=== PATIENT | female | born 1950 | race Asian ===

== ENCOUNTER 2017-01-29 10:43 | Inpatient (IN) | payer OTHER ==
[~2017-01-29] VITALS: Ht 154.9 cm; Wt 66.0 kg
[2017-01-29] MEDS ORDERED: SOD CHLORIDE 0.9% 1,000 ML IV STA ×2 (11:05)
[2017-01-29] MEDS ORDERED: HYDROmorphONE 1 MG/ML SYG IV STA (11:05)
[2017-01-29] MEDS ORDERED: CEFEPIME 2GM/50 ML (PMX) 50 ML IVPB STA (11:05)
[2017-01-29] MEDS ORDERED: PROPOFOL 100 ML IV STA (11:05)
[2017-01-29] MEDS ORDERED: SODIUM CHLORIDE 0.9% 500 ML BAG IV* STA (11:05)
[2017-01-29] MEDS ORDERED: VECURONIUM 100 MG in DEXTROSE 5% 100 ML IV ONE (11:05)
[2017-01-29] MEDS ORDERED: VECURONIUM 10 MG VIAL IV ONE (11:30)
[2017-01-29] MEDS ORDERED: VANCOMYCIN 1 GM (PMX) 250 ML IVPB ONE (11:30)
[2017-01-29] MEDS ORDERED: MIDAZOLAM (DRIP) 50 mg/50 mL 50 ML IV STA (11:54)
[2017-01-29] MEDS ORDERED: NORepinephrine 8MG/250 ML (PMX 250 ML IV STA (11:54)
[2017-01-29 11:59] LABS: ADD SCAN DIFF NO
--- NOTE | 2017-01-29 12:06 | RADRPT ---
PROCEDURE: XR Chest. CLINICAL INDICATION: Status post intubation TECHNIQUE: Single portable view of the chest was obtained COMPARISON: None FINDINGS: There is a new endotracheal tube 2.5 cm above the stalin. There is a left-sided central line with its tip overlying the mid SVC. There are external pacemakers overlying the left chest. The heart size appears grossly normal in size. There are extensive infiltrates throughout the lungs, left greater than right. There is a moderate left pleural effusion. RPTAT: AA IMPRESSION: New endotracheal tube in appropriate position. Left-sided central line in place with no pneumothorax. Extensive bilateral infiltrates, left greater than right. Moderate left pleural effusion. .Mateo Allen MD, MD Date Time Electronically viewed and signed by .Mateo Allen MD, on 01/29/2017 12:06 .S/
[2017-01-29 12:14] LABS: INR 1.45; PROTIME 17.7 Sec (12.2-14.2); PT RATIO 1.4
[2017-01-29 12:15] LABS: PARTIAL THROMBOPLASTIN TIME 60.9 Sec (25.0-35.0)
[2017-01-29 12:17] LABS: ALBUMIN 2.5 g/dl (3.3-4.9); ALBUMIN/GLOBULIN RATIO 0.71; BILIRUBIN,INDIRECT 0.3 mg/dl (0-1.1); BILIRUBIN,TOTAL 0.3 mg/dl (0.2-1.3); CALCIUM 10.4 mg/dl (8.4-10.2); CREATININE 1.31 mg/dl (0.44-1.00); MAGNESIUM 2.5 mg/dl (1.7-2.5); PHOSPHORUS 11.8 mg/dl (2.5-4.9)
[2017-01-29 12:23] LABS: POTASSIUM 2.6 mmol/L (3.5-5.1)
[2017-01-29 12:25] LABS: ABNORMAL IP MESSAGE 1; BASOPHILS % 0.4 % (0.0-2.0); EOSINOPHILS # 0.1 10^3/ul (0.0-0.5); EOSINOPHILS % 1.3 % (0.0-7.0); HEMATOCRIT 37.5 % (37.0-47.0); LYMPHOCYTES # 2.5 10^3/ul (0.8-2.9); LYMPHOCYTES % 30.8 % (15.0-51.0); MEAN CORPUSCULAR VOLUME 90.6 fl (82.0-101.0); MEAN PLATELET VOLUME 12.4 fl (7.4-10.4); MONOCYTE # 0.2 10^3/ul (0.3-0.9); MONOCYTES % 2.1 % (0.0-11.0); NEUTROPHIL # 4.8 10^3/ul (1.6-7.5); NEUTROPHILS % 58.2 % (39.0-77.0); PLATELET COUNT 193 10^3/UL (140-415); RED BLOOD COUNT 4.14 10^6/ul (4.20-5.40); WHITE BLOOD COUNT 8.2 10^3/ul (4.8-10.8)
[2017-01-29 12:27] LABS: TROPONIN-I 0.047 ng/ml (0.00-0.12)
[2017-01-29] MEDS ORDERED: POTASSIUM CHLORIDE 250 ML IVPB ONE ×2 (13:00)
[2017-01-29] MEDS ORDERED: SOD CHLORIDE 0.9% 100 ML ONE (13:34)
[2017-01-29] MEDS ORDERED: IODIXANOL LOCM 100 ML BTL ONE (13:34)
[2017-01-29] MEDS ORDERED: IODIXANOL LOCM 50 ML BTL ONE (13:35)
--- NOTE | 2017-01-29 14:04 | RADRPT ---
PROCEDURE: CT Brain without contrast. CLINICAL INDICATION: Altered mental status, unresponsive TECHNIQUE: Routine CT scan of the brain was performed on a high resolution multi detector scanner without intravenous contrast. One or more of the following dose reduction techniques were used: Auto mated exposure control; Adjustment of the mA and/or kV according to patient size; Use of iterative r econstruction technique. CTDI = 44 mGy. DLP = 630 mGy-cm. COMPARISON: No prior relevant examinations are available for comparison. FINDINGS: Hemorrhage: No evidence of intracranial hemorrhage. Acute ischemic changes: No evidence of acute ischemic changes. Mass effect/Midline shift: None. Parenchymal volume: Within normal limits for age. Ventricular system: Concordant with parenchymal volume. Chronic changes: Mild chronic-appearing microvascular ischemic changes of the supratentorial white m atter. Extracranial soft tissues: Unremarkable. Calvarium: No fractures. Paranasal sinuses: Small fluid levels are seen throughout the paranasal sinuses. Mastoid air cells: Visualized mastoid air cells are clear. IMPRESSION: No acute intracranial abnormalities. Mild chronic-appearing microvascular ischemic changes of the supratentorial white matter. MRI of the brain may be useful for further evaluation. Small fluid level seen throughout the paranasal sinuses may represent allergic rhinitis or mild sinu sitis. RPTAT: AADD .Adam Lora MD, MD Date Time Electronically viewed and signed by .Adam Lora MD, MD on 01/29/2017 14:04 .B/
--- NOTE | 2017-01-29 14:12 | ERA ---
ER Documentation Chief Complaint Date/Time DATE: 01/29/17 TIME: 14:06 Chief Complaint CARDIAC ARREST HPI Patient is a 66-year-old female with multiple myeloma who presents short of breath and unresponsive. Please note the history and physical exam as the patient is currently unresponsive. Upon review of old medical records this is the patient's first visit to the emergency department. ROS All systems reviewed and are negative except as per history of present illness. Medications Home Meds Unable to Obtain Active Prescriptions or Reported Meds Allergies Allergies: Coded Allergies: Unknown: Unable to obtain (Unverified , 01/29/17) PMhx/Soc Multiple myeloma Medical and Surgical Hx: Unable to obtain Hx Alcohol Use: No Hx Substance Use: No Hx Tobacco Use: No Smoking Status: Never smoker FmHx Unable to obtain Physical Exam Vitals Vital Signs Date Time Temp Pulse Resp B/P Pulse Ox O2 Delivery O2 Flow Rate FiO2 01/29/17 13:10 99.0 116 19 121/39 100 Mechanical Ventilator 01/29/17 12:30 99.1 124 19 116/48 100 Mechanical Ventilator 01/29/17 12:15 99.1 128 19 124/51 100 Mechanical Ventilator 01/29/17 11:40 140 19 100 01/29/17 11:06 174 11 171/74 94 Physical Exam Const: [] Head: Atraumatic Eyes: Normal Conjunctiva ENT: Normal External Ears, Nose and Mouth. Neck: Full range of motion..~ No meningismus. Resp: Clear to auscultation bilaterally Cardio: Regular rate and rhythm, no murmurs Abd: Soft, non tender, non distended. Normal bowel sounds Skin: No petechiae or rashes Back: No midline or flank tenderness Ext: No cyanosis, or edema Neur: Awake and alert Psych: Normal Mood and Affect Result Diagram: 01/29/17 1130 01/29/17 1130 Results 24 hrs Laboratory Tests Test 01/29/17 11:30 White Blood Count 8.210^3/ul Red Blood Count 4.1410^6/ul Hemoglobin 12.0g/dl Hematocrit 37.5% Mean Corpuscular Volume 90.6fl Mean Corpuscular Hemoglobin 29.0pg Mean Corpuscular Hemoglobin Concent 32.0g/dl Red Cell Distribution Width 15.0% Platelet Count 12688^3/UL Mean Platelet Volume 12.4fl Neutrophils % 58.2% Lymphocytes % 30.8% Monocytes % 2.1% Eosinophils % 1.3% Basophils % 0.4% Nucleated Red Blood Cells % 0.0/100WBC Neutrophils # 4.810^3/ul Lymphocytes # 2.510^3/ul Monocytes # 0.210^3/ul Eosinophils # 0.110^3/ul Basophils # 0.010^3/ul Nucleated Red Blood Cells # 0.010^3/ul Prothrombin Time 17.7Sec Prothrombin Time Ratio 1.4 INR International Normalized Ratio 1.45 Activated Partial Thromboplast Time 60.9Sec Sodium Level 133mmol/L Potassium Level 2.6mmol/L Chloride Level 93mmol/L Carbon Dioxide Level 13mmol/L Anion Gap 30 Blood Urea Nitrogen 15mg/dl Creatinine 1.31mg/dl Glucose Level 209mg/dl Lactic Acid Level 21.9mmol/L Calcium Level 10.4mg/dl Phosphorus Level 11.8mg/dl Magnesium Level 2.5mg/dl Total Bilirubin 0.3mg/dl Direct Bilirubin 0.00mg/dl Indirect Bilirubin 0.3mg/dl Aspartate Amino Transf (AST/SGOT) 33IU/L Alanine Aminotransferase (ALT/SGPT) 17IU/L Alkaline Phosphatase 77IU/L Troponin I 0.047ng/ml Total Protein 6.0g/dl Albumin 2.5g/dl Globulin 3.50g/dl Albumin/Globulin Ratio 0.71 Current Medications Medications (Trade) Dose Ordered Sig/Jazmin Route PRN Reason Start Time Stop Time Status Last Admin Dose Admin Cefepime HCl 50 ml @ 100 mls/hr ONCE STAT IVPB 01/29/17 11:05 01/29/17 11:34 DC 01/29/17 11:05 Vancomycin HCl 250 ml @ 125 mls/hr ONCE ONCE IVPB 01/29/17 11:30 01/29/17 13:29 DC 01/29/17 11:30 Sodium Chloride 1,000 ml @ 1,000 mls/hr Q1H STAT IV 01/29/17 11:05 01/29/17 12:04 DC 01/29/17 11:46 Sodium Chloride (NS) 1,000 ml @ 1,000 mls/hr Q1H STAT IV 01/29/17 11:05 01/29/17 12:04 DC 01/29/17 11:46 Hydromorphone HCl 1 mg 1 mg ONCE STAT IV 01/29/17 11:05 01/29/17 11:09 DC 01/29/17 11:22 Propofol (Diprivan) 100 ml @ 2.04 mls/hr ONCE STAT IV 01/29/17 11:05 01/29/17 11:56 DC 01/29/17 11:23 Sodium Chloride (NS) 500 ml ONCE STAT IV* 01/29/17 11:05 01/29/17 11:09 DC 01/29/17 11:47 Vecuronium [place] 8 mg 8 mg ONCE ONCE IV 01/29/17 11:30 01/29/17 11:31 DC 01/29/17 12:56 Vecuronium [place] 100 mg/ Dextrose 100 ml @ 4.08 mls/hr Q24H ONCE IV 01/29/17 11:05 01/30/17 11:04 01/29/17 12:56 Norepinephrine 250 ml @ 7.5 mls/hr ONCE STAT IV 01/29/17 11:54 01/30/17 21:13 01/29/17 12:12 Midazolam HCl 50 ml @ 3 mls/hr ONCE STAT IV 01/29/17 11:54 01/30/17 04:33 01/29/17 12:11 Potassium Chloride 250 ml @ 62.5 mls/hr ONCE ONCE IVPB 01/29/17 13:00 01/29/17 13:18 DC Potassium Chloride 250 ml @ 62.5 mls/hr ONCE ONCE IVPB 01/29/17 13:00 01/29/17 16:59 Cancel Potassium Chloride (KCl 40 MEQ/250 ML NS) 250 ml @ 62.5 mls/hr Q4H IVPB 01/29/17 13:30 01/29/17 21:29 IV Flush 10 ml 10 ml STK-MED ONCE .ROUTE 01/29/17 13:34 01/29/17 13:35 DC Sodium Chloride (NS) 100 ml @ ud STK-MED ONCE .ROUTE 01/29/17 13:34 01/29/17 13:35 DC Iodixanol (Visipaque Locm) 100 ml STK-MED ONCE .ROUTE 01/29/17 13:34 01/29/17 13:35 DC Iodixanol (Visipaque Locm) 50 ml STK-MED ONCE .ROUTE 01/29/17 13:35 01/29/17 13:36 DC Procedures/MDM EKG #1 read by me: Rate/Rhythm: Rapid atrial fibrillation at rate of 193 Intervals: Normal Impression: Rapid atrial fibrillation EKG #2 read by me: Rate/Rhythm: Sinus tachycardia at a rate of 139 Intervals: Prolonged QTC Impression: Sinus tachycardia with prolonged QTC without ST elevation Chest X-ray 1V Interpreted by me: Soft Tissue: No acute abnormalities Bones: No acute abnormalities Mediastinum/Cardiac Silhouette/Lungs: Bilateral pneumonia with ET tube and central line in good position without pneumothorax CT scan of the chest pending at this time. CT scan of the brain pending at this time. Admit MDM: Patient's infectious symptoms have not stabilized and the patient is at risk of rapid decompensation. The patient will be admitted for careful hydration, antibiotic therapy, and infectious source control. Severe Sepsis criteria: Infectious source: Pneumonia End organ damage indicated by: Lactate greater than 2 Sepsis Management: Time of recognition of sepsis: 11:30 Within 3 hours of recognition: Blood cultures x 2 before broad-spectrum antibiotics: Yes 30 ml/kg NS bolus Completed Initial lactate 21.9 Repeat lactate pending Time of recognition of septic shock: 11:30 Septic Shock Assessment: Any lactic acid > 4.0 yes Persistent hypotension (SBP < 90 or 40 mmHg drop, MAP < 65) despite 30 mL/kg IV fluid bolus yes Volume Re-assessment for Septic Shock (post 30 ml/kg bolus): Temp 99.1, BP 116/48, HR 124, RR 19, Pox 100% on a ventilator Heart tachycardic rate Lungs decreased breath sounds bilaterally Skin pale and dry Cap Refill Less than 2 seconds Peripheral pulses Radially present Persistent Hypotension Treatment: Comfort care No Central line left subclavian central line placed Vasopressor started norepinephrine I considered further perfusion assessment with CVP measurement, SCVO2, bedside ultrasound volume assessment, passive leg raise, trial of further fluid bolus. And proceeded with 30 ml/kg fluid bolus of NSS, broad spectrum antibiotics, and admission. The patient also has hypokalemia and was given 80 mEq of potassium. The patient was placed on hypothermia protocol as I was concerned about brain ischemia given the hypoxia and cardiac arrest. Please note the patient was brought directly back to ER1 as soon as the patient was seen in triage. The patient was brought in by her . My sense is that the patient had a cardiac arrest from septic shock and hypoxia given the bilateral pneumonia. Accepting Care Team Current data and ongoing care discussed. Admitting Physician: Dr. Gillespie from the panel team Photoengraving Etcher Apprentice(s): None Outstanding Data: Culture results and repeat lactic acid Critical Care: Critical care time 50 minutes excluding all billable procedures Emergent fluid management while maintaining close respiratory support. Provision of immediate and broad-spectrum antibiotic therapy. Simultaneous assessment for possible sources in order to direct targeted therapy. Consideration for invasive and chemical support to prevent cardiopulmonary collapse. Endotracheal Intubation by me: Pre assessment performed. Pre-oxygenation performed with 100% oxygen RSI: Performed w/o complication or hypoxic events. Medications as ordered. Blade: MAC 3 Glidescope ET Tube: 7.5 cm Depth: 20 cm at the lip Intubation confirmed by colorimetric CO2, equal breath sounds, quiet over the stomach. Central Line Placement by me: Patient consented, sterilely draped, full prep, gown, glove, mask, time out performed. Anesthesia: 1% lidocaine locally Location: Left subclavian Device: Multiple lumen Technique: Seldinger technique. Secured with suture. Results: Venous return from all ports with easy saline flush. No complications. Guide wire retrieved and disposed of. Departure Diagnosis: Primary Impression: Septic shock Additional Impressions: Cardiac arrest Hypotension Qualified Code: I95.9 - Hypotension, unspecified hypotension type Hypokalemia Acidosis Condition: Critical DELFINA VU MD Jan 29, 2017 14:12
--- NOTE | 2017-01-29 14:17 | RADRPT ---
PROCEDURE: CTA Chest. CLINICAL INDICATION: Chest pain TECHNIQUE: The study was performed utilizing a multidetector CT scanner. Direct spiral 1 mm axial sections were obtained from the thoracic inlet to the upper abdomen with the use of 105 cc of Visipa que 320 nonionic intravenous contrast material and reformatted at 3 mm. Coronal and sagittal reforma tions were obtained. 3-D reconstructions were also obtained. The images were reviewed on a PACS wor kstation. DLP 299.2 mGycm CTDIvol 8.5 and 8.5 mGy COMPARISON: Chest x-ray on the same date FINDINGS: The pulmonary arteries are within normal limits with no filling defects present to suggest pulmonary embolus. Aortic and coronary artery atherosclerotic plaque and calcification are present with no e vidence of dissection. There is no cardiomegaly. Left-sided central line catheter terminates within the SVC. There is trace pericardial fluid. The endotracheal tube extends into the lower trachea an d terminates above the stalin. There is a [id number] size left-sided multiloculated effusion. There is a trace amount of la yering right-sided pleural fluid. Left-sided effusion results in approximately 40% collapse of the left posterior lung from mass effect. There is mild left pleural thickening with visible septations . Within the aerated lungs there are multifocal areas of peribronchial consolidation along with ground -glass and some of this is a nodular appearance. Air bronchograms is seen extending through these a reas with the airways wall thickening. Small foci of airways occlusion are present. There is parti al dense consolidation of the right lower lobe and of the lingula. Layering stone is seen within the gallbladder. Degenerative changes are seen in the lumbar spine wi th no evidence of acute osseous abnormality. IMPRESSION: No CT evidence for pulmonary embolus. There is no aortic dissection. Multifocal areas of consolidation are present involving the lingula and right lower lobe along with perihilar consolidation bilaterally along with associated ground-glass worrisome for multifocal pneu monia. There is a moderate to large left-sided loculated pleural effusion with visible septations causing p artial collapse the left lung. There is a trace amount of right pleural fluid. Cholelithiasis is present. Atherosclerotic disease. RPTAT: AA .Nathan De La Rosa MD, MD Date Time Electronically viewed and signed by .Nathan De La Rosa MD, MD on 01/29/2017 14:17 .J/
[2017-01-29 15:06] LABS: AADO2 Arterial 554.3 mmHg (7.0-24.0); Allen Test ACCEPTAB; Arterial Base Excess -8.8 mmol/L (-3.0-3); Arterial COHb 0.3 % (0.0-3.0); Arterial Fraction of Oxyhgb 97.7 % (93.0-99.0); Arterial HCO3 17.4 mmol/L (22.0-26.0); Arterial MetHb 0.2 % (0.0-1.5); Arterial Total Hemglobin 12.1 g/dl (12.0-18.0); MODE VENT - AC
[2017-01-29] MEDS ORDERED: morphine 2 MG INJ IV PRN (16:30)
[2017-01-29] MEDS ORDERED: ONDANSETRON 4 MG INJ IV PRN (16:30)
[2017-01-29] MEDS ORDERED: VANCOMYCIN IV PER PHARMACY XX SCH (16:30)
[2017-01-29] MEDS ORDERED: NACL 0.9% 3 ML SYG IV SCH (16:30)
--- NOTE | 2017-01-29 17:30 | HP ---
DATE OF ADMISSION: 01/29/2017 CHIEF COMPLAINT: Cardiac arrest. HISTORY OF PRESENT ILLNESS: The patient is a 66-year-old female with history of multiple myeloma, w ho presents with shortness of breath and altered mental status. On arrival in the ED, the patient w as unresponsive. This is the patient's first visit to the ER. The patient had gone to [facility], was intubated, and ACLS with return of circulation, and was started on hypothermia protocol. No history can be obtained from the patient as she is currently intubated and sedated. PAST MEDICAL HISTORY: Multiple myeloma, remaining history is unknown. PAST SURGICAL HISTORY: Unable to obtain. HOME MEDICATIONS: Unable to obtain. ALLERGIES: UNKNOWN. FAMILY HISTORY: Unknown. SOCIAL HISTORY: Unknown. REVIEW OF SYSTEMS: Unable to obtain. PHYSICAL EXAMINATION: VITAL SIGNS: Temperature is 98.5, pulse 74, respiratory rate is 19, blood pressure is 126/58, satur ation 100% on mechanical ventilation. GENERAL: Intubated and sedated. HEENT: Normocephalic, atraumatic. CHEST: Bilateral crackles. CARDIOVASCULAR: Regular rate and rhythm. ABDOMEN: Nondistended, soft. EXTREMITIES: No clubbing, cyanosis, or edema. LABORATORY DATA: White count is 8.2, hemoglobin is 12.0, platelets 193. Chemistry: Sodium is 133, potassium 2.6, chloride 93, carbon dioxide 13, anion gap 30, BUN 15, creatinine 1.3. Lactic acid 2 1.9. Calcium 10.4, phosphorus 11.8. INR is 1.45. DIAGNOSTICS: Chest CTA shows no evidence of pulmonary embolism. There is no aortic dissection, is suspicious for multifocal pneumonia. There is moderate to large left-sided loculated pleural effusi on with septations causing partial collapse of left lung, trace amount of right pleural fluid. Ches t x-ray shows new ET tube in appropriate position, left-sided central line in place, extensive bilat eral infiltrates, left greater than right, moderate left-sided pleural effusion. Brain CT shows no acute abnormalities, some mild chronic appearing microvascular ischemic changes in the supratentoria l white matter. There is allergic rhinitis or mild sinusitis. ASSESSMENT AND PLAN: 1. Cardiac arrest with return of circulation. The patient is currently on hypothermia protocol, is intubated and sedated, and will be transferred to the ICU. We will get a pulmonology consultation. Cause of the cardiac arrest may be from sepsis from underlying pneumonia. We will treat with broa d-spectrum antibiotics. We will get an ID consult as well. 2. Severe shock with lactic acidosis secondary to cardiogenic and/or infectious source. Lactic aci d has trended down. We will treat with IV fluids. 3. Acute kidney injury, likely secondary to underlying septic shock as well as cardiac arrest. We will get a nephrology consultation. 4. Hypokalemia. This has been repleted in the ED. 5. Anion gap acidosis secondary to lactic acidosis. Once again, we will get a nephrology consultat ion. 6. Multifocal pneumonia. We will treat with IV antibiotics. The patient does also have a large le ft-sided loculated pleural effusion. We will follow up on pulmonology recommendations. 7. Prophylaxis: Sequential compression devices. Dictated By: HANY LAWSON MD BS/NTS Conf#: [id number] DID#: [id number]
[2017-01-29] MEDS: ARTIFICIAL TEARS 15 ML OPH BOTH EYES PRN ×2 (17:35→22:58)
[2017-01-29 17:49] LABS: CK-MB 33.2 ng/ml (0.0-2.4)
--- NOTE | 2017-01-29 17:58 | QN ---
Documentation Comment [id number] CONSULT A/P MARINE VDRF SEPSIS HYPOKALEMIA HYPERPHOSPHATEMIA' METABOLIC ACIDOSIS PLAN KCL IV FLUID SODIUM BICARBONATE CINDY MARES MD Jan 29, 2017 17:58
[2017-01-29 18:00] LABS: TROPONIN-I 0.15 ng/ml (0.00-0.12)
[2017-01-29] MEDS: POTASSIUM CHLORIDE 250 ML IVPB SCH ×2 (18:10→21:44)
--- NOTE | 2017-01-29 18:26 | CONS ---
DATE OF ADMISSION: 01/29/2017 DATE OF CONSULTATION: 01/29/2017 REASON FOR CONSULTATION: Ventilator management, critical care management. HISTORY OF PRESENT ILLNESS: This is a 66-year-old lady with a history of multiple myeloma managed b y hematology/oncologist in [place], who had apparently been doing well with a recent bone marrow bio psy which showed improvement in overall condition. The patient has been on maintenance medications. She has had several-day history of increasing shortness of breath, generalized weakness, fever, an d fatigue. She was in the emergency waiting room today when she became unresponsive with subsequent cardiac arrest with loss of circulation. The patient received CPR for less than 10 minutes with sp ontaneous return of circulation, following ACLS protocol. Since that time, has been placed on mecha nical ventilation and hypothermia protocol. PAST MEDICAL HISTORY: Multiple myeloma. MEDICATIONS: Per chart. ALLERGIES: NONE. SOCIAL HISTORY: Nonsmoker, no alcohol, no history of drug use. FAMILY HISTORY: Noncontributory. SYSTEMS REVIEW: A 12-point review of systems unable to perform. PHYSICAL EXAMINATION: GENERAL: Elderly-appearing lady, intubated on mechanical ventilation, appears comfortable at rest, no acute distress. VITAL SIGNS: Temperature 98, pulse is 70, blood pressure 134/58, O2 saturation 96% on FIO2 of 100%. NECK: Supple. No JVD or lymphadenopathy. CARDIAC: S1, S2, no added sounds or murmurs. CHEST: Diminished air entry bilaterally. ABDOMEN: Soft, nontender. No guarding or rebound. EXTREMITIES: No cyanosis, clubbing, edema. NEUROLOGIC: Unable to assess. LABORATORY DATA: White count 8.2, hemoglobin 12, platelets of 193. BUN 15, creatinine 1.31. Lacti c acid initially 21.9, now 4.2. Potassium 2.6, bicarbonate was 13. Arterial blood gas shows a pH o f 7.32, pCO2 of 32, PaO2 of 136, bicarbonate was 17. INR 1.45. IMAGING: Chest x-ray was reviewed, shows extensive bilateral infiltrates, left greater than right. CT angiogram was performed demonstrates moderate to large left loculated pleural effusion with visi ble septations, multifocal consolidation, no evidence of pulmonary embolism. IMPRESSION AND PLAN: Compensated pleural effusion, likely empyema given appearance with evidence of loculation, now septic shock with cardiopulmonary arrest. Underlying history of multiple myeloma. The patient will require: 1. Continue broad-spectrum antibiotics. 2. Continue mechanical ventilation. 3. Continue hypothermia protocol. 4. DVT and GI prophylaxis. 5. Aggressive volume resuscitation. Case was discussed with primary care team and patient's family at bedside. Dictated By: MOHSEN DUARTE/ZANA Conf#: [id number] DID#: [id number]
[2017-01-29 18:30] LABS: PHOSPHORUS 4.1 mg/dl (2.5-4.9)
[2017-01-29] MEDS: PIPER-TAZO 3.375 GM IV (PMX) 100 ML IVPB SCH ×2 (18:38→23:31)
[2017-01-29 18:40] LABS: ALBUMIN 2.1 g/dl (3.3-4.9)
[2017-01-29 18:43] LABS: ALBUMIN/GLOBULIN RATIO 0.6; BILIRUBIN,DIRECT 0.4 mg/dl (0.00-0.20); BILIRUBIN,INDIRECT 0.3 mg/dl (0-1.1); BILIRUBIN,TOTAL 0.7 mg/dl (0.2-1.3); CALCIUM 7.6 mg/dl (8.4-10.2); CREATININE 1.04 mg/dl (0.44-1.00); TOTAL PROTEIN 5.6 g/dl (6.1-8.1)
--- NOTE | 2017-01-29 18:54 | CONS ---
DATE OF ADMISSION: 01/29/2017 DATE OF CONSULTATION: 01/29/2017 TYPE OF CONSULTATION: Infectious Disease. REASON FOR CONSULTATION: Antibiotic management. HISTORY OF PRESENT ILLNESS: Billy Rogers is a 66-year-old female who suffered a cardiac arrest and is being seen now for antibiotic management. PAST MEDICAL HISTORY: Past problems include: History of multiple myeloma. The patient presents wit h shortness of breath. On arrival in the emergency room, she was unresponsive. She underwent a car diac arrest, was intubated. ACLS was done with return of circulation. The patient was started on hy pothermia protocol. No history other than that was obtained. PAST SURGICAL HISTORY: Operations as outlined. FAMILY HISTORY: Noncontributory. SOCIAL HISTORY: She does not smoke, drink or abuse drugs. ALLERGIES: NONE TO PENICILLIN, SULFA OR FOODS. MEDICATIONS: Per chart reviewed. REVIEW OF SYSTEMS: As per HPI. PHYSICAL EXAMINATION: NEUROLOGIC EVALUATION: The patient is intubated and sedated. SKIN: Without generalized rash. HEENT: Within normal limits. NECK: Supple. LYMPH NODES: None palpable. CHEST: Decreased breath sounds at the bases. HEART: Without murmur or gallop. ABDOMEN: Soft, nontender without organosplenomegaly or masses. EXTREMITIES: Without cyanosis, clubbing or edema. RECTAL AND GENITAL: Deferred. NEUROLOGIC: The patient is obtunded on a respirator. LABORATORY DATA: White count is 8.2, hemoglobin 12, platelets 193, BUN and creatinine 15/1.3, lacti c acid 21.9, calcium 10.4, phosphorus 11.8. IMAGING: Chest CT angiogram shows no evidence of pulmonary emboli, no aortic dissection. There is a suspicion for multifocal pneumonia. There is moderate to large left-sided loculated pleural effus ions with septation causing partial collapse of the left lung, trace amount of right pleural fluid. Chest x-ray shows an ET tube. She has left-sided central line in place, extensive bilateral infilt rates, left greater than right, moderate left-sided pleural effusion. STUDIES: CT scan of the brain shows no abnormalities, mild chronic appearing microvascular ischemic changes in the supratentorial white matter. There is allergic rhinitis or mid sinusitis. IMPRESSION AND PLAN: The patient comes in with cardiac arrest and probable aspiration pneumonia. S he was started on vancomycin and Zosyn. Cultures have been done. She will be going to the ICU. I will dictate my findings to the hospitalist. Dictated By: TOBIN VELIZ MD, JD/ZANA Conf#: [id number] DID#: [id number]
[2017-01-29 19:12] LABS: ADD UMIC YES; URINE BILIRUBIN (Dip) 1+ (NEGATIVE); URINE BLOOD (Dip) 3+ (NEGATIVE); URINE COLOR YELLOW (YELLOW); URINE KETONES (Dip) 15 (NEGATIVE); URINE LEUKOCYTE ESTERASE (Dip) NEGATIVE (NEGATIVE); URINE NITRITE (Dip) NEGATIVE (NEGATIVE); URINE TOTAL PROTEIN (Dip) 2+ (NEGATIVE); URINE UROBILINOGEN (Dip) 0.2 E.U./dL (0.1-1.0)
[2017-01-29 19:34] LABS: PROTEIN/CREAT RATIO 7.81 RATIO
--- NOTE | 2017-01-29 19:37 | CONS ---
DATE OF ADMISSION: 01/29/2017 DATE OF CONSULTATION: TYPE OF CONSULTATION: Nephrology consultation Thank you, Dr. Engle, for kindly asking me to see this patient in nephrology consultation. HISTORY OF PRESENT ILLNESS: The patient is a 66-year-old female with history of multiple myeloma on Velcade, as per patient's family member who is at bedside , presented to this hospital with flu-like symptoms, short of breath. The patient, on arrival in the ER, was unresponsive. The patient had a cardiac arrest and was intubated. Started currently on hypothermia protocol. Herself is unable to provide any detailed history. Noted to have electrolyte imbalance and nephrology consultation requested. The patient's blood pressure initially 80/60, currently 134/58. Laboratory data: Hematocrit 37.5, platelet count of 193. Sodium 133, potassium 2.6, BUN of 15, creatinine 1.31. Calcium 10.4, phosphorus 11.8. Lactic acid 21.9, repeat one is 4.2. Albumin 2.5. Globulin 3.50. The patient received potassium supplementation. The patient is being monitored for further management. PAST MEDICAL HISTORY: Positive for multiple myeloma on chemotherapy. The patient's other history is not available. ALLERGY HISTORY, FAMILY HISTORY, AND SOCIAL HISTORY: Cannot be obtained. MEDICATION HISTORY: Not available. REVIEW OF SYSTEMS: Cannot be obtained. PHYSICAL EXAMINATION: GENERAL: The patient is intubated, unresponsive. VITAL SIGNS: Pulse 61, blood pressure 128/53. HEENT: Head is atraumatic, normocephalic. Pupils are equal, reactive. NECK: Supple. LUNGS: Clear. CARDIOVASCULAR: S1, S2 are normal. ABDOMEN: Soft, nontender. Bowel sounds positive. No palpable mass. EXTREMITIES: The patient has no cyanosis, clubbing. Trace edema. CENTRAL NERVOUS SYSTEM: The patient is intubated at this point on hypothermia protocol. LABORATORY DATA: As mentioned, hematocrit 37.5. The patient's lactic acid 3.7. Sodium 133, potassium 2.6 as mentioned, CO2 of 13, BUN 13, creatinine 1.31 , calcium 10.4, phosphorus 11.8. The patient had pH 7.3, pCO2 of 32, pO2 of 106. IMPRESSION: 1. Acute cardiorespiratory arrest. 2. The patient has acute kidney injury with possible underlying chronic kidney disease. 3. The patient has severe metabolic acidosis, lactic acidosis. 4. Hypokalemia, hypophosphatemia, severe. 5. History of multiple myeloma. 6. Rule out underlying chronic myeloma kidney. PLAN: At this point is to obtain urine for UA, urine sodium and creatinine, as well as urine protein creatinine ratio. The patient is currently on vancomycin , Protonix, Zosyn. The patient should be given IV fluid with sodium bicarbonate after repeating patient's BMP if still acidotic. The patient will have potassium supplementation. The patient's phosphorus will be monitored. The patient with hypocalcemia and hyperphosphatemia After repeat laboratory data , currently stable. The patient should have ultrasound of the kidney to assess the size of the kidney. The patient's CT of the brain shows no acute intracranial abnormality. The patient's chest x-ray shows the ET tube in place. CT chest angio shows no CT evidence of pulmonary embolism, multifocal areas of consolidation are present. There is a have large left-sided loculated pleural effusion, cholelithiasis, atherosclerotic disease. The patient is going to be admitted to ICU with close followup and electrolyte monitoring. Thank you, Dr. Engle, for kindly asking me to see this patient in nephrology consultation. Dictated By: CINDY MARES MD BS/NTS Conf#: [id number] DID#: [id number] CC: HANY ENGLE MD;*EndCC* MTDD
[2017-01-29 19:49] LABS: BACTERIA,URINE FEW; ICTOTEST NEGATIVE (NEGATIVE); SQUAMOUS EPITHELIAL CELL,UR FEW; URINE RBCS 0-2 /HPF (0)
[2017-01-29 23:14] LABS: CK-MB 32.5 ng/ml (0.0-2.4)
[2017-01-29 23:17] LABS: TROPONIN-I 0.113 ng/ml (0.00-0.12)
[2017-01-30] VITALS (30 sets, daily range): BP systolic 82–129; BP diastolic 25–83; PULSE 91–109; RESP 11–17; TEMP 92.9; Ht 154.9 cm; Wt 66.0 kg
[2017-01-30 00:04] LABS: AADO2 Arterial 266.6 mmHg (7.0-24.0); Allen Test ACCEPTAB; Arterial Base Excess -13.1 mmol/L (-3.0-3); Arterial COHb 0.1 % (0.0-3.0); Arterial Fraction of Oxyhgb 92.6 % (93.0-99.0); Arterial HCO3 14.2 mmol/L (22.0-26.0); Arterial MetHb 0.1 % (0.0-1.5); Arterial Total Hemglobin 14.1 g/dl (12.0-18.0); MODE AC
[2017-01-30 00:16] LABS: ADD SCAN DIFF NO
[2017-01-30 00:17] LABS: ABNORMAL IP MESSAGE 1; HEMATOCRIT 38.7 % (37.0-47.0); HEMOGLOBIN 13.2 g/dl (12.0-16.0); MEAN CORPUSCULAR HEMOGLOBIN 29.3 pg (29.0-33.0); MEAN CORPUSCULAR HGB CONC 34.1 g/dl (32.0-37.0); MEAN CORPUSCULAR VOLUME 85.8 fl (82.0-101.0); MEAN PLATELET VOLUME 12.7 fl (7.4-10.4); PLATELET COUNT 164 10^3/UL (140-415); RED BLOOD COUNT 4.51 10^6/ul (4.20-5.40); RED CELL DISTRIBUTION WIDTH 15.1 % (11.5-14.5); WHITE BLOOD COUNT 6.3 10^3/ul (4.8-10.8)
[2017-01-30] MEDS: ACCU-CHEK XX SCH ×6 (00:17→21:00)
[2017-01-30 00:24] LABS: CALCIUM 7.2 mg/dl (8.4-10.2); CREATININE 1.04 mg/dl (0.44-1.00); MAGNESIUM 1.8 mg/dl (1.7-2.5); PHOSPHORUS 4.7 mg/dl (2.5-4.9); POTASSIUM 3.8 mmol/L (3.5-5.1)
[2017-01-30 00:40] LABS: INR 1.25; PROTIME 15.8 Sec (12.2-14.2); PT RATIO 1.2
[2017-01-30 00:41] LABS: PARTIAL THROMBOPLASTIN TIME 35.1 Sec (25.0-35.0); TROPONIN-I 0.124 ng/ml (0.00-0.12)
[2017-01-30] MEDS ORDERED: NA BICARBONATE 8.4% 50 ML SYG IV ONE (01:00)
[2017-01-30 01:40] LABS: EOSINOPHILS # 0.2 10^3/ul (0.0-0.5); LYMPHOCYTES # 1.8 10^3/ul (0.8-2.9); MONOCYTE # 0.3 10^3/ul (0.3-0.9)
[2017-01-30 01:41] LABS: PLATELET ESTIMATE PLT APPEAR ADEQUATE
[2017-01-30] MEDS: NS + KCL 20 MEQ 1,000 ML IV SCH ×3 (02:03→15:40)
[2017-01-30 03:30] LABS: AADO2 Arterial 290.1 mmHg (7.0-24.0); Allen Test ACCEPTAB; Arterial Base Excess -5.1 mmol/L (-3.0-3); Arterial COHb 0.3 % (0.0-3.0); Arterial Fraction of Oxyhgb 95.9 % (93.0-99.0); Arterial HCO3 19.7 mmol/L (22.0-26.0); Arterial MetHb 0.1 % (0.0-1.5); Arterial Total Hemglobin 13.8 g/dl (12.0-18.0); MODE VENT - AC
[2017-01-30] MEDS: ARTIFICIAL TEARS 15 ML OPH BOTH EYES PRN (04:29)
[2017-01-30 05:13] LABS: ADD SCAN DIFF NO
[2017-01-30 05:17] LABS: ABNORMAL IP MESSAGE 1; BASOPHIL # 0.1 10^3/ul (0.0-0.1); BASOPHILS % 1.9 % (0.0-2.0); EOSINOPHILS # 0.1 10^3/ul (0.0-0.5); EOSINOPHILS % 1.5 % (0.0-7.0); HEMATOCRIT 36.5 % (37.0-47.0); HEMOGLOBIN 12.7 g/dl (12.0-16.0); LYMPHOCYTES # 1.4 10^3/ul (0.8-2.9); LYMPHOCYTES % 30.9 % (15.0-51.0); MEAN CORPUSCULAR HEMOGLOBIN 29.1 pg (29.0-33.0); MEAN CORPUSCULAR HGB CONC 34.8 g/dl (32.0-37.0); MEAN CORPUSCULAR VOLUME 83.7 fl (82.0-101.0); MEAN PLATELET VOLUME 13.3 fl (7.4-10.4); MONOCYTE # 0.3 10^3/ul (0.3-0.9); MONOCYTES % 5.6 % (0.0-11.0); NEUTROPHIL # 2.5 10^3/ul (1.6-7.5); NEUTROPHILS % 53.4 % (39.0-77.0); PLATELET COUNT 100 10^3/UL (140-415); RED BLOOD COUNT 4.36 10^6/ul (4.20-5.40); RED CELL DISTRIBUTION WIDTH 14.8 % (11.5-14.5); WHITE BLOOD COUNT 4.7 10^3/ul (4.8-10.8)
[2017-01-30 05:27] LABS: ALBUMIN 1.8 g/dl (3.3-4.9); CHLORIDE 109 mmol/L (97-110)
[2017-01-30 05:28] LABS: INR 1.25; POTASSIUM 3.2 mmol/L (3.5-5.1); PROTIME 15.8 Sec (12.2-14.2); PT RATIO 1.2; SODIUM 146 mmol/L (135-144)
[2017-01-30 05:29] LABS: PARTIAL THROMBOPLASTIN TIME 32.6 Sec (25.0-35.0)
[2017-01-30 05:30] LABS: ALBUMIN/GLOBULIN RATIO 0.58; ANION GAP 18 (8-16); BILIRUBIN,INDIRECT 0.2 mg/dl (0-1.1); BILIRUBIN,TOTAL 0.2 mg/dl (0.2-1.3); CARBON DIOXIDE 22 mmol/L (21-31); CREATININE 1.01 mg/dl (0.44-1.00); TOTAL PROTEIN 4.9 g/dl (6.1-8.1)
[2017-01-30 05:31] LABS: ALANINE AMINOTRANSFERASE 40 IU/L (13-69); ALKALINE PHOSPHATASE 47 IU/L (42-121); ASPARTATE AMINO TRANSFERASE 48 IU/L (15-46); BLOOD UREA NITROGEN 24 mg/dl (7-20); CALCIUM 6.7 mg/dl (8.4-10.2); GLUCOSE 171 mg/dl (70-220); MAGNESIUM 1.8 mg/dl (1.7-2.5); PHOSPHORUS 3.9 mg/dl (2.5-4.9); TRIGLYCERIDES 117 mg/dl (0-149)
[2017-01-30 05:32] LABS: HDL CHOLESTEROL 10 mg/dl (35-98)
[2017-01-30 05:35] LABS: CHOLESTEROL < 50 mg/dl (100-200)
[2017-01-30] MEDS: PIPER-TAZO 3.375 GM IV (PMX) 100 ML IVPB SCH ×3 (05:41→18:45)
[2017-01-30] MEDS: PANTOPRAZOLE 40 MG INJ IV SCH (05:41)
[2017-01-30] MEDS ORDERED: POTASSIUM CHLORIDE 20 MEQ in SOD CHLORIDE 0.9% 100 ML IVPB ONE ×2 (06:00→14:00)
[2017-01-30] MEDS ORDERED: NA BICARBONATE 8.4% 50 ML SYG ONE (07:00)
[2017-01-30] MEDS ORDERED: CA CHLORIDE 10% 10 ML SYRINGE ONE (07:00)
[2017-01-30] MEDS ORDERED: EPINEPHrine 0.1 MG/ML SYG ONE (07:00)
--- NOTE | 2017-01-30 07:25 | RADRPT ---
PROCEDURE: XR Chest. CLINICAL INDICATION: Cough. Hypothermia protocol. TECHNIQUE: Portable single view of the chest COMPARISON: 01/29 FINDINGS: Lung volumes are reduced compared with prior. Tubes and lines remain in good position. Apparent in crease in bilateral lung infiltrates or edema may be due to hypoventilation. There does appear to b e slight increase in left pleural effusion. Top normal heart size. IMPRESSION: Shallower lung volumes. Possible slight increase in pleural effusion. Otherwise likely stable exam . RPTAT: HLBE Willa Bishop Physician Date Time Electronically viewed and signed by Willa Bishop Physician on 01/30/2017 07:25 LE/
[2017-01-30 09:04] LABS: AADO2 Arterial 294.9 mmHg (7.0-24.0); Allen Test ACCEPTAB; Arterial Base Excess -6.4 mmol/L (-3.0-3); Arterial COHb 0.3 % (0.0-3.0); Arterial Fraction of Oxyhgb 94.7 % (93.0-99.0); Arterial HCO3 19.2 mmol/L (22.0-26.0); Arterial MetHb 0.3 % (0.0-1.5); Arterial Total Hemglobin 13.5 g/dl (12.0-18.0); MODE VENT - AC
[2017-01-30] MEDS: VANCOMYCIN 1 GM in NS 250 ML IVPB SCH (12:14)
--- NOTE | 2017-01-30 12:30 | CONS ---
Date/Time of Note Date/Time of Note DATE: 01/30/17 TIME: 12:27 Assessment/Plan Assessment/Plan Additional Assessment/Plan Chest x-ray was reviewed from today which is showing extensive pneumonia mostly involving the left lung. Endotracheal tube is at an adequate level. Current ventilator settings are AC of 16, tidal volume 450, PEEP of 5, 55% FiO2. Assessment recommendations; next 1. Patient admitted with bilateral pneumonia leading to respiratory failure. 3. Episode of cardiac arrest requiring brief CPR, currently on hypothermia protocol. 3. History of multiple myeloma. Continue current treatment. Patient will be taken off hypothermia protocol in the next 1 hour. Meanwhile add Levaquin to current antibiotic regimen. Also because of thrombocytopenia I would recommend stopping Zosyn and switching the patient to cefepime 1 g IV every 12 hours. I did have a detailed discussion the patient's daughter at bedside and answered all her questions. 35 minutes of critical care time was spent evaluating the patient. Consultation Date/Type/Reason Admit Date/Time HEENT exam is; supple neck, no JVD. No lymphadenopathy. Midline trachea. Orally intubated. Patient bilateral cataracts. Pupils are small bilaterally. No neck masses. No neck bruits. Chest exam is; crackles involving left lung. Right lung is fairly clear. S1- S2 audible, no murmurs. Regular rhythm. Abdomen examination; soft, no organomegaly. Bowel sounds audible. Extremity exam; no peripheral edema. Pulses 1+ bilaterally. [employer] CONSULTANT examination; patient is sedated and paralyzed. Type of Consultation: Pulmonary/critical care 24 HR Interval Summary Free Text/Dictation Patient condition is critical. The patient had a cardiac arrest last night was intubated by ER physician also underwent a brief CPR lasting around 2 minutes. Patient currently on hypothermia protocol. Exam; elderly woman, orally intubated, sedated and paralyzed. Exam/Review of Systems Vital Signs Vitals Vital Signs Date Time Temp Pulse Resp B/P Pulse Ox O2 Delivery O2 Flow Rate FiO2 01/30/17 11:36 91.5 79 16 141/65 100 Mechanical Ventilator 01/30/17 05:08 55 Intake and Output 01/29/17 01/29/17 01/30/17 15:00 23:00 07:00 Intake Total 600 ml 250 ml Output Total 500 ml Balance 100 ml 250 ml Results Result Diagram: 01/30/17 0500 01/30/17 0500 Results 24 hrs Laboratory Tests Test 01/29/17 15:05 01/29/17 16:30 01/29/17 17:09 01/29/17 17:10 Lactic Acid Level 4.2 *H 3.7 H Bedside Glucose 107 122 Sodium Level 137 Potassium Level 3.0 L Chloride Level 103 # Carbon Dioxide Level 18 L Anion Gap 19 #H Blood Urea Nitrogen 20 Creatinine 1.04 H Glucose Level 141 # Uric Acid 9.0 H Calcium Level 7.6 L Phosphorus Level 4.1 # Total Bilirubin 0.7 Direct Bilirubin 0.40 #H Indirect Bilirubin 0.3 Aspartate Amino Transf (AST/SGOT) 65 H Alanine Aminotransferase (ALT/SGPT) 42 Alkaline Phosphatase 61 Creatine Kinase 1263 H Creatine Kinase Index 2.6 Creatinine Kinase MB (Mass) 33.20 H Troponin I 0.150 *H Total Protein 5.6 L Albumin 2.1 L Globulin 3.50 H Albumin/Globulin Ratio 0.60 Test 01/29/17 18:55 01/29/17 20:12 01/29/17 22:18 01/30/17 00:00 Urine Color YELLOW Urine Clarity CLEAR Urine pH 5.5 Urine Specific [place] 1.010 Urine Ketones 15 Urine Nitrite NEGATIVE Urine Bilirubin 1+ H Urine Ictotest NEGATIVE Urine Urobilinogen 0.2 E.U./dL Urine Leukocyte Esterase NEGATIVE Urine Microscopic RBC 0-2 Urine Microscopic WBC 2-5 Urine Squamous Epithelial Cells FEW Urine Bacteria FEW Urine Coarse Granular Casts RARE Urine Hemoglobin 3+ H Urine Random Creatinine 39.65 Urine Random Sodium 21 L Urine Protein/Creatinine Ratio 7.81 Urine Glucose 0.25% H Urine Total Protein 310.0 H Bedside Glucose 117 White Blood Count 6.3 # Red Blood Count 4.51 Hemoglobin 13.2 Hematocrit 38.7 Mean Corpuscular Volume 85.8 Mean Corpuscular Hemoglobin 29.3 Mean Corpuscular Hemoglobin Concent 34.1 Red Cell Distribution Width 15.1 H Platelet Count 164 Mean Platelet Volume 12.7 H Neutrophils % 63.0 Lymphocytes % 29.0 Monocytes % 5.0 Eosinophils % 3.0 Basophils % Nucleated Red Blood Cells % 1.0 H Neutrophils # 4.0 Lymphocytes # 1.8 Monocytes # 0.3 Eosinophils # 0.2 Basophils # Platelet Estimate PLT APPEAR ADEQUATE Prothrombin Time 15.8 H Prothrombin Time Ratio 1.2 INR International Normalized Ratio 1.25 Activated Partial Thromboplast Time 35.1 H Fibrinogen 438.0 Sodium Level 134 L Potassium Level 3.8 Chloride Level 109 Carbon Dioxide Level 16 L Anion Gap 13 Blood Urea Nitrogen 21 H Creatinine 1.04 H Glucose Level 158 Calcium Level 7.2 L Phosphorus Level 4.7 Magnesium Level 1.8 Creatine Kinase 776 H Creatine Kinase Index 4.2 Creatinine Kinase MB (Mass) 32.50 H Troponin I 0.124 *H Amylase Level 36 Lipase 245 Blood Gas Specimen Source Blood arterial Arterial Blood Date Drawn 01/29/2017 11:58:38 PM Arterial Blood pH (Temp corrected) 7.251 *L Arterial Blood pCO2 (Temp correct) 31.3 L Arterial Blood pO2 (Temp corrected) 59.4 L Arterial Blood HCO3 14.2 L Arterial Blood Base Excess -13.1 L Arterial Blood Oxygen Saturation 92.8 L Ariel Test ACCEPTAB Arterial Blood Gas Puncture Site Left Radial Arterial Blood Carboxyhemoglobin 0.1 Arterial Blood Methemoglobin 0.1 Blood Gas A-a O2 Differential 266.6 H Oxyhemoglobin Percent 92.6 L Total Hemoglobin 14.1 Blood Gas Temperature 32.9 Blood Gas Respiration Rate 16.0 Blood Gas Actual Respiration Rate 16 Blood Gas Modality AC FiO2 50.0 Blood Gas Tidal Volume 550.0 Blood Gas Low PEEP Setting 5.0 Blood Gas Inspiratory Pressure 31.0 Blood Gas Critical Value Read Back DR. ABEBE Blood Gas Notified Whom [facility] Blood Gas Notified Time 01/30/2017 12:03:51 AM Test 01/30/17 03:00 01/30/17 05:00 01/30/17 05:20 01/30/17 06:00 Blood Gas Specimen Source Blood arterial Blood arterial Arterial Blood Date Drawn 01/30/2017 3:20:10 AM 01/30/2017 8:55:25 AM Arterial Blood pH (Temp corrected) 7.410 7.374 Arterial Blood pCO2 (Temp correct) 30.6 L 32.2 L Arterial Blood pO2 (Temp corrected) 73.3 L 66.6 L Arterial Blood HCO3 19.7 L 19.2 L Arterial Blood Base Excess -5.1 L -6.4 L Arterial Blood Oxygen Saturation 96.3 95.3 Ariel Test ACCEPTAB ACCEPTAB Arterial Blood Gas Puncture Site Left Radial Right Radial Arterial Blood Carboxyhemoglobin 0.3 0.3 Arterial Blood Methemoglobin 0.1 0.3 Blood Gas A-a O2 Differential 290.1 H 294.9 H Oxyhemoglobin Percent 95.9 94.7 Total Hemoglobin 13.8 13.5 Blood Gas Temperature 33.0 33.0 Blood Gas Respiration Rate 16.0 16.0 Blood Gas Actual Respiration Rate 16 16 Blood Gas Modality VENT - AC VENT - AC FiO2 55.0 55.0 Blood Gas Tidal Volume 450.0 450.0 Blood Gas Low PEEP Setting 5.0 5.0 Blood Gas Inspiratory Pressure 31.0 Blood Gas Critical Value Read Back rodrigo Blood Gas Notified Whom rodrigo tail sawyer JLD Blood Gas Notified Time 01/30/2017 3:29:53 AM 01/30/2017 9:04:12 AM White Blood Count 4.7 #L Red Blood Count 4.36 Hemoglobin 12.7 Hematocrit 36.5 L Mean Corpuscular Volume 83.7 Mean Corpuscular Hemoglobin 29.1 Mean Corpuscular Hemoglobin Concent 34.8 Red Cell Distribution Width 14.8 H Platelet Count 100 #L Mean Platelet Volume 13.3 H Neutrophils % 53.4 Lymphocytes % 30.9 Monocytes % 5.6 Eosinophils % 1.5 Basophils % 1.9 Nucleated Red Blood Cells % 0.0 Neutrophils # 2.5 Lymphocytes # 1.4 Monocytes # 0.3 Eosinophils # 0.1 Basophils # 0.1 Nucleated Red Blood Cells # 0.0 Prothrombin Time 15.8 H Prothrombin Time Ratio 1.2 INR International Normalized Ratio 1.25 Activated Partial Thromboplast Time 32.6 Fibrinogen 392.0 # Sodium Level 146 H Potassium Level 3.2 L Chloride Level 109 Carbon Dioxide Level 22 Anion Gap 18 H Blood Urea Nitrogen 24 H Creatinine 1.01 H Glucose Level 171 Hemoglobin A1c 5.7 Calcium Level 6.7 L Phosphorus Level 3.9 Magnesium Level 1.8 Total Bilirubin 0.2 Direct Bilirubin 0.00 # Indirect Bilirubin 0.2 Aspartate Amino Transf (AST/SGOT) 48 H Alanine Aminotransferase (ALT/SGPT) 40 Alkaline Phosphatase 47 Total Protein 4.9 L Albumin 1.8 L Globulin 3.10 Albumin/Globulin Ratio 0.58 Triglycerides Level 117 Cholesterol Level < 50 L LDL Cholesterol, Calculated HDL Cholesterol 10 L Cholesterol/HDL Ratio Lactic Acid Level 2.8 H Test 01/30/17 08:53 01/30/17 11:26 Bedside Glucose 165 150 Medications Medications Current Medications Potassium Chloride/Sodium Chloride (NS-KCl 20 Meq) 1,000 ml @ 125 mls/hr Q8H IV Last administered on 01/30/17 02:03; Admin Dose 125 MLS/HR; Start 01/29/17 at 16:15 Ondansetron HCl (Zofran Inj) 4 mg Q6H PRN IV NAUSEA AND/OR VOMITING; Start at 16:30 Morphine Sulfate (morphine) 2 mg Q4H PRN IV SEVERE PAIN LEVEL 7-10; Start 01/29 at 16:30 Pantoprazole 40 mg 40 mg DAILY@06 IV Last administered on 01/30/17 05:41; Admin Dose 40 MG; Start 01/30/17 at 06:00 Piperacillin Sod/ Tazobactam Sod 100 ml @ 200 mls/hr Q6 IVPB Last administered on 01/30/17 11:10; Admin Dose 200 MLS/HR; Start 01/29/17 at 18:00 Vancomycin HCl (Vancocin) 250 ml @ 125 mls/hr Q24H IVPB Last administered on 12:14; Admin Dose 125 MLS/HR; Start 01/30/17 at 11:30 Eye Lubricant (Artificial Tears Oph) 2 drop Q6H PRN BOTH EYES DRY EYES Last administered on 01/30/17 04:29; Admin Dose 2 DROP; Start 01/29/17 at 18:30 Diagnostic Test (Pha) (Accu-Chek) 1 ea Q4 XX Last administered on 01/30/17 08: 58; Admin Dose 1 EA; Start 01/30/17 at 01:00 TERESA FAITH Jan 30, 2017 12:30
[2017-01-30 13:06] LABS: ADD SCAN DIFF NO
[2017-01-30] MEDS: LEVOFLOXACIN 500MG/D5W (PMX) 100 ML IVPB ONE ×2 (13:06→14:34)
[2017-01-30 13:12] LABS: ABNORMAL IP MESSAGE 1; HEMATOCRIT 34.9 % (37.0-47.0); HEMOGLOBIN 12.2 g/dl (12.0-16.0); MEAN CORPUSCULAR HEMOGLOBIN 29.3 pg (29.0-33.0); MEAN CORPUSCULAR VOLUME 83.7 fl (82.0-101.0); RED BLOOD COUNT 4.17 10^6/ul (4.20-5.40); RED CELL DISTRIBUTION WIDTH 14.9 % (11.5-14.5)
[2017-01-30 13:17] LABS: INR 1.03; PROTIME 13.5 Sec (12.2-14.2); PT RATIO 1.1
[2017-01-30 13:20] LABS: CREATININE 0.97 mg/dl (0.44-1.00)
[2017-01-30 13:21] LABS: CALCIUM 6.8 mg/dl (8.4-10.2); MAGNESIUM 1.7 mg/dl (1.7-2.5); PHOSPHORUS 4.2 mg/dl (2.5-4.9)
[2017-01-30 13:27] LABS: POTASSIUM 2.9 mmol/L (3.5-5.1)
[2017-01-30 13:33] LABS: TROPONIN-I 0.09 ng/ml (0.00-0.12)
--- NOTE | 2017-01-30 15:16 | CONS ---
Date/Time of Note Date/Time of Note DATE: 01/30/17 TIME: 14:52 Assessment/Plan Assessment/Plan Chief Complaint/Hosp Course ID PROGRESS NOTE ABX DAY #2=> Vanco IV #2 + Zosyn #2 + Levaquin #1 24H INTERVAL SUMMARY * Patient admitted yesterday s/p cardia arrest -- was placed on hypothermia protocol -- spouse at bedside * Seen today in ED Bed #4 -> orally intubated/vented, on pressors, warming blanket - obtunded * ID team was called for antibiotic management of aspiration PNA in setting cardiac arrest * CXR revealed bilateral infiltrates * CT Thorax 01/29 revealed Multifocal areas of consolidation are present involving the lingula and right lower lobe along with perihilar consolidation bilaterally along with associated ground-glass worrisome for multifocal pneumonia.There is a moderate to large left-sided loculated pleural effusion with visible septations causing partial collapse the left lung. There is a trace amount of right pleural fluid. * 01/30/17 1400 01/30/17 1240 Shruti: 01/29/17-1145 Source: BLOOD Sp Descrip: Microbiology BLOOD CULTURE Preliminary BCULT GRAM BOTTLE 1 Gram positive cocci in pairs and chains . seen on gram stain of the broth BCULT GRAM BOTTLE 2 Gram positive cocci in pairs and chain . seen on gram stain of the broth Organism 1 GRAM POS COCCI IN PAIRS,CHAIN PHYSICAL EXAMINATION: GENERAL: 66 yo [place] F, orally intubated, sedated on the Ventilator, on pressors, warming process post hypothermia protocol has begun HEENT: AT, NC, anicteric, ETT-> Secure to Vent NECK: Supple, trachea midline. CHEST: Rise symmetrical, (+)course anterior BX w/rales HEART: Pulse RRR -- Tachy ABDOMEN: Soft EXTREMITIES: Warm, dry, no edema SKIN: Intact ID ASSESSMENT 66 yo F admit with: 1. Cardiac arrest with return of circulation. * s/p Hypthermia protocol -> Initiated today on warming protocol w/Donnell [place]. 2. Shock on pressor support -- suspect cardiogenic + septic on admission w/ lactic acidosis * Blood CX (+) GRAM POS COCCI IN PAIRS,CHAIN ?Streptococcal PNA ? * Lactic acidosis improved, no leukocytosis 3. Multifocal PNA -> Community acquired PNA may have been the etiology of cardia arrest w/left-sided loculated pleural effusion. * Aspiration PNA likely a component following CPRS/ACLS -- Now orally intubation on the Vent * HCAP coverage now that patient is intubated 4. Acute kidney injury, likely secondary to underlying septic shock as well as cardiac arrest. 5. Hypokalemia-> replaced 6. Anion gap acidosis secondary to lactic acidosis. 7. Cerebral microvascular disease w/mil chronic-appearing microvascular ischemic changes of the supratentorial white matter on CT Brain. 8. Small fluid level seen throughout the paranasal sinuses may represent allergic rhinitis or mild sinusitis. ( ) MRSA Nares-> Will screen INVASIVES: R-IJ TLC, ETT, OGT, FC ABX ALLERGY: KNDA CURRENT ABX: ABX DAY #2=> Vanco IV #2 + Zosyn #2 + Levaquin #1 ID RECOMMENDATIONS 1. Continue current ABX -- Levaquin added for CAP * Renal fx improved -- watch renal fx closely on Vanco + Zosyn combo 2. Swab nares for MRSA screen 3. Respiratory cx for C&S 4. Repeat BCx via TLC 5. 2D ECHO r/o SBE * Spouse given update on ABX treatment for PNA and sepsis and expresses understanding/gratitude . . Problems: Consultation Date/Type/Reason Admit Date/Time Initial Consult Date Type of Consultation: ID Exam/Review of Systems Vital Signs Vitals Vital Signs Date Time Temp Pulse Resp B/P Pulse Ox O2 Delivery O2 Flow Rate FiO2 01/30/17 14:30 92.0 83 16 120/49 100 Mechanical Ventilator 01/30/17 11:00 55 Intake and Output 01/29/17 01/29/17 01/30/17 15:00 23:00 07:00 Intake Total 600 ml 250 ml Output Total 500 ml Balance 100 ml 250 ml Results Result Diagram: 01/30/17 1400 01/30/17 1240 Results 24 hrs Laboratory Tests Test 01/29/17 15:05 01/29/17 16:30 01/29/17 17:09 01/29/17 17:10 Lactic Acid Level 4.2 *H 3.7 H Bedside Glucose 107 122 Sodium Level 137 Potassium Level 3.0 L Chloride Level 103 # Carbon Dioxide Level 18 L Anion Gap 19 #H Blood Urea Nitrogen 20 Creatinine 1.04 H Glucose Level 141 # Uric Acid 9.0 H Calcium Level 7.6 L Phosphorus Level 4.1 # Total Bilirubin 0.7 Direct Bilirubin 0.40 #H Indirect Bilirubin 0.3 Aspartate Amino Transf (AST/SGOT) 65 H Alanine Aminotransferase (ALT/SGPT) 42 Alkaline Phosphatase 61 Creatine Kinase 1263 H Creatine Kinase Index 2.6 Creatinine Kinase MB (Mass) 33.20 H Troponin I 0.150 *H Total Protein 5.6 L Albumin 2.1 L Globulin 3.50 H Albumin/Globulin Ratio 0.60 Test 01/29/17 18:55 01/29/17 20:12 01/29/17 22:18 01/30/17 00:00 Urine Color YELLOW Urine Clarity CLEAR Urine pH 5.5 Urine Specific [place] 1.010 Urine Ketones 15 Urine Nitrite NEGATIVE Urine Bilirubin 1+ H Urine Ictotest NEGATIVE Urine Urobilinogen 0.2 E.U./dL Urine Leukocyte Esterase NEGATIVE Urine Microscopic RBC 0-2 Urine Microscopic WBC 2-5 Urine Squamous Epithelial Cells FEW Urine Bacteria FEW Urine Coarse Granular Casts RARE Urine Hemoglobin 3+ H Urine Random Creatinine 39.65 Urine Random Sodium 21 L Urine Protein/Creatinine Ratio 7.81 Urine Glucose 0.25% H Urine Total Protein 310.0 H Bedside Glucose 117 White Blood Count 6.3 # Red Blood Count 4.51 Hemoglobin 13.2 Hematocrit 38.7 Mean Corpuscular Volume 85.8 Mean Corpuscular Hemoglobin 29.3 Mean Corpuscular Hemoglobin Concent 34.1 Red Cell Distribution Width 15.1 H Platelet Count 164 Mean Platelet Volume 12.7 H Neutrophils % 63.0 Lymphocytes % 29.0 Monocytes % 5.0 Eosinophils % 3.0 Basophils % Nucleated Red Blood Cells % 1.0 H Neutrophils # 4.0 Lymphocytes # 1.8 Monocytes # 0.3 Eosinophils # 0.2 Basophils # Platelet Estimate PLT APPEAR ADEQUATE Prothrombin Time 15.8 H Prothrombin Time Ratio 1.2 INR International Normalized Ratio 1.25 Activated Partial Thromboplast Time 35.1 H Fibrinogen 438.0 Sodium Level 134 L Potassium Level 3.8 Chloride Level 109 Carbon Dioxide Level 16 L Anion Gap 13 Blood Urea Nitrogen 21 H Creatinine 1.04 H Glucose Level 158 Calcium Level 7.2 L Phosphorus Level 4.7 Magnesium Level 1.8 Creatine Kinase 776 H Creatine Kinase Index 4.2 Creatinine Kinase MB (Mass) 32.50 H Troponin I 0.124 *H Amylase Level 36 Lipase 245 Blood Gas Specimen Source Blood arterial Arterial Blood Date Drawn 01/29/2017 11:58:38 PM Arterial Blood pH (Temp corrected) 7.251 *L Arterial Blood pCO2 (Temp correct) 31.3 L Arterial Blood pO2 (Temp corrected) 59.4 L Arterial Blood HCO3 14.2 L Arterial Blood Base Excess -13.1 L Arterial Blood Oxygen Saturation 92.8 L Ariel Test ACCEPTAB Arterial Blood Gas Puncture Site Left Radial Arterial Blood Carboxyhemoglobin 0.1 Arterial Blood Methemoglobin 0.1 Blood Gas A-a O2 Differential 266.6 H Oxyhemoglobin Percent 92.6 L Total Hemoglobin 14.1 Blood Gas Temperature 32.9 Blood Gas Respiration Rate 16.0 Blood Gas Actual Respiration Rate 16 Blood Gas Modality AC FiO2 50.0 Blood Gas Tidal Volume 550.0 Blood Gas Low PEEP Setting 5.0 Blood Gas Inspiratory Pressure 31.0 Blood Gas Critical Value Read Back DR. ABEBE Blood Gas Notified Whom [facility] Blood Gas Notified Time 01/30/2017 12:03:51 AM Test 01/30/17 03:00 01/30/17 05:00 01/30/17 05:20 01/30/17 06:00 Blood Gas Specimen Source Blood arterial Blood arterial Arterial Blood Date Drawn 01/30/2017 3:20:10 AM 01/30/2017 8:55:25 AM Arterial Blood pH (Temp corrected) 7.410 7.374 Arterial Blood pCO2 (Temp correct) 30.6 L 32.2 L Arterial Blood pO2 (Temp corrected) 73.3 L 66.6 L Arterial Blood HCO3 19.7 L 19.2 L Arterial Blood Base Excess -5.1 L -6.4 L Arterial Blood Oxygen Saturation 96.3 95.3 Ariel Test ACCEPTAB ACCEPTAB Arterial Blood Gas Puncture Site Left Radial Right Radial Arterial Blood Carboxyhemoglobin 0.3 0.3 Arterial Blood Methemoglobin 0.1 0.3 Blood Gas A-a O2 Differential 290.1 H 294.9 H Oxyhemoglobin Percent 95.9 94.7 Total Hemoglobin 13.8 13.5 Blood Gas Temperature 33.0 33.0 Blood Gas Respiration Rate 16.0 16.0 Blood Gas Actual Respiration Rate 16 16 Blood Gas Modality VENT - AC VENT - AC FiO2 55.0 55.0 Blood Gas Tidal Volume 450.0 450.0 Blood Gas Low PEEP Setting 5.0 5.0 Blood Gas Inspiratory Pressure 31.0 Blood Gas Critical Value Read Back desiree Blood Gas Notified Whom [employer] JLD Blood Gas Notified Time 01/30/2017 3:29:53 AM 01/30/2017 9:04:12 AM White Blood Count 4.7 #L Red Blood Count 4.36 Hemoglobin 12.7 Hematocrit 36.5 L Mean Corpuscular Volume 83.7 Mean Corpuscular Hemoglobin 29.1 Mean Corpuscular Hemoglobin Concent 34.8 Red Cell Distribution Width 14.8 H Platelet Count 100 #L Mean Platelet Volume 13.3 H Neutrophils % 53.4 Lymphocytes % 30.9 Monocytes % 5.6 Eosinophils % 1.5 Basophils % 1.9 Nucleated Red Blood Cells % 0.0 Neutrophils # 2.5 Lymphocytes # 1.4 Monocytes # 0.3 Eosinophils # 0.1 Basophils # 0.1 Nucleated Red Blood Cells # 0.0 Prothrombin Time 15.8 H Prothrombin Time Ratio 1.2 INR International Normalized Ratio 1.25 Activated Partial Thromboplast Time 32.6 Fibrinogen 392.0 # Sodium Level 146 H Potassium Level 3.2 L Chloride Level 109 Carbon Dioxide Level 22 Anion Gap 18 H Blood Urea Nitrogen 24 H Creatinine 1.01 H Glucose Level 171 Hemoglobin A1c 5.7 Calcium Level 6.7 L Phosphorus Level 3.9 Magnesium Level 1.8 Total Bilirubin 0.2 Direct Bilirubin 0.00 # Indirect Bilirubin 0.2 Aspartate Amino Transf (AST/SGOT) 48 H Alanine Aminotransferase (ALT/SGPT) 40 Alkaline Phosphatase 47 Total Protein 4.9 L Albumin 1.8 L Globulin 3.10 Albumin/Globulin Ratio 0.58 Triglycerides Level 117 Cholesterol Level < 50 L LDL Cholesterol, Calculated HDL Cholesterol 10 L Cholesterol/HDL Ratio Lactic Acid Level 2.8 H Test 01/30/17 08:53 01/30/17 11:26 01/30/17 12:40 01/30/17 14:00 Bedside Glucose 165 150 Sodium Level 144 Potassium Level 2.9 *L Chloride Level 109 Carbon Dioxide Level 22 Anion Gap 16 Blood Urea Nitrogen 26 H Creatinine 0.97 Glucose Level 174 Calcium Level 6.8 L Phosphorus Level 4.2 Magnesium Level 1.7 Troponin I 0.090 Amylase Level 297 #H Lipase 4790 H White Blood Count 4.3 L Red Blood Count 4.17 L Hemoglobin 12.2 Hematocrit 34.9 L Mean Corpuscular Volume 83.7 Mean Corpuscular Hemoglobin 29.3 Mean Corpuscular Hemoglobin Concent 35.0 Red Cell Distribution Width 14.9 H Platelet Count 66 #L Mean Platelet Volume Neutrophils % Lymphocytes % Monocytes % Eosinophils % Neutrophils # Lymphocytes # Monocytes # Eosinophils # Prothrombin Time 13.5 Prothrombin Time Ratio 1.1 INR International Normalized Ratio 1.03 Activated Partial Thromboplast Time Pending Test 01/30/17 14:18 Bedside Glucose 156 Medications Medications Current Medications Potassium Chloride/Sodium Chloride (NS-KCl 20 Meq) 1,000 ml @ 125 mls/hr Q8H IV Last administered on 01/30/17 02:03; Admin Dose 125 MLS/HR; Start 01/29/17 at 16:15 Ondansetron HCl (Zofran Inj) 4 mg Q6H PRN IV NAUSEA AND/OR VOMITING; Start at 16:30 Morphine Sulfate (morphine) 2 mg Q4H PRN IV SEVERE PAIN LEVEL 7-10; Start 01/29 at 16:30 Pantoprazole 40 mg 40 mg DAILY@06 IV Last administered on 01/30/17 05:41; Admin Dose 40 MG; Start 01/30/17 at 06:00 Piperacillin Sod/ Tazobactam Sod 100 ml @ 200 mls/hr Q6 IVPB Last administered on 01/30/17 11:10; Admin Dose 200 MLS/HR; Start 01/29/17 at 18:00 Vancomycin HCl (Vancocin) 250 ml @ 125 mls/hr Q24H IVPB Last administered on 12:14; Admin Dose 125 MLS/HR; Start 01/30/17 at 11:30 Eye Lubricant (Artificial Tears Oph) 2 drop Q6H PRN BOTH EYES DRY EYES Last administered on 01/30/17 04:29; Admin Dose 2 DROP; Start 01/29/17 at 18:30 Diagnostic Test (Pha) 1 ea 1 ea Q4 XX Last administered on 01/30/17 13:06; Admin Dose 1 EA; Start 01/30/17 at 01:00 Potassium Chloride/Sodium Chloride (KCl/NS) 110 ml @ 55 mls/hr ONCE ONCE IVPB Last administered on 01/30/17 14:16; Admin Dose 55 MLS/HR; Start 01/30/17 at 14:00; Stop 01/30/17 at 15:59 KG GRECO NP Jan 30, 2017 15:02
[2017-01-30 15:24] LABS: AADO2 Arterial 271.7 mmHg (7.0-24.0); Allen Test ACCEPTAB; Arterial Base Excess -4.7 mmol/L (-3.0-3); Arterial COHb 0.3 % (0.0-3.0); Arterial Fraction of Oxyhgb 96.9 % (93.0-99.0); Arterial HCO3 20.7 mmol/L (22.0-26.0); Arterial MetHb 0.1 % (0.0-1.5); Arterial Total Hemglobin 12.6 g/dl (12.0-18.0); MODE VENT - AC
--- NOTE | 2017-01-30 15:27 | PN ---
Date/Time of Note Date/Time of Note DATE: 01/30/17 TIME: 15:21 Assessment/Plan VTE Prophylaxis VTE Prophylaxis Intervention: SCD's Assessment/Plan Chief Complaint/Hosp Course 1. Cardiac arrest with return of circulation likely 2/2 severe sepsis from PNA -On hypothermia protocol and is now being reheated -Cards consult -Pulm consult appreciated for Vent management 2. Severe shock with lactic acidosis secondary to cardiogenic/sepsis source -Lactic acid has trended down -cont IV Abx, ID consult appreciated 3. Acute kidney injury, likely secondary to underlying septic shock as well as cardiac arrest-resolving -Nephrology consultation appreciated 4. Hypokalemia-replete 5. Multifocal pneumonia -cont IV antibiotics, Pulmonology and ID following Prophylaxis: Sequential compression devices Problems: Subjective 24 Hr Interval Summary Subjective hx not possible: pt non-verbal Exam/Review of Systems Vital Signs Vitals Vital Signs Date Time Temp Pulse Resp B/P Pulse Ox O2 Delivery O2 Flow Rate FiO2 01/30/17 14:30 92.0 83 16 120/49 100 Mechanical Ventilator 01/30/17 11:00 55 Intake and Output 01/29/17 01/29/17 01/30/17 15:00 23:00 07:00 Intake Total 600 ml 250 ml Output Total 500 ml Balance 100 ml 250 ml Exam Constitutional: non-verbal ENMT: intubated Respiratory: crackles/rales Cardiovascular: regular rate and rhythm Gastrointestinal: soft, No distended Musculoskeletal: nl extremities to inspection Results Result Diagram: 01/30/17 1400 01/30/17 1240 Results 24 hrs Laboratory Tests Test 01/29/17 16:30 01/29/17 17:09 01/29/17 17:10 01/29/17 18:55 Bedside Glucose 107 122 Sodium Level 137 Potassium Level 3.0 L Chloride Level 103 # Carbon Dioxide Level 18 L Anion Gap 19 #H Blood Urea Nitrogen 20 Creatinine 1.04 H Glucose Level 141 # Lactic Acid Level 3.7 H Uric Acid 9.0 H Calcium Level 7.6 L Phosphorus Level 4.1 # Total Bilirubin 0.7 Direct Bilirubin 0.40 #H Indirect Bilirubin 0.3 Aspartate Amino Transf (AST/SGOT) 65 H Alanine Aminotransferase (ALT/SGPT) 42 Alkaline Phosphatase 61 Creatine Kinase 1263 H Creatine Kinase Index 2.6 Creatinine Kinase MB (Mass) 33.20 H Troponin I 0.150 *H Total Protein 5.6 L Albumin 2.1 L Globulin 3.50 H Albumin/Globulin Ratio 0.60 Urine Color YELLOW Urine Clarity CLEAR Urine pH 5.5 Urine Specific [place] 1.010 Urine Ketones 15 Urine Nitrite NEGATIVE Urine Bilirubin 1+ H Urine Ictotest NEGATIVE Urine Urobilinogen 0.2 E.U./dL Urine Leukocyte Esterase NEGATIVE Urine Microscopic RBC 0-2 Urine Microscopic WBC 2-5 Urine Squamous Epithelial Cells FEW Urine Bacteria FEW Urine Coarse Granular Casts RARE Urine Hemoglobin 3+ H Urine Random Creatinine 39.65 Urine Random Sodium 21 L Urine Protein/Creatinine Ratio 7.81 Urine Glucose 0.25% H Urine Total Protein 310.0 H Test 01/29/17 20:12 01/29/17 22:18 01/30/17 00:00 01/30/17 03:00 Bedside Glucose 117 White Blood Count 6.3 # Red Blood Count 4.51 Hemoglobin 13.2 Hematocrit 38.7 Mean Corpuscular Volume 85.8 Mean Corpuscular Hemoglobin 29.3 Mean Corpuscular Hemoglobin Concent 34.1 Red Cell Distribution Width 15.1 H Platelet Count 164 Mean Platelet Volume 12.7 H Neutrophils % 63.0 Lymphocytes % 29.0 Monocytes % 5.0 Eosinophils % 3.0 Basophils % Nucleated Red Blood Cells % 1.0 H Neutrophils # 4.0 Lymphocytes # 1.8 Monocytes # 0.3 Eosinophils # 0.2 Basophils # Platelet Estimate PLT APPEAR ADEQUATE Prothrombin Time 15.8 H Prothrombin Time Ratio 1.2 INR International Normalized Ratio 1.25 Activated Partial Thromboplast Time 35.1 H Fibrinogen 438.0 Sodium Level 134 L Potassium Level 3.8 Chloride Level 109 Carbon Dioxide Level 16 L Anion Gap 13 Blood Urea Nitrogen 21 H Creatinine 1.04 H Glucose Level 158 Calcium Level 7.2 L Phosphorus Level 4.7 Magnesium Level 1.8 Creatine Kinase 776 H Creatine Kinase Index 4.2 Creatinine Kinase MB (Mass) 32.50 H Troponin I 0.124 *H Amylase Level 36 Lipase 245 Blood Gas Specimen Source Blood arterial Blood arterial Arterial Blood Date Drawn 01/29/2017 11:58:38 PM 01/30/2017 3:20:10 AM Arterial Blood pH (Temp corrected) 7.251 *L 7.410 Arterial Blood pCO2 (Temp correct) 31.3 L 30.6 L Arterial Blood pO2 (Temp corrected) 59.4 L 73.3 L Arterial Blood HCO3 14.2 L 19.7 L Arterial Blood Base Excess -13.1 L -5.1 L Arterial Blood Oxygen Saturation 92.8 L 96.3 Ariel Test ACCEPTAB ACCEPTAB Arterial Blood Gas Puncture Site Left Radial Left Radial Arterial Blood Carboxyhemoglobin 0.1 0.3 Arterial Blood Methemoglobin 0.1 0.1 Blood Gas A-a O2 Differential 266.6 H 290.1 H Oxyhemoglobin Percent 92.6 L 95.9 Total Hemoglobin 14.1 13.8 Blood Gas Temperature 32.9 33.0 Blood Gas Respiration Rate 16.0 16.0 Blood Gas Actual Respiration Rate 16 16 Blood Gas Modality AC VENT - AC FiO2 50.0 55.0 Blood Gas Tidal Volume 550.0 450.0 Blood Gas Low PEEP Setting 5.0 5.0 Blood Gas Inspiratory Pressure 31.0 31.0 Blood Gas Critical Value Read Back DR. MIS ramírez Blood Gas Notified Whom [facility] Blood Gas Notified Time 01/30/2017 12:03:51 AM 01/30/2017 3:29:53 AM Test 01/30/17 05:00 01/30/17 05:20 01/30/17 06:00 01/30/17 08:53 White Blood Count 4.7 #L Red Blood Count 4.36 Hemoglobin 12.7 Hematocrit 36.5 L Mean Corpuscular Volume 83.7 Mean Corpuscular Hemoglobin 29.1 Mean Corpuscular Hemoglobin Concent 34.8 Red Cell Distribution Width 14.8 H Platelet Count 100 #L Mean Platelet Volume 13.3 H Neutrophils % 53.4 Lymphocytes % 30.9 Monocytes % 5.6 Eosinophils % 1.5 Basophils % 1.9 Nucleated Red Blood Cells % 0.0 Neutrophils # 2.5 Lymphocytes # 1.4 Monocytes # 0.3 Eosinophils # 0.1 Basophils # 0.1 Nucleated Red Blood Cells # 0.0 Prothrombin Time 15.8 H Prothrombin Time Ratio 1.2 INR International Normalized Ratio 1.25 Activated Partial Thromboplast Time 32.6 Fibrinogen 392.0 # Sodium Level 146 H Potassium Level 3.2 L Chloride Level 109 Carbon Dioxide Level 22 Anion Gap 18 H Blood Urea Nitrogen 24 H Creatinine 1.01 H Glucose Level 171 Hemoglobin A1c 5.7 Calcium Level 6.7 L Phosphorus Level 3.9 Magnesium Level 1.8 Total Bilirubin 0.2 Direct Bilirubin 0.00 # Indirect Bilirubin 0.2 Aspartate Amino Transf (AST/SGOT) 48 H Alanine Aminotransferase (ALT/SGPT) 40 Alkaline Phosphatase 47 Total Protein 4.9 L Albumin 1.8 L Globulin 3.10 Albumin/Globulin Ratio 0.58 Triglycerides Level 117 Cholesterol Level < 50 L LDL Cholesterol, Calculated HDL Cholesterol 10 L Cholesterol/HDL Ratio Lactic Acid Level 2.8 H Blood Gas Specimen Source Blood arterial Arterial Blood Date Drawn 01/30/2017 8:55:25 AM Arterial Blood pH (Temp corrected) 7.374 Arterial Blood pCO2 (Temp correct) 32.2 L Arterial Blood pO2 (Temp corrected) 66.6 L Arterial Blood HCO3 19.2 L Arterial Blood Base Excess -6.4 L Arterial Blood Oxygen Saturation 95.3 Ariel Test ACCEPTAB Arterial Blood Gas Puncture Site Right Radial Arterial Blood Carboxyhemoglobin 0.3 Arterial Blood Methemoglobin 0.3 Blood Gas A-a O2 Differential 294.9 H Oxyhemoglobin Percent 94.7 Total Hemoglobin 13.5 Blood Gas Temperature 33.0 Blood Gas Respiration Rate 16.0 Blood Gas Actual Respiration Rate 16 Blood Gas Modality VENT - AC FiO2 55.0 Blood Gas Tidal Volume 450.0 Blood Gas Low PEEP Setting 5.0 Blood Gas Notified Whom JLD Blood Gas Notified Time 01/30/2017 9:04:12 AM Bedside Glucose 165 Test 01/30/17 11:26 01/30/17 12:40 01/30/17 14:00 01/30/17 14:18 Bedside Glucose 150 156 Sodium Level 144 Potassium Level 2.9 *L Chloride Level 109 Carbon Dioxide Level 22 Anion Gap 16 Blood Urea Nitrogen 26 H Creatinine 0.97 Glucose Level 174 Calcium Level 6.8 L Phosphorus Level 4.2 Magnesium Level 1.7 Troponin I 0.090 Amylase Level 297 #H Lipase 4790 H White Blood Count 4.3 L Red Blood Count 4.17 L Hemoglobin 12.2 Hematocrit 34.9 L Mean Corpuscular Volume 83.7 Mean Corpuscular Hemoglobin 29.3 Mean Corpuscular Hemoglobin Concent 35.0 Red Cell Distribution Width 14.9 H Platelet Count 66 #L Mean Platelet Volume Neutrophils % Lymphocytes % Monocytes % Eosinophils % Neutrophils # Lymphocytes # Monocytes # Eosinophils # Prothrombin Time 13.5 Prothrombin Time Ratio 1.1 INR International Normalized Ratio 1.03 Activated Partial Thromboplast Time Pending Medications Medications Current Medications Potassium Chloride/Sodium Chloride (NS-KCl 20 Meq) 1,000 ml @ 125 mls/hr Q8H IV Last administered on 01/30/17 02:03; Admin Dose 125 MLS/HR; Start 01/29/17 at 16:15 Ondansetron HCl (Zofran Inj) 4 mg Q6H PRN IV NAUSEA AND/OR VOMITING; Start at 16:30 Morphine Sulfate (morphine) 2 mg Q4H PRN IV SEVERE PAIN LEVEL 7-10; Start 01/29 at 16:30 Pantoprazole 40 mg 40 mg DAILY@06 IV Last administered on 01/30/17 05:41; Admin Dose 40 MG; Start 01/30/17 at 06:00 Piperacillin Sod/ Tazobactam Sod 100 ml @ 200 mls/hr Q6 IVPB Last administered on 01/30/17 11:10; Admin Dose 200 MLS/HR; Start 01/29/17 at 18:00 Vancomycin HCl (Vancocin) 250 ml @ 125 mls/hr Q24H IVPB Last administered on 12:14; Admin Dose 125 MLS/HR; Start 01/30/17 at 11:30 Eye Lubricant (Artificial Tears Oph) 2 drop Q6H PRN BOTH EYES DRY EYES Last administered on 01/30/17 04:29; Admin Dose 2 DROP; Start 01/29/17 at 18:30 Diagnostic Test (Pha) 1 ea 1 ea Q4 XX Last administered on 01/30/17 13:06; Admin Dose 1 EA; Start 01/30/17 at 01:00 Potassium Chloride/Sodium Chloride (KCl/NS) 110 ml @ 55 mls/hr ONCE ONCE IVPB Last administered on 01/30/17 14:16; Admin Dose 55 MLS/HR; Start 01/30/17 at 14:00; Stop 01/30/17 at 15:59 HANY LAWSON Jan 30, 2017 15:27
[2017-01-30] MEDS ORDERED: MIDAZOLAM (DRIP) 50 mg/50 mL 50 ML IV STA (16:01)
[2017-01-30] MEDS ORDERED: NORepinephrine 8MG/250 ML (PMX 250 ML IV STA ×2 (16:01→16:23)
[2017-01-30] MEDS ORDERED: VECURONIUM 100 MG in DEXTROSE 5% 100 ML IV ONE (16:18)
[2017-01-30 16:51] LABS: LYMPHOCYTES # 1.8 10^3/ul (0.8-2.9); MONOCYTE # 0.5 10^3/ul (0.3-0.9); MYELOCYTES # 0.1; NEUTROPHIL # 1.4 10^3/ul (1.6-7.5)
[2017-01-30 16:52] LABS: BURR CELLS OCCASIONAL; PLATELET ESTIMATE PLT APPEAR DECREASED
[2017-01-30 16:55] LABS: WHITE BLOOD COUNT 4.3 10^3/ul (4.8-10.8)
[2017-01-30] MEDS ORDERED: SOD CHLORIDE 0.9% 1,000 ML IV SCH (19:00)
--- NOTE | 2017-01-30 19:39 | CONS ---
DATE OF ADMISSION: 01/30/2017 DATE OF CONSULTATION: 01/30/2017 REASON FOR CONSULTATION: Cardiac arrest, hypotension, atrial fibrillation. REQUESTING PHYSICIAN: Dr. Conteh from the hospitalist service. HISTORY OF PRESENT ILLNESS: Ms. Rogers is a 66-year-old female with history of multiple myeloma who presented short of breath, unresponsive. The patient went into cardiac arrest requiring ACLS less f or a circulating rhythm and intubation. The patient, thereafter, was placed on hypothermic protocol and has been admitted to the ICU. The patient's initial vital signs on arrival: 99.1, blood press ure 121/74, pulse 174, respiratory rate 11, saturating 94%. The patient's labs were notable for a w robert blood cell count of 8.2, hemoglobin 12.0, platelet count 193. A sodium 133, potassium 2.6, cre atinine 1.3, BUN 15, magnesium 2.5. INR 1.25. UA borderline. The patient underwent a CT/CTA revea ling no CT evidence of pulmonary embolus, multifocal areas of consolidation present involving the li ngula and right lower lobe along with perihilar consolidation, moderate to large left-sided loculate d pleural effusion with visible septations causing partial collapse of the left lung, cholelithiasis . The patient's electrocardiogram revealed atrial fibrillation with rapid ventricular response, rat e of 193, with normal axis, normal intervals, borderline IVCD, and nonspecific ST and T-wave abnorma lities. The patient, as noted above, has required ACLS protocol, intubation, and admit to the ICU o n hypothermia protocol. At this time, the patient is in sinus rhythm. Most recent EKG from today a t 4 in the morning revealed normal sinus rhythm, rate of 76 with normal axis, normal intervals, and nonspecific ST and T wave abnormalities. The patient has had troponins, which were initially negati ve, now returned minimally positive at 0.150 with increasing CK, CK-MB content. PAST MEDICAL HISTORY: As above in HPI. MEDICATIONS CURRENTLY IN HOSPITAL: 1. Levophed. 2. Versed. 3. Vancomycin. 4. Protonix 40 mg IV daily. 5. Zosyn. 6. Zofran. 7. Morphine 8. Potassium chloride IV. ALLERGIES: NO KNOWN DRUG ALLERGIES. SOCIAL HISTORY: No tobacco, ETOH, or illicit drug use. FAMILY HISTORY: No history of sudden cardiac or early CAD. REVIEW OF SYSTEMS: As above in HPI. CONSTITUTIONAL: No current fevers. PULMONARY: Respiratory failure, status post intubation. GASTROINTESTINAL: No vomiting. GENITOURINARY: No hematuria. MUSCULOSKELETAL: Degenerative joint disease. PSYCHIATRIC: The patient denies depression. NEUROLOGIC: No documented history of CVA. ENDOCRINE: No documented history of diabetes mellitus. PHYSICAL EXAMINATION: VITAL SIGNS: Temperature 99.1, blood pressure 112/57, pulse 87, respiratory rate 16, temperature 10 0% on FIO2 of 40%. GENERAL: The patient is sedated, intubated. NECK: No jugular venous distention. CHEST: Fair movement throughout with upper chest rhonchorous sounds. HEART: Regular rate and rhythm. Normal S1, S2. I/ systolic murmur. Nondisplaced PMI. ABDOMEN: Positive bowel sounds, soft. EXTREMITIES: No pitting edema, 1+ pulses in bilateral posterior tibial. Extremities very cool to t ouch. LABORATORIES: Most recently from today, sodium 144, potassium 2.9, creatinine 0.97, BUN of 26, magn esium 1.7. Amylase 297, lipase of 4790. White blood cell count of 4.3, hemoglobin 12.2, platelet c ount of 66. ABG revealing a pH of 7.394, a PaO2 of 88.7, a pCO2 of 32.2. IMAGING STUDIES: As above in HPI with a chest x-ray from today revealing shallow lung volumes, poss ible slight increase in pleural effusion and bilateral lung infiltrates. IMPRESSION: 1. Status post cardiac arrest, assess for acute coronary syndrome. 2. Positive troponin, assess significance in setting of cardiac arrest. 3. Abnormal electrocardiogram. 4. Hypotension, borderline. 5. Respiratory failure, status post intubation. 6. Pancreatitis by laboratory findings. 7. Anemia. 8. Leukopenia. 9. Thrombocytopenia. RECOMMENDATIONS: 1. At this time would maintain patient on telemetry monitoring, following rhythm and rate control c losely. 2. Continue the patient's hypothermic protocol. 3. Continue to trend the patient's cardiac enzymes, assess for any significant ongoing cardiac zhou ge and will consider aspirin, but given the patient's decreasing platelet count, will hold on aspiri n at this time and follow platelet count closely. 4. Continue the patient's Levophed pressor support and will give patient IV fluid hydration, follow ing volume status closely. 5. Follow up the patient's 2D echo to further assess ejection fraction, wall motion, and any major valve abnormalities. 6. Continue the patient's antibiotics and follow up all culture data including sputum culture, bloo d cultures, and check a fasting lipid panel for general risk stratification. 7. Continue to follow the patient's mental status closely. Thank you for allowing me to take part in the care of this patient. I will continue to follow along very closely with you. Further recommendations will be made as the patient progresses through her inpatient hospital clinical course. Dictated By: ORI HENSLEY/NTS Conf#: [id number] DID#: [id number] CC: HANY LAWSON MD; TRUDI SAPP MD; AMY CONTEH MD;*End*
[2017-01-30 20:02] LABS: CALCIUM 6.4 mg/dl (8.4-10.2); CREATININE 0.9 mg/dl (0.44-1.00); MAGNESIUM 1.6 mg/dl (1.7-2.5); PHOSPHORUS 4.1 mg/dl (2.5-4.9); POTASSIUM 3.3 mmol/L (3.5-5.1)
[2017-01-30 20:13] LABS: TROPONIN-I 0.09 ng/ml (0.00-0.12)
[2017-01-30 20:34] LABS: AADO2 Arterial 172.5 mmHg (7.0-24.0); Allen Test ACCEPTAB; Arterial Base Excess -4.8 mmol/L (-3.0-3); Arterial COHb 0.3 % (0.0-3.0); Arterial Fraction of Oxyhgb 95.7 % (93.0-99.0); Arterial HCO3 19.4 mmol/L (22.0-26.0); Arterial MetHb 0.3 % (0.0-1.5); Arterial Total Hemglobin 12.2 g/dl (12.0-18.0); MODE VENT - AC
[2017-01-30] MEDS ORDERED: ACETAMINOPHEN 650 MG SUPP PR ONE (21:00)
--- NOTE | 2017-01-30 21:30 | RADRPT ---
Echocardiogram Report Patient Name: SIMON JONES Gender: Female Date: 1950 Study Date: 30-Jan-2017 Surfacing Machine Operator: Mar yAlice Evangelista RDCS Location: 4 Ref. Physician: HANY LAWSON Quality: Adequate Procedures: Transthoracic echocardiogram with complete 2D, M-Mode, and doppler examination. Indications: MARINE. 2D/M Mode Doppler Measurement Value Normal Ranges Measurement Value Normal Ranges LVIDd 2D 3.6 3.5 - 5.6 cm AV Peak Bakari 1.1 m/sec LVIDs 2D 1.7 2.1 - 4.1 cm AV Peak PG 5.0 mmHg FS 2D 51.4 % LVOT Peak Bakari 0.9 m/sec LVPWd 2D 0.8 0.6 - 1.1 cm LVOT Peak PG 3.0 mmHg IVSd 2D 1.0 0.6 - 1.1 cm MV E Peak Bakari 0.6 m/sec IVS/LVPW 2D 1.2 MV A Peak Bakari 0.7 m/sec AoR Diam 2D 2.5 2.0 - 3.7 cm MV E/A 0.9 LA/Ao 2D 1 0 - 1 MV Decel Time 208 msec EDV 2D 45.1 cm3 MV E/A 0.9 ESV 2D 5.2 cm3 TR Peak Bakari 2.4 m/sec LA Dimen 2D 2.2 2.3 - 4.0 cm TR Peak PG 24.0 mmHg RVSP 32.0 mmHg Findings Left Ventricle: Normal left ventricular systolic function. Normal left ventricular cavity size. Normal left ventricular wall thickness. Ejection fraction is visually estimated at 60 %. Tissue Doppler/Mitral Doppler indices are consistent with impaired relaxation (Stage I diastolic dysfunction). Right Ventricle: Normal right ventricular size. Normal right ventricular systolic function. Left Atrium: The left atrium is normal in size. Right Atrium: The right atrium is normal in size. Mitral Valve: Mitral valve leaflets appear mildly thickened. Mild mitral annular calcification. Trace mitral regurgitation. Aortic Valve: Normal appearance of the aortic valve. No significant aortic stenosis or insufficiency. Tricuspid Valve: Normal appearance of the tricuspid valve. Estimated peak PA systolic pressure 32 mmHg. There is moderate tricuspid regurgitation. Pulmonic Valve: Normal pulmonic valve appearance. Pericardium: Normal pericardium with no significant pericardial effusion. Aorta: Normal aortic root. IVC: Inferior vena cava without respiratory collapse, however, patient on ventilator. Conclusions 1.Normal left ventricular systolic function. Normal left ventricular cavity size. Normal left ventricular wall thickness. Ejection fraction is visually estimated at 60 %. Tissue Doppler/Mitral Doppler indices are consistent with impaired relaxation (Stage I diastolic dysfunction). 2.Mitral valve leaflets appear mildly thickened. Mild mitral annular calcification. Trace mitral regurgitation. 3.Normal appearance of the tricuspid valve. Estimated peak PA systolic pressure 32 mmHg. There is moderate tricuspid regurgitation. Electronically Signed By: Prosper Yusuf 30-Jan-2017 21:29:40 -0700 Patient Name: SIMON JONES Study Date: 30-Jan-2017 [id number]
[2017-01-30] MEDS ORDERED: SODIUM CHLORIDE 0.45% 1L BAG IV ONE (22:00)
[2017-01-30] MEDS ORDERED: SOD CHLORIDE 0.45% 1,000 ML IV SCH ×2 (22:30→23:30)
--- NOTE | 2017-01-30 22:51 | CONS ---
Date/Time of Note Date/Time of Note DATE: 01/30/17 TIME: 22:49 Assessment/Plan Assessment/Plan Chief Complaint/Hosp Course IMPRESSION: 1. Acute cardiorespiratory arrest. 2. The patient has acute kidney injury with possible underlying chronic kidney disease. 3. The patient has severe metabolic acidosis, lactic acidosis. 4. Hypokalemia, hypophosphatemia, severe. 5. History of multiple myeloma. 6. Rule out underlying chronic myeloma kidney. 7 sepsis 8 hypomagnesemia plan kcl iv mg Problems: Consultation Date/Type/Reason Admit Date/Time Jan 30, 2017 at 11:41 Initial Consult Date Type of Consultation: renal 24 HR Interval Summary Subjective hx not possible: pt non-verbal, other (on vent) Exam/Review of Systems Vital Signs Vitals Vital Signs Date Time Temp Pulse Resp B/P Pulse Ox O2 Delivery O2 Flow Rate FiO2 01/30/17 21:45 103 16 106/28 99 Mechanical Ventilator 01/30/17 21:00 94.9 01/30/17 17:17 40 Intake and Output 01/29/17 01/29/17 01/30/17 15:00 23:00 07:00 Intake Total 600 ml 250 ml Output Total 500 ml Balance 100 ml 250 ml Exam Respiratory: diminished breath sounds Cardiovascular: regular rate and rhythm Gastrointestinal: bowel sounds (+), soft Musculoskeletal: nl extremities to inspection Extremities: edema (+) Results Result Diagram: 01/30/17 1400 01/30/17 1940 Results 24 hrs Laboratory Tests Test 01/30/17 00:00 01/30/17 03:00 01/30/17 05:00 01/30/17 05:20 Blood Gas Specimen Source Blood arterial Blood arterial Arterial Blood Date Drawn 01/29/2017 11:58:38 PM 01/30/2017 3:20:10 AM Arterial Blood pH (Temp corrected) 7.251 *L 7.410 Arterial Blood pCO2 (Temp correct) 31.3 L 30.6 L Arterial Blood pO2 (Temp corrected) 59.4 L 73.3 L Arterial Blood HCO3 14.2 L 19.7 L Arterial Blood Base Excess -13.1 L -5.1 L Arterial Blood Oxygen Saturation 92.8 L 96.3 Ariel Test ACCEPTAB ACCEPTAB Arterial Blood Gas Puncture Site Left Radial Left Radial Arterial Blood Carboxyhemoglobin 0.1 0.3 Arterial Blood Methemoglobin 0.1 0.1 Blood Gas A-a O2 Differential 266.6 H 290.1 H Oxyhemoglobin Percent 92.6 L 95.9 Total Hemoglobin 14.1 13.8 Blood Gas Temperature 32.9 33.0 Blood Gas Respiration Rate 16.0 16.0 Blood Gas Actual Respiration Rate 16 16 Blood Gas Modality AC VENT - AC FiO2 50.0 55.0 Blood Gas Tidal Volume 550.0 450.0 Blood Gas Low PEEP Setting 5.0 5.0 Blood Gas Inspiratory Pressure 31.0 31.0 Blood Gas Critical Value Read Back DR. MIS ramírez Blood Gas Notified Whom [facility] Blood Gas Notified Time 01/30/2017 12:03:51 AM 01/30/2017 3:29:53 AM White Blood Count 4.7 #L Red Blood Count 4.36 Hemoglobin 12.7 Hematocrit 36.5 L Mean Corpuscular Volume 83.7 Mean Corpuscular Hemoglobin 29.1 Mean Corpuscular Hemoglobin Concent 34.8 Red Cell Distribution Width 14.8 H Platelet Count 100 #L Mean Platelet Volume 13.3 H Neutrophils % 53.4 Lymphocytes % 30.9 Monocytes % 5.6 Eosinophils % 1.5 Basophils % 1.9 Nucleated Red Blood Cells % 0.0 Neutrophils # 2.5 Lymphocytes # 1.4 Monocytes # 0.3 Eosinophils # 0.1 Basophils # 0.1 Nucleated Red Blood Cells # 0.0 Prothrombin Time 15.8 H Prothrombin Time Ratio 1.2 INR International Normalized Ratio 1.25 Activated Partial Thromboplast Time 32.6 Fibrinogen 392.0 # Sodium Level 146 H Potassium Level 3.2 L Chloride Level 109 Carbon Dioxide Level 22 Anion Gap 18 H Blood Urea Nitrogen 24 H Creatinine 1.01 H Glucose Level 171 Hemoglobin A1c 5.7 Calcium Level 6.7 L Phosphorus Level 3.9 Magnesium Level 1.8 Total Bilirubin 0.2 Direct Bilirubin 0.00 # Indirect Bilirubin 0.2 Aspartate Amino Transf (AST/SGOT) 48 H Alanine Aminotransferase (ALT/SGPT) 40 Alkaline Phosphatase 47 Total Protein 4.9 L Albumin 1.8 L Globulin 3.10 Albumin/Globulin Ratio 0.58 Triglycerides Level 117 Cholesterol Level < 50 L LDL Cholesterol, Calculated HDL Cholesterol 10 L Cholesterol/HDL Ratio Lactic Acid Level 2.8 H Test 01/30/17 06:00 01/30/17 08:53 01/30/17 11:26 01/30/17 12:00 Blood Gas Specimen Source Blood arterial Blood arterial Arterial Blood Date Drawn 01/30/2017 8:55:25 AM 01/30/2017 3:10:08 PM Arterial Blood pH (Temp corrected) 7.374 7.394 Arterial Blood pCO2 (Temp correct) 32.2 L 33.2 L Arterial Blood pO2 (Temp corrected) 66.6 L 88.7 Arterial Blood HCO3 19.2 L 20.7 L Arterial Blood Base Excess -6.4 L -4.7 L Arterial Blood Oxygen Saturation 95.3 97.3 Ariel Test ACCEPTAB ACCEPTAB Arterial Blood Gas Puncture Site Right Radial Right Radial Arterial Blood Carboxyhemoglobin 0.3 0.3 Arterial Blood Methemoglobin 0.3 0.1 Blood Gas A-a O2 Differential 294.9 H 271.7 H Oxyhemoglobin Percent 94.7 96.9 Total Hemoglobin 13.5 12.6 Blood Gas Temperature 33.0 33.0 Blood Gas Respiration Rate 16.0 16.0 Blood Gas Actual Respiration Rate 16 16 Blood Gas Modality VENT - AC VENT - AC FiO2 55.0 55.0 Blood Gas Tidal Volume 450.0 450.0 Blood Gas Low PEEP Setting 5.0 5.0 Blood Gas Notified Whom JLD JLD Blood Gas Notified Time 01/30/2017 9:04:12 AM 01/30/2017 3:23:56 PM Bedside Glucose 165 150 Test 01/30/17 12:40 01/30/17 14:00 01/30/17 14:18 01/30/17 17:59 Sodium Level 144 Potassium Level 2.9 *L Chloride Level 109 Carbon Dioxide Level 22 Anion Gap 16 Blood Urea Nitrogen 26 H Creatinine 0.97 Glucose Level 174 Calcium Level 6.8 L Phosphorus Level 4.2 Magnesium Level 1.7 Troponin I 0.090 Amylase Level 297 #H Lipase 4790 H White Blood Count 4.3 L Red Blood Count 4.17 L Hemoglobin 12.2 Hematocrit 34.9 L Mean Corpuscular Volume 83.7 Mean Corpuscular Hemoglobin 29.3 Mean Corpuscular Hemoglobin Concent 35.0 Red Cell Distribution Width 14.9 H Platelet Count 66 #L Mean Platelet Volume Neutrophils % 33.0 L Band Neutrophils % 4.0 Lymphocytes % 41.0 Reactive Lymphocytes % 2.0 Monocytes % 12.0 H Eosinophils % Metamyelocytes % 5.0 H Myelocytes % 3.0 H Neutrophils # 1.4 L Lymphocytes # 1.8 Monocytes # 0.5 Eosinophils # Metamyelocytes # 0.2 Myelocytes # 0.1 Platelet Estimate PLT APPEAR DECREASED Macrocytosis OCCASIONAL Prothrombin Time 13.5 Prothrombin Time Ratio 1.1 INR International Normalized Ratio 1.03 Activated Partial Thromboplast Time 32.0 Fibrinogen 410.0 Bedside Glucose 156 122 Test 01/30/17 19:40 01/30/17 20:15 01/30/17 20:59 Sodium Level 142 Potassium Level 3.3 L Chloride Level 116 H Carbon Dioxide Level 21 Anion Gap 8 # Blood Urea Nitrogen 25 H Creatinine 0.90 Glucose Level 122 # Calcium Level 6.4 L Phosphorus Level 4.1 Magnesium Level 1.6 L Troponin I 0.090 Amylase Level 321 H Lipase 5926 H Blood Gas Specimen Source Blood arterial Arterial Blood Date Drawn 01/30/2017 8:20:26 PM Arterial Blood pH (Temp corrected) 7.417 Arterial Blood pCO2 (Temp correct) 30.1 L Arterial Blood pO2 (Temp corrected) 80.3 Arterial Blood HCO3 19.4 L Arterial Blood Base Excess -4.8 L Arterial Blood Oxygen Saturation 96.3 Ariel Test ACCEPTAB Arterial Blood Gas Puncture Site Right Radial Arterial Blood Carboxyhemoglobin 0.3 Arterial Blood Methemoglobin 0.3 Blood Gas A-a O2 Differential 172.5 H Oxyhemoglobin Percent 95.7 Total Hemoglobin 12.2 Blood Gas Temperature 34.8 Blood Gas Respiration Rate 16.0 Blood Gas Actual Respiration Rate 25 Blood Gas Modality VENT - AC FiO2 40.0 Blood Gas Tidal Volume 450.0 Blood Gas Low PEEP Setting 5.0 Blood Gas Notified Whom MA Blood Gas Notified Time 01/30/2017 8:34:15 PM Bedside Glucose 97 Medications Medications Current Medications Ondansetron HCl (Zofran Inj) 4 mg Q6H PRN IV NAUSEA AND/OR VOMITING; Start at 16:30 Morphine Sulfate (morphine) 2 mg Q4H PRN IV SEVERE PAIN LEVEL 7-10; Start 01/29 at 16:30 Pantoprazole 40 mg 40 mg DAILY@06 IV Last administered on 01/30/17t 05:41; Admin Dose 40 MG; Start 01/30/17 at 06:00 Piperacillin Sod/ Tazobactam Sod 100 ml @ 200 mls/hr Q6 IVPB Last administered on 01/30/17 18:45; Admin Dose 200 MLS/HR; Start 01/29/17 at 18:00 Vancomycin HCl (Vancocin) 250 ml @ 125 mls/hr Q24H IVPB Last administered on 12:14; Admin Dose 125 MLS/HR; Start 01/30/17 at 11:30 Eye Lubricant (Artificial Tears Oph) 2 drop Q6H PRN BOTH EYES DRY EYES Last administered on 01/30/17 04:29; Admin Dose 2 DROP; Start 01/29/17 at 18:30 Diagnostic Test (Pha) 1 ea 1 ea Q4 XX Last administered on 01/30/17 21:00; Admin Dose 1 EA; Start 01/30/17 at 01:00 Vecuronium [place] 100 mg/ Dextrose 100 ml @ 4.08 mls/hr Q24H ONCE IV Last administered on 01/30/17 16:30; Admin Dose 6 MLS/HR; Start 01/30/17 at 16:18; Stop 01/31/17 at 16:17 Sodium Chloride (NS) 1,000 ml @ 75 mls/hr [id number] IV Last administered on 01/30 21:00; Admin Dose 75 MLS/HR; Start 01/30/17 at 19:00; Stop 01/31/17 at 08: 19 Acetaminophen 650 mg 650 mg Q6H PRN MO FEVER; Start 01/30/17 at 21:00 Sodium Chloride (1/2 NS) 1,000 ml @ 1,000 mls/hr Q1H IV ; Start 01/30/17 at 22: 30; Stop 01/30/17 at 23:29 CINDY MARES MD Jan 30, 2017 22:51
[2017-01-30] MEDS ORDERED: MAGNESIUM SULFATE 2 GM/50 ML 50 ML IVPB ONE (23:00)
[2017-01-30] MEDS ORDERED: MIDAZOLAM (DRIP) 50 mg/50 mL 50 ML IV SCH (23:55)
[2017-01-31] VITALS (97 sets, daily range): BP systolic 91–125; BP diastolic 27–55; PULSE 91–113; RESP 15–20
[2017-01-31] MEDS: ACCU-CHEK XX SCH ×6 (00:34→20:27)
[2017-01-31] MEDS: PIPER-TAZO 3.375 GM IV (PMX) 100 ML IVPB SCH ×2 (00:34→05:18)
[2017-01-31 00:56] LABS: ADD SCAN DIFF NO
[2017-01-31 01:12] LABS: CALCIUM 6.6 mg/dl (8.4-10.2); CREATININE 0.93 mg/dl (0.44-1.00); MAGNESIUM 1.7 mg/dl (1.7-2.5); PHOSPHORUS 4.1 mg/dl (2.5-4.9); POTASSIUM 3.3 mmol/L (3.5-5.1)
[2017-01-31 01:23] LABS: TROPONIN-I 0.089 ng/ml (0.00-0.12)
[2017-01-31 01:28] LABS: INR 1.28; PARTIAL THROMBOPLASTIN TIME 33.7 Sec (25.0-35.0); PROTIME 16.1 Sec (12.2-14.2); PT RATIO 1.3
[2017-01-31 01:30] LABS: ABNORMAL IP MESSAGE 1; HEMATOCRIT 31.1 % (37.0-47.0); HEMOGLOBIN 10.9 g/dl (12.0-16.0); MEAN CORPUSCULAR HEMOGLOBIN 29.1 pg (29.0-33.0); MEAN CORPUSCULAR VOLUME 83.2 fl (82.0-101.0); MEAN PLATELET VOLUME 14.2 fl (7.4-10.4); PLATELET COUNT 55 10^3/UL (140-415); RED BLOOD COUNT 3.74 10^6/ul (4.20-5.40); RED CELL DISTRIBUTION WIDTH 15.2 % (11.5-14.5); WHITE BLOOD COUNT 4.1 10^3/ul (4.8-10.8)
[2017-01-31] MEDS ORDERED: SODIUM CHLORIDE 0.45% 500 ML BAG IV ONE (01:30)
[2017-01-31] MEDS ORDERED: SOD CHLORIDE 0.9% 1,000 ML IV ONE (02:30)
[2017-01-31 02:43] LABS: AADO2 Arterial 170.3 mmHg (7.0-24.0); Allen Test ACCEPTAB; Arterial Base Excess -8.2 mmol/L (-3.0-3); Arterial COHb 0.3 % (0.0-3.0); Arterial Fraction of Oxyhgb 93.4 % (93.0-99.0); Arterial HCO3 18.1 mmol/L (22.0-26.0); Arterial MetHb 0.2 % (0.0-1.5); Arterial Total Hemglobin 11.6 g/dl (12.0-18.0); MODE VENT - AC
[2017-01-31 02:51] LABS: EOSINOPHILS # 0.1 10^3/ul (0.0-0.5); LYMPHOCYTES # 0.6 10^3/ul (0.8-2.9); MONOCYTE # 0.2 10^3/ul (0.3-0.9); MYELOCYTES # 0.1; NEUTROPHIL # 2.1 10^3/ul (1.6-7.5)
[2017-01-31] MEDS ORDERED: NA BICARBONATE 8.4% 50 ML SYG IV ONE (02:51)
[2017-01-31] MEDS ORDERED: NA BICARBONATE 8.4% 50 ML SYG ONE (02:51)
[2017-01-31 02:53] LABS: PLATELET ESTIMATE PLT APPEAR DECREASED; TOXIC GRANULATION FEW; TOXIC VACUOLATION FEW
[2017-01-31] MEDS: ACETAMINOPHEN 650 MG SUPP PR PRN (03:42)
[2017-01-31] MEDS ORDERED: ALBUMIN HUMAN 25% 100 ML IV ONE (04:30)
[2017-01-31] MEDS: PANTOPRAZOLE 40 MG INJ IV SCH (05:18)
[2017-01-31 06:07] LABS: ADD SCAN DIFF NO
[2017-01-31 06:17] LABS: ABNORMAL IP MESSAGE 1; HEMATOCRIT 29.2 % (37.0-47.0); MEAN CORPUSCULAR HEMOGLOBIN 28.8 pg (29.0-33.0); MEAN CORPUSCULAR HGB CONC 34.2 g/dl (32.0-37.0); MEAN CORPUSCULAR VOLUME 84.1 fl (82.0-101.0); PLATELET COUNT 54 10^3/UL (140-415); RED BLOOD COUNT 3.47 10^6/ul (4.20-5.40); RED CELL DISTRIBUTION WIDTH 15.4 % (11.5-14.5); WHITE BLOOD COUNT 4.7 10^3/ul (4.8-10.8)
[2017-01-31 06:30] LABS: INR 1.4; PROTIME 17.2 Sec (12.2-14.2); PT RATIO 1.3
[2017-01-31 06:31] LABS: PARTIAL THROMBOPLASTIN TIME 36.5 Sec (25.0-35.0)
[2017-01-31 06:33] LABS: AADO2 Arterial 159.1 mmHg (7.0-24.0); Allen Test ACCEPTAB; Arterial Base Excess -6.6 mmol/L (-3.0-3); Arterial COHb 0.3 % (0.0-3.0); Arterial Fraction of Oxyhgb 92.8 % (93.0-99.0); Arterial HCO3 19.9 mmol/L (22.0-26.0); Arterial MetHb 0.1 % (0.0-1.5); Arterial Total Hemglobin 10.6 g/dl (12.0-18.0); MODE VENT - AC
[2017-01-31 06:34] LABS: POTASSIUM 3.1 mmol/L (3.5-5.1)
[2017-01-31 06:37] LABS: CREATININE 0.99 mg/dl (0.44-1.00)
[2017-01-31 06:38] LABS: CALCIUM 6.4 mg/dl (8.4-10.2); MAGNESIUM 2.2 mg/dl (1.7-2.5); PHOSPHORUS 4.3 mg/dl (2.5-4.9)
[2017-01-31 06:46] LABS: CK-MB 7.42 ng/ml (0.0-2.4)
[2017-01-31 06:48] LABS: TROPONIN-I 0.107 ng/ml (0.00-0.12)
[2017-01-31 06:49] LABS: TROPONIN-I 0.107 ng/ml (0.00-0.12)
[2017-01-31 07:54] LABS: PLATELET COUNT 66 10^3/UL (140-415)
[2017-01-31] MEDS: SOD CHLORIDE 0.45% 1,000 ML IV SCH ×3 (09:07→16:15)
--- NOTE | 2017-01-31 09:59 | CONS ---
Date/Time of Note Date/Time of Note DATE: 01/31/17 TIME: 09:56 Assessment/Plan Assessment/Plan Additional Assessment/Plan Chest x-ray from today is pending. Ventilator settings; AC of 16, tidal volume 450, PEEP of 5, 40% FiO2. Next Patient currently on Levophed at 5 mics per minute. Assessment recommendations; 1. Patient admitted for severe pneumonia leading to respiratory failure. 2. Mild hypotension, requiring pressor support. 3. Patient off hypothermia protocol, still under the sedative effect. 4. History of multiple myeloma. 5. Improving oxygenation. 6. Thrombocytopenia. Continue current treatment. Obtain a chest x-ray. Start the patient on tube feeding. Discontinue Zosyn and switch the patient to cefepime 1 g IV every 12 hours due to thrombocytopenia. Further recommendations to be made once chest x- rays done. 35 minutes of critical care time was spent evaluating the patient. Consultation Date/Type/Reason Admit Date/Time Jan 30, 2017 at 11:41 Type of Consultation: Pulmonary/critical care 24 HR Interval Summary Free Text/Dictation Patient condition remains critical. Patient has been taken off hypothermia protocol early this morning. Has remained hemodynamically stable. General exam; elderly woman, orally intubated, sedated. Currently in no distress. Exam/Review of Systems Vital Signs Vitals Vital Signs Date Time Temp Pulse Resp B/P Pulse Ox O2 Delivery O2 Flow Rate FiO2 01/31/17 09:05 100 16 99 40 01/31/17 07:45 97.7 110/39 Mechanical Ventilator Intake and Output 01/30/17 01/30/17 01/31/17 15:00 23:00 07:00 Intake Total 350 ml 392.50 ml 2137.00 ml Output Total 363 ml 196 ml Balance 350 ml 29.50 ml 1941.00 ml Exam HEENT examination; supple neck, no JVD. No lymphadenopathy. Midline trachea. No thyromegaly. Orally intubated. Pupils are small bilaterally. Patient has fair dentition. Chest examined; diffuse crackles involving the left lung with mild crackles involving the right lung as well. S1-S2 audible, no murmurs. Regular rhythm. Abdomen examination; soft, nondistended. No organomegaly. Bowel sounds audible. Next Extremity exam is; no peripheral edema. Pulses 1+ bilaterally. J[employer] T[employer]ER examination; patient is sedated. Results Result Diagram: 01/31/17 0530 01/31/17 0530 Results 24 hrs Laboratory Tests Test 01/30/17 11:26 01/30/17 12:00 01/30/17 12:40 01/30/17 14:00 Bedside Glucose 150 Blood Gas Specimen Source Blood arterial Arterial Blood Date Drawn 01/30/2017 3:10:08 PM Arterial Blood pH (Temp corrected) 7.394 Arterial Blood pCO2 (Temp correct) 33.2 L Arterial Blood pO2 (Temp corrected) 88.7 Arterial Blood HCO3 20.7 L Arterial Blood Base Excess -4.7 L Arterial Blood Oxygen Saturation 97.3 Ariel Test ACCEPTAB Arterial Blood Gas Puncture Site Right Radial Arterial Blood Carboxyhemoglobin 0.3 Arterial Blood Methemoglobin 0.1 Blood Gas A-a O2 Differential 271.7 H Oxyhemoglobin Percent 96.9 Total Hemoglobin 12.6 Blood Gas Temperature 33.0 Blood Gas Respiration Rate 16.0 Blood Gas Actual Respiration Rate 16 Blood Gas Modality VENT - AC FiO2 55.0 Blood Gas Tidal Volume 450.0 Blood Gas Low PEEP Setting 5.0 Blood Gas Notified Whom JLD Blood Gas Notified Time 01/30/2017 3:23:56 PM Sodium Level 144 Potassium Level 2.9 *L Chloride Level 109 Carbon Dioxide Level 22 Anion Gap 16 Blood Urea Nitrogen 26 H Creatinine 0.97 Glucose Level 174 Calcium Level 6.8 L Phosphorus Level 4.2 Magnesium Level 1.7 Troponin I 0.090 Amylase Level 297 #H Lipase 4790 H White Blood Count 4.3 L Red Blood Count 4.17 L Hemoglobin 12.2 Hematocrit 34.9 L Mean Corpuscular Volume 83.7 Mean Corpuscular Hemoglobin 29.3 Mean Corpuscular Hemoglobin Concent 35.0 Red Cell Distribution Width 14.9 H Platelet Count 66 #L Mean Platelet Volume Neutrophils % 33.0 L Band Neutrophils % 4.0 Lymphocytes % 41.0 Reactive Lymphocytes % 2.0 Monocytes % 12.0 H Eosinophils % Metamyelocytes % 5.0 H Myelocytes % 3.0 H Neutrophils # 1.4 L Lymphocytes # 1.8 Monocytes # 0.5 Eosinophils # Metamyelocytes # 0.2 Myelocytes # 0.1 Platelet Estimate PLT APPEAR DECREASED Macrocytosis OCCASIONAL Prothrombin Time 13.5 Prothrombin Time Ratio 1.1 INR International Normalized Ratio 1.03 Activated Partial Thromboplast Time 32.0 Fibrinogen 410.0 Test 01/30/17 14:18 01/30/17 17:59 01/30/17 19:40 01/30/17 20:15 Bedside Glucose 156 122 Sodium Level 142 Potassium Level 3.3 L Chloride Level 116 H Carbon Dioxide Level 21 Anion Gap 8 # Blood Urea Nitrogen 25 H Creatinine 0.90 Glucose Level 122 # Calcium Level 6.4 L Phosphorus Level 4.1 Magnesium Level 1.6 L Troponin I 0.090 Amylase Level 321 H Lipase 5926 H Blood Gas Specimen Source Blood arterial Arterial Blood Date Drawn 01/30/2017 8:20:26 PM Arterial Blood pH (Temp corrected) 7.417 Arterial Blood pCO2 (Temp correct) 30.1 L Arterial Blood pO2 (Temp corrected) 80.3 Arterial Blood HCO3 19.4 L Arterial Blood Base Excess -4.8 L Arterial Blood Oxygen Saturation 96.3 Ariel Test ACCEPTAB Arterial Blood Gas Puncture Site Right Radial Arterial Blood Carboxyhemoglobin 0.3 Arterial Blood Methemoglobin 0.3 Blood Gas A-a O2 Differential 172.5 H Oxyhemoglobin Percent 95.7 Total Hemoglobin 12.2 Blood Gas Temperature 34.8 Blood Gas Respiration Rate 16.0 Blood Gas Actual Respiration Rate 25 Blood Gas Modality VENT - AC FiO2 40.0 Blood Gas Tidal Volume 450.0 Blood Gas Low PEEP Setting 5.0 Blood Gas Notified Whom MA Blood Gas Notified Time 01/30/2017 8:34:15 PM Test 01/30/17 20:59 01/31/17 00:35 01/31/17 00:36 01/31/17 00:39 Bedside Glucose 97 78 93 White Blood Count 4.1 L Red Blood Count 3.74 L Hemoglobin 10.9 L Hematocrit 31.1 L Mean Corpuscular Volume 83.2 Mean Corpuscular Hemoglobin 29.1 Mean Corpuscular Hemoglobin Concent 35.0 Red Cell Distribution Width 15.2 H Platelet Count 55 L Mean Platelet Volume 14.2 H Neutrophils % 52.0 Band Neutrophils % 17.0 H Lymphocytes % 15.0 Reactive Lymphocytes % 2.0 Monocytes % 4.0 Eosinophils % 3.0 Metamyelocytes % 4.0 H Myelocytes % 3.0 H Neutrophils # 2.1 Lymphocytes # 0.6 L Monocytes # 0.2 L Eosinophils # 0.1 Metamyelocytes # 0.2 Myelocytes # 0.1 Toxic Granulation FEW Platelet Estimate PLT APPEAR DECREASED Prothrombin Time 16.1 H Prothrombin Time Ratio 1.3 INR International Normalized Ratio 1.28 Activated Partial Thromboplast Time 33.7 Fibrinogen 362.0 # Sodium Level 139 Potassium Level 3.3 L Chloride Level 114 H Carbon Dioxide Level 19 L Anion Gap 9 Blood Urea Nitrogen 24 H Creatinine 0.93 Glucose Level 98 Calcium Level 6.6 L Phosphorus Level 4.1 Magnesium Level 1.7 Troponin I 0.089 Amylase Level 342 H Lipase 5379 H Test 01/31/17 02:00 01/31/17 05:03 01/31/17 05:06 01/31/17 05:30 Blood Gas Specimen Source Blood arterial Arterial Blood Date Drawn 01/31/2017 2:30:18 AM Arterial Blood pH (Temp corrected) 7.288 *L Arterial Blood pCO2 (Temp correct) 38.2 Arterial Blood pO2 (Temp corrected) 72.0 L Arterial Blood HCO3 18.1 L Arterial Blood Base Excess -8.2 L Arterial Blood Oxygen Saturation 93.9 L Ariel Test ACCEPTAB Arterial Blood Gas Puncture Site Right Radial Arterial Blood Carboxyhemoglobin 0.3 Arterial Blood Methemoglobin 0.2 Blood Gas A-a O2 Differential 170.3 H Oxyhemoglobin Percent 93.4 Total Hemoglobin 11.6 L Blood Gas Temperature 36.0 Blood Gas Respiration Rate 16.0 Blood Gas Actual Respiration Rate 16 Blood Gas Modality VENT - AC FiO2 40.0 Blood Gas Tidal Volume 450.0 Blood Gas Low PEEP Setting 5.0 Blood Gas Critical Value Read Back [employer] Blood Gas Notified Whom HI Blood Gas Notified Time 01/31/2017 2:43:31 AM Bedside Glucose 71 83 White Blood Count 4.7 L Red Blood Count 3.47 L Hemoglobin 10.0 L Hematocrit 29.2 L Mean Corpuscular Volume 84.1 Mean Corpuscular Hemoglobin 28.8 L Mean Corpuscular Hemoglobin Concent 34.2 Red Cell Distribution Width 15.4 H Platelet Count 54 L Mean Platelet Volume Neutrophils % Lymphocytes % Monocytes % Eosinophils % Neutrophils # Lymphocytes # Monocytes # Eosinophils # Prothrombin Time 17.2 H Prothrombin Time Ratio 1.3 INR International Normalized Ratio 1.40 Activated Partial Thromboplast Time 36.5 H Fibrinogen 347.0 Sodium Level 142 Potassium Level 3.1 L Chloride Level 112 H Carbon Dioxide Level 21 Anion Gap 12 Blood Urea Nitrogen 23 H Creatinine 0.99 Glucose Level 84 Calcium Level 6.4 L Phosphorus Level 4.3 Magnesium Level 2.2 Creatine Kinase 115 # Creatine Kinase Index 6.5 Creatinine Kinase MB (Mass) 7.42 H Troponin I 0.107 Amylase Level 335 H Lipase 4303 H Test 01/31/17 06:00 01/31/17 09:04 Blood Gas Specimen Source Blood arterial Arterial Blood Date Drawn 01/31/2017 6:20:08 AM Arterial Blood pH (Temp corrected) 7.275 *L Arterial Blood pCO2 (Temp correct) 43.9 Arterial Blood pO2 (Temp corrected) 75.6 L Arterial Blood HCO3 19.9 L Arterial Blood Base Excess -6.6 L Arterial Blood Oxygen Saturation 93.2 L Ariel Test ACCEPTAB Arterial Blood Gas Puncture Site Right Radial Arterial Blood Carboxyhemoglobin 0.3 Arterial Blood Methemoglobin 0.1 Blood Gas A-a O2 Differential 159.1 H Oxyhemoglobin Percent 92.8 L Total Hemoglobin 10.6 L Blood Gas Temperature 37.0 Blood Gas Respiration Rate 16.0 Blood Gas Actual Respiration Rate 16 Blood Gas Modality VENT - AC FiO2 40.0 Blood Gas Tidal Volume 450.0 Blood Gas Low PEEP Setting 5.0 Blood Gas Critical Value Read Back MSTEVENS RN Blood Gas Notified Whom MA Blood Gas Notified Time 01/31/2017 6:32:56 AM Bedside Glucose 76 Medications Medications Current Medications Ondansetron HCl (Zofran Inj) 4 mg Q6H PRN IV NAUSEA AND/OR VOMITING; Start at 16:30 Morphine Sulfate (morphine) 2 mg Q4H PRN IV SEVERE PAIN LEVEL 7-10; Start 01/29 at 16:30 Pantoprazole 40 mg 40 mg DAILY@06 IV Last administered on 01/31/17 05:18; Admin Dose 40 MG; Start 01/30/17 at 06:00 Piperacillin Sod/ Tazobactam Sod 100 ml @ 200 mls/hr Q6 IVPB Last administered on 01/31/17 05:18; Admin Dose 200 MLS/HR; Start 01/29/17 at 18:00 Vancomycin HCl (Vancocin) 250 ml @ 125 mls/hr Q24H IVPB Last administered on 12:14; Admin Dose 125 MLS/HR; Start 01/30/17 at 11:30 Eye Lubricant (Artificial Tears Oph) 2 drop Q6H PRN BOTH EYES DRY EYES Last administered on 01/30/17 04:29; Admin Dose 2 DROP; Start 01/29/17 at 18:30 Diagnostic Test (Pha) 1 ea 1 ea Q4 XX Last administered on 01/31/17 09:03; Admin Dose 1 EA; Start 01/30/17 at 01:00 Vecuronium [place]/Dextrose (Norcuron/D5W) 100 ml @ 4.08 mls/hr Q24H ONCE IV Last administered on 01/30/17 16:30; Admin Dose 6 MLS/HR; Start 01/30/17 at 16: 18; Stop 01/31/17 at 16:17 Acetaminophen 650 mg 650 mg Q6H PRN [place] FEVER Last administered on 01/31/17 03: 42; Admin Dose 650 MG; Start 01/30/17 at 21:00 Norepinephrine 16 mg/Dextrose 500 ml @ 1.87 mls/hr TITRATE IV Last administered on 01/31/17 07:04; Admin Dose 15 MLS/HR; Start 01/30/17 at 23:55 Midazolam HCl 50 ml @ 1 mls/hr TITRATE IV ; Start 01/30/17 at 23:55 Sodium Chloride (1/2 NS) 1,000 ml @ 100 mls/hr Q10H IV Last administered on 00:00; Admin Dose 100 MLS/HR; Start 01/31/17 at 00:00 TERESA FAITH Jan 31, 2017 09:59
[2017-01-31] MEDS: CEFEPIME 1GM/50 ML (PMX) 50 ML IVPB SCH ×2 (10:49→20:26)
[2017-01-31 12:02] LABS: EOSINOPHILS # 0.2 10^3/ul (0.0-0.5); LYMPHOCYTES # 0.9 10^3/ul (0.8-2.9); MONOCYTE # 0.8 10^3/ul (0.3-0.9); MYELOCYTES # 0.2; NEUTROPHIL # 1.8 10^3/ul (1.6-7.5)
[2017-01-31] MEDS: VANCOMYCIN 1 GM in NS 250 ML IVPB SCH (12:12)
[2017-01-31] MEDS: POTASSIUM CHLORIDE 250 ML IVPB SCH ×2 (12:13→16:19)
--- NOTE | 2017-01-31 12:26 | CONS ---
Date/Time of Note Date/Time of Note DATE: 01/31/17 TIME: 12:20 Assessment/Plan Assessment/Plan Chief Complaint/Hosp Course IMPRESSION: 1. Status post cardiac arrest, assess for acute coronary syndrome.-negative troponin x 3/NL EF by echo this admit 2. Positive troponin, assess significance in setting of cardiac arrest. 3. Abnormal electrocardiogram. 4. Hypotension, borderline.-on low dose levophed 5. Respiratory failure, status post intubation. 6. Pancreatitis by laboratory findings. 7. Anemia. 8. Leukopenia. 9. Thrombocytopenia. Recc: -Tele -Serial ecg's -Continue abx's/f/u cx data -follow MS closely -Follow platelet count Problems: Consultation Date/Type/Reason Admit Date/Time Jan 30, 2017 at 11:41 Initial Consult Date 01/31/17 Type of Consultation: Cardiology Reason for Consultation cardiac arrest Referring Provider: HANY LAWSON Exam/Review of Systems Vital Signs Vitals Vital Signs Date Time Temp Pulse Resp B/P Pulse Ox O2 Delivery O2 Flow Rate FiO2 01/31/17 11:05 95 16 100 40 01/31/17 10:00 107/40 Mechanical Ventilator 01/31/17 07:45 97.7 Intake and Output 01/30/17 01/30/17 01/31/17 15:00 23:00 07:00 Intake Total 350 ml 392.50 ml 2137.00 ml Output Total 363 ml 215 ml Balance 350 ml 29.50 ml 1922.00 ml Exam Review of Systems: CONSTITUTIONAL: No fevers, chills. PULMONARY: intubated CARDIOVASCULAR: No obvious chest pain/palpitations GASTROINTESTINAL: No nausea/vomiting. GENITOURINARY: No hematuria/dysuria. MUSCULOSKELETAL: No obvious myagias/arthalgias. PSYCHIATRIC: The patient denies depression. NEUROLOGIC: sedated Constitutional: alert Psych: no complaints Head: normocephalic ENMT: mucosa pink and moist Neck: jvd, supple Respiratory: diminished breath sounds Cardiovascular: regular rate and rhythm Gastrointestinal: non-tender, soft Musculoskeletal: muscle tone Extremities: edema (none) Neurological: other (sedated) Results Result Diagram: 01/31/17 0530 01/31/17 0530 Results 24 hrs Laboratory Tests Test 01/30/17 12:40 01/30/17 14:00 01/30/17 14:18 01/30/17 17:59 Sodium Level 144 Potassium Level 2.9 *L Chloride Level 109 Carbon Dioxide Level 22 Anion Gap 16 Blood Urea Nitrogen 26 H Creatinine 0.97 Glucose Level 174 Calcium Level 6.8 L Phosphorus Level 4.2 Magnesium Level 1.7 Troponin I 0.090 Amylase Level 297 #H Lipase 4790 H White Blood Count 4.3 L Red Blood Count 4.17 L Hemoglobin 12.2 Hematocrit 34.9 L Mean Corpuscular Volume 83.7 Mean Corpuscular Hemoglobin 29.3 Mean Corpuscular Hemoglobin Concent 35.0 Red Cell Distribution Width 14.9 H Platelet Count 66 #L Mean Platelet Volume Neutrophils % 33.0 L Band Neutrophils % 4.0 Lymphocytes % 41.0 Reactive Lymphocytes % 2.0 Monocytes % 12.0 H Eosinophils % Metamyelocytes % 5.0 H Myelocytes % 3.0 H Neutrophils # 1.4 L Lymphocytes # 1.8 Monocytes # 0.5 Eosinophils # Metamyelocytes # 0.2 Myelocytes # 0.1 Platelet Estimate PLT APPEAR DECREASED Macrocytosis OCCASIONAL Prothrombin Time 13.5 Prothrombin Time Ratio 1.1 INR International Normalized Ratio 1.03 Activated Partial Thromboplast Time 32.0 Fibrinogen 410.0 Bedside Glucose 156 122 Test 01/30/17 19:40 01/30/17 20:15 01/30/17 20:59 01/31/17 00:35 Sodium Level 142 139 Potassium Level 3.3 L 3.3 L Chloride Level 116 H 114 H Carbon Dioxide Level 21 19 L Anion Gap 8 # 9 Blood Urea Nitrogen 25 H 24 H Creatinine 0.90 0.93 Glucose Level 122 # 98 Calcium Level 6.4 L 6.6 L Phosphorus Level 4.1 4.1 Magnesium Level 1.6 L 1.7 Troponin I 0.090 0.089 Amylase Level 321 H 342 H Lipase 5926 H 5379 H Blood Gas Specimen Source Blood arterial Arterial Blood Date Drawn 01/30/2017 8:20:26 PM Arterial Blood pH (Temp corrected) 7.417 Arterial Blood pCO2 (Temp correct) 30.1 L Arterial Blood pO2 (Temp corrected) 80.3 Arterial Blood HCO3 19.4 L Arterial Blood Base Excess -4.8 L Arterial Blood Oxygen Saturation 96.3 Ariel Test ACCEPTAB Arterial Blood Gas Puncture Site Right Radial Arterial Blood Carboxyhemoglobin 0.3 Arterial Blood Methemoglobin 0.3 Blood Gas A-a O2 Differential 172.5 H Oxyhemoglobin Percent 95.7 Total Hemoglobin 12.2 Blood Gas Temperature 34.8 Blood Gas Respiration Rate 16.0 Blood Gas Actual Respiration Rate 25 Blood Gas Modality VENT - AC FiO2 40.0 Blood Gas Tidal Volume 450.0 Blood Gas Low PEEP Setting 5.0 Blood Gas Notified Whom MA Blood Gas Notified Time 01/30/2017 8:34:15 PM Bedside Glucose 97 White Blood Count 4.1 L Red Blood Count 3.74 L Hemoglobin 10.9 L Hematocrit 31.1 L Mean Corpuscular Volume 83.2 Mean Corpuscular Hemoglobin 29.1 Mean Corpuscular Hemoglobin Concent 35.0 Red Cell Distribution Width 15.2 H Platelet Count 55 L Mean Platelet Volume 14.2 H Neutrophils % 52.0 Band Neutrophils % 17.0 H Lymphocytes % 15.0 Reactive Lymphocytes % 2.0 Monocytes % 4.0 Eosinophils % 3.0 Metamyelocytes % 4.0 H Myelocytes % 3.0 H Neutrophils # 2.1 Lymphocytes # 0.6 L Monocytes # 0.2 L Eosinophils # 0.1 Metamyelocytes # 0.2 Myelocytes # 0.1 Toxic Granulation FEW Platelet Estimate PLT APPEAR DECREASED Prothrombin Time 16.1 H Prothrombin Time Ratio 1.3 INR International Normalized Ratio 1.28 Activated Partial Thromboplast Time 33.7 Fibrinogen 362.0 # Test 01/31/17 00:36 01/31/17 00:39 01/31/17 02:00 01/31/17 05:03 Bedside Glucose 78 93 71 Blood Gas Specimen Source Blood arterial Arterial Blood Date Drawn 01/31/2017 2:30:18 AM Arterial Blood pH (Temp corrected) 7.288 *L Arterial Blood pCO2 (Temp correct) 38.2 Arterial Blood pO2 (Temp corrected) 72.0 L Arterial Blood HCO3 18.1 L Arterial Blood Base Excess -8.2 L Arterial Blood Oxygen Saturation 93.9 L Ariel Test ACCEPTAB Arterial Blood Gas Puncture Site Right Radial Arterial Blood Carboxyhemoglobin 0.3 Arterial Blood Methemoglobin 0.2 Blood Gas A-a O2 Differential 170.3 H Oxyhemoglobin Percent 93.4 Total Hemoglobin 11.6 L Blood Gas Temperature 36.0 Blood Gas Respiration Rate 16.0 Blood Gas Actual Respiration Rate 16 Blood Gas Modality VENT - AC FiO2 40.0 Blood Gas Tidal Volume 450.0 Blood Gas Low PEEP Setting 5.0 Blood Gas Critical Value Read Back [employer] Blood Gas Notified Whom MA Blood Gas Notified Time 01/31/2017 2:43:31 AM Test 01/31/17 05:06 01/31/17 05:30 01/31/17 06:00 01/31/17 09:04 Bedside Glucose 83 76 White Blood Count 4.7 L Red Blood Count 3.47 L Hemoglobin 10.0 L Hematocrit 29.2 L Mean Corpuscular Volume 84.1 Mean Corpuscular Hemoglobin 28.8 L Mean Corpuscular Hemoglobin Concent 34.2 Red Cell Distribution Width 15.4 H Platelet Count 54 L Mean Platelet Volume Neutrophils % 38.0 L Band Neutrophils % 9.0 H Lymphocytes % 19.0 Monocytes % 18.0 H Eosinophils % 4.0 Metamyelocytes % 8.0 H Myelocytes % 4.0 H Nucleated Red Blood Cells % 1.0 H Neutrophils # 1.8 Lymphocytes # 0.9 Monocytes # 0.8 Eosinophils # 0.2 Metamyelocytes # 0.4 Myelocytes # 0.2 Giant Platelets FEW Prothrombin Time 17.2 H Prothrombin Time Ratio 1.3 INR International Normalized Ratio 1.40 Activated Partial Thromboplast Time 36.5 H Fibrinogen 347.0 Sodium Level 142 Potassium Level 3.1 L Chloride Level 112 H Carbon Dioxide Level 21 Anion Gap 12 Blood Urea Nitrogen 23 H Creatinine 0.99 Glucose Level 84 Calcium Level 6.4 L Phosphorus Level 4.3 Magnesium Level 2.2 Creatine Kinase 115 # Creatine Kinase Index 6.5 Creatinine Kinase MB (Mass) 7.42 H Troponin I 0.107 Amylase Level 335 H Lipase 4303 H Blood Gas Specimen Source Blood arterial Arterial Blood Date Drawn 01/31/2017 6:20:08 AM Arterial Blood pH (Temp corrected) 7.275 *L Arterial Blood pCO2 (Temp correct) 43.9 Arterial Blood pO2 (Temp corrected) 75.6 L Arterial Blood HCO3 19.9 L Arterial Blood Base Excess -6.6 L Arterial Blood Oxygen Saturation 93.2 L Ariel Test ACCEPTAB Arterial Blood Gas Puncture Site Right Radial Arterial Blood Carboxyhemoglobin 0.3 Arterial Blood Methemoglobin 0.1 Blood Gas A-a O2 Differential 159.1 H Oxyhemoglobin Percent 92.8 L Total Hemoglobin 10.6 L Blood Gas Temperature 37.0 Blood Gas Respiration Rate 16.0 Blood Gas Actual Respiration Rate 16 Blood Gas Modality VENT - AC FiO2 40.0 Blood Gas Tidal Volume 450.0 Blood Gas Low PEEP Setting 5.0 Blood Gas Critical Value Read Back MSTEV RN Blood Gas Notified Whom MA Blood Gas Notified Time 01/31/2017 6:32:56 AM Medications Medications Current Medications Ondansetron HCl (Zofran Inj) 4 mg Q6H PRN IV NAUSEA AND/OR VOMITING; Start at 16:30 Morphine Sulfate (morphine) 2 mg Q4H PRN IV SEVERE PAIN LEVEL 7-10; Start 01/29 at 16:30 Pantoprazole 40 mg 40 mg DAILY@06 IV Last administered on 01/31/17 05:18; Admin Dose 40 MG; Start 01/30/17 at 06:00 Vancomycin HCl (Vancocin) 250 ml @ 125 mls/hr Q24H IVPB Last administered on 12:12; Admin Dose 125 MLS/HR; Start 01/30/17 at 11:30 Eye Lubricant (Artificial Tears Oph) 2 drop Q6H PRN BOTH EYES DRY EYES Last administered on 01/30/17 04:29; Admin Dose 2 DROP; Start 01/29/17 at 18:30 Diagnostic Test (Pha) 1 ea 1 ea Q4 XX Last administered on 01/31/17 09:03; Admin Dose 1 EA; Start 01/30/17 at 01:00 Vecuronium [place]/Dextrose (Norcuron/D5W) 100 ml @ 4.08 mls/hr Q24H ONCE IV Last administered on 01/30/17 16:30; Admin Dose 6 MLS/HR; Start 01/30/17 at 16: 18; Stop 01/31/17 at 16:17 Acetaminophen 650 mg 650 mg Q6H PRN [place] FEVER Last administered on 01/31/17 03: 42; Admin Dose 650 MG; Start 01/30/17 at 21:00 Norepinephrine 16 mg/Dextrose 500 ml @ 1.87 mls/hr TITRATE IV Last administered on 01/31/17 07:04; Admin Dose 15 MLS/HR; Start 01/30/17 at 23:55 Midazolam HCl 50 ml @ 1 mls/hr TITRATE IV ; Start 01/30/17 at 23:55 Sodium Chloride 1,000 ml @ 100 mls/hr Q10H IV Last administered on 01/31/17 00:00; Admin Dose 100 MLS/HR; Start 01/31/17 at 00:00 Cefepime HCl 50 ml @ 100 mls/hr Q12 IVPB Last administered on 01/31/17 10:49 ; Admin Dose 100 MLS/HR; Start 01/31/17 at 10:30 Potassium Chloride (KCl 40 MEQ/250 ML NS) 250 ml @ 62.5 mls/hr Q4H IVPB Last administered on 01/31/17 12:13; Admin Dose 62.5 MLS/HR; Start 01/31/17 at 12:00 ; Stop 01/31/17 at 19:59 ORI ROMERO Jan 31, 2017 12:26
[2017-01-31 13:15] LABS: ADD SCAN DIFF NO
[2017-01-31 13:24] LABS: ABNORMAL IP MESSAGE 1; HEMATOCRIT 25.9 % (37.0-47.0); HEMOGLOBIN 8.9 g/dl (12.0-16.0); MEAN CORPUSCULAR HEMOGLOBIN 29.5 pg (29.0-33.0); MEAN CORPUSCULAR HGB CONC 34.4 g/dl (32.0-37.0); MEAN CORPUSCULAR VOLUME 85.8 fl (82.0-101.0); MEAN PLATELET VOLUME 13.1 fl (7.4-10.4); PLATELET COUNT 49 10^3/UL (140-415); RED BLOOD COUNT 3.02 10^6/ul (4.20-5.40); RED CELL DISTRIBUTION WIDTH 15.9 % (11.5-14.5); WHITE BLOOD COUNT 4.7 10^3/ul (4.8-10.8)
[2017-01-31 13:32] LABS: INR 1.38; PT RATIO 1.3
[2017-01-31 13:33] LABS: PARTIAL THROMBOPLASTIN TIME 39.4 Sec (25.0-35.0)
[2017-01-31 13:35] LABS: POTASSIUM 3.2 mmol/L (3.5-5.1)
[2017-01-31 13:38] LABS: CALCIUM 6.9 mg/dl (8.4-10.2); CREATININE 1.17 mg/dl (0.44-1.00); PHOSPHORUS 4.6 mg/dl (2.5-4.9)
[2017-01-31 13:39] LABS: MAGNESIUM 2.2 mg/dl (1.7-2.5)
[2017-01-31 13:47] LABS: TROPONIN-I 0.074 ng/ml (0.00-0.12)
--- NOTE | 2017-01-31 14:38 | CONS ---
Date/Time of Note Date/Time of Note DATE: 01/31/17 TIME: 14:25 Assessment/Plan Assessment/Plan Chief Complaint/Hosp Course ID PROGRESS NOTE ABX DAY #3=> Vanco IV #3 + Zosyn #3 + Levaquin #2 24H INTERVAL SUMMARY * Patient sedated, orally intubated on the Vent in the ICU post cardiac arrest in the field, possibly due to underlying pulmonary sepsis due to CAP * Blood Cx on admission (+) Strep Pyogenes * 01/30/17 CXR Today: Increase left effusion; Apparent increase in bilateral lung infiltrates or edema may be due to hypoventilation. * 01/31/17 1227 01/31/17 1227 PHYSICAL EXAMINATION: GENERAL: 66 yo [place] F, orally intubated, sedated on the Ventilator, on pressors, warming process post hypothermia protocol HEENT: AT, NC, anicteric, ETT-> Secure to Vent NECK: Supple, trachea midline. CHEST: Rise symmetrical, (+)course anterior BX w/rales HEART: Pulse RRR -- Tachy ABDOMEN: Soft EXTREMITIES: Warm, dry, no edema SKIN: Intact ID ASSESSMENT 66 yo F admit with: 1. Cardiac arrest with return of circulation, (+)Troponin for ACS * s/p Hypothermia protocol -> Initiated on warming protocol 2. Shock on pressor support -- suspect cardiogenic + septic on admission w/ lactic acidosis * Blood CX (+) GRAM POS COCCI IN PAIRS,CHAIN = (+)Strep Pyogenes 1/2 bottles * Lactic acidosis improved, no leukocytosis 3. Multifocal PNA -> Community acquired PNA may have been the etiology of cardia arrest w/left-sided loculated pleural effusion. * Aspiration PNA likely a component following CPRS/ACLS -- Now orally intubation on the Vent * HCAP coverage now that patient is intubated 4. Acute kidney injury, likely secondary to underlying septic shock as well as cardiac arrest. * S.CR on admit 1.3 -> 1.04 > 0.97 >0.90 > > 0.99 > today 1.17 5. Hypokalemia-> replaced 6. Anion gap acidosis secondary to lactic acidosis. 7. Cerebral microvascular disease w/mil chronic-appearing microvascular ischemic changes of the supratentorial white matter on CT Brain. 8. Small fluid level seen throughout the paranasal sinuses may represent allergic rhinitis or mild sinusitis. ( ) MRSA Nares-> Will screen INVASIVES: R-IJ TLC, ETT, OGT, FC ABX ALLERGY: KNDA CURRENT ABX: ABX DAY #3=> Vanco IV #3 + Zosyn #3 + Levaquin #2 ID RECOMMENDATIONS 1. Continue current ABX * Renal fx improved -- watch renal fx closely on Vanco + Zosyn combo 2. Swab nares for MRSA screen in process 3. Respiratory cx for C&S 4. Repeat BCx via TLC 5. 2D ECHO r/o SBE . . Problems: Consultation Date/Type/Reason Admit Date/Time Jan 30, 2017 at 11:41 Type of Consultation: ID Referring Provider: HANY LAWSON Exam/Review of Systems Vital Signs Vitals Vital Signs Date Time Temp Pulse Resp B/P Pulse Ox O2 Delivery O2 Flow Rate FiO2 01/31/17 12:00 97 01/31/17 11:05 16 100 40 01/31/17 10:00 107/40 Mechanical Ventilator 01/31/17 07:45 97.7 Intake and Output 01/30/17 01/30/17 01/31/17 15:00 23:00 07:00 Intake Total 350 ml 392.50 ml 2137.00 ml Output Total 363 ml 215 ml Balance 350 ml 29.50 ml 1922.00 ml Results Result Diagram: 01/31/17 1227 01/31/17 1227 Results 24 hrs Laboratory Tests Test 01/30/17 17:59 01/30/17 19:40 01/30/17 20:15 01/30/17 20:59 Bedside Glucose 122 97 Sodium Level 142 Potassium Level 3.3 L Chloride Level 116 H Carbon Dioxide Level 21 Anion Gap 8 # Blood Urea Nitrogen 25 H Creatinine 0.90 Glucose Level 122 # Calcium Level 6.4 L Phosphorus Level 4.1 Magnesium Level 1.6 L Troponin I 0.090 Amylase Level 321 H Lipase 5926 H Blood Gas Specimen Source Blood arterial Arterial Blood Date Drawn 01/30/2017 8:20:26 PM Arterial Blood pH (Temp corrected) 7.417 Arterial Blood pCO2 (Temp correct) 30.1 L Arterial Blood pO2 (Temp corrected) 80.3 Arterial Blood HCO3 19.4 L Arterial Blood Base Excess -4.8 L Arterial Blood Oxygen Saturation 96.3 Ariel Test ACCEPTAB Arterial Blood Gas Puncture Site Right Radial Arterial Blood Carboxyhemoglobin 0.3 Arterial Blood Methemoglobin 0.3 Blood Gas A-a O2 Differential 172.5 H Oxyhemoglobin Percent 95.7 Total Hemoglobin 12.2 Blood Gas Temperature 34.8 Blood Gas Respiration Rate 16.0 Blood Gas Actual Respiration Rate 25 Blood Gas Modality VENT - AC FiO2 40.0 Blood Gas Tidal Volume 450.0 Blood Gas Low PEEP Setting 5.0 Blood Gas Notified Whom MA Blood Gas Notified Time 01/30/2017 8:34:15 PM Test 01/31/17 00:35 01/31/17 00:36 01/31/17 00:39 01/31/17 02:00 White Blood Count 4.1 L Red Blood Count 3.74 L Hemoglobin 10.9 L Hematocrit 31.1 L Mean Corpuscular Volume 83.2 Mean Corpuscular Hemoglobin 29.1 Mean Corpuscular Hemoglobin Concent 35.0 Red Cell Distribution Width 15.2 H Platelet Count 55 L Mean Platelet Volume 14.2 H Neutrophils % 52.0 Band Neutrophils % 17.0 H Lymphocytes % 15.0 Reactive Lymphocytes % 2.0 Monocytes % 4.0 Eosinophils % 3.0 Metamyelocytes % 4.0 H Myelocytes % 3.0 H Neutrophils # 2.1 Lymphocytes # 0.6 L Monocytes # 0.2 L Eosinophils # 0.1 Metamyelocytes # 0.2 Myelocytes # 0.1 Toxic Granulation FEW Platelet Estimate PLT APPEAR DECREASED Prothrombin Time 16.1 H Prothrombin Time Ratio 1.3 INR International Normalized Ratio 1.28 Activated Partial Thromboplast Time 33.7 Fibrinogen 362.0 # Sodium Level 139 Potassium Level 3.3 L Chloride Level 114 H Carbon Dioxide Level 19 L Anion Gap 9 Blood Urea Nitrogen 24 H Creatinine 0.93 Glucose Level 98 Calcium Level 6.6 L Phosphorus Level 4.1 Magnesium Level 1.7 Troponin I 0.089 Amylase Level 342 H Lipase 5379 H Bedside Glucose 78 93 Blood Gas Specimen Source Blood arterial Arterial Blood Date Drawn 01/31/2017 2:30:18 AM Arterial Blood pH (Temp corrected) 7.288 *L Arterial Blood pCO2 (Temp correct) 38.2 Arterial Blood pO2 (Temp corrected) 72.0 L Arterial Blood HCO3 18.1 L Arterial Blood Base Excess -8.2 L Arterial Blood Oxygen Saturation 93.9 L Ariel Test ACCEPTAB Arterial Blood Gas Puncture Site Right Radial Arterial Blood Carboxyhemoglobin 0.3 Arterial Blood Methemoglobin 0.2 Blood Gas A-a O2 Differential 170.3 H Oxyhemoglobin Percent 93.4 Total Hemoglobin 11.6 L Blood Gas Temperature 36.0 Blood Gas Respiration Rate 16.0 Blood Gas Actual Respiration Rate 16 Blood Gas Modality VENT - AC FiO2 40.0 Blood Gas Tidal Volume 450.0 Blood Gas Low PEEP Setting 5.0 Blood Gas Critical Value Read Back [facility] Blood Gas Notified Whom SD Blood Gas Notified Time 01/31/2017 2:43:31 AM Test 01/31/17 05:03 01/31/17 05:06 01/31/17 05:30 01/31/17 06:00 Bedside Glucose 71 83 White Blood Count 4.7 L Red Blood Count 3.47 L Hemoglobin 10.0 L Hematocrit 29.2 L Mean Corpuscular Volume 84.1 Mean Corpuscular Hemoglobin 28.8 L Mean Corpuscular Hemoglobin Concent 34.2 Red Cell Distribution Width 15.4 H Platelet Count 54 L Mean Platelet Volume Neutrophils % 38.0 L Band Neutrophils % 9.0 H Lymphocytes % 19.0 Monocytes % 18.0 H Eosinophils % 4.0 Metamyelocytes % 8.0 H Myelocytes % 4.0 H Nucleated Red Blood Cells % 1.0 H Neutrophils # 1.8 Lymphocytes # 0.9 Monocytes # 0.8 Eosinophils # 0.2 Metamyelocytes # 0.4 Myelocytes # 0.2 Giant Platelets FEW Prothrombin Time 17.2 H Prothrombin Time Ratio 1.3 INR International Normalized Ratio 1.40 Activated Partial Thromboplast Time 36.5 H Fibrinogen 347.0 Sodium Level 142 Potassium Level 3.1 L Chloride Level 112 H Carbon Dioxide Level 21 Anion Gap 12 Blood Urea Nitrogen 23 H Creatinine 0.99 Glucose Level 84 Calcium Level 6.4 L Phosphorus Level 4.3 Magnesium Level 2.2 Creatine Kinase 115 # Creatine Kinase Index 6.5 Creatinine Kinase MB (Mass) 7.42 H Troponin I 0.107 Amylase Level 335 H Lipase 4303 H Blood Gas Specimen Source Blood arterial Arterial Blood Date Drawn 01/31/2017 6:20:08 AM Arterial Blood pH (Temp corrected) 7.275 *L Arterial Blood pCO2 (Temp correct) 43.9 Arterial Blood pO2 (Temp corrected) 75.6 L Arterial Blood HCO3 19.9 L Arterial Blood Base Excess -6.6 L Arterial Blood Oxygen Saturation 93.2 L Ariel Test ACCEPTAB Arterial Blood Gas Puncture Site Right Radial Arterial Blood Carboxyhemoglobin 0.3 Arterial Blood Methemoglobin 0.1 Blood Gas A-a O2 Differential 159.1 H Oxyhemoglobin Percent 92.8 L Total Hemoglobin 10.6 L Blood Gas Temperature 37.0 Blood Gas Respiration Rate 16.0 Blood Gas Actual Respiration Rate 16 Blood Gas Modality VENT - AC FiO2 40.0 Blood Gas Tidal Volume 450.0 Blood Gas Low PEEP Setting 5.0 Blood Gas Critical Value Read Back [facility] RN Blood Gas Notified Whom VEDA Blood Gas Notified Time 01/31/2017 6:32:56 AM Test 01/31/17 09:04 01/31/17 12:27 01/31/17 12:31 Bedside Glucose 76 102 White Blood Count 4.7 L Red Blood Count 3.02 L Hemoglobin 8.9 L Hematocrit 25.9 L Mean Corpuscular Volume 85.8 Mean Corpuscular Hemoglobin 29.5 Mean Corpuscular Hemoglobin Concent 34.4 Red Cell Distribution Width 15.9 H Platelet Count 49 L Mean Platelet Volume 13.1 H Neutrophils % Lymphocytes % Monocytes % Eosinophils % Neutrophils # Lymphocytes # Monocytes # Eosinophils # Prothrombin Time 17.0 H Prothrombin Time Ratio 1.3 INR International Normalized Ratio 1.38 Activated Partial Thromboplast Time 39.4 H Fibrinogen 336.0 Sodium Level 140 Potassium Level 3.2 L Chloride Level 111 H Carbon Dioxide Level 20 L Anion Gap 12 Blood Urea Nitrogen 24 H Creatinine 1.17 H Glucose Level 95 Calcium Level 6.9 L Phosphorus Level 4.6 Magnesium Level 2.2 Troponin I 0.074 Amylase Level 336 H Lipase 4470 H Medications Medications Current Medications Ondansetron HCl (Zofran Inj) 4 mg Q6H PRN IV NAUSEA AND/OR VOMITING; Start at 16:30 Morphine Sulfate (morphine) 2 mg Q4H PRN IV SEVERE PAIN LEVEL 7-10; Start 01/29 at 16:30 Pantoprazole 40 mg 40 mg DAILY@06 IV Last administered on 01/31/17 05:18; Admin Dose 40 MG; Start 01/30/17 at 06:00 Vancomycin HCl (Vancocin) 250 ml @ 125 mls/hr Q24H IVPB Last administered on 12:12; Admin Dose 125 MLS/HR; Start 01/30/17 at 11:30 Eye Lubricant (Artificial Tears Oph) 2 drop Q6H PRN BOTH EYES DRY EYES Last administered on 01/30/17 04:29; Admin Dose 2 DROP; Start 01/29/17 at 18:30 Diagnostic Test (Pha) 1 ea 1 ea Q4 XX Last administered on 01/31/17 12:58; Admin Dose 1 EA; Start 01/30/17 at 01:00 Vecuronium [place]/Dextrose (Norcuron/D5W) 100 ml @ 4.08 mls/hr Q24H ONCE IV Last administered on 01/30/17 16:30; Admin Dose 6 MLS/HR; Start 01/30/17 at 16: 18; Stop 01/31/17 at 16:17 Acetaminophen 650 mg 650 mg Q6H PRN [place] FEVER Last administered on 01/31/17 03: 42; Admin Dose 650 MG; Start 01/30/17 at 21:00 Norepinephrine 16 mg/Dextrose 500 ml @ 1.87 mls/hr TITRATE IV Last administered on 01/31/17 07:04; Admin Dose 15 MLS/HR; Start 01/30/17 at 23:55 Midazolam HCl 50 ml @ 1 mls/hr TITRATE IV ; Start 01/30/17 at 23:55 Sodium Chloride 1,000 ml @ 100 mls/hr Q10H IV Last administered on 01/31/17 00:00; Admin Dose 100 MLS/HR; Start 01/31/17 at 00:00 Cefepime HCl 50 ml @ 100 mls/hr Q12 IVPB Last administered on 01/31/17 10:49 ; Admin Dose 100 MLS/HR; Start 01/31/17 at 10:30 Potassium Chloride (KCl 40 MEQ/250 ML NS) 250 ml @ 62.5 mls/hr Q4H IVPB Last administered on 01/31/17 12:13; Admin Dose 62.5 MLS/HR; Start 01/31/17 at 12:00 ; Stop 01/31/17 at 19:59 KG GRECO NP Jan 31, 2017 14:38
[2017-01-31 14:45] LABS: EOSINOPHILS # 0.6 10^3/ul (0.0-0.5); MONOCYTE # 0.5 10^3/ul (0.3-0.9)
[2017-01-31 14:46] LABS: ANISOCYTOSIS 2+; PLATELET ESTIMATE PLT APPEAR DECREASED
--- NOTE | 2017-01-31 15:33 | RADRPT ---
PROCEDURE: CHEST 1VW CLINICAL INDICATION: Shortness of breath TECHNIQUE: Single frontal view of the chest was obtained COMPARISON: 01/30/2017 FINDINGS: Stable endotracheal tube. Stable left PICC. The cardiac size is normal. Aortic vascular calcifications are demonstrated. There is stable mild pulmonary vascular congestion. Worsening consolidation seen in the left upper lobe with worsening small layering left pleural effus ion with associated atelectasis. Mild degenerative changes of the visualized osseous structures are visualized. IMPRESSION: 1. Worsening consolidation seen in the left upper lobe with worsening small layering left pleural ef fusion with associated atelectasis which may suggest alveolar edema or pneumonia. 2. Atherosclerosis. 3.Stable lines and tubes. RPTAT:PP .Soto Carrillo MD, MD Date Time Electronically viewed and signed by .Soto Carrillo MD, on 01/31/2017 15:32 .V/
--- NOTE | 2017-01-31 15:55 | PN ---
Date/Time of Note Date/Time of Note DATE: 01/31/17 TIME: 15:52 Assessment/Plan VTE Prophylaxis VTE Prophylaxis Intervention: SCD's Assessment/Plan Chief Complaint/Hosp Course 1. Cardiac arrest with return of circulation likely 2/2 severe sepsis from PNA -On hypothermia protocol and is now being reheated -Cards consult -Pulm consult appreciated for Vent management 2. Severe shock with lactic acidosis secondary to cardiogenic/sepsis source -Lactic acid has trended down -cont IV Abx, ID consult appreciated 3. Acute kidney injury, likely secondary to underlying septic shock as well as cardiac arrest-resolving -Nephrology consultation appreciated 4. Hypokalemia-replete 5. Multifocal pneumonia -cont IV antibiotics, Pulmonology and ID following 6. Anoxic Encephalopathy -monitor 7. Pancreatitis -US Abd to R/O GB stones Prophylaxis: Sequential compression devices Problems: Subjective 24 Hr Interval Summary Subjective hx not possible: pt non-verbal Exam/Review of Systems Vital Signs Vitals Vital Signs Date Time Temp Pulse Resp B/P Pulse Ox O2 Delivery O2 Flow Rate FiO2 01/31/17 15:00 95 16 97 40 01/31/17 14:45 95/33 Mechanical Ventilator 01/31/17 12:00 97.1 Intake and Output 01/30/17 01/30/17 01/31/17 15:00 23:00 07:00 Intake Total 350 ml 392.50 ml 2137.00 ml Output Total 363 ml 215 ml Balance 350 ml 29.50 ml 1922.00 ml Exam Constitutional: non-verbal Respiratory: clear to auscultation Cardiovascular: regular rate and rhythm Gastrointestinal: soft, No distended Musculoskeletal: nl extremities to inspection Results Result Diagram: 01/31/17 1227 01/31/17 1227 Results 24 hrs Laboratory Tests Test 01/30/17 17:59 01/30/17 19:40 01/30/17 20:15 01/30/17 20:59 Bedside Glucose 122 97 Sodium Level 142 Potassium Level 3.3 L Chloride Level 116 H Carbon Dioxide Level 21 Anion Gap 8 # Blood Urea Nitrogen 25 H Creatinine 0.90 Glucose Level 122 # Calcium Level 6.4 L Phosphorus Level 4.1 Magnesium Level 1.6 L Troponin I 0.090 Amylase Level 321 H Lipase 5926 H Blood Gas Specimen Source Blood arterial Arterial Blood Date Drawn 01/30/2017 8:20:26 PM Arterial Blood pH (Temp corrected) 7.417 Arterial Blood pCO2 (Temp correct) 30.1 L Arterial Blood pO2 (Temp corrected) 80.3 Arterial Blood HCO3 19.4 L Arterial Blood Base Excess -4.8 L Arterial Blood Oxygen Saturation 96.3 Ariel Test ACCEPTAB Arterial Blood Gas Puncture Site Right Radial Arterial Blood Carboxyhemoglobin 0.3 Arterial Blood Methemoglobin 0.3 Blood Gas A-a O2 Differential 172.5 H Oxyhemoglobin Percent 95.7 Total Hemoglobin 12.2 Blood Gas Temperature 34.8 Blood Gas Respiration Rate 16.0 Blood Gas Actual Respiration Rate 25 Blood Gas Modality VENT - AC FiO2 40.0 Blood Gas Tidal Volume 450.0 Blood Gas Low PEEP Setting 5.0 Blood Gas Notified Whom MA Blood Gas Notified Time 01/30/2017 8:34:15 PM Test 01/31/17 00:35 01/31/17 00:36 01/31/17 00:39 01/31/17 02:00 White Blood Count 4.1 L Red Blood Count 3.74 L Hemoglobin 10.9 L Hematocrit 31.1 L Mean Corpuscular Volume 83.2 Mean Corpuscular Hemoglobin 29.1 Mean Corpuscular Hemoglobin Concent 35.0 Red Cell Distribution Width 15.2 H Platelet Count 55 L Mean Platelet Volume 14.2 H Neutrophils % 52.0 Band Neutrophils % 17.0 H Lymphocytes % 15.0 Reactive Lymphocytes % 2.0 Monocytes % 4.0 Eosinophils % 3.0 Metamyelocytes % 4.0 H Myelocytes % 3.0 H Neutrophils # 2.1 Lymphocytes # 0.6 L Monocytes # 0.2 L Eosinophils # 0.1 Metamyelocytes # 0.2 Myelocytes # 0.1 Toxic Granulation FEW Platelet Estimate PLT APPEAR DECREASED Prothrombin Time 16.1 H Prothrombin Time Ratio 1.3 INR International Normalized Ratio 1.28 Activated Partial Thromboplast Time 33.7 Fibrinogen 362.0 # Sodium Level 139 Potassium Level 3.3 L Chloride Level 114 H Carbon Dioxide Level 19 L Anion Gap 9 Blood Urea Nitrogen 24 H Creatinine 0.93 Glucose Level 98 Calcium Level 6.6 L Phosphorus Level 4.1 Magnesium Level 1.7 Troponin I 0.089 Amylase Level 342 H Lipase 5379 H Bedside Glucose 78 93 Blood Gas Specimen Source Blood arterial Arterial Blood Date Drawn 01/31/2017 2:30:18 AM Arterial Blood pH (Temp corrected) 7.288 *L Arterial Blood pCO2 (Temp correct) 38.2 Arterial Blood pO2 (Temp corrected) 72.0 L Arterial Blood HCO3 18.1 L Arterial Blood Base Excess -8.2 L Arterial Blood Oxygen Saturation 93.9 L Ariel Test ACCEPTAB Arterial Blood Gas Puncture Site Right Radial Arterial Blood Carboxyhemoglobin 0.3 Arterial Blood Methemoglobin 0.2 Blood Gas A-a O2 Differential 170.3 H Oxyhemoglobin Percent 93.4 Total Hemoglobin 11.6 L Blood Gas Temperature 36.0 Blood Gas Respiration Rate 16.0 Blood Gas Actual Respiration Rate 16 Blood Gas Modality VENT - AC FiO2 40.0 Blood Gas Tidal Volume 450.0 Blood Gas Low PEEP Setting 5.0 Blood Gas Critical Value Read [facility] Blood Gas Notified Whom IN Blood Gas Notified Time 01/31/2017 2:43:31 AM Test 01/31/17 05:03 01/31/17 05:06 01/31/17 05:30 01/31/17 06:00 Bedside Glucose 71 83 White Blood Count 4.7 L Red Blood Count 3.47 L Hemoglobin 10.0 L Hematocrit 29.2 L Mean Corpuscular Volume 84.1 Mean Corpuscular Hemoglobin 28.8 L Mean Corpuscular Hemoglobin Concent 34.2 Red Cell Distribution Width 15.4 H Platelet Count 54 L Mean Platelet Volume Neutrophils % 38.0 L Band Neutrophils % 9.0 H Lymphocytes % 19.0 Monocytes % 18.0 H Eosinophils % 4.0 Metamyelocytes % 8.0 H Myelocytes % 4.0 H Nucleated Red Blood Cells % 1.0 H Neutrophils # 1.8 Lymphocytes # 0.9 Monocytes # 0.8 Eosinophils # 0.2 Metamyelocytes # 0.4 Myelocytes # 0.2 Giant Platelets FEW Prothrombin Time 17.2 H Prothrombin Time Ratio 1.3 INR International Normalized Ratio 1.40 Activated Partial Thromboplast Time 36.5 H Fibrinogen 347.0 Sodium Level 142 Potassium Level 3.1 L Chloride Level 112 H Carbon Dioxide Level 21 Anion Gap 12 Blood Urea Nitrogen 23 H Creatinine 0.99 Glucose Level 84 Calcium Level 6.4 L Phosphorus Level 4.3 Magnesium Level 2.2 Creatine Kinase 115 # Creatine Kinase Index 6.5 Creatinine Kinase MB (Mass) 7.42 H Troponin I 0.107 Amylase Level 335 H Lipase 4303 H Blood Gas Specimen Source Blood arterial Arterial Blood Date Drawn 01/31/2017 6:20:08 AM Arterial Blood pH (Temp corrected) 7.275 *L Arterial Blood pCO2 (Temp correct) 43.9 Arterial Blood pO2 (Temp corrected) 75.6 L Arterial Blood HCO3 19.9 L Arterial Blood Base Excess -6.6 L Arterial Blood Oxygen Saturation 93.2 L Ariel Test ACCEPTAB Arterial Blood Gas Puncture Site Right Radial Arterial Blood Carboxyhemoglobin 0.3 Arterial Blood Methemoglobin 0.1 Blood Gas A-a O2 Differential 159.1 H Oxyhemoglobin Percent 92.8 L Total Hemoglobin 10.6 L Blood Gas Temperature 37.0 Blood Gas Respiration Rate 16.0 Blood Gas Actual Respiration Rate 16 Blood Gas Modality VENT - AC FiO2 40.0 Blood Gas Tidal Volume 450.0 Blood Gas Low PEEP Setting 5.0 Blood Gas Critical Value Read Back [facility] Blood Gas Notified Whom MA Blood Gas Notified Time 01/31/2017 6:32:56 AM Test 01/31/17 09:04 01/31/17 12:27 01/31/17 12:31 Bedside Glucose 76 102 White Blood Count 4.7 L Red Blood Count 3.02 L Hemoglobin 8.9 L Hematocrit 25.9 L Mean Corpuscular Volume 85.8 Mean Corpuscular Hemoglobin 29.5 Mean Corpuscular Hemoglobin Concent 34.4 Red Cell Distribution Width 15.9 H Platelet Count 49 L Mean Platelet Volume 13.1 H Neutrophils % 21.0 L Band Neutrophils % 13.0 H Lymphocytes % 43.0 Monocytes % 11.0 Eosinophils % 12.0 H Nucleated Red Blood Cells % 1.0 H Neutrophils # 1.0 L Lymphocytes # 2.0 Monocytes # 0.5 Eosinophils # 0.6 H Differential Comment MANUAL DIFF Platelet Estimate PLT APPEAR DECREASED Anisocytosis 2+ Prothrombin Time 17.0 H Prothrombin Time Ratio 1.3 INR International Normalized Ratio 1.38 Activated Partial Thromboplast Time 39.4 H Fibrinogen 336.0 Sodium Level 140 Potassium Level 3.2 L Chloride Level 111 H Carbon Dioxide Level 20 L Anion Gap 12 Blood Urea Nitrogen 24 H Creatinine 1.17 H Glucose Level 95 Calcium Level 6.9 L Phosphorus Level 4.6 Magnesium Level 2.2 Troponin I 0.074 Amylase Level 336 H Lipase 4470 H Medications Medications Current Medications Ondansetron HCl (Zofran Inj) 4 mg Q6H PRN IV NAUSEA AND/OR VOMITING; Start at 16:30 Morphine Sulfate (morphine) 2 mg Q4H PRN IV SEVERE PAIN LEVEL 7-10; Start 01/29 at 16:30 Pantoprazole 40 mg 40 mg DAILY@06 IV Last administered on 01/31/17 05:18; Admin Dose 40 MG; Start 01/30/17 at 06:00 Vancomycin HCl (Vancocin) 250 ml @ 125 mls/hr Q24H IVPB Last administered on 12:12; Admin Dose 125 MLS/HR; Start 01/30/17 at 11:30 Eye Lubricant (Artificial Tears Oph) 2 drop Q6H PRN BOTH EYES DRY EYES Last administered on 01/30/17 04:29; Admin Dose 2 DROP; Start 01/29/17 at 18:30 Diagnostic Test (Pha) 1 ea 1 ea Q4 XX Last administered on 01/31/17 12:58; Admin Dose 1 EA; Start 01/30/17 at 01:00 Vecuronium [place]/Dextrose (Norcuron/D5W) 100 ml @ 4.08 mls/hr Q24H ONCE IV Last administered on 01/30/17 16:30; Admin Dose 6 MLS/HR; Start 01/30/17 at 16: 18; Stop 01/31/17 at 16:17 Acetaminophen 650 mg 650 mg Q6H PRN [place] FEVER Last administered on 01/31/17 03: 42; Admin Dose 650 MG; Start 01/30/17 at 21:00 Norepinephrine 16 mg/Dextrose 500 ml @ 1.87 mls/hr TITRATE IV Last administered on 01/31/17 07:04; Admin Dose 15 MLS/HR; Start 01/30/17 at 23:55 Midazolam HCl 50 ml @ 1 mls/hr TITRATE IV ; Start 01/30/17 at 23:55 Sodium Chloride 1,000 ml @ 100 mls/hr Q10H IV Last administered on 01/31/17 00:00; Admin Dose 100 MLS/HR; Start 01/31/17 at 00:00 Cefepime HCl 50 ml @ 100 mls/hr Q12 IVPB Last administered on 01/31/17 10:49 ; Admin Dose 100 MLS/HR; Start 01/31/17 at 10:30 Potassium Chloride (KCl 40 MEQ/250 ML NS) 250 ml @ 62.5 mls/hr Q4H IVPB Last administered on 01/31/17t 12:13; Admin Dose 62.5 MLS/HR; Start 01/31/17 at 12:00 ; Stop 01/31/17 at 19:59 HANY LAWSON Jan 31, 2017 15:55
--- NOTE | 2017-01-31 17:28 | RADRPT ---
PROCEDURE: US Abdomen (right upper quadrant). CLINICAL INDICATION: Right upper quadrant abdomen pain. TECHNIQUE: Multiple real-time longitudinal and transverse images of the right upper quadrant of th e abdomen were acquired utilizing a curved array transducer. Images were reviewed on a high-resoluti on PACS workstation. COMPARISON: None FINDINGS: The liver is normal in size and normal in echogenicity. There is no focal hepatic lesion. Color Doppler and pulsed Doppler sonography demonstrate normal an tegrade flow in the portal vein. There is a gallstone in the gallbladder. There is no gallbladder wall thickening and there is no fl uid around the gallbladder. The bile ducts are normal with the common bile duct measuring 4.2 mm in diameter. The visualized portions of the pancreas are unremarkable with obscuration of the tail of the pancrea s. No free fluid is present. The right kidney measures 9.9 cm. There is normal echogenicity of the right kidney. There is no p erinephric fluid collection. No hydronephrosis, mass, or calculus is seen. IMPRESSION: 1. Gallstone in the gallbladder. No evidence of cholecystitis. 2. Otherwise normal right upper quadrant abdomen ultrasound. RPTAT: QQ .Brian Owens MD, MD Date Time Electronically viewed and signed by .Brian Owens MD, on 01/31/2017 17:28 .R/
--- NOTE | 2017-01-31 17:29 | RADRPT ---
Vent Rate: 103 bpm RR Interval: 0 msec DE Interval: 130 msec QRS Duration: 72 msec QT Interval: 382 msec QTC Interval: 500 msec P-R-T [place]: 48 - 51 - 50 degrees Sinus tachycardia Low voltage QRS Borderline ECG Electronically Signed By: Tom Lynch [id number]
[2017-01-31] MEDS: DEXTROSE 5%-0.45% NACL 1,000 ML IV SCH (17:35)
[2017-01-31] MEDS ORDERED: POTASSIUM CHLORIDE (SR) 20 MEQ TAB PO STA (19:03)
--- NOTE | 2017-01-31 19:06 | CONS ---
Date/Time of Note Date/Time of Note DATE: 01/31/17 TIME: 19:05 Assessment/Plan Assessment/Plan Chief Complaint/Hosp Course IMPRESSION: 1. Acute cardiorespiratory arrest. 2. The patient has acute kidney injury with possible underlying chronic kidney disease. 3. The patient has severe metabolic acidosis, lactic acidosis. 4. Hypokalemia, hypophosphatemia, severe. 5. History of multiple myeloma. 6. Rule out underlying chronic myeloma kidney. 7 sepsis 8 hypokalemia plan kcl lasix Problems: Consultation Date/Type/Reason Admit Date/Time Jan 30, 2017 at 11:41 Type of Consultation: renal Referring Provider: HANY LAWSON 24 HR Interval Summary Constitutional: other (on vent) Exam/Review of Systems Vital Signs Vitals Vital Signs Date Time Temp Pulse Resp B/P Pulse Ox O2 Delivery O2 Flow Rate FiO2 01/31/17 17:26 92 16 100 30 01/31/17 16:45 104/36 Mechanical Ventilator 01/31/17 16:00 97.0 Intake and Output 01/30/17 01/30/17 01/31/17 15:00 23:00 07:00 Intake Total 350 ml 392.50 ml 2137.00 ml Output Total 363 ml 215 ml Balance 350 ml 29.50 ml 1922.00 ml Exam Respiratory: diminished breath sounds Cardiovascular: regular rate and rhythm Gastrointestinal: soft Musculoskeletal: nl extremities to inspection Extremities: normal pulses Results Result Diagram: 01/31/17 1227 01/31/17 1227 Results 24 hrs Laboratory Tests Test 01/30/17 19:40 01/30/17 20:15 01/30/17 20:59 01/31/17 00:35 Sodium Level 142 139 Potassium Level 3.3 L 3.3 L Chloride Level 116 H 114 H Carbon Dioxide Level 21 19 L Anion Gap 8 # 9 Blood Urea Nitrogen 25 H 24 H Creatinine 0.90 0.93 Glucose Level 122 # 98 Calcium Level 6.4 L 6.6 L Phosphorus Level 4.1 4.1 Magnesium Level 1.6 L 1.7 Troponin I 0.090 0.089 Amylase Level 321 H 342 H Lipase 5926 H 5379 H Blood Gas Specimen Source Blood arterial Arterial Blood Date Drawn 01/30/2017 8:20:26 PM Arterial Blood pH (Temp corrected) 7.417 Arterial Blood pCO2 (Temp correct) 30.1 L Arterial Blood pO2 (Temp corrected) 80.3 Arterial Blood HCO3 19.4 L Arterial Blood Base Excess -4.8 L Arterial Blood Oxygen Saturation 96.3 Ariel Test ACCEPTAB Arterial Blood Gas Puncture Site Right Radial Arterial Blood Carboxyhemoglobin 0.3 Arterial Blood Methemoglobin 0.3 Blood Gas A-a O2 Differential 172.5 H Oxyhemoglobin Percent 95.7 Total Hemoglobin 12.2 Blood Gas Temperature 34.8 Blood Gas Respiration Rate 16.0 Blood Gas Actual Respiration Rate 25 Blood Gas Modality VENT - AC FiO2 40.0 Blood Gas Tidal Volume 450.0 Blood Gas Low PEEP Setting 5.0 Blood Gas Notified Whom SC Blood Gas Notified Time 01/30/2017 8:34:15 PM Bedside Glucose 97 White Blood Count 4.1 L Red Blood Count 3.74 L Hemoglobin 10.9 L Hematocrit 31.1 L Mean Corpuscular Volume 83.2 Mean Corpuscular Hemoglobin 29.1 Mean Corpuscular Hemoglobin Concent 35.0 Red Cell Distribution Width 15.2 H Platelet Count 55 L Mean Platelet Volume 14.2 H Neutrophils % 52.0 Band Neutrophils % 17.0 H Lymphocytes % 15.0 Reactive Lymphocytes % 2.0 Monocytes % 4.0 Eosinophils % 3.0 Metamyelocytes % 4.0 H Myelocytes % 3.0 H Neutrophils # 2.1 Lymphocytes # 0.6 L Monocytes # 0.2 L Eosinophils # 0.1 Metamyelocytes # 0.2 Myelocytes # 0.1 Toxic Granulation FEW Platelet Estimate PLT APPEAR DECREASED Prothrombin Time 16.1 H Prothrombin Time Ratio 1.3 INR International Normalized Ratio 1.28 Activated Partial Thromboplast Time 33.7 Fibrinogen 362.0 # Test 01/31/17 00:36 01/31/17 00:39 01/31/17 02:00 01/31/17 05:03 Bedside Glucose 78 93 71 Blood Gas Specimen Source Blood arterial Arterial Blood Date Drawn 01/31/2017 2:30:18 AM Arterial Blood pH (Temp corrected) 7.288 *L Arterial Blood pCO2 (Temp correct) 38.2 Arterial Blood pO2 (Temp corrected) 72.0 L Arterial Blood HCO3 18.1 L Arterial Blood Base Excess -8.2 L Arterial Blood Oxygen Saturation 93.9 L Ariel Test ACCEPTAB Arterial Blood Gas Puncture Site Right Radial Arterial Blood Carboxyhemoglobin 0.3 Arterial Blood Methemoglobin 0.2 Blood Gas A-a O2 Differential 170.3 H Oxyhemoglobin Percent 93.4 Total Hemoglobin 11.6 L Blood Gas Temperature 36.0 Blood Gas Respiration Rate 16.0 Blood Gas Actual Respiration Rate 16 Blood Gas Modality VENT - AC FiO2 40.0 Blood Gas Tidal Volume 450.0 Blood Gas Low PEEP Setting 5.0 Blood Gas Critical Value Read Back [facility] Blood Gas Notified Whom SC Blood Gas Notified Time 01/31/2017 2:43:31 AM Test 01/31/17 05:06 01/31/17 05:30 01/31/17 06:00 01/31/17 09:04 Bedside Glucose 83 76 White Blood Count 4.7 L Red Blood Count 3.47 L Hemoglobin 10.0 L Hematocrit 29.2 L Mean Corpuscular Volume 84.1 Mean Corpuscular Hemoglobin 28.8 L Mean Corpuscular Hemoglobin Concent 34.2 Red Cell Distribution Width 15.4 H Platelet Count 54 L Mean Platelet Volume Neutrophils % 38.0 L Band Neutrophils % 9.0 H Lymphocytes % 19.0 Monocytes % 18.0 H Eosinophils % 4.0 Metamyelocytes % 8.0 H Myelocytes % 4.0 H Nucleated Red Blood Cells % 1.0 H Neutrophils # 1.8 Lymphocytes # 0.9 Monocytes # 0.8 Eosinophils # 0.2 Metamyelocytes # 0.4 Myelocytes # 0.2 Giant Platelets FEW Prothrombin Time 17.2 H Prothrombin Time Ratio 1.3 INR International Normalized Ratio 1.40 Activated Partial Thromboplast Time 36.5 H Fibrinogen 347.0 Sodium Level 142 Potassium Level 3.1 L Chloride Level 112 H Carbon Dioxide Level 21 Anion Gap 12 Blood Urea Nitrogen 23 H Creatinine 0.99 Glucose Level 84 Calcium Level 6.4 L Phosphorus Level 4.3 Magnesium Level 2.2 Creatine Kinase 115 # Creatine Kinase Index 6.5 Creatinine Kinase MB (Mass) 7.42 H Troponin I 0.107 Amylase Level 335 H Lipase 4303 H Blood Gas Specimen Source Blood arterial Arterial Blood Date Drawn 01/31/2017 6:20:08 AM Arterial Blood pH (Temp corrected) 7.275 *L Arterial Blood pCO2 (Temp correct) 43.9 Arterial Blood pO2 (Temp corrected) 75.6 L Arterial Blood HCO3 19.9 L Arterial Blood Base Excess -6.6 L Arterial Blood Oxygen Saturation 93.2 L Ariel Test ACCEPTAB Arterial Blood Gas Puncture Site Right Radial Arterial Blood Carboxyhemoglobin 0.3 Arterial Blood Methemoglobin 0.1 Blood Gas A-a O2 Differential 159.1 H Oxyhemoglobin Percent 92.8 L Total Hemoglobin 10.6 L Blood Gas Temperature 37.0 Blood Gas Respiration Rate 16.0 Blood Gas Actual Respiration Rate 16 Blood Gas Modality VENT - AC FiO2 40.0 Blood Gas Tidal Volume 450.0 Blood Gas Low PEEP Setting 5.0 Blood Gas Critical Value Read Back [facility] Blood Gas Notified Whom VEDA Blood Gas Notified Time 01/31/2017 6:32:56 AM Test 01/31/17 12:27 01/31/17 12:31 01/31/17 16:25 White Blood Count 4.7 L Red Blood Count 3.02 L Hemoglobin 8.9 L Hematocrit 25.9 L Mean Corpuscular Volume 85.8 Mean Corpuscular Hemoglobin 29.5 Mean Corpuscular Hemoglobin Concent 34.4 Red Cell Distribution Width 15.9 H Platelet Count 49 L Mean Platelet Volume 13.1 H Neutrophils % 21.0 L Band Neutrophils % 13.0 H Lymphocytes % 43.0 Monocytes % 11.0 Eosinophils % 12.0 H Nucleated Red Blood Cells % 1.0 H Neutrophils # 1.0 L Lymphocytes # 2.0 Monocytes # 0.5 Eosinophils # 0.6 H Differential Comment MANUAL DIFF Platelet Estimate PLT APPEAR DECREASED Anisocytosis 2+ Prothrombin Time 17.0 H Prothrombin Time Ratio 1.3 INR International Normalized Ratio 1.38 Activated Partial Thromboplast Time 39.4 H Fibrinogen 336.0 Sodium Level 140 Potassium Level 3.2 L Chloride Level 111 H Carbon Dioxide Level 20 L Anion Gap 12 Blood Urea Nitrogen 24 H Creatinine 1.17 H Glucose Level 95 Calcium Level 6.9 L Phosphorus Level 4.6 Magnesium Level 2.2 Troponin I 0.074 Amylase Level 336 H Lipase 4470 H Bedside Glucose 102 72 Medications Medications Current Medications Ondansetron HCl (Zofran Inj) 4 mg Q6H PRN IV NAUSEA AND/OR VOMITING; Start at 16:30 Morphine Sulfate (morphine) 2 mg Q4H PRN IV SEVERE PAIN LEVEL 7-10; Start 01/29 at 16:30 Pantoprazole 40 mg 40 mg DAILY@06 IV Last administered on 01/31/17t 05:18; Admin Dose 40 MG; Start 01/30/17 at 06:00 Vancomycin HCl (Vancocin) 250 ml @ 125 mls/hr Q24H IVPB Last administered on 12:12; Admin Dose 125 MLS/HR; Start 01/30/17 at 11:30 Eye Lubricant (Artificial Tears Oph) 2 drop Q6H PRN BOTH EYES DRY EYES Last administered on 01/30/17 04:29; Admin Dose 2 DROP; Start 01/29/17 at 18:30 Diagnostic Test (Pha) (Accu-Chek) 1 ea Q4 XX Last administered on 01/31/17 16: 30; Admin Dose 1 EA; Start 01/30/17 at 01:00 Acetaminophen 650 mg 650 mg Q6H PRN AR FEVER Last administered on 01/31/17 03: 42; Admin Dose 650 MG; Start 01/30/17 at 21:00 Norepinephrine 16 mg/Dextrose 500 ml @ 1.87 mls/hr TITRATE IV Last administered on 01/31/17 07:04; Admin Dose 15 MLS/HR; Start 01/30/17 at 23:55 Midazolam HCl 50 ml @ 1 mls/hr TITRATE IV ; Start 01/30/17 at 23:55 Cefepime HCl 50 ml @ 100 mls/hr Q12 IVPB Last administered on 01/31/17 10:49 ; Admin Dose 100 MLS/HR; Start 01/31/17 at 10:30 Potassium Chloride 250 ml @ 62.5 mls/hr Q4H IVPB Last administered on 16:19; Admin Dose 62.5 MLS/HR; Start 01/31/17 at 12:00; Stop 01/31/17 at 19 :59 Dextrose/Sodium Chloride (D5-1/2ns) 1,000 ml @ 100 mls/hr Q10H IV Last administered on 01/31/17 17:35; Admin Dose 100 MLS/HR; Start 01/31/17 at 17:00 Miscellaneous Information (*Rx Drug Level Order Reminder*) VANCO TR LEVEL PRIOR... ONCE ONCE XX ; Start 02/01/17 at 10:30; Stop 02/01/17 at 10:31 CINDY MARES MD Jan 31, 2017 19:06
[2017-01-31] MEDS ORDERED: FUROSEMIDE 20 MG INJ IV ONE (20:00)
[2017-01-31] MEDS ORDERED: ALBUTEROL 18 GM INHALER INH PRN (21:30)
[2017-01-31] MEDS: IPRATROPIUM (HFA) 12.9 GM INHALER INH SCH (22:00)
[2017-01-31] MEDS: ACETYLCYSTEINE 20% 4 ML VIAL NEB SCH (22:00)
[2017-01-31] MEDS: ALBUTEROL 18 GM INHALER INH SCH (22:00)
[2017-01-31 22:30] LABS: ADD SCAN DIFF NO
[2017-01-31 22:32] LABS: ABNORMAL IP MESSAGE 1; HEMATOCRIT 27.3 % (37.0-47.0); HEMOGLOBIN 9.5 g/dl (12.0-16.0); MEAN CORPUSCULAR HGB CONC 34.8 g/dl (32.0-37.0); MEAN CORPUSCULAR VOLUME 86.1 fl (82.0-101.0); MEAN PLATELET VOLUME 12.7 fl (7.4-10.4); PLATELET COUNT 57 10^3/UL (140-415); RED BLOOD COUNT 3.17 10^6/ul (4.20-5.40); RED CELL DISTRIBUTION WIDTH 16.1 % (11.5-14.5); WHITE BLOOD COUNT 5.6 10^3/ul (4.8-10.8)
[2017-01-31 22:44] LABS: INR 1.37; PARTIAL THROMBOPLASTIN TIME 39.7 Sec (25.0-35.0); PROTIME 16.9 Sec (12.2-14.2); PT RATIO 1.3
[2017-01-31 22:47] LABS: PHOSPHORUS 3.8 mg/dl (2.5-4.9)
[2017-01-31 22:48] LABS: CALCIUM 7.3 mg/dl (8.4-10.2); CREATININE 1.22 mg/dl (0.44-1.00); POTASSIUM 4.6 mmol/L (3.5-5.1)
[2017-01-31 23:00] LABS: TROPONIN-I 0.049 ng/ml (0.00-0.12)
[2017-02-01] VITALS (44 sets, daily range): BP systolic 83–118; BP diastolic 29–68; PULSE 81–107; RESP 16–32
[2017-02-01] MEDS: ACCU-CHEK XX SCH ×2 (01:00→05:15)
[2017-02-01 01:07] LABS: EOSINOPHILS # 0.4 10^3/ul (0.0-0.5); LYMPHOCYTES # 1.1 10^3/ul (0.8-2.9); MONOCYTE # 0.4 10^3/ul (0.3-0.9); MYELOCYTES # 0.1; NEUTROPHIL # 2.4 10^3/ul (1.6-7.5); TOXIC GRANULATION FEW; TOXIC VACUOLATION FEW
[2017-02-01 01:08] LABS: PLATELET ESTIMATE PLT APPEAR INCREASED
[2017-02-01] MEDS: ALBUTEROL 18 GM INHALER INH SCH ×4 (02:00→19:12)
[2017-02-01] MEDS: IPRATROPIUM (HFA) 12.9 GM INHALER INH SCH ×4 (02:00→19:12)
[2017-02-01] MEDS: ACETYLCYSTEINE 20% 4 ML VIAL NEB SCH ×4 (02:00→19:11)
[2017-02-01] MEDS: PANTOPRAZOLE 40 MG INJ IV SCH (05:18)
[2017-02-01] MEDS: DEXTROSE 5%-0.45% NACL 1,000 ML IV SCH ×3 (05:18→23:29)
[2017-02-01 06:08] LABS: ADD SCAN DIFF NO
[2017-02-01 06:25] LABS: ABNORMAL IP MESSAGE 1; HEMATOCRIT 29.4 % (37.0-47.0); HEMOGLOBIN 9.7 g/dl (12.0-16.0); MEAN CORPUSCULAR HEMOGLOBIN 28.8 pg (29.0-33.0); MEAN CORPUSCULAR VOLUME 87.2 fl (82.0-101.0); MEAN PLATELET VOLUME 13.7 fl (7.4-10.4); PLATELET COUNT 69 10^3/UL (140-415); RED BLOOD COUNT 3.37 10^6/ul (4.20-5.40); RED CELL DISTRIBUTION WIDTH 16.4 % (11.5-14.5); WHITE BLOOD COUNT 5.2 10^3/ul (4.8-10.8)
[2017-02-01 06:29] LABS: ALBUMIN/GLOBULIN RATIO 0.64; BILIRUBIN,INDIRECT 0.1 mg/dl (0-1.1); BILIRUBIN,TOTAL 0.1 mg/dl (0.2-1.3); CALCIUM 7.3 mg/dl (8.4-10.2); CREATININE 1.31 mg/dl (0.44-1.00); POTASSIUM 4.7 mmol/L (3.5-5.1); TOTAL PROTEIN 5.1 g/dl (6.1-8.1)
--- NOTE | 2017-02-01 08:40 | RADRPT ---
PROCEDURE: XR Chest. CLINICAL INDICATION: Pneumonia TECHNIQUE: An AP view of the chest was obtained. COMPARISON: Chest x-ray dated 01/31/[address] chest dated 01/29/2017 FINDINGS: The endotracheal tube tip is approximately 3.3 cm above the stalin. There is a left subclavian cent ral venous catheter with tip in the mid SVC. There are diffuse bilateral alveolar opacities with dense round consolidation of the left upper lobe . There is a small left pleural effusion with loculated component along the left upper lobe. No pne umothorax is seen. The cardiomediastinal silhouette is within normal limits for size. The osseous structures demonstrate senescent changes. IMPRESSION: 1. There are bilateral alveolar opacities which may reflect pulmonary edema and / or multifocal pne umonia. This is increased when compared to the prior examination. 2. Small left pleural effusion with loculated component along the left upper lobe. 3. Tubes and lines, as described above. RPTAT: .Radha Canales MD, MD Date Time Electronically viewed and signed by .Radha Canales MD, on 02/01/2017 08:40 .G/
[2017-02-01] MEDS: CEFEPIME 1GM/50 ML (PMX) 50 ML IVPB SCH ×2 (09:40→20:35)
[2017-02-01 10:29] LABS: AADO2 Arterial 101.1 mmHg (7.0-24.0); Arterial Base Excess -7.8 mmol/L (-3.0-3); Arterial COHb 0.2 % (0.0-3.0); Arterial Fraction of Oxyhgb 87.6 % (93.0-99.0); Arterial HCO3 19.5 mmol/L (22.0-26.0); Arterial MetHb 0.2 % (0.0-1.5); Arterial Total Hemglobin 10.5 g/dl (12.0-18.0); MODE VENT - AC
[2017-02-01 10:44] LABS: EOSINOPHILS # 0.3 10^3/ul (0.0-0.5); LYMPHOCYTES # 0.9 10^3/ul (0.8-2.9); MONOCYTE # 0.6 10^3/ul (0.3-0.9); TOXIC GRANULATION 1+
--- NOTE | 2017-02-01 11:18 | CONS ---
Date/Time of Note Date/Time of Note DATE: 02/01/17 TIME: 11:14 Consult Date/Type/Reason Admit Date/Time Jan 30, 2017 at 11:41 Initial Consult Date Type of Consultation: pulmonary ICU Ordering Provider: HANY LAWSON Subjective Patient remains somnolent on mechanical ventilation Pupils minimally reactive no gag reflex not breathing above set ventilator rate. Objective Vital Signs Date Time Temp Pulse Resp B/P Pulse Ox O2 Delivery O2 Flow Rate FiO2 02/01/17 11:06 50 02/01/17 09:22 97 16 98 02/01/17 09:00 108/31 Mechanical Ventilator 02/01/17 08:00 97.2 Intake and Output 01/31/17 01/31/17 02/01/17 15:00 23:00 07:00 Intake Total 1049.34 ml 1034.98 ml 700 ml Output Total 106 ml 87 ml 61 ml Balance 943.34 ml 947.98 ml 639 ml Exam PHYSICAL EXAMINATION GENERAL: Elderly gentleman, intubated on mechanical ventilation. Orally intubated. VITAL SIGNS: see below. HEENT: Pupils equal, round, and reactive to light. CARDIAC: S1, S2, tachycardia. CHEST: Diminished air entry bilaterally. ABDOMEN: Mildly distended. Decreased bowel sounds no guarding or rebound EXTREMITIES: No cyanosis, clubbing or edema. NEUROLOGIC: No focal deficits. Results/Medications Result Diagram: 02/01/17 0500 02/01/17 0500 Results 24 hrs Laboratory Tests Test 01/31/17 12:27 01/31/17 12:31 01/31/17 16:25 01/31/17 20:22 White Blood Count 4.7 L Red Blood Count 3.02 L Hemoglobin 8.9 L Hematocrit 25.9 L Mean Corpuscular Volume 85.8 Mean Corpuscular Hemoglobin 29.5 Mean Corpuscular Hemoglobin Concent 34.4 Red Cell Distribution Width 15.9 H Platelet Count 49 L Mean Platelet Volume 13.1 H Neutrophils % 21.0 L Band Neutrophils % 13.0 H Lymphocytes % 43.0 Monocytes % 11.0 Eosinophils % 12.0 H Nucleated Red Blood Cells % 1.0 H Neutrophils # 1.0 L Lymphocytes # 2.0 Monocytes # 0.5 Eosinophils # 0.6 H Differential Comment MANUAL DIFF Platelet Estimate PLT APPEAR DECREASED Anisocytosis 2+ Prothrombin Time 17.0 H Prothrombin Time Ratio 1.3 INR International Normalized Ratio 1.38 Activated Partial Thromboplast Time 39.4 H Fibrinogen 336.0 Sodium Level 140 Potassium Level 3.2 L Chloride Level 111 H Carbon Dioxide Level 20 L Anion Gap 12 Blood Urea Nitrogen 24 H Creatinine 1.17 H Glucose Level 95 Calcium Level 6.9 L Phosphorus Level 4.6 Magnesium Level 2.2 Troponin I 0.074 Amylase Level 336 H Lipase 4470 H Bedside Glucose 102 72 101 Test 01/31/17 22:18 02/01/17 02:04 02/01/17 05:00 02/01/17 05:15 White Blood Count 5.6 5.2 Red Blood Count 3.17 L 3.37 L Hemoglobin 9.5 L 9.7 L Hematocrit 27.3 L 29.4 L Mean Corpuscular Volume 86.1 87.2 Mean Corpuscular Hemoglobin 30.0 28.8 L Mean Corpuscular Hemoglobin Concent 34.8 33.0 Red Cell Distribution Width 16.1 H 16.4 H Platelet Count 57 L 69 #L Mean Platelet Volume 12.7 H 13.7 H Neutrophils % 42.0 39.0 Band Neutrophils % 14.0 H 25.0 H Lymphocytes % 20.0 18.0 Reactive Lymphocytes % 2.0 Monocytes % 7.0 11.0 Eosinophils % 7.0 6.0 Metamyelocytes % 6.0 H 1.0 H Myelocytes % 2.0 H Neutrophils # 2.4 2.0 Lymphocytes # 1.1 0.9 Monocytes # 0.4 0.6 Eosinophils # 0.4 0.3 Metamyelocytes # 0.3 0.1 Myelocytes # 0.1 Toxic Granulation FEW 1+ Dohle Bodies Platelet Estimate PLT APPEAR INCREASED Prothrombin Time 16.9 H Prothrombin Time Ratio 1.3 INR International Normalized Ratio 1.37 Activated Partial Thromboplast Time 39.7 H Fibrinogen 370.0 # Sodium Level 138 140 Potassium Level 4.6 4.7 Chloride Level 115 H 116 H Carbon Dioxide Level 20 L 20 L Anion Gap 8 9 Blood Urea Nitrogen 24 H 27 H Creatinine 1.22 H 1.31 H Glucose Level 124 104 Calcium Level 7.3 L 7.3 L Phosphorus Level 3.8 Magnesium Level 2.0 Troponin I 0.049 Amylase Level 181 #H Lipase 1876 H 1444 H Bedside Glucose 110 101 Differential Comment MANUAL DIFF Total Bilirubin 0.1 L Direct Bilirubin 0.00 Indirect Bilirubin 0.1 Aspartate Amino Transf (AST/SGOT) 37 Alanine Aminotransferase (ALT/SGPT) 35 Alkaline Phosphatase 47 Total Protein 5.1 L Albumin 2.0 L Globulin 3.10 Albumin/Globulin Ratio 0.64 Test 02/01/17 09:09 Blood Gas Specimen Source Blood arterial Arterial Blood Date Drawn 02/01/2017 10:10:20 AM Arterial Blood pH (Temp corrected) 7.234 *L Arterial Blood pCO2 (Temp correct) 47.1 H Arterial Blood pO2 (Temp corrected) 57.5 L Arterial Blood HCO3 19.5 L Arterial Blood Base Excess -7.8 L Arterial Blood Oxygen Saturation 88.0 L Ariel Test N/A Arterial Blood Gas Puncture Site LB Arterial Blood Carboxyhemoglobin 0.2 Arterial Blood Methemoglobin 0.2 Blood Gas A-a O2 Differential 101.1 H Oxyhemoglobin Percent 87.6 L Total Hemoglobin 10.5 L Blood Gas Temperature 37.0 Blood Gas Respiration Rate 16.0 Blood Gas Actual Respiration Rate 16 Blood Gas Modality VENT - AC FiO2 30.0 Blood Gas Tidal Volume 450.0 Blood Gas Low PEEP Setting 5.0 Blood Gas Critical Value Read Back R SASHA RN Blood Gas Notified Whom AYANAD Blood Gas Notified Time 02/01/2017 10:28:47 AM Medications Current Medications Ondansetron HCl (Zofran Inj) 4 mg Q6H PRN IV NAUSEA AND/OR VOMITING; Start at 16:30 Morphine Sulfate (morphine) 2 mg Q4H PRN IV SEVERE PAIN LEVEL 7-10; Start 01/29 at 16:30 Pantoprazole 40 mg 40 mg DAILY@06 IV Last administered on 02/01/17 05:18; Admin Dose 40 MG; Start 01/30/17 at 06:00 Vancomycin HCl (Vancocin) 250 ml @ 125 mls/hr Q24H IVPB Last administered on 12:12; Admin Dose 125 MLS/HR; Start 01/30/17 at 11:30 Eye Lubricant (Artificial Tears Oph) 2 drop Q6H PRN BOTH EYES DRY EYES Last administered on 01/30/17 04:29; Admin Dose 2 DROP; Start 01/29/17 at 18:30 Diagnostic Test (Pha) (Accu-Chek) 1 ea Q4 XX Last administered on 02/01/17 05: 15; Admin Dose 1 EA; Start 01/30/17 at 01:00 Acetaminophen 650 mg 650 mg Q6H PRN SC FEVER Last administered on 01/31/17 03: 42; Admin Dose 650 MG; Start 01/30/17 at 21:00 Norepinephrine 16 mg/Dextrose 500 ml @ 1.87 mls/hr TITRATE IV Last administered on 01/31/17 07:04; Admin Dose 15 MLS/HR; Start 01/30/17 at 23:55 Midazolam HCl 50 ml @ 1 mls/hr TITRATE IV ; Start 01/30/17 at 23:55 Cefepime HCl 50 ml @ 100 mls/hr Q12 IVPB Last administered on 02/01/17 09:40 ; Admin Dose 100 MLS/HR; Start 01/31/17 at 10:30 Dextrose/Sodium Chloride (D5-1/2ns) 1,000 ml @ 100 mls/hr Q10H IV Last administered on 02/01/17 05:18; Admin Dose 100 MLS/HR; Start 01/31/17 at 17:00 Assessment/Plan Chief Complaint/Hosp Course Assessment 1. Cardiopulmonary arrest 2. Likely significant anoxic brain injury 3. History of multiple myeloma 4. Acute Hypoxemic hypercapnic respiratory failure secondary to above. Possible pneumonia with pulmonary edema 5. Thrombocytopenia Plan 1. Continue mechanical ventilation 2. Continue broad-spectrum antibiotics 3. Diuresis if tolerated 4. Continue to feeding as tolerated 5. DVT GI prophylaxis Disposition I had a long family conference with next of kin at bedside today I explained very poor prognosis. I explained that patient may have a significant anoxic brain injury if this is occasional not be able to liberate from mechanical ventilation We'll continue all supportive care for now Family states to continue full code Critical care time 40 minutes. Problems: MOHSEN CARDENAS MD, [facility] Feb 01, 2017 11:18
--- NOTE | 2017-02-01 11:34 | CONS ---
Date/Time of Note Date/Time of Note DATE: 02/01/17 TIME: 11:31 Assessment/Plan Assessment/Plan Chief Complaint/Hosp Course 1. Pt is intubated , non responsive 2. family conference done Problems: Additional Assessment/Plan 1. Acute cardiorespiratory arrest. 2. The patient has acute kidney injury with possible underlying chronic kidney disease. 3. The patient has severe metabolic acidosis, lactic acidosis. 4. Hypokalemia, hypophosphatemia, severe. 5. History of multiple myeloma. 6. Rule out underlying chronic myeloma kidney. 7 sepsis 8 hypokalemia Consultation Date/Type/Reason Admit Date/Time Jan 30, 2017 at 11:41 Initial Consult Date 01/30/2017 Type of Consultation: Nephrology Reason for Consultation Dr Hudson Referring Provider: HANY LAWSON 24 HR Interval Summary Subjective hx not possible: pt non-verbal Exam/Review of Systems Vital Signs Vitals Vital Signs Date Time Temp Pulse Resp B/P Pulse Ox O2 Delivery O2 Flow Rate FiO2 02/01/17 11:06 50 02/01/17 09:22 97 16 98 02/01/17 09:00 108/31 Mechanical Ventilator 02/01/17 08:00 97.2 Intake and Output 01/31/17 01/31/17 02/01/17 15:00 23:00 07:00 Intake Total 1049.34 ml 1034.98 ml 700 ml Output Total 106 ml 87 ml 61 ml Balance 943.34 ml 947.98 ml 639 ml Exam Constitutional: obese Head: atraumatic, normocephalic Eyes: nl sclera ENMT: nl external ears & nose, nl lips & teeth, nl nasal mucosa & septum Neck: supple Respiratory: clear to auscultation, other (orally intubated) Cardiovascular: regular rate and rhythm Gastrointestinal: soft Genitourinary - Female: nl external genitalia Extremities: normal pulses Results Result Diagram: 02/01/17 0500 02/01/17 0500 Results 24 hrs Laboratory Tests Test 01/31/17 12:27 01/31/17 12:31 01/31/17 16:25 01/31/17 20:22 White Blood Count 4.7 L Red Blood Count 3.02 L Hemoglobin 8.9 L Hematocrit 25.9 L Mean Corpuscular Volume 85.8 Mean Corpuscular Hemoglobin 29.5 Mean Corpuscular Hemoglobin Concent 34.4 Red Cell Distribution Width 15.9 H Platelet Count 49 L Mean Platelet Volume 13.1 H Neutrophils % 21.0 L Band Neutrophils % 13.0 H Lymphocytes % 43.0 Monocytes % 11.0 Eosinophils % 12.0 H Nucleated Red Blood Cells % 1.0 H Neutrophils # 1.0 L Lymphocytes # 2.0 Monocytes # 0.5 Eosinophils # 0.6 H Differential Comment MANUAL DIFF Platelet Estimate PLT APPEAR DECREASED Anisocytosis 2+ Prothrombin Time 17.0 H Prothrombin Time Ratio 1.3 INR International Normalized Ratio 1.38 Activated Partial Thromboplast Time 39.4 H Fibrinogen 336.0 Sodium Level 140 Potassium Level 3.2 L Chloride Level 111 H Carbon Dioxide Level 20 L Anion Gap 12 Blood Urea Nitrogen 24 H Creatinine 1.17 H Glucose Level 95 Calcium Level 6.9 L Phosphorus Level 4.6 Magnesium Level 2.2 Troponin I 0.074 Amylase Level 336 H Lipase 4470 H Bedside Glucose 102 72 101 Test 01/31/17 22:18 02/01/17 02:04 02/01/17 05:00 02/01/17 05:15 White Blood Count 5.6 5.2 Red Blood Count 3.17 L 3.37 L Hemoglobin 9.5 L 9.7 L Hematocrit 27.3 L 29.4 L Mean Corpuscular Volume 86.1 87.2 Mean Corpuscular Hemoglobin 30.0 28.8 L Mean Corpuscular Hemoglobin Concent 34.8 33.0 Red Cell Distribution Width 16.1 H 16.4 H Platelet Count 57 L 69 #L Mean Platelet Volume 12.7 H 13.7 H Neutrophils % 42.0 39.0 Band Neutrophils % 14.0 H 25.0 H Lymphocytes % 20.0 18.0 Reactive Lymphocytes % 2.0 Monocytes % 7.0 11.0 Eosinophils % 7.0 6.0 Metamyelocytes % 6.0 H 1.0 H Myelocytes % 2.0 H Neutrophils # 2.4 2.0 Lymphocytes # 1.1 0.9 Monocytes # 0.4 0.6 Eosinophils # 0.4 0.3 Metamyelocytes # 0.3 0.1 Myelocytes # 0.1 Toxic Granulation FEW 1+ Dohle Bodies Platelet Estimate PLT APPEAR INCREASED Prothrombin Time 16.9 H Prothrombin Time Ratio 1.3 INR International Normalized Ratio 1.37 Activated Partial Thromboplast Time 39.7 H Fibrinogen 370.0 # Sodium Level 138 140 Potassium Level 4.6 4.7 Chloride Level 115 H 116 H Carbon Dioxide Level 20 L 20 L Anion Gap 8 9 Blood Urea Nitrogen 24 H 27 H Creatinine 1.22 H 1.31 H Glucose Level 124 104 Calcium Level 7.3 L 7.3 L Phosphorus Level 3.8 Magnesium Level 2.0 Troponin I 0.049 Amylase Level 181 #H Lipase 1876 H 1444 H Bedside Glucose 110 101 Differential Comment MANUAL DIFF Total Bilirubin 0.1 L Direct Bilirubin 0.00 Indirect Bilirubin 0.1 Aspartate Amino Transf (AST/SGOT) 37 Alanine Aminotransferase (ALT/SGPT) 35 Alkaline Phosphatase 47 Total Protein 5.1 L Albumin 2.0 L Globulin 3.10 Albumin/Globulin Ratio 0.64 Test 02/01/17 09:09 Blood Gas Specimen Source Blood arterial Arterial Blood Date Drawn 02/01/2017 10:10:20 AM Arterial Blood pH (Temp corrected) 7.234 *L Arterial Blood pCO2 (Temp correct) 47.1 H Arterial Blood pO2 (Temp corrected) 57.5 L Arterial Blood HCO3 19.5 L Arterial Blood Base Excess -7.8 L Arterial Blood Oxygen Saturation 88.0 L Ariel Test N/A Arterial Blood Gas Puncture Site LB Arterial Blood Carboxyhemoglobin 0.2 Arterial Blood Methemoglobin 0.2 Blood Gas A-a O2 Differential 101.1 H Oxyhemoglobin Percent 87.6 L Total Hemoglobin 10.5 L Blood Gas Temperature 37.0 Blood Gas Respiration Rate 16.0 Blood Gas Actual Respiration Rate 16 Blood Gas Modality VENT - AC FiO2 30.0 Blood Gas Tidal Volume 450.0 Blood Gas Low PEEP Setting 5.0 Blood Gas Critical Value Read Back R SASHA ACOSTA Blood Gas Notified Whom JLD Blood Gas Notified Time 02/01/2017 10:28:47 AM Medications Medications Current Medications Ondansetron HCl (Zofran Inj) 4 mg Q6H PRN IV NAUSEA AND/OR VOMITING; Start at 16:30 Morphine Sulfate (morphine) 2 mg Q4H PRN IV SEVERE PAIN LEVEL 7-10; Start 01/29 at 16:30 Pantoprazole 40 mg 40 mg DAILY@06 IV Last administered on 02/01/17t 05:18; Admin Dose 40 MG; Start 01/30/17 at 06:00 Vancomycin HCl (Vancocin) 250 ml @ 125 mls/hr Q24H IVPB Last administered on 12:12; Admin Dose 125 MLS/HR; Start 01/30/17 at 11:30 Eye Lubricant (Artificial Tears Oph) 2 drop Q6H PRN BOTH EYES DRY EYES Last administered on 01/30/17 04:29; Admin Dose 2 DROP; Start 01/29/17 at 18:30 Diagnostic Test (Pha) (Accu-Chek) 1 ea Q4 XX Last administered on 02/01/17 05: 15; Admin Dose 1 EA; Start 01/30/17 at 01:00 Acetaminophen 650 mg 650 mg Q6H PRN SC FEVER Last administered on 01/31/17 03: 42; Admin Dose 650 MG; Start 01/30/17 at 21:00 Norepinephrine 16 mg/Dextrose 500 ml @ 1.87 mls/hr TITRATE IV Last administered on 01/31/17 07:04; Admin Dose 15 MLS/HR; Start 01/30/17 at 23:55 Midazolam HCl 50 ml @ 1 mls/hr TITRATE IV ; Start 01/30/17 at 23:55 Cefepime HCl 50 ml @ 100 mls/hr Q12 IVPB Last administered on 02/01/17 09:40 ; Admin Dose 100 MLS/HR; Start 01/31/17 at 10:30 Dextrose/Sodium Chloride (D5-1/2ns) 1,000 ml @ 100 mls/hr Q10H IV Last administered on 02/01/17 05:18; Admin Dose 100 MLS/HR; Start 01/31/17 at 17:00 KARIN MALIK Feb 01, 2017 11:34
--- NOTE | 2017-02-01 13:34 | CONS ---
Date/Time of Note Date/Time of Note DATE: 02/01/17 TIME: 13:26 Assessment/Plan Assessment/Plan Chief Complaint/Hosp Course Cardiorespiratory arrest Problems: Additional Assessment/Plan The patient is a 66-year-old female with history of multiple myeloma, who presents with shortness of breath and altered mental status. On arrival in the ED, the patient was unresponsive. Patient had cardiac arrest while in ER and was intubated and resuscitated. She was then started on hypothermia protocol. She is currently intubated, ventilated and sedated. She has been unresponsive. CT brain showed chronic white matter disease, nothing acute. She is clearly severely encephalopathic likely due to anoxic event. Plan: 1 MRI of brain 2 EEG 3 Discussed with patient's who is present in the room 4 Will follow Consultation Date/Type/Reason Admit Date/Time Jan 30, 2017 at 11:41 Date of Consultation: Feb 01, 2017 Reason for Consultation Cardiorespiratory arrest Referring Provider: HANY LAWSON Hx of Present Illness The patient is a 66-year-old female with history of multiple myeloma, who presents with shortness of breath and altered mental status. On arrival in the ED, the patient was unresponsive. Patient had cardiac arrest while in ER and was intubated and resuscitated. She was then started on hypothermia protocol. She is currently intubated, ventilated and sedated. She has been unresponsive. CT brain showed chronic white matter disease, nothing acute. Constitutional: other (on vent) Psychological: no complaints Past Medical History Medical History: other (Multiple Myeloma) Social History Smoking Status: Never smoker Exam/Review of Systems Vital Signs Vitals Vital Signs Date Time Temp Pulse Resp B/P Pulse Ox O2 Delivery O2 Flow Rate FiO2 02/01/17 11:06 50 02/01/17 09:22 97 16 98 02/01/17 09:00 108/31 Mechanical Ventilator 02/01/17 08:00 97.2 Intake and Output 01/31/17 01/31/17 02/01/17 15:00 23:00 07:00 Intake Total 1049.34 ml 1034.98 ml 700 ml Output Total 106 ml 87 ml 61 ml Balance 943.34 ml 947.98 ml 639 ml Exam Intubated, ventilated, unresponsive Head: atraumatic, normocephalic Eyes: EOMI, nl conjunctiva, nl lids, nl sclera ENMT: mucosa pink and moist, nl external ears & nose, nl lips & teeth, nl nasal mucosa & septum Neck: non-tender, supple Cardiovascular: regular rate and rhythm Gastrointestinal: soft Extremities: normal pulses Neurological: other (Intubated, ventilated, limited exam, no cornal, gag reflex or dolls eyes, no withdrawl to noxious stimuli) Results Result Diagram: 02/01/17 0500 02/01/17 0500 Results 24 hrs Laboratory Tests Test 01/31/17 16:25 01/31/17 20:22 01/31/17 22:18 02/01/17 02:04 Bedside Glucose 72 101 110 White Blood Count 5.6 Red Blood Count 3.17 L Hemoglobin 9.5 L Hematocrit 27.3 L Mean Corpuscular Volume 86.1 Mean Corpuscular Hemoglobin 30.0 Mean Corpuscular Hemoglobin Concent 34.8 Red Cell Distribution Width 16.1 H Platelet Count 57 L Mean Platelet Volume 12.7 H Neutrophils % 42.0 Band Neutrophils % 14.0 H Lymphocytes % 20.0 Reactive Lymphocytes % 2.0 Monocytes % 7.0 Eosinophils % 7.0 Metamyelocytes % 6.0 H Myelocytes % 2.0 H Neutrophils # 2.4 Lymphocytes # 1.1 Monocytes # 0.4 Eosinophils # 0.4 Metamyelocytes # 0.3 Myelocytes # 0.1 Toxic Granulation FEW Dohle Bodies Platelet Estimate PLT APPEAR INCREASED Prothrombin Time 16.9 H Prothrombin Time Ratio 1.3 INR International Normalized Ratio 1.37 Activated Partial Thromboplast Time 39.7 H Fibrinogen 370.0 # Sodium Level 138 Potassium Level 4.6 Chloride Level 115 H Carbon Dioxide Level 20 L Anion Gap 8 Blood Urea Nitrogen 24 H Creatinine 1.22 H Glucose Level 124 Calcium Level 7.3 L Phosphorus Level 3.8 Magnesium Level 2.0 Troponin I 0.049 Amylase Level 181 #H Lipase 1876 H Test 02/01/17 05:00 02/01/17 05:15 02/01/17 09:09 02/01/17 11:45 White Blood Count 5.2 Red Blood Count 3.37 L Hemoglobin 9.7 L Hematocrit 29.4 L Mean Corpuscular Volume 87.2 Mean Corpuscular Hemoglobin 28.8 L Mean Corpuscular Hemoglobin Concent 33.0 Red Cell Distribution Width 16.4 H Platelet Count 69 #L Mean Platelet Volume 13.7 H Neutrophils % 39.0 Band Neutrophils % 25.0 H Lymphocytes % 18.0 Monocytes % 11.0 Eosinophils % 6.0 Metamyelocytes % 1.0 H Neutrophils # 2.0 Lymphocytes # 0.9 Monocytes # 0.6 Eosinophils # 0.3 Metamyelocytes # 0.1 Differential Comment MANUAL DIFF Toxic Granulation 1+ Sodium Level 140 Potassium Level 4.7 Chloride Level 116 H Carbon Dioxide Level 20 L Anion Gap 9 Blood Urea Nitrogen 27 H Creatinine 1.31 H Glucose Level 104 Calcium Level 7.3 L Total Bilirubin 0.1 L Direct Bilirubin 0.00 Indirect Bilirubin 0.1 Aspartate Amino Transf (AST/SGOT) 37 Alanine Aminotransferase (ALT/SGPT) 35 Alkaline Phosphatase 47 Total Protein 5.1 L Albumin 2.0 L Globulin 3.10 Albumin/Globulin Ratio 0.64 Lipase 1444 H Bedside Glucose 101 Blood Gas Specimen Source Blood arterial Arterial Blood Date Drawn 02/01/2017 10:10:20 AM Arterial Blood pH (Temp corrected) 7.234 *L Arterial Blood pCO2 (Temp correct) 47.1 H Arterial Blood pO2 (Temp corrected) 57.5 L Arterial Blood HCO3 19.5 L Arterial Blood Base Excess -7.8 L Arterial Blood Oxygen Saturation 88.0 L Ariel Test N/A Arterial Blood Gas Puncture Site LB Arterial Blood Carboxyhemoglobin 0.2 Arterial Blood Methemoglobin 0.2 Blood Gas A-a O2 Differential 101.1 H Oxyhemoglobin Percent 87.6 L Total Hemoglobin 10.5 L Blood Gas Temperature 37.0 Blood Gas Respiration Rate 16.0 Blood Gas Actual Respiration Rate 16 Blood Gas Modality VENT - AC FiO2 30.0 Blood Gas Tidal Volume 450.0 Blood Gas Low PEEP Setting 5.0 Blood Gas Critical Value Read Back R SASHA ACOSTA Blood Gas Notified Whom JLD Blood Gas Notified Time 02/01/2017 10:28:47 AM Vancomycin Level Trough 13.5 Medications Medications Current Medications Ondansetron HCl (Zofran Inj) 4 mg Q6H PRN IV NAUSEA AND/OR VOMITING; Start at 16:30 Morphine Sulfate (morphine) 2 mg Q4H PRN IV SEVERE PAIN LEVEL 7-10; Start 01/29 at 16:30 Pantoprazole 40 mg 40 mg DAILY@06 IV Last administered on 02/01/17t 05:18; Admin Dose 40 MG; Start 01/30/17 at 06:00 Vancomycin HCl (Vancocin) 250 ml @ 125 mls/hr Q24H IVPB Last administered on 12:12; Admin Dose 125 MLS/HR; Start 01/30/17 at 11:30 Eye Lubricant (Artificial Tears Oph) 2 drop Q6H PRN BOTH EYES DRY EYES Last administered on 01/30/17 04:29; Admin Dose 2 DROP; Start 01/29/17 at 18:30 Diagnostic Test (Pha) (Accu-Chek) 1 ea Q4 XX Last administered on 02/01/17 05: 15; Admin Dose 1 EA; Start 01/30/17 at 01:00 Acetaminophen 650 mg 650 mg Q6H PRN [place] FEVER Last administered on 01/31/17 03: 42; Admin Dose 650 MG; Start 01/30/17 at 21:00 Norepinephrine 16 mg/Dextrose 500 ml @ 1.87 mls/hr TITRATE IV Last administered on 01/31/17 07:04; Admin Dose 15 MLS/HR; Start 01/30/17 at 23:55 Midazolam HCl 50 ml @ 1 mls/hr TITRATE IV ; Start 01/30/17 at 23:55 Cefepime HCl 50 ml @ 100 mls/hr Q12 IVPB Last administered on 02/01/17 09:40 ; Admin Dose 100 MLS/HR; Start 01/31/17 at 10:30 Dextrose/Sodium Chloride (D5-1/2ns) 1,000 ml @ 100 mls/hr Q10H IV Last administered on 02/01/17 05:18; Admin Dose 100 MLS/HR; Start 01/31/17 at 17:00 BRAYDON QUESADA MD Feb 01, 2017 13:34
--- NOTE | 2017-02-01 13:39 | CONS ---
Date/Time of Note Date/Time of Note DATE: 02/01/17 TIME: 13:34 Assessment/Plan Assessment/Plan Chief Complaint/Hosp Course IMPRESSION: 1. Status post cardiac arrest, assess for acute coronary syndrome.-negative troponin x 3/NL EF by echo this admit 2. Positive troponin, assess significance in setting of cardiac arrest. 3. Abnormal electrocardiogram. 4. Hypotension, borderline.-Now off pressors 5. Respiratory failure, status post intubation. 6. Pancreatitis by laboratory findings. 7. Anemia. 8. Leukopenia. 9. Thrombocytopenia. 10.REnal failure Recc: -Tele -Serial ecg's -Continue abx's/f/u cx data -follow MS closely -Follow platelet count -Follow BP closely Problems: Consultation Date/Type/Reason Admit Date/Time Jan 30, 2017 at 11:41 Initial Consult Date 01/31/17 Type of Consultation: Cardiology Reason for Consultation cardiac arrest Referring Provider: HANY LAWSON Exam/Review of Systems Vital Signs Vitals Vital Signs Date Time Temp Pulse Resp B/P Pulse Ox O2 Delivery O2 Flow Rate FiO2 02/01/17 11:06 50 02/01/17 09:22 97 16 98 02/01/17 09:00 108/31 Mechanical Ventilator 02/01/17 08:00 97.2 Intake and Output 01/31/17 01/31/17 02/01/17 15:00 23:00 07:00 Intake Total 1049.34 ml 1034.98 ml 700 ml Output Total 106 ml 87 ml 61 ml Balance 943.34 ml 947.98 ml 639 ml Exam Review of Systems: CONSTITUTIONAL: No fevers, chills. PULMONARY: No sob CARDIOVASCULAR: No chest pain/palpitations GASTROINTESTINAL: No nausea/vomiting. GENITOURINARY: No hematuria/dysuria. MUSCULOSKELETAL: No myagias/arthalgias. PSYCHIATRIC: The patient denies depression. NEUROLOGIC: No weakness Constitutional: alert, oriented Head: normocephalic ENMT: mucosa pink and moist Neck: jvd, supple Respiratory: diminished breath sounds Cardiovascular: regular rate and rhythm Gastrointestinal: non-tender, soft Musculoskeletal: muscle tone (normal) Extremities: edema (none) Neurological: other (Encephalopathy) Results Result Diagram: 02/01/17 0500 02/01/17 0500 Results 24 hrs Laboratory Tests Test 01/31/17 16:25 01/31/17 20:22 01/31/17 22:18 02/01/17 02:04 Bedside Glucose 72 101 110 White Blood Count 5.6 Red Blood Count 3.17 L Hemoglobin 9.5 L Hematocrit 27.3 L Mean Corpuscular Volume 86.1 Mean Corpuscular Hemoglobin 30.0 Mean Corpuscular Hemoglobin Concent 34.8 Red Cell Distribution Width 16.1 H Platelet Count 57 L Mean Platelet Volume 12.7 H Neutrophils % 42.0 Band Neutrophils % 14.0 H Lymphocytes % 20.0 Reactive Lymphocytes % 2.0 Monocytes % 7.0 Eosinophils % 7.0 Metamyelocytes % 6.0 H Myelocytes % 2.0 H Neutrophils # 2.4 Lymphocytes # 1.1 Monocytes # 0.4 Eosinophils # 0.4 Metamyelocytes # 0.3 Myelocytes # 0.1 Toxic Granulation FEW Dohle Bodies Platelet Estimate PLT APPEAR INCREASED Prothrombin Time 16.9 H Prothrombin Time Ratio 1.3 INR International Normalized Ratio 1.37 Activated Partial Thromboplast Time 39.7 H Fibrinogen 370.0 # Sodium Level 138 Potassium Level 4.6 Chloride Level 115 H Carbon Dioxide Level 20 L Anion Gap 8 Blood Urea Nitrogen 24 H Creatinine 1.22 H Glucose Level 124 Calcium Level 7.3 L Phosphorus Level 3.8 Magnesium Level 2.0 Troponin I 0.049 Amylase Level 181 #H Lipase 1876 H Test 02/01/17 05:00 02/01/17 05:15 02/01/17 09:09 02/01/17 11:45 White Blood Count 5.2 Red Blood Count 3.37 L Hemoglobin 9.7 L Hematocrit 29.4 L Mean Corpuscular Volume 87.2 Mean Corpuscular Hemoglobin 28.8 L Mean Corpuscular Hemoglobin Concent 33.0 Red Cell Distribution Width 16.4 H Platelet Count 69 #L Mean Platelet Volume 13.7 H Neutrophils % 39.0 Band Neutrophils % 25.0 H Lymphocytes % 18.0 Monocytes % 11.0 Eosinophils % 6.0 Metamyelocytes % 1.0 H Neutrophils # 2.0 Lymphocytes # 0.9 Monocytes # 0.6 Eosinophils # 0.3 Metamyelocytes # 0.1 Differential Comment MANUAL DIFF Toxic Granulation 1+ Sodium Level 140 Potassium Level 4.7 Chloride Level 116 H Carbon Dioxide Level 20 L Anion Gap 9 Blood Urea Nitrogen 27 H Creatinine 1.31 H Glucose Level 104 Calcium Level 7.3 L Total Bilirubin 0.1 L Direct Bilirubin 0.00 Indirect Bilirubin 0.1 Aspartate Amino Transf (AST/SGOT) 37 Alanine Aminotransferase (ALT/SGPT) 35 Alkaline Phosphatase 47 Total Protein 5.1 L Albumin 2.0 L Globulin 3.10 Albumin/Globulin Ratio 0.64 Lipase 1444 H Bedside Glucose 101 Blood Gas Specimen Source Blood arterial Arterial Blood Date Drawn 02/01/2017 10:10:20 AM Arterial Blood pH (Temp corrected) 7.234 *L Arterial Blood pCO2 (Temp correct) 47.1 H Arterial Blood pO2 (Temp corrected) 57.5 L Arterial Blood HCO3 19.5 L Arterial Blood Base Excess -7.8 L Arterial Blood Oxygen Saturation 88.0 L Ariel Test N/A Arterial Blood Gas Puncture Site LB Arterial Blood Carboxyhemoglobin 0.2 Arterial Blood Methemoglobin 0.2 Blood Gas A-a O2 Differential 101.1 H Oxyhemoglobin Percent 87.6 L Total Hemoglobin 10.5 L Blood Gas Temperature 37.0 Blood Gas Respiration Rate 16.0 Blood Gas Actual Respiration Rate 16 Blood Gas Modality VENT - AC FiO2 30.0 Blood Gas Tidal Volume 450.0 Blood Gas Low PEEP Setting 5.0 Blood Gas Critical Value Read Back R SASHA RN Blood Gas Notified Whom AYANAD Blood Gas Notified Time 02/01/2017 10:28:47 AM Vancomycin Level Trough 13.5 Medications Medications Current Medications Ondansetron HCl (Zofran Inj) 4 mg Q6H PRN IV NAUSEA AND/OR VOMITING; Start at 16:30 Morphine Sulfate (morphine) 2 mg Q4H PRN IV SEVERE PAIN LEVEL 7-10; Start 01/29 at 16:30 Pantoprazole 40 mg 40 mg DAILY@06 IV Last administered on 02/01/17 05:18; Admin Dose 40 MG; Start 01/30/17 at 06:00 Vancomycin HCl (Vancocin) 250 ml @ 125 mls/hr Q24H IVPB Last administered on 12:12; Admin Dose 125 MLS/HR; Start 01/30/17 at 11:30 Eye Lubricant (Artificial Tears Oph) 2 drop Q6H PRN BOTH EYES DRY EYES Last administered on 01/30/17 04:29; Admin Dose 2 DROP; Start 01/29/17 at 18:30 Diagnostic Test (Pha) (Accu-Chek) 1 ea Q4 XX Last administered on 02/01/17 05: 15; Admin Dose 1 EA; Start 01/30/17 at 01:00 Acetaminophen 650 mg 650 mg Q6H PRN [place] FEVER Last administered on 01/31/17 03: 42; Admin Dose 650 MG; Start 01/30/17 at 21:00 Norepinephrine 16 mg/Dextrose 500 ml @ 1.87 mls/hr TITRATE IV Last administered on 01/31/17 07:04; Admin Dose 15 MLS/HR; Start 01/30/17 at 23:55 Midazolam HCl 50 ml @ 1 mls/hr TITRATE IV ; Start 01/30/17 at 23:55 Cefepime HCl 50 ml @ 100 mls/hr Q12 IVPB Last administered on 02/01/17 09:40 ; Admin Dose 100 MLS/HR; Start 01/31/17 at 10:30 Dextrose/Sodium Chloride (D5-1/2ns) 1,000 ml @ 100 mls/hr Q10H IV Last administered on 02/01/17 05:18; Admin Dose 100 MLS/HR; Start 01/31/17 at 17:00 ORI ROMERO Feb 01, 2017 13:39
--- NOTE | 2017-02-01 14:33 | PN ---
Date/Time of Note Date/Time of Note DATE: 02/01/17 TIME: 14:30 Assessment/Plan VTE Prophylaxis VTE Prophylaxis Intervention: SCD's Assessment/Plan Chief Complaint/Hosp Course 1. Cardiac arrest with return of circulation likely 2/2 severe sepsis from PNA -s/p hypothermia protocol -Cards consult appreciated -Pulm consult appreciated for Vent management 2. Severe shock with lactic acidosis secondary to cardiogenic/sepsis source -Lactic acid has trended down -cont IV Abx, ID consult appreciated 3. Acute kidney injury, likely secondary to underlying septic shock as well as cardiac arrest -Nephrology consultation appreciated 4. Hypokalemia-repleted 5. Multifocal pneumonia -cont IV antibiotics, Pulmonology and ID following 6. Anoxic Encephalopathy -EEG and Neuro consult 7. Pancreatitis-Improved -US Abd shows nl CBD Prophylaxis: Sequential compression devices Problems: Subjective 24 Hr Interval Summary Subjective hx not possible: pt non-verbal Exam/Review of Systems Vital Signs Vitals Vital Signs Date Time Temp Pulse Resp B/P Pulse Ox O2 Delivery O2 Flow Rate FiO2 02/01/17 14:14 81 16 93/37 100 Mechanical Ventilator 02/01/17 12:00 97.6 02/01/17 11:06 50 Intake and Output 01/31/17 01/31/17 02/01/17 15:00 23:00 07:00 Intake Total 1049.34 ml 1034.98 ml 700 ml Output Total 106 ml 87 ml 61 ml Balance 943.34 ml 947.98 ml 639 ml Exam Constitutional: non-verbal Respiratory: clear to auscultation Cardiovascular: regular rate and rhythm Gastrointestinal: soft, No distended Musculoskeletal: nl extremities to inspection Results Result Diagram: 02/01/17 0500 02/01/17 0500 Results 24 hrs Laboratory Tests Test 01/31/17 16:25 01/31/17 20:22 01/31/17 22:18 02/01/17 02:04 Bedside Glucose 72 101 110 White Blood Count 5.6 Red Blood Count 3.17 L Hemoglobin 9.5 L Hematocrit 27.3 L Mean Corpuscular Volume 86.1 Mean Corpuscular Hemoglobin 30.0 Mean Corpuscular Hemoglobin Concent 34.8 Red Cell Distribution Width 16.1 H Platelet Count 57 L Mean Platelet Volume 12.7 H Neutrophils % 42.0 Band Neutrophils % 14.0 H Lymphocytes % 20.0 Reactive Lymphocytes % 2.0 Monocytes % 7.0 Eosinophils % 7.0 Metamyelocytes % 6.0 H Myelocytes % 2.0 H Neutrophils # 2.4 Lymphocytes # 1.1 Monocytes # 0.4 Eosinophils # 0.4 Metamyelocytes # 0.3 Myelocytes # 0.1 Toxic Granulation FEW Dohle Bodies Platelet Estimate PLT APPEAR INCREASED Prothrombin Time 16.9 H Prothrombin Time Ratio 1.3 INR International Normalized Ratio 1.37 Activated Partial Thromboplast Time 39.7 H Fibrinogen 370.0 # Sodium Level 138 Potassium Level 4.6 Chloride Level 115 H Carbon Dioxide Level 20 L Anion Gap 8 Blood Urea Nitrogen 24 H Creatinine 1.22 H Glucose Level 124 Calcium Level 7.3 L Phosphorus Level 3.8 Magnesium Level 2.0 Troponin I 0.049 Amylase Level 181 #H Lipase 1876 H Test 02/01/17 05:00 02/01/17 05:15 02/01/17 09:09 02/01/17 11:45 White Blood Count 5.2 Red Blood Count 3.37 L Hemoglobin 9.7 L Hematocrit 29.4 L Mean Corpuscular Volume 87.2 Mean Corpuscular Hemoglobin 28.8 L Mean Corpuscular Hemoglobin Concent 33.0 Red Cell Distribution Width 16.4 H Platelet Count 69 #L Mean Platelet Volume 13.7 H Neutrophils % 39.0 Band Neutrophils % 25.0 H Lymphocytes % 18.0 Monocytes % 11.0 Eosinophils % 6.0 Metamyelocytes % 1.0 H Neutrophils # 2.0 Lymphocytes # 0.9 Monocytes # 0.6 Eosinophils # 0.3 Metamyelocytes # 0.1 Differential Comment MANUAL DIFF Toxic Granulation 1+ Sodium Level 140 Potassium Level 4.7 Chloride Level 116 H Carbon Dioxide Level 20 L Anion Gap 9 Blood Urea Nitrogen 27 H Creatinine 1.31 H Glucose Level 104 Calcium Level 7.3 L Total Bilirubin 0.1 L Direct Bilirubin 0.00 Indirect Bilirubin 0.1 Aspartate Amino Transf (AST/SGOT) 37 Alanine Aminotransferase (ALT/SGPT) 35 Alkaline Phosphatase 47 Total Protein 5.1 L Albumin 2.0 L Globulin 3.10 Albumin/Globulin Ratio 0.64 Lipase 1444 H Bedside Glucose 101 Blood Gas Specimen Source Blood arterial Arterial Blood Date Drawn 02/01/2017 10:10:20 AM Arterial Blood pH (Temp corrected) 7.234 *L Arterial Blood pCO2 (Temp correct) 47.1 H Arterial Blood pO2 (Temp corrected) 57.5 L Arterial Blood HCO3 19.5 L Arterial Blood Base Excess -7.8 L Arterial Blood Oxygen Saturation 88.0 L Ariel Test N/A Arterial Blood Gas Puncture Site LB Arterial Blood Carboxyhemoglobin 0.2 Arterial Blood Methemoglobin 0.2 Blood Gas A-a O2 Differential 101.1 H Oxyhemoglobin Percent 87.6 L Total Hemoglobin 10.5 L Blood Gas Temperature 37.0 Blood Gas Respiration Rate 16.0 Blood Gas Actual Respiration Rate 16 Blood Gas Modality VENT - AC FiO2 30.0 Blood Gas Tidal Volume 450.0 Blood Gas Low PEEP Setting 5.0 Blood Gas Critical Value Read Back R SASHA ACOSTA Blood Gas Notified Whom LONNIE Blood Gas Notified Time 02/01/2017 10:28:47 AM Vancomycin Level Trough 13.5 Medications Medications Current Medications Ondansetron HCl (Zofran Inj) 4 mg Q6H PRN IV NAUSEA AND/OR VOMITING; Start at 16:30 Morphine Sulfate (morphine) 2 mg Q4H PRN IV SEVERE PAIN LEVEL 7-10; Start 01/29 at 16:30 Pantoprazole 40 mg 40 mg DAILY@06 IV Last administered on 02/01/17 05:18; Admin Dose 40 MG; Start 01/30/17 at 06:00 Vancomycin HCl (Vancocin) 250 ml @ 125 mls/hr Q24H IVPB Last administered on 12:12; Admin Dose 125 MLS/HR; Start 01/30/17 at 11:30 Eye Lubricant (Artificial Tears Oph) 2 drop Q6H PRN BOTH EYES DRY EYES Last administered on 01/30/17 04:29; Admin Dose 2 DROP; Start 01/29/17 at 18:30 Diagnostic Test (Pha) (Accu-Chek) 1 ea Q4 XX Last administered on 02/01/17 05: 15; Admin Dose 1 EA; Start 01/30/17 at 01:00 Acetaminophen 650 mg 650 mg Q6H PRN [place] FEVER Last administered on 01/31/17 03: 42; Admin Dose 650 MG; Start 01/30/17 at 21:00 Norepinephrine 16 mg/Dextrose 500 ml @ 1.87 mls/hr TITRATE IV Last administered on 01/31/17 07:04; Admin Dose 15 MLS/HR; Start 01/30/17 at 23:55 Midazolam HCl 50 ml @ 1 mls/hr TITRATE IV ; Start 01/30/17 at 23:55 Cefepime HCl 50 ml @ 100 mls/hr Q12 IVPB Last administered on 02/01/17 09:40 ; Admin Dose 100 MLS/HR; Start 01/31/17 at 10:30 Dextrose/Sodium Chloride (D5-1/2ns) 1,000 ml @ 100 mls/hr Q10H IV Last administered on 02/01/17 05:18; Admin Dose 100 MLS/HR; Start 01/31/17 at 17:00 HANY LAWSON Feb 01, 2017 14:33
[2017-02-01 15:28] LABS: AADO2 Arterial 225.9 mmHg (7.0-24.0); Arterial Base Excess -7.1 mmol/L (-3.0-3); Arterial COHb 0.3 % (0.0-3.0); Arterial Fraction of Oxyhgb 96.9 % (93.0-99.0); Arterial HCO3 15.9 mmol/L (22.0-26.0); Arterial MetHb 0.1 % (0.0-1.5); Arterial Total Hemglobin 9.4 g/dl (12.0-18.0); MODE VENT - AC
--- NOTE | 2017-02-01 15:29 | CONS ---
Date/Time of Note Date/Time of Note DATE: 02/01/17 TIME: 15:20 Assessment/Plan Assessment/Plan Chief Complaint/Hosp Course ID PROGRESS NOTE ABX DAY #4=> Vanco IV #4 + Cefepime #2 s/p Zosyn #3 + Levaquin #2 24H INTERVAL SUMMARY * Status quo -- intubated, sedated post cardiac arrest in the field w/sepsis on admission due to CAP + Pancreatitis elevated Lipase * Blood Cx on admission (+) Strep Pyogenes * 02/01/17 CXR 1. There are bilateral alveolar opacities which may reflect pulmonary edema and / or multifocal pneumonia. This is increased when compared to the prior examination.2. Small left pleural effusion with loculated component along the left upper lobe. PHYSICAL EXAMINATION: GENERAL: 66 yo [place] F, orally intubated, sedated on the Ventilator, on pressors HEENT: AT, NC, anicteric, ETT-> Secure to Vent NECK: Supple, trachea midline. CHEST: Rise symmetrical, (+)course anterior BX w/rales HEART: Pulse RRR -- Tachy ABDOMEN: Soft EXTREMITIES: Warm, dry, no edema SKIN: Intact ID ASSESSMENT 66 yo F admit with: 1. Cardiac arrest with return of circulation, (+)Troponin for ACS, BLL PNA + elevated Lipase on admission * s/p Hypothermia protocol -> Initiated on warming protocol 2. Shock on pressor support -- suspect cardiogenic + septic on admission w/ lactic acidosis = BLL PNA + elevated Lipase on admission * Blood CX (+) GRAM POS COCCI IN PAIRS,CHAIN = (+)Strep Pyogenes 1/2 bottles * Lactic acidosis improved, no leukocytosis 3. Multifocal PNA -> Community acquired PNA may have been the etiology of cardia arrest w/left-sided loculated pleural effusion. * Aspiration PNA likely a component following CPRS/ACLS -- Now orally intubation on the Vent * HCAP coverage now that patient is intubated 4. Acute kidney injury, likely secondary to underlying septic shock as well as cardiac arrest. * S.CR on admit 1.3 -> 1.04 > 0.97 >0.90 > > 0.99 > 1.17 >1.22 >1.31 5. Pancreatitis elevated Lipase on admission-> improved 6. Small fluid level seen throughout the paranasal sinuses may represent allergic rhinitis or mild sinusitis. 7. Cerebral microvascular disease w/mil chronic-appearing microvascular ischemic changes of the supratentorial white matter on CT Brain. * Neuro onboard -- r/o anoxic brain injury -- currently sedated (-) MRSA Nares INVASIVES: R-IJ TLC, ETT, OGT, FC ABX ALLERGY: KNDA CURRENT ABX: ABX DAY #4=> Vanco IV #4 + Cefepime #2 s/p Zosyn #3 + Levaquin #2 ID RECOMMENDATIONS 1. Continue current ABX -- await clinical improvement . . . Problems: Consultation Date/Type/Reason Admit Date/Time Jan 30, 2017 at 11:41 Type of Consultation: ID Referring Provider: HANY LAWSON Exam/Review of Systems Vital Signs Vitals Vital Signs Date Time Temp Pulse Resp B/P Pulse Ox O2 Delivery O2 Flow Rate FiO2 02/01/17 14:14 81 16 93/37 100 Mechanical Ventilator 02/01/17 12:00 97.6 02/01/17 11:06 50 Intake and Output 01/31/17 01/31/17 02/01/17 15:00 23:00 07:00 Intake Total 1049.34 ml 1034.98 ml 700 ml Output Total 106 ml 87 ml 61 ml Balance 943.34 ml 947.98 ml 639 ml Results Result Diagram: 02/01/17 0500 02/01/17 0500 Results 24 hrs Laboratory Tests Test 01/31/17 16:25 01/31/17 20:22 01/31/17 22:18 02/01/17 02:04 Bedside Glucose 72 101 110 White Blood Count 5.6 Red Blood Count 3.17 L Hemoglobin 9.5 L Hematocrit 27.3 L Mean Corpuscular Volume 86.1 Mean Corpuscular Hemoglobin 30.0 Mean Corpuscular Hemoglobin Concent 34.8 Red Cell Distribution Width 16.1 H Platelet Count 57 L Mean Platelet Volume 12.7 H Neutrophils % 42.0 Band Neutrophils % 14.0 H Lymphocytes % 20.0 Reactive Lymphocytes % 2.0 Monocytes % 7.0 Eosinophils % 7.0 Metamyelocytes % 6.0 H Myelocytes % 2.0 H Neutrophils # 2.4 Lymphocytes # 1.1 Monocytes # 0.4 Eosinophils # 0.4 Metamyelocytes # 0.3 Myelocytes # 0.1 Toxic Granulation FEW Dohle Bodies Platelet Estimate PLT APPEAR INCREASED Prothrombin Time 16.9 H Prothrombin Time Ratio 1.3 INR International Normalized Ratio 1.37 Activated Partial Thromboplast Time 39.7 H Fibrinogen 370.0 # Sodium Level 138 Potassium Level 4.6 Chloride Level 115 H Carbon Dioxide Level 20 L Anion Gap 8 Blood Urea Nitrogen 24 H Creatinine 1.22 H Glucose Level 124 Calcium Level 7.3 L Phosphorus Level 3.8 Magnesium Level 2.0 Troponin I 0.049 Amylase Level 181 #H Lipase 1876 H Test 02/01/17 05:00 02/01/17 05:15 02/01/17 09:09 02/01/17 11:45 White Blood Count 5.2 Red Blood Count 3.37 L Hemoglobin 9.7 L Hematocrit 29.4 L Mean Corpuscular Volume 87.2 Mean Corpuscular Hemoglobin 28.8 L Mean Corpuscular Hemoglobin Concent 33.0 Red Cell Distribution Width 16.4 H Platelet Count 69 #L Mean Platelet Volume 13.7 H Neutrophils % 39.0 Band Neutrophils % 25.0 H Lymphocytes % 18.0 Monocytes % 11.0 Eosinophils % 6.0 Metamyelocytes % 1.0 H Neutrophils # 2.0 Lymphocytes # 0.9 Monocytes # 0.6 Eosinophils # 0.3 Metamyelocytes # 0.1 Differential Comment MANUAL DIFF Toxic Granulation 1+ Sodium Level 140 Potassium Level 4.7 Chloride Level 116 H Carbon Dioxide Level 20 L Anion Gap 9 Blood Urea Nitrogen 27 H Creatinine 1.31 H Glucose Level 104 Calcium Level 7.3 L Total Bilirubin 0.1 L Direct Bilirubin 0.00 Indirect Bilirubin 0.1 Aspartate Amino Transf (AST/SGOT) 37 Alanine Aminotransferase (ALT/SGPT) 35 Alkaline Phosphatase 47 Total Protein 5.1 L Albumin 2.0 L Globulin 3.10 Albumin/Globulin Ratio 0.64 Lipase 1444 H Bedside Glucose 101 Blood Gas Specimen Source Blood arterial Arterial Blood Date Drawn 02/01/2017 10:10:20 AM Arterial Blood pH (Temp corrected) 7.234 *L Arterial Blood pCO2 (Temp correct) 47.1 H Arterial Blood pO2 (Temp corrected) 57.5 L Arterial Blood HCO3 19.5 L Arterial Blood Base Excess -7.8 L Arterial Blood Oxygen Saturation 88.0 L Ariel Test N/A Arterial Blood Gas Puncture Site LB Arterial Blood Carboxyhemoglobin 0.2 Arterial Blood Methemoglobin 0.2 Blood Gas A-a O2 Differential 101.1 H Oxyhemoglobin Percent 87.6 L Total Hemoglobin 10.5 L Blood Gas Temperature 37.0 Blood Gas Respiration Rate 16.0 Blood Gas Actual Respiration Rate 16 Blood Gas Modality VENT - AC FiO2 30.0 Blood Gas Tidal Volume 450.0 Blood Gas Low PEEP Setting 5.0 Blood Gas Critical Value Read Back R SASHA ACOSTA Blood Gas Notified Whom JLD Blood Gas Notified Time 02/01/2017 10:28:47 AM Vancomycin Level Trough 13.5 Medications Medications Current Medications Ondansetron HCl (Zofran Inj) 4 mg Q6H PRN IV NAUSEA AND/OR VOMITING; Start at 16:30 Morphine Sulfate (morphine) 2 mg Q4H PRN IV SEVERE PAIN LEVEL 7-10; Start 01/29 at 16:30 Pantoprazole 40 mg 40 mg DAILY@06 IV Last administered on 02/01/17 05:18; Admin Dose 40 MG; Start 01/30/17 at 06:00 Vancomycin HCl (Vancocin) 250 ml @ 125 mls/hr Q24H IVPB Last administered on 12:12; Admin Dose 125 MLS/HR; Start 01/30/17 at 11:30 Eye Lubricant (Artificial Tears Oph) 2 drop Q6H PRN BOTH EYES DRY EYES Last administered on 01/30/17 04:29; Admin Dose 2 DROP; Start 01/29/17 at 18:30 Diagnostic Test (Pha) (Accu-Chek) 1 ea Q4 XX Last administered on 02/01/17 05: 15; Admin Dose 1 EA; Start 01/30/17 at 01:00 Acetaminophen 650 mg 650 mg Q6H PRN [place] FEVER Last administered on 01/31/17 03: 42; Admin Dose 650 MG; Start 01/30/17 at 21:00 Norepinephrine 16 mg/Dextrose 500 ml @ 1.87 mls/hr TITRATE IV Last administered on 01/31/17 07:04; Admin Dose 15 MLS/HR; Start 01/30/17 at 23:55 Midazolam HCl 50 ml @ 1 mls/hr TITRATE IV ; Start 01/30/17 at 23:55 Cefepime HCl 50 ml @ 100 mls/hr Q12 IVPB Last administered on 02/01/17 09:40 ; Admin Dose 100 MLS/HR; Start 01/31/17 at 10:30 Dextrose/Sodium Chloride (D5-1/2ns) 1,000 ml @ 100 mls/hr Q10H IV Last administered on 02/01/17t 05:18; Admin Dose 100 MLS/HR; Start 01/31/17 at 17:00 KG GRECO NP Feb 01, 2017 15:29
[2017-02-01] MEDS: VANCOMYCIN 1 GM in NS 250 ML IVPB SCH (16:52)
--- NOTE | 2017-02-01 16:52 | RADRPT ---
PROCEDURE: XR Chest. CLINICAL INDICATION: Status post enteric tube placement. TECHNIQUE: AP Portable chest. COMPARISON: 02/01/2017 and 01/29/2017 chest x-ray FINDINGS: The soft tissues and bones are remarkable for endotracheal tube 2.2 cm above the stalin. A left sebastian tral venous catheter is present tip in the superior vena cava. An enteric tube is noted in the stom ach. Bilateral multilobar are alveolar infiltrates are again noted with mild improvement in the rig ht upper and lower lobes. Obscuration left hemidiaphragm is present compatible with a small left pl eural effusion and the appearance of a loculated component along the left upper lobe. The mediastin um and heart are normal. No pneumothorax is present. IMPRESSION: 1. Tubes and lines as indicated above. 2. Multilobar pneumonia with mild interval improvement in the right upper and right lower lobe comp ared with earlier films same date. 3. Small left pleural effusion and unchanged loculated left upper lobe effusion. RPTAT: HDC .Rayne Hodges MD, MD Date Time Electronically viewed and signed by .Rayne Hodges MD, on 02/01/2017 16:51 .C/
[2017-02-02] VITALS (75 sets, daily range): BP systolic 78–122; BP diastolic 31–97; PULSE 58–135; RESP 13–24
[2017-02-02] MEDS: IPRATROPIUM (HFA) 12.9 GM INHALER INH SCH ×4 (01:05→19:58)
[2017-02-02] MEDS: ACETYLCYSTEINE 20% 4 ML VIAL NEB SCH ×4 (01:06→19:58)
[2017-02-02] MEDS: ALBUTEROL 18 GM INHALER INH SCH ×4 (01:06→19:58)
[2017-02-02 04:58] LABS: ADD SCAN DIFF NO
[2017-02-02] MEDS: PANTOPRAZOLE 40 MG INJ IV SCH (05:05)
[2017-02-02 05:06] LABS: ABNORMAL IP MESSAGE 1; HEMATOCRIT 26.3 % (37.0-47.0); MEAN CORPUSCULAR HEMOGLOBIN 28.9 pg (29.0-33.0); MEAN CORPUSCULAR HGB CONC 34.2 g/dl (32.0-37.0); MEAN CORPUSCULAR VOLUME 84.6 fl (82.0-101.0); MEAN PLATELET VOLUME 12.4 fl (7.4-10.4); PLATELET COUNT 47 10^3/UL (140-415); RED BLOOD COUNT 3.11 10^6/ul (4.20-5.40); WHITE BLOOD COUNT 3.7 10^3/ul (4.8-10.8)
[2017-02-02 05:13] LABS: POTASSIUM 3.3 mmol/L (3.5-5.1)
[2017-02-02 05:16] LABS: CREATININE 1.45 mg/dl (0.44-1.00)
[2017-02-02 05:17] LABS: CALCIUM 7.2 mg/dl (8.4-10.2); MAGNESIUM 1.8 mg/dl (1.7-2.5); PHOSPHORUS 2.8 mg/dl (2.5-4.9)
[2017-02-02] MEDS ORDERED: AMIODARONE 150MG/D5W BOLUS 100 ML ONE ×2 (05:35→05:36)
[2017-02-02] MEDS ORDERED: AMIODARONE 900 MG in DEXTROSE 5% 482 ML IV SCH (06:00)
[2017-02-02] MEDS ORDERED: AMIODARONE 150MG/D5W BOLUS 100 ML IV ONE (06:00)
[2017-02-02] MEDS ORDERED: POTASSIUM CHLORIDE 20 MEQ in SOD CHLORIDE 0.9% 100 ML IVPB ONE (06:30)
--- NOTE | 2017-02-02 08:51 | CONS ---
Date/Time of Note Date/Time of Note DATE: 02/02/17 TIME: 08:48 Assessment/Plan Assessment/Plan Additional Assessment/Plan Ventilator settings; AC of 24, tidal volume 550, PEEP of 5, 60% FiO2. Assessment recommendations; 1. Patient admitted with cardiac arrest severe bilateral pneumonia. 2. Status post hypothermia protocol. 3. Thrombocytopenia without any overt bleeding. 4. Extremely poor mental status. 5. Atrial fibrillation with RVR, patient on amiodarone drip. Continue current supportive care. Ventilator settings have been adjusted, FiO2 dropped down to 50%, tidal volume to 500, assist control rate to 20. Obtain follow-up chest x-ray. Prognosis is extremely guarded. 35 minutes of critical care time was spent evaluating the patient. Consultation Date/Type/Reason Admit Date/Time Jan 30, 2017 at 11:41 Type of Consultation: Pulmonary/critical care Referring Provider: HANY LAWSON 24 HR Interval Summary Free Text/Dictation Patient condition remains critical. Remains completely unresponsive. Remains in atrial fibrillation. General exam; elderly lady, orally intubated, unresponsive. Currently in no distress. Exam/Review of Systems Vital Signs Vitals Vital Signs Date Time Temp Pulse Resp B/P Pulse Ox O2 Delivery O2 Flow Rate FiO2 02/02/17 08:02 120 24 98 60 02/02/17 06:45 93/48 02/02/17 04:00 98.6 Mechanical Ventilator Intake and Output 02/01/17 02/01/17 02/02/17 15:00 23:00 07:00 Intake Total 65 ml 1195 ml Output Total 112 ml 106 ml 85 ml Balance -112 ml -41 ml 1110 ml Exam HEENT exam is; supple neck, positive JVD. No lymphadenopathy. Midline trachea. No thyromegaly. Orally intubated. No neck masses. Chest examination; scattered crackles bilaterally. S1-S2 audible, irregular rhythm. No murmurs. Abdomen examination; soft, no organomegaly. No abdominal distention. Bowel sounds are sluggish. Extremity examination; no peripheral edema. Pulses 1+ bilaterally. YOU[employer]GRAM DIRECT[employer] examination; patient remains completely unresponsive. Results Result Diagram: 02/02/17 0430 02/02/17 0430 Results 24 hrs Laboratory Tests Test 02/01/17 09:09 02/01/17 11:45 02/02/17 04:30 02/02/17 07:00 Blood Gas Specimen Source Blood arterial Blood arterial Arterial Blood Date Drawn 02/01/2017 10:10:20 AM 02/01/2017 3:20:04 PM Arterial Blood pH (Temp corrected) 7.234 *L 7.437 Arterial Blood pCO2 (Temp correct) 47.1 H 24.1 L Arterial Blood pO2 (Temp corrected) 57.5 L 103.5 H Arterial Blood HCO3 19.5 L 15.9 L Arterial Blood Base Excess -7.8 L -7.1 L Arterial Blood Oxygen Saturation 88.0 L 97.3 Ariel Test N/A N/A Arterial Blood Gas Puncture Site LB LB Arterial Blood Carboxyhemoglobin 0.2 0.3 Arterial Blood Methemoglobin 0.2 0.1 Blood Gas A-a O2 Differential 101.1 H 225.9 H Oxyhemoglobin Percent 87.6 L 96.9 Total Hemoglobin 10.5 L 9.4 L Blood Gas Temperature 37.0 37.0 Blood Gas Respiration Rate 16.0 24.0 Blood Gas Actual Respiration Rate 16 24 Blood Gas Modality VENT - AC VENT - AC FiO2 30.0 50.0 Blood Gas Tidal Volume 450.0 550.0 Blood Gas Low PEEP Setting 5.0 5.0 Blood Gas Critical Value Read Back R SASHA ACOSTA Blood Gas Notified Whom JLGonzales K Allison Blood Gas Notified Time 02/01/2017 10:28:47 AM 02/01/2017 3:27:22 PM Vancomycin Level Trough 13.5 White Blood Count 3.7 #L Red Blood Count 3.11 L Hemoglobin 9.0 L Hematocrit 26.3 L Mean Corpuscular Volume 84.6 Mean Corpuscular Hemoglobin 28.9 L Mean Corpuscular Hemoglobin Concent 34.2 Red Cell Distribution Width 16.0 H Platelet Count 47 #L Mean Platelet Volume 12.4 H Neutrophils % Lymphocytes % Monocytes % Eosinophils % Neutrophils # Lymphocytes # Monocytes # Eosinophils # Sodium Level 140 Potassium Level 3.3 L Chloride Level 114 H Carbon Dioxide Level 18 L Anion Gap 11 Blood Urea Nitrogen 34 H Creatinine 1.45 H Glucose Level 217 # Calcium Level 7.2 L Phosphorus Level 2.8 Magnesium Level 1.8 Medications Medications Current Medications Ondansetron HCl (Zofran Inj) 4 mg Q6H PRN IV NAUSEA AND/OR VOMITING; Start at 16:30 Morphine Sulfate (morphine) 2 mg Q4H PRN IV SEVERE PAIN LEVEL 7-10; Start 01/29 at 16:30 Pantoprazole (Protonix Iv) 40 mg DAILY@06 IV Last administered on 02/02/17 05: 05; Admin Dose 40 MG; Start 01/30/17 at 06:00 Eye Lubricant (Artificial Tears Oph) 2 drop Q6H PRN BOTH EYES DRY EYES Last administered on 01/30/17 04:29; Admin Dose 2 DROP; Start 01/29/17 at 18:30 Acetaminophen 650 mg 650 mg Q6H PRN [place] FEVER Last administered on 01/31/17 03: 42; Admin Dose 650 MG; Start 01/30/17 at 21:00 Norepinephrine 16 mg/Dextrose 500 ml @ 1.87 mls/hr TITRATE IV Last administered on 01/31/17 07:04; Admin Dose 15 MLS/HR; Start 01/30/17 at 23:55 Midazolam HCl 50 ml @ 1 mls/hr TITRATE IV ; Start 01/30/17 at 23:55 Cefepime HCl 50 ml @ 100 mls/hr Q12 IVPB Last administered on 02/01/17 20:35 ; Admin Dose 100 MLS/HR; Start 01/31/17 at 10:30 Dextrose/Sodium Chloride 1,000 ml @ 100 mls/hr Q10H IV Last administered on 23:29; Admin Dose 100 MLS/HR; Start 01/31/17 at 17:00 Vancomycin HCl 250 ml @ 125 mls/hr Q24H IVPB ; Start 02/02/17 at 16:00 Amiodarone HCl/ Dextrose (Cordarone Iv/ D5W) 500 ml @ 0 mls/hr Q0M IV Last administered on 02/02/17 06:03; Admin Dose 33.4 MLS/HR; Start 02/02/17 at 06:00 ; Stop 02/03/17 at 05:59 TERESA FAITH Feb 02, 2017 08:51
[2017-02-02] MEDS: CEFEPIME 1GM/50 ML (PMX) 50 ML IVPB SCH (09:11)
[2017-02-02 09:17] LABS: EOSINOPHILS # 0.1 10^3/ul (0.0-0.5); LYMPHOCYTES # 0.7 10^3/ul (0.8-2.9); MONOCYTE # 0.4 10^3/ul (0.3-0.9); NEUTROPHIL # 1.4 10^3/ul (1.6-7.5)
[2017-02-02 09:18] LABS: ANISOCYTOSIS 1+; PLATELET ESTIMATE PLT APPEAR DECREASED
--- NOTE | 2017-02-02 11:28 | CONS ---
Date/Time of Note Date/Time of Note DATE: 02/02/17 TIME: 11:26 Assessment/Plan Assessment/Plan Chief Complaint/Hosp Course 1. Pt is intubated , non responsive 2. family conference done Problems: Additional Assessment/Plan 1. MRI head pending Consultation Date/Type/Reason Admit Date/Time Jan 30, 2017 at 11:41 Initial Consult Date 01/30/2017 Type of Consultation: Pulmonary/critical care Referring Provider: HANY LAWSON 24 HR Interval Summary Subjective hx not possible: pt non-verbal Exam/Review of Systems Vital Signs Vitals Vital Signs Date Time Temp Pulse Resp B/P Pulse Ox O2 Delivery O2 Flow Rate FiO2 02/02/17 11:06 50 02/02/17 09:35 125 24 97 02/02/17 09:30 115/57 Mechanical Ventilator 02/02/17 08:00 98.2 Intake and Output 02/01/17 02/01/17 02/02/17 15:00 23:00 07:00 Intake Total 65 ml 1343.4 ml Output Total 112 ml 106 ml 95 ml Balance -112 ml -41 ml 1248.4 ml Exam Constitutional: non-verbal Psych: other (nonresponsive) Head: normocephalic Eyes: nl conjunctiva ENMT: intubated, nl external ears & nose Respiratory: clear to auscultation Cardiovascular: other (tachycardia), regular rate and rhythm Gastrointestinal: other (NG tube with feeding), soft Genitourinary - Female: nl external genitalia Extremities: normal pulses Skin: nl turgor Results Result Diagram: 02/02/17 0430 02/02/17 0430 Results 24 hrs Laboratory Tests Test 02/01/17 11:45 02/02/17 04:30 02/02/17 07:00 Vancomycin Level Trough 13.5 White Blood Count 3.7 #L Red Blood Count 3.11 L Hemoglobin 9.0 L Hematocrit 26.3 L Mean Corpuscular Volume 84.6 Mean Corpuscular Hemoglobin 28.9 L Mean Corpuscular Hemoglobin Concent 34.2 Red Cell Distribution Width 16.0 H Platelet Count 47 #L Mean Platelet Volume 12.4 H Neutrophils % 38.0 L Band Neutrophils % 28.0 H Lymphocytes % 18.0 Monocytes % 11.0 Eosinophils % 3.0 Metamyelocytes % 2.0 H Neutrophils # 1.4 L Lymphocytes # 0.7 L Monocytes # 0.4 Eosinophils # 0.1 Metamyelocytes # 0.1 Platelet Estimate PLT APPEAR DECREASED Anisocytosis 1+ Sodium Level 140 Potassium Level 3.3 L Chloride Level 114 H Carbon Dioxide Level 18 L Anion Gap 11 Blood Urea Nitrogen 34 H Creatinine 1.45 H Glucose Level 217 # Calcium Level 7.2 L Phosphorus Level 2.8 Magnesium Level 1.8 Blood Gas Specimen Source Blood arterial Arterial Blood Date Drawn 02/01/2017 3:20:04 PM Arterial Blood pH (Temp corrected) 7.437 Arterial Blood pCO2 (Temp correct) 24.1 L Arterial Blood pO2 (Temp corrected) 103.5 H Arterial Blood HCO3 15.9 L Arterial Blood Base Excess -7.1 L Arterial Blood Oxygen Saturation 97.3 Ariel Test N/A Arterial Blood Gas Puncture Site LB Arterial Blood Carboxyhemoglobin 0.3 Arterial Blood Methemoglobin 0.1 Blood Gas A-a O2 Differential 225.9 H Oxyhemoglobin Percent 96.9 Total Hemoglobin 9.4 L Blood Gas Temperature 37.0 Blood Gas Respiration Rate 24.0 Blood Gas Actual Respiration Rate 24 Blood Gas Modality VENT - AC FiO2 50.0 Blood Gas Tidal Volume 550.0 Blood Gas Low PEEP Setting 5.0 Blood Gas Notified Whom K B Blood Gas Notified Time 02/01/2017 3:27:22 PM Medications Medications Current Medications Ondansetron HCl (Zofran Inj) 4 mg Q6H PRN IV NAUSEA AND/OR VOMITING; Start at 16:30 Morphine Sulfate (morphine) 2 mg Q4H PRN IV SEVERE PAIN LEVEL 7-10; Start 01/29 at 16:30 Pantoprazole (Protonix Iv) 40 mg DAILY@06 IV Last administered on 02/02/17 05: 05; Admin Dose 40 MG; Start 01/30/17 at 06:00 Eye Lubricant (Artificial Tears Oph) 2 drop Q6H PRN BOTH EYES DRY EYES Last administered on 01/30/17 04:29; Admin Dose 2 DROP; Start 01/29/17 at 18:30 Acetaminophen 650 mg 650 mg Q6H PRN [place] FEVER Last administered on 01/31/17 03: 42; Admin Dose 650 MG; Start 01/30/17 at 21:00 Norepinephrine 16 mg/Dextrose 500 ml @ 1.87 mls/hr TITRATE IV Last administered on 01/31/17 07:04; Admin Dose 15 MLS/HR; Start 01/30/17 at 23:55 Midazolam HCl 50 ml @ 1 mls/hr TITRATE IV ; Start 01/30/17 at 23:55 Cefepime HCl 50 ml @ 100 mls/hr Q12 IVPB Last administered on 02/02/17 09:11 ; Admin Dose 100 MLS/HR; Start 01/31/17 at 10:30 Dextrose/Sodium Chloride 1,000 ml @ 100 mls/hr Q10H IV Last administered on 23:29; Admin Dose 100 MLS/HR; Start 01/31/17 at 17:00 Vancomycin HCl 250 ml @ 125 mls/hr Q24H IVPB ; Start 02/02/17 at 16:00 Amiodarone HCl/ Dextrose (Cordarone Iv/ D5W) 500 ml @ 0 mls/hr Q0M IV Last administered on 02/02/17 06:03; Admin Dose 33.4 MLS/HR; Start 02/02/17 at 06:00 ; Stop 02/03/17 at 05:59 KARIN MALIK Feb 02, 2017 11:28
--- NOTE | 2017-02-02 11:39 | CONS ---
Date/Time of Note Date/Time of Note DATE: 02/02/17 TIME: 11:34 Assessment/Plan Assessment/Plan Chief Complaint/Hosp Course IMPRESSION: 1. Status post cardiac arrest, assess for acute coronary syndrome.-negative troponin x 3/NL EF by echo this admit 2. Positive troponin, assess significance in setting of cardiac arrest. 3. Abnormal electrocardiogram. 4. Hypotension, borderline.-Now off pressors 5. Respiratory failure, status post intubation. 6. Pancreatitis by laboratory findings. 7. Anemia. 8. Leukopenia. 9. Thrombocytopenia. 10.REnal failure-acute 11.Atrial fibrillation- new onset/not good anticoag candidate due to low plt Recc: -Tele -Serial ecg's -Continue abx's/f/u cx data -follow MS closely -Follow platelet count -Follow BP closely -Continue amio for now -give IVP digoxin and BB to improve HR Problems: Consultation Date/Type/Reason Admit Date/Time Jan 30, 2017 at 11:41 Initial Consult Date 01/31/17 Type of Consultation: Cardiology Reason for Consultation cardiac arrest Referring Provider: HANY LAWSON Exam/Review of Systems Vital Signs Vitals Vital Signs Date Time Temp Pulse Resp B/P Pulse Ox O2 Delivery O2 Flow Rate FiO2 02/02/17 11:06 50 02/02/17 09:35 125 24 97 02/02/17 09:30 115/57 Mechanical Ventilator 02/02/17 08:00 98.2 Intake and Output 02/01/17 02/01/17 02/02/17 15:00 23:00 07:00 Intake Total 65 ml 1343.4 ml Output Total 112 ml 106 ml 95 ml Balance -112 ml -41 ml 1248.4 ml Exam Review of Systems: CONSTITUTIONAL: No fevers, chills. PULMONARY: intubated CARDIOVASCULAR: No chest pain/palpitations GASTROINTESTINAL: No nausea/vomiting. GENITOURINARY: No hematuria/dysuria. MUSCULOSKELETAL: No myagias/arthalgias. PSYCHIATRIC: The patient denies depression. NEUROLOGIC: Encephalopathy Constitutional: other (encephalopathic) Psych: no complaints Head: normocephalic ENMT: mucosa pink and moist Neck: supple Respiratory: diminished breath sounds (at bases/B) Cardiovascular: irregular rhythm (tachycardic) Gastrointestinal: non-tender, soft Musculoskeletal: muscle tone (normal) Extremities: pitting pedal edema (trace/B) Neurological: other (No focal deficits) Results Result Diagram: 02/02/17 0430 02/02/17 0430 Results 24 hrs Laboratory Tests Test 02/01/17 11:45 02/02/17 04:30 02/02/17 07:00 Vancomycin Level Trough 13.5 White Blood Count 3.7 #L Red Blood Count 3.11 L Hemoglobin 9.0 L Hematocrit 26.3 L Mean Corpuscular Volume 84.6 Mean Corpuscular Hemoglobin 28.9 L Mean Corpuscular Hemoglobin Concent 34.2 Red Cell Distribution Width 16.0 H Platelet Count 47 #L Mean Platelet Volume 12.4 H Neutrophils % 38.0 L Band Neutrophils % 28.0 H Lymphocytes % 18.0 Monocytes % 11.0 Eosinophils % 3.0 Metamyelocytes % 2.0 H Neutrophils # 1.4 L Lymphocytes # 0.7 L Monocytes # 0.4 Eosinophils # 0.1 Metamyelocytes # 0.1 Platelet Estimate PLT APPEAR DECREASED Anisocytosis 1+ Sodium Level 140 Potassium Level 3.3 L Chloride Level 114 H Carbon Dioxide Level 18 L Anion Gap 11 Blood Urea Nitrogen 34 H Creatinine 1.45 H Glucose Level 217 # Calcium Level 7.2 L Phosphorus Level 2.8 Magnesium Level 1.8 Blood Gas Specimen Source Blood arterial Arterial Blood Date Drawn 02/01/2017 3:20:04 PM Arterial Blood pH (Temp corrected) 7.437 Arterial Blood pCO2 (Temp correct) 24.1 L Arterial Blood pO2 (Temp corrected) 103.5 H Arterial Blood HCO3 15.9 L Arterial Blood Base Excess -7.1 L Arterial Blood Oxygen Saturation 97.3 Ariel Test N/A Arterial Blood Gas Puncture Site LB Arterial Blood Carboxyhemoglobin 0.3 Arterial Blood Methemoglobin 0.1 Blood Gas A-a O2 Differential 225.9 H Oxyhemoglobin Percent 96.9 Total Hemoglobin 9.4 L Blood Gas Temperature 37.0 Blood Gas Respiration Rate 24.0 Blood Gas Actual Respiration Rate 24 Blood Gas Modality VENT - AC FiO2 50.0 Blood Gas Tidal Volume 550.0 Blood Gas Low PEEP Setting 5.0 Blood Gas Notified Whom K B Blood Gas Notified Time 02/01/2017 3:27:22 PM Medications Medications Current Medications Ondansetron HCl (Zofran Inj) 4 mg Q6H PRN IV NAUSEA AND/OR VOMITING; Start at 16:30 Morphine Sulfate (morphine) 2 mg Q4H PRN IV SEVERE PAIN LEVEL 7-10; Start 01/29 at 16:30 Pantoprazole (Protonix Iv) 40 mg DAILY@06 IV Last administered on 02/02/17 05: 05; Admin Dose 40 MG; Start 01/30/17 at 06:00 Eye Lubricant (Artificial Tears Oph) 2 drop Q6H PRN BOTH EYES DRY EYES Last administered on 01/30/17 04:29; Admin Dose 2 DROP; Start 01/29/17 at 18:30 Acetaminophen 650 mg 650 mg Q6H PRN [place] FEVER Last administered on 01/31/17 03: 42; Admin Dose 650 MG; Start 01/30/17 at 21:00 Norepinephrine 16 mg/Dextrose 500 ml @ 1.87 mls/hr TITRATE IV Last administered on 01/31/17 07:04; Admin Dose 15 MLS/HR; Start 01/30/17 at 23:55 Midazolam HCl 50 ml @ 1 mls/hr TITRATE IV ; Start 01/30/17 at 23:55 Cefepime HCl 50 ml @ 100 mls/hr Q12 IVPB Last administered on 02/02/17 09:11 ; Admin Dose 100 MLS/HR; Start 01/31/17 at 10:30 Dextrose/Sodium Chloride 1,000 ml @ 100 mls/hr Q10H IV Last administered on 23:29; Admin Dose 100 MLS/HR; Start 01/31/17 at 17:00 Vancomycin HCl 250 ml @ 125 mls/hr Q24H IVPB ; Start 02/02/17 at 16:00 Amiodarone HCl/ Dextrose (Cordarone Iv/ D5W) 500 ml @ 0 mls/hr Q0M IV Last administered on 02/02/17 06:03; Admin Dose 33.4 MLS/HR; Start 02/02/17 at 06:00 ; Stop 02/03/17 at 05:59 ORI ROMERO Feb 02, 2017 11:38
[2017-02-02] MEDS ORDERED: METOPROLOL 5 MG INJ IV PRN (12:00)
[2017-02-02] MEDS: DIGOXIN 500 MCG INJ IV SCH ×2 (13:17→18:19)
[2017-02-02] MEDS: DEXTROSE 5%-0.45% NACL 1,000 ML IV SCH (13:20)
[2017-02-02] MEDS: METOPROLOL 25 MG TAB PO SCH ×2 (13:21→21:16)
[2017-02-02] MEDS ORDERED: LIDOCAINE 1% (MDV) 20 ML INJ ONE (14:38)
--- NOTE | 2017-02-02 15:04 | SP ---
DATE OF PROCEDURE: 02/01/2017 HISTORY: This is a 66-year-old woman who was admitted following cardiorespiratory arrest. Full ECS protocol was followed. CURRENT MEDICATIONS: None. PROCEDURE: Utilizing a 16-channel EEG machine, cap scalp electrodes were applied in accordance with International 10-20 system. [id number] and [id number] montages were displayed. Electrical i mpedances were measured and reported. DESCRIPTION: During the resting state, a posterior dominant rhythm of about 7 to 8 Hz were seen in addition to of burst suppression pattern was noted at times. Hyperventilation on photic stimulation was not performed. INTERPRETATION: This is an abnormal EEG because of presence of burst suppression pattern with inter mittent epileptiform activity consistent with encephalopathy with seizure activity. Please correlat e these findings with the patient's clinical picture. Dictated By: BRAYDON DUBON/ZANA Conf#: [id number] DID#: [id number]
--- NOTE | 2017-02-02 15:12 | CONS ---
Date/Time of Note Date/Time of Note DATE: 02/02/17 TIME: 15:08 Assessment/Plan Assessment/Plan Chief Complaint/Hosp Course Cardiorespiratory arrest Problems: Additional Assessment/Plan The patient is a 66-year-old female with history of multiple myeloma, who presents with shortness of breath and altered mental status. On arrival in the ED, the patient was unresponsive. Patient had cardiac arrest while in ER and was intubated and resuscitated. She was then started on hypothermia protocol. She is currently intubated, ventilated and sedated. She has been unresponsive. CT brain showed chronic white matter disease, nothing acute. She is clearly severely encephalopathic likely due to anoxic event. MRI of the brain is pending. Plan: 1 start on Keppra 1000 mg IV twice a day 2 MRI of the brain is pending 3 prognosis is poor 4 Will follow Consultation Date/Type/Reason Admit Date/Time Jan 30, 2017 at 11:41 Initial Consult Date 02/01/17 Type of Consultation: Cardiology Reason for Consultation Cardiorespiratory arrest Referring Provider: HANY LAWSON 24 HR Interval Summary Free Text/Dictation Clinically unchanged. Intubated and mechanically ventilated. EEG is abnormal showing suppression pattern with bursts of epileptiform activity. MRI of the brain is pending. Exam/Review of Systems Vital Signs Vitals Vital Signs Date Time Temp Pulse Resp B/P Pulse Ox O2 Delivery O2 Flow Rate FiO2 02/02/17 12:00 120 02/02/17 11:06 50 02/02/17 09:35 24 97 02/02/17 09:30 115/57 Mechanical Ventilator 02/02/17 08:00 98.2 Intake and Output 02/01/17 02/01/17 02/02/17 15:00 23:00 07:00 Intake Total 65 ml 1343.4 ml Output Total 112 ml 106 ml 95 ml Balance -112 ml -41 ml 1248.4 ml Exam Constitutional: non-verbal Head: atraumatic, normocephalic Eyes: EOMI, nl conjunctiva, nl lids, nl sclera ENMT: mucosa pink and moist, nl external ears & nose, nl lips & teeth, nl nasal mucosa & septum Neck: non-tender Respiratory: clear to auscultation, normal air movement Cardiovascular: nl pulses, regular rate and rhythm Gastrointestinal: nl liver, spleen, soft Extremities: normal pulses Neurological: other ((Intubated, ventilated, limited exam, no cornal, gag reflex or dolls eyes, no withdrawl to noxious stimuli) Results Result Diagram: 02/02/17 0430 02/02/17 0430 Results 24 hrs Laboratory Tests Test 02/02/17 04:30 02/02/17 07:00 White Blood Count 3.7 #L Red Blood Count 3.11 L Hemoglobin 9.0 L Hematocrit 26.3 L Mean Corpuscular Volume 84.6 Mean Corpuscular Hemoglobin 28.9 L Mean Corpuscular Hemoglobin Concent 34.2 Red Cell Distribution Width 16.0 H Platelet Count 47 #L Mean Platelet Volume 12.4 H Neutrophils % 38.0 L Band Neutrophils % 28.0 H Lymphocytes % 18.0 Monocytes % 11.0 Eosinophils % 3.0 Metamyelocytes % 2.0 H Neutrophils # 1.4 L Lymphocytes # 0.7 L Monocytes # 0.4 Eosinophils # 0.1 Metamyelocytes # 0.1 Platelet Estimate PLT APPEAR DECREASED Anisocytosis 1+ Sodium Level 140 Potassium Level 3.3 L Chloride Level 114 H Carbon Dioxide Level 18 L Anion Gap 11 Blood Urea Nitrogen 34 H Creatinine 1.45 H Glucose Level 217 # Calcium Level 7.2 L Phosphorus Level 2.8 Magnesium Level 1.8 Blood Gas Specimen Source Blood arterial Arterial Blood Date Drawn 02/01/2017 3:20:04 PM Arterial Blood pH (Temp corrected) 7.437 Arterial Blood pCO2 (Temp correct) 24.1 L Arterial Blood pO2 (Temp corrected) 103.5 H Arterial Blood HCO3 15.9 L Arterial Blood Base Excess -7.1 L Arterial Blood Oxygen Saturation 97.3 Ariel Test N/A Arterial Blood Gas Puncture Site LB Arterial Blood Carboxyhemoglobin 0.3 Arterial Blood Methemoglobin 0.1 Blood Gas A-a O2 Differential 225.9 H Oxyhemoglobin Percent 96.9 Total Hemoglobin 9.4 L Blood Gas Temperature 37.0 Blood Gas Respiration Rate 24.0 Blood Gas Actual Respiration Rate 24 Blood Gas Modality VENT - AC FiO2 50.0 Blood Gas Tidal Volume 550.0 Blood Gas Low PEEP Setting 5.0 Blood Gas Notified Whom K B Blood Gas Notified Time 02/01/2017 3:27:22 PM Medications Medications Current Medications Ondansetron HCl (Zofran Inj) 4 mg Q6H PRN IV NAUSEA AND/OR VOMITING; Start at 16:30 Morphine Sulfate (morphine) 2 mg Q4H PRN IV SEVERE PAIN LEVEL 7-10; Start 01/29 at 16:30 Pantoprazole (Protonix Iv) 40 mg DAILY@06 IV Last administered on 02/02/17 05: 05; Admin Dose 40 MG; Start 01/30/17 at 06:00 Eye Lubricant (Artificial Tears Oph) 2 drop Q6H PRN BOTH EYES DRY EYES Last administered on 01/30/17 04:29; Admin Dose 2 DROP; Start 01/29/17 at 18:30 Acetaminophen 650 mg 650 mg Q6H PRN [place] FEVER Last administered on 01/31/17 03: 42; Admin Dose 650 MG; Start 01/30/17 at 21:00 Norepinephrine 16 mg/Dextrose 500 ml @ 1.87 mls/hr TITRATE IV Last administered on 01/31/17 07:04; Admin Dose 15 MLS/HR; Start 01/30/17 at 23:55 Midazolam HCl 50 ml @ 1 mls/hr TITRATE IV ; Start 01/30/17 at 23:55 Dextrose/Sodium Chloride 1,000 ml @ 100 mls/hr Q10H IV Last administered on 13:20; Admin Dose 100 MLS/HR; Start 01/31/17 at 17:00 Amiodarone HCl/ Dextrose (Cordarone Iv/ D5W) 500 ml @ 0 mls/hr Q0M IV Last administered on 02/02/17 06:03; Admin Dose 33.4 MLS/HR; Start 02/02/17 at 06:00 ; Stop 02/03/17 at 05:59 Digoxin (Digoxin) 250 mcg Q6 IV Last administered on 02/02/17 13:17; Admin Dose 250 MCG; Start 02/02/17 at 12:00; Stop 02/02/17 at 18:01 Metoprolol Tartrate (Lopressor) 5 mg Q4H PRN IV HR>110 Hold SBP<100; Start at 12:00 Metoprolol Tartrate 25 mg 25 mg BID PO Last administered on 02/02/17 13:21; Admin Dose 25 MG; Start 02/02/17 at 12:00 Vancomycin HCl 750 mg/Sodium Chloride 150 ml @ 75 mls/hr Q24H IVPB ; Start at 18:00 Cefepime HCl (Maxipime 1gm/50 ml (Pmx)) 50 ml @ 100 mls/hr Q24H IVPB ; Start at 09:00 BRAYDON QUESADA MD Feb 02, 2017 15:12
--- NOTE | 2017-02-02 15:41 | RADRPT ---
PROCEDURE: MR Brain noncontrast. CLINICAL INDICATION: Cardiac arrest. Altered level of consciousness. TECHNIQUE: Multiplanar multisequence noncontrast MRI of the brain was performed. COMPARISON: Noncontrast CT of the head from January 29, 2017. FINDINGS: The ventricles and sulci are within normal limits. There is mildly DWI hyperintensity within the bilateral frontal lobes as well as bilateral posterior frontal / parietal lobes as well as bilateral occipital lobes. This is also noted within the bilat eral caudate and putamen. Findings are suggestive of hypoxic ischemic injury. There is no associate d T2 FLAIR hyperintensity. Otherwise there is no acute infarction. There is no intracranial hemorrhage or extra-axial fluid collection. There is no midline shift. The brainstem is within normal limits. The posterior fossa is unremarkable. The normal intracranial, intravascular flow voids are preserved. There is a moderate right with mild left frontal sinus mucosal thickening. There is moderate to ext ensive bilateral ethmoid sinus mucosal thickening. There is a moderate right and mild to moderate l eft maxillary sinus air fluid level. There are is a moderate to extensive left and mild right sphen oid sinus air fluid level. The orbits are grossly unremarkable. There is no destructive osseous lesion. There is a nasogastric tube. There are moderate bilateral ma stoid air cell effusions. IMPRESSION: 1. Findings suggestive of hypoxic ischemic injury. Follow-up imaging may be performed as clinicall y warranted. 2. No acute intracranial hemorrhage. 3. Moderate bilateral mastoid air cell effusions. Further findings as detailed above. RPTAT: PP .Moe Franks MD, Date Time Electronically viewed and signed by .Moe Franks MD, on 02/02/2017 15:41 .F/
[2017-02-02] MEDS ORDERED: VANCOMYCIN 1 GM in NS 250 ML IVPB SCH (16:00)
--- NOTE | 2017-02-02 16:37 | PN ---
Date/Time of Note Date/Time of Note DATE: 02/02/17 TIME: 16:32 Assessment/Plan VTE Prophylaxis VTE Prophylaxis Intervention: SCD's Assessment/Plan Chief Complaint/Hosp Course 1. Cardiac arrest with return of circulation likely 2/2 severe sepsis from PNA -s/p hypothermia protocol -Cards consult appreciated -Pulm consult appreciated for Vent management 2. Severe shock with lactic acidosis secondary to cardiogenic/sepsis source -Lactic acid has trended down -cont IV Abx, ID consult appreciated 3. Acute kidney injury, likely secondary to underlying septic shock as well as cardiac arrest -Nephrology consultation appreciated 4. Hypokalemia-repleted 5. Multifocal pneumonia -cont IV antibiotics, Pulmonology and ID following 6. Anoxic Encephalopathy -EEG shows encephalopathy with seizure activity -MRI shows findings suggestive of hypoxic ischemic injury. -Neuro consult appreciated 7. Pancreatitis-Improved -US Abd shows nl CBD Prophylaxis: Sequential compression devices Problems: Subjective 24 Hr Interval Summary Subjective hx not possible: pt non-verbal Exam/Review of Systems Vital Signs Vitals Vital Signs Date Time Temp Pulse Resp B/P Pulse Ox O2 Delivery O2 Flow Rate FiO2 02/02/17 15:45 120 20 104/51 94 Mechanical Ventilator 02/02/17 15:00 50 02/02/17 12:15 98.4 Intake and Output 02/01/17 02/01/17 02/02/17 15:00 23:00 07:00 Intake Total 65 ml 1343.4 ml Output Total 112 ml 106 ml 95 ml Balance -112 ml -41 ml 1248.4 ml Exam Constitutional: non-verbal Respiratory: clear to auscultation Cardiovascular: regular rate and rhythm Gastrointestinal: soft, No distended Musculoskeletal: nl extremities to inspection Results Result Diagram: 02/02/17 0430 02/02/17 0430 Results 24 hrs Laboratory Tests Test 02/02/17 04:30 02/02/17 07:00 White Blood Count 3.7 #L Red Blood Count 3.11 L Hemoglobin 9.0 L Hematocrit 26.3 L Mean Corpuscular Volume 84.6 Mean Corpuscular Hemoglobin 28.9 L Mean Corpuscular Hemoglobin Concent 34.2 Red Cell Distribution Width 16.0 H Platelet Count 47 #L Mean Platelet Volume 12.4 H Neutrophils % 38.0 L Band Neutrophils % 28.0 H Lymphocytes % 18.0 Monocytes % 11.0 Eosinophils % 3.0 Metamyelocytes % 2.0 H Neutrophils # 1.4 L Lymphocytes # 0.7 L Monocytes # 0.4 Eosinophils # 0.1 Metamyelocytes # 0.1 Platelet Estimate PLT APPEAR DECREASED Anisocytosis 1+ Sodium Level 140 Potassium Level 3.3 L Chloride Level 114 H Carbon Dioxide Level 18 L Anion Gap 11 Blood Urea Nitrogen 34 H Creatinine 1.45 H Glucose Level 217 # Calcium Level 7.2 L Phosphorus Level 2.8 Magnesium Level 1.8 Blood Gas Specimen Source Blood arterial Arterial Blood Date Drawn 02/01/2017 3:20:04 PM Arterial Blood pH (Temp corrected) 7.437 Arterial Blood pCO2 (Temp correct) 24.1 L Arterial Blood pO2 (Temp corrected) 103.5 H Arterial Blood HCO3 15.9 L Arterial Blood Base Excess -7.1 L Arterial Blood Oxygen Saturation 97.3 Ariel Test N/A Arterial Blood Gas Puncture Site LB Arterial Blood Carboxyhemoglobin 0.3 Arterial Blood Methemoglobin 0.1 Blood Gas A-a O2 Differential 225.9 H Oxyhemoglobin Percent 96.9 Total Hemoglobin 9.4 L Blood Gas Temperature 37.0 Blood Gas Respiration Rate 24.0 Blood Gas Actual Respiration Rate 24 Blood Gas Modality VENT - AC FiO2 50.0 Blood Gas Tidal Volume 550.0 Blood Gas Low PEEP Setting 5.0 Blood Gas Notified Whom K B Blood Gas Notified Time 02/01/2017 3:27:22 PM Medications Medications Current Medications Ondansetron HCl (Zofran Inj) 4 mg Q6H PRN IV NAUSEA AND/OR VOMITING; Start at 16:30 Morphine Sulfate (morphine) 2 mg Q4H PRN IV SEVERE PAIN LEVEL 7-10; Start 01/29 at 16:30 Pantoprazole (Protonix Iv) 40 mg DAILY@06 IV Last administered on 02/02/17 05: 05; Admin Dose 40 MG; Start 01/30/17 at 06:00 Eye Lubricant (Artificial Tears Oph) 2 drop Q6H PRN BOTH EYES DRY EYES Last administered on 01/30/17 04:29; Admin Dose 2 DROP; Start 01/29/17 at 18:30 Acetaminophen 650 mg 650 mg Q6H PRN [place] FEVER Last administered on 01/31/17 03: 42; Admin Dose 650 MG; Start 01/30/17 at 21:00 Norepinephrine 16 mg/Dextrose 500 ml @ 1.87 mls/hr TITRATE IV Last administered on 01/31/17 07:04; Admin Dose 15 MLS/HR; Start 01/30/17 at 23:55 Midazolam HCl 50 ml @ 1 mls/hr TITRATE IV ; Start 01/30/17 at 23:55 Dextrose/Sodium Chloride 1,000 ml @ 100 mls/hr Q10H IV Last administered on 13:20; Admin Dose 100 MLS/HR; Start 01/31/17 at 17:00 Amiodarone HCl/ Dextrose (Cordarone Iv/ D5W) 500 ml @ 0 mls/hr Q0M IV Last administered on 02/02/17 06:03; Admin Dose 33.4 MLS/HR; Start 02/02/17 at 06:00 ; Stop 02/03/17 at 05:59 Digoxin (Digoxin) 250 mcg Q6 IV Last administered on 02/02/17 13:17; Admin Dose 250 MCG; Start 02/02/17 at 12:00; Stop 02/02/17 at 18:01 Metoprolol Tartrate (Lopressor) 5 mg Q4H PRN IV HR>110 Hold SBP<100; Start at 12:00 Metoprolol Tartrate 25 mg 25 mg BID PO Last administered on 02/02/17 13:21; Admin Dose 25 MG; Start 02/02/17 at 12:00 Vancomycin HCl 750 mg/Sodium Chloride 150 ml @ 75 mls/hr Q24H IVPB ; Start at 18:00 Cefepime HCl (Maxipime 1gm/50 ml (Pmx)) 50 ml @ 100 mls/hr Q24H IVPB ; Start at 09:00 HANY LAWSON Feb 02, 2017 16:37
--- NOTE | 2017-02-02 17:40 | CONS ---
Date/Time of Note Date/Time of Note DATE: 02/02/17 TIME: 17:36 Assessment/Plan Assessment/Plan Chief Complaint/Hosp Course ID PROGRESS NOTE ABX DAY #5=> Vanco IV #5 + Cefepime #3 s/p Zosyn #3 + Levaquin #2 24H INTERVAL SUMMARY * Sedation stopped few days ago -- still obtunded * MRI => IMPRESSION: * 1. Findings suggestive of hypoxic ischemic injury. Follow-up imaging may be performed as clinically warranted. * 2. No acute intracranial hemorrhage. * 3. Moderate bilateral mastoid air cell effusions. * Remains intubated post cardiac arrest in the field w/sepsis on admission due to CAP + Pancreatitis elevated Lipase * Blood Cx on admission (+) Strep Pyogenes * 02/01/17 CXR 1. There are bilateral alveolar opacities which may reflect pulmonary edema and / or multifocal pneumonia. This is increased when compared to the prior examination.2. Small left pleural effusion with loculated component along the left upper lobe. PHYSICAL EXAMINATION: GENERAL: 66 yo [place] F, orally intubated, sedated on the Ventilator, on pressors HEENT: AT, NC, anicteric, ETT-> Secure to Vent NECK: Supple, trachea midline. CHEST: Rise symmetrical, (+)course anterior BX w/rales HEART: Pulse RRR -- Tachy ABDOMEN: Soft EXTREMITIES: Warm, dry, no edema SKIN: Intact ID ASSESSMENT 66 yo F admit with: 1. Cardiac arrest with return of circulation, (+)Troponin for ACS, BLL PNA + elevated Lipase on admission * s/p Hypothermia protocol -> Initiated on warming protocol 2. Shock on pressor support -- suspect cardiogenic + septic on admission w/ lactic acidosis = BLL PNA + elevated Lipase on admission * Blood CX (+) GRAM POS COCCI IN PAIRS,CHAIN = (+)Strep Pyogenes 1/2 bottles * Lactic acidosis improved, no leukocytosis 3. Multifocal PNA -> Community acquired PNA may have been the etiology of cardia arrest w/left-sided loculated pleural effusion. * Aspiration PNA likely a component following CPRS/ACLS -- Now orally intubation on the Vent * HCAP coverage now that patient is intubated 4. Acute kidney injury, likely secondary to underlying septic shock as well as cardiac arrest. * S.CR on admit 1.3 -> 1.04 > 0.97 >0.90 > > 0.99 > 1.17 >1.22 >1.31 5. Pancreatitis elevated Lipase on admission-> improved 6. Small fluid level seen throughout the paranasal sinuses may represent allergic rhinitis or mild sinusitis. 7. Cerebral microvascular disease w/mil chronic-appearing microvascular ischemic changes of the supratentorial white matter on CT Brain. * Neuro onboard -- r/o anoxic brain injury -- currently sedated (-) MRSA Nares INVASIVES: R-IJ TLC, ETT, OGT, FC ABX ALLERGY: KNDA CURRENT ABX: #5=> Vanco IV #5 + Cefepime #3 s/p Zosyn #3 + Levaquin #2 ID RECOMMENDATIONS 1. Continue current ABX -- await neuro recs 2. Spouse, daughter in room, discussed ABX for PNA . . . . Problems: Consultation Date/Type/Reason Admit Date/Time Jan 30, 2017 at 11:41 Type of Consultation: ID Referring Provider: HANY LAWSON Exam/Review of Systems Vital Signs Vitals Vital Signs Date Time Temp Pulse Resp B/P Pulse Ox O2 Delivery O2 Flow Rate FiO2 02/02/17 17:07 85 20 94 50 02/02/17 15:45 104/51 Mechanical Ventilator 02/02/17 12:15 98.4 Intake and Output 02/01/17 02/01/17 02/02/17 15:00 23:00 07:00 Intake Total 65 ml 1343.4 ml Output Total 112 ml 106 ml 95 ml Balance -112 ml -41 ml 1248.4 ml Results Result Diagram: 02/02/17 0430 02/02/17 0430 Results 24 hrs Laboratory Tests Test 02/02/17 04:30 02/02/17 07:00 White Blood Count 3.7 #L Red Blood Count 3.11 L Hemoglobin 9.0 L Hematocrit 26.3 L Mean Corpuscular Volume 84.6 Mean Corpuscular Hemoglobin 28.9 L Mean Corpuscular Hemoglobin Concent 34.2 Red Cell Distribution Width 16.0 H Platelet Count 47 #L Mean Platelet Volume 12.4 H Neutrophils % 38.0 L Band Neutrophils % 28.0 H Lymphocytes % 18.0 Monocytes % 11.0 Eosinophils % 3.0 Metamyelocytes % 2.0 H Neutrophils # 1.4 L Lymphocytes # 0.7 L Monocytes # 0.4 Eosinophils # 0.1 Metamyelocytes # 0.1 Platelet Estimate PLT APPEAR DECREASED Anisocytosis 1+ Sodium Level 140 Potassium Level 3.3 L Chloride Level 114 H Carbon Dioxide Level 18 L Anion Gap 11 Blood Urea Nitrogen 34 H Creatinine 1.45 H Glucose Level 217 # Calcium Level 7.2 L Phosphorus Level 2.8 Magnesium Level 1.8 Blood Gas Specimen Source Blood arterial Arterial Blood Date Drawn 02/01/2017 3:20:04 PM Arterial Blood pH (Temp corrected) 7.437 Arterial Blood pCO2 (Temp correct) 24.1 L Arterial Blood pO2 (Temp corrected) 103.5 H Arterial Blood HCO3 15.9 L Arterial Blood Base Excess -7.1 L Arterial Blood Oxygen Saturation 97.3 Ariel Test N/A Arterial Blood Gas Puncture Site LB Arterial Blood Carboxyhemoglobin 0.3 Arterial Blood Methemoglobin 0.1 Blood Gas A-a O2 Differential 225.9 H Oxyhemoglobin Percent 96.9 Total Hemoglobin 9.4 L Blood Gas Temperature 37.0 Blood Gas Respiration Rate 24.0 Blood Gas Actual Respiration Rate 24 Blood Gas Modality VENT - AC FiO2 50.0 Blood Gas Tidal Volume 550.0 Blood Gas Low PEEP Setting 5.0 Blood Gas Notified Whom K B Blood Gas Notified Time 02/01/2017 3:27:22 PM Medications Medications Current Medications Ondansetron HCl (Zofran Inj) 4 mg Q6H PRN IV NAUSEA AND/OR VOMITING; Start at 16:30 Morphine Sulfate (morphine) 2 mg Q4H PRN IV SEVERE PAIN LEVEL 7-10; Start 01/29 at 16:30 Pantoprazole (Protonix Iv) 40 mg DAILY@06 IV Last administered on 02/02/17 05: 05; Admin Dose 40 MG; Start 01/30/17 at 06:00 Eye Lubricant (Artificial Tears Oph) 2 drop Q6H PRN BOTH EYES DRY EYES Last administered on 01/30/17 04:29; Admin Dose 2 DROP; Start 01/29/17 at 18:30 Acetaminophen 650 mg 650 mg Q6H PRN [place] FEVER Last administered on 01/31/17 03: 42; Admin Dose 650 MG; Start 01/30/17 at 21:00 Norepinephrine 16 mg/Dextrose 500 ml @ 1.87 mls/hr TITRATE IV Last administered on 01/31/17 07:04; Admin Dose 15 MLS/HR; Start 01/30/17 at 23:55 Midazolam HCl 50 ml @ 1 mls/hr TITRATE IV ; Start 01/30/17 at 23:55 Dextrose/Sodium Chloride 1,000 ml @ 100 mls/hr Q10H IV Last administered on 13:20; Admin Dose 100 MLS/HR; Start 01/31/17 at 17:00 Amiodarone HCl/ Dextrose (Cordarone Iv/ D5W) 500 ml @ 0 mls/hr Q0M IV Last administered on 02/02/17 06:03; Admin Dose 33.4 MLS/HR; Start 02/02/17 at 06:00 ; Stop 02/03/17 at 05:59 Digoxin (Digoxin) 250 mcg Q6 IV Last administered on 02/02/17 13:17; Admin Dose 250 MCG; Start 02/02/17 at 12:00; Stop 02/02/17 at 18:01 Metoprolol Tartrate (Lopressor) 5 mg Q4H PRN IV HR>110 Hold SBP<100; Start at 12:00 Metoprolol Tartrate 25 mg 25 mg BID PO Last administered on 02/02/17 13:21; Admin Dose 25 MG; Start 02/02/17 at 12:00 Vancomycin HCl 750 mg/Sodium Chloride 150 ml @ 75 mls/hr Q24H IVPB ; Start at 18:00 Cefepime HCl (Maxipime 1gm/50 ml (Pmx)) 50 ml @ 100 mls/hr Q24H IVPB ; Start at 09:00 KG GRECO NP Feb 02, 2017 17:40
[2017-02-02] MEDS: VANCOMYCIN 750 MG in SOD CHLORIDE 0.9% 150 ML IVPB SCH (18:22)
--- NOTE | 2017-02-02 18:50 | RADRPT ---
PROCEDURE: XR Chest. CLINICAL INDICATION: Shortness of breath. TECHNIQUE: Single frontal view. COMPARISON: 02/01/2017. FINDINGS: The endotracheal tube, left subclavian vein catheter, and nasogastric tube remain in satisfactory po sition. There is bilateral multifocal pneumonia, unchanged. Loculated pleural fluid superiorly on the left is unchanged. The heart size is normal. There is no pneumothorax. IMPRESSION: 1. No change from 01/24/2017. RPTAT: QQ .Brian Owens MD, MD Date Time Electronically viewed and signed by .Brian Owens MD, MD on 02/02/2017 18:50 .R/
[2017-02-03] VITALS (41 sets, daily range): BP systolic 82–141; BP diastolic 20–66; PULSE 63–77; RESP 20
[2017-02-03] MEDS: ALBUTEROL 18 GM INHALER INH SCH ×4 (01:34→19:52)
[2017-02-03] MEDS: ACETYLCYSTEINE 20% 4 ML VIAL NEB SCH ×4 (01:35→19:57)
[2017-02-03] MEDS: IPRATROPIUM (HFA) 12.9 GM INHALER INH SCH ×4 (01:35→19:51)
[2017-02-03] MEDS: DEXTROSE 5%-0.45% NACL 1,000 ML IV SCH ×3 (02:20→09:00)
[2017-02-03 05:31] LABS: ADD SCAN DIFF NO
[2017-02-03 05:53] LABS: POTASSIUM 4.7 mmol/L (3.5-5.1)
[2017-02-03] MEDS: PANTOPRAZOLE 40 MG INJ IV SCH (05:54)
[2017-02-03 05:55] LABS: CREATININE 1.71 mg/dl (0.44-1.00)
[2017-02-03 05:56] LABS: CALCIUM 7.5 mg/dl (8.4-10.2)
[2017-02-03 06:07] LABS: ABNORMAL IP MESSAGE 1; HEMATOCRIT 31.4 % (37.0-47.0); HEMOGLOBIN 10.6 g/dl (12.0-16.0); MEAN CORPUSCULAR HEMOGLOBIN 28.6 pg (29.0-33.0); MEAN CORPUSCULAR HGB CONC 33.8 g/dl (32.0-37.0); MEAN CORPUSCULAR VOLUME 84.9 fl (82.0-101.0); RED CELL DISTRIBUTION WIDTH 16.8 % (11.5-14.5); WHITE BLOOD COUNT 5.8 10^3/ul (4.8-10.8)
[2017-02-03 06:49] LABS: PLATELET COUNT 33 10^3/UL (140-415)
[2017-02-03] MEDS ORDERED: SOD CHLORIDE 0.9% 1,000 ML IV ONE (07:00)
[2017-02-03] MEDS: METOPROLOL 25 MG TAB PO SCH ×2 (08:30→21:54)
[2017-02-03] MEDS: CEFEPIME 1GM/50 ML (PMX) 50 ML IVPB SCH (09:10)
[2017-02-03 10:45] LABS: EOSINOPHILS # 0.3 10^3/ul (0.0-0.5); LYMPHOCYTES # 1.5 10^3/ul (0.8-2.9); MONOCYTE # 0.3 10^3/ul (0.3-0.9); MYELOCYTES # 0.2; NEUTROPHIL # 1.6 10^3/ul (1.6-7.5); PLATELET ESTIMATE PLT APPEAR DECREASED
--- NOTE | 2017-02-03 11:10 | CONS ---
Date/Time of Note Date/Time of Note DATE: 02/03/17 TIME: 11:05 Assessment/Plan Assessment/Plan Chief Complaint/Hosp Course ID PROGRESS NOTE ABX DAY #6=> Vanco IV #6 + Cefepime #4 s/p Zosyn #3 + Levaquin #2 24H INTERVAL SUMMARY * Obtunded despite sedation stopped few days ago * Urinary retention -> No urine output -> FC inserted w/500ccs out * Worsening renal fx S.CR elevated 1.71 * MRI => IMPRESSION: * 1. Findings suggestive of hypoxic ischemic injury. Follow-up imaging may be performed as clinically warranted. * 2. No acute intracranial hemorrhage. * 3. Moderate bilateral mastoid air cell effusions. * Remains intubated post cardiac arrest in the field w/sepsis on admission due to CAP + Pancreatitis elevated Lipase * Blood Cx on admission (+) Strep Pyogenes * 02/01/17 CXR 1. There are bilateral alveolar opacities which may reflect pulmonary edema and / or multifocal pneumonia. This is increased when compared to the prior examination.2. Small left pleural effusion with loculated component along the left upper lobe. PHYSICAL EXAMINATION: GENERAL: 66 yo Mong[place]ian F, orally intubated, sedated on the Ventilator, on pressors HEENT: AT, NC, anicteric, ETT-> Secure to Vent NECK: Supple, trachea midline. CHEST: Rise symmetrical, (+)course anterior BX w/rales HEART: Pulse RRR -- Tachy ABDOMEN: Soft EXTREMITIES: Warm, dry, no edema SKIN: Intact ID ASSESSMENT 66 yo F admit with: 1. Cardiac arrest with return of circulation, (+)Troponin for ACS, BLL PNA + elevated Lipase on admission * s/p Hypothermia protocol * MRI: (+)Anoxic brain injury - patient remains obtunded after sedation DC'd x several days now 2. Shock on pressor support -- suspect cardiogenic + septic on admission w/ lactic acidosis = BLL PNA + elevated Lipase on admission * Blood CX (+) GRAM POS COCCI IN PAIRS,CHAIN = (+)Strep Pyogenes 1/2 bottles * Lactic acidosis improved, no leukocytosis 3. Multifocal PNA -> Community acquired PNA may have been the etiology of cardia arrest w/left-sided loculated pleural effusion. * Aspiration PNA likely a component following CPRS/ACLS -- Now orally intubation on the Vent * HCAP coverage now that patient is intubated 4. Acute kidney injury, likely secondary to underlying septic shock as well as cardiac arrest. * S.CR on admit 1.3 -> 1.04 > 0.97 >0.90 > > 0.99 > 1.17 >1.22 >1.31 >1.45 >1.71 5. Pancreatitis elevated Lipase on admission-> improved 6. Small fluid level seen throughout the paranasal sinuses may represent allergic rhinitis or mild sinusitis. 7. Cerebral microvascular disease w/mil chronic-appearing microvascular ischemic changes of the supratentorial white matter on CT Brain. * Neuro onboard -- Anoxic brain injury post cardia arrest (-) MRSA Nares INVASIVES: R-IJ TLC, ETT, OGT, FC ABX ALLERGY: KNDA CURRENT ABX: #5=> Vanco IV #5 + Cefepime #3 s/p Zosyn #3 + Levaquin #2 ID RECOMMENDATIONS 1. Continue current ABX -- await neuro recs 2. Renal dose Vanco . . . . . Problems: Consultation Date/Type/Reason Admit Date/Time Jan 30, 2017 at 11:41 Type of Consultation: ID Referring Provider: HANY LAWSON Exam/Review of Systems Vital Signs Vitals Vital Signs Date Time Temp Pulse Resp B/P Pulse Ox O2 Delivery O2 Flow Rate FiO2 02/03/17 10:30 72 20 93/66 94 Mechanical Ventilator 02/03/17 09:25 60 02/03/17 08:00 97.8 Intake and Output 02/02/17 02/02/17 02/03/17 15:00 23:00 07:00 Intake Total 1110.0 ml 1167.8 ml 493.2 ml Output Total 90 ml 60 ml 1135 ml Balance 1020.0 ml 1107.8 ml -641.8 ml Results Result Diagram: 02/03/17 0439 02/03/17 0439 Results 24 hrs Laboratory Tests Test 02/03/17 04:39 White Blood Count 5.8 # Red Blood Count 3.70 L Hemoglobin 10.6 L Hematocrit 31.4 L Mean Corpuscular Volume 84.9 Mean Corpuscular Hemoglobin 28.6 L Mean Corpuscular Hemoglobin Concent 33.8 Red Cell Distribution Width 16.8 H Platelet Count 33 #L Mean Platelet Volume Neutrophils % 28.0 L Band Neutrophils % 30.0 H Lymphocytes % 26.0 Monocytes % 5.0 Eosinophils % 6.0 Metamyelocytes % 1.0 H Myelocytes % 4.0 H Neutrophils # 1.6 Lymphocytes # 1.5 Monocytes # 0.3 Eosinophils # 0.3 Metamyelocytes # 0.1 Myelocytes # 0.2 Platelet Estimate PLT APPEAR DECREASED Sodium Level 138 Potassium Level 4.7 Chloride Level 113 H Carbon Dioxide Level 17 L Anion Gap 13 Blood Urea Nitrogen 42 H Creatinine 1.71 H Glucose Level 118 # Calcium Level 7.5 L Medications Medications Current Medications Ondansetron HCl (Zofran Inj) 4 mg Q6H PRN IV NAUSEA AND/OR VOMITING; Start at 16:30 Morphine Sulfate (morphine) 2 mg Q4H PRN IV SEVERE PAIN LEVEL 7-10; Start 01/29 at 16:30 Pantoprazole (Protonix Iv) 40 mg DAILY@06 IV Last administered on 02/03/17 05: 54; Admin Dose 40 MG; Start 01/30/17 at 06:00 Eye Lubricant (Artificial Tears Oph) 2 drop Q6H PRN BOTH EYES DRY EYES Last administered on 01/30/17 04:29; Admin Dose 2 DROP; Start 01/29/17 at 18:30 Acetaminophen 650 mg 650 mg Q6H PRN [place] FEVER Last administered on 01/31/17 03: 42; Admin Dose 650 MG; Start 01/30/17 at 21:00 Norepinephrine 16 mg/Dextrose 500 ml @ 1.87 mls/hr TITRATE IV Last administered on 01/31/17 07:04; Admin Dose 15 MLS/HR; Start 01/30/17 at 23:55 Midazolam HCl 50 ml @ 1 mls/hr TITRATE IV ; Start 01/30/17 at 23:55 Dextrose/Sodium Chloride (D5-1/2ns) 1,000 ml @ 100 mls/hr Q10H IV Last administered on 02/03/17 09:00; Admin Dose 100 MLS/HR; Start 01/31/17 at 17:00 Metoprolol Tartrate (Lopressor) 5 mg Q4H PRN IV HR>110 Hold SBP<100; Start at 12:00 Metoprolol Tartrate 25 mg 25 mg BID PO Last administered on 02/02/17 21:16; Admin Dose 25 MG; Start 02/02/17 at 12:00 Vancomycin HCl 750 mg/Sodium Chloride 150 ml @ 75 mls/hr Q24H IVPB Last administered on 02/02/17 18:22; Admin Dose 75 MLS/HR; Start 02/02/17 at 18:00 Cefepime HCl (Maxipime 1gm/50 ml (Pmx)) 50 ml @ 100 mls/hr Q24H IVPB Last administered on 02/03/17 09:10; Admin Dose 100 MLS/HR; Start 02/03/17 at 09:00 KG GRECO NP Feb 03, 2017 11:10
--- NOTE | 2017-02-03 11:16 | CONS ---
Date/Time of Note Date/Time of Note DATE: 02/03/17 TIME: 11:13 Assessment/Plan Assessment/Plan Chief Complaint/Hosp Course IMPRESSION: 1. Status post cardiac arrest, assess for acute coronary syndrome.-negative troponin x 3/NL EF by echo this admit 2. Positive troponin, assess significance in setting of cardiac arrest. 3. Abnormal electrocardiogram. 4. Hypotension, borderline.-Now off pressors 5. Respiratory failure, status post intubation. 6. Pancreatitis by laboratory findings. 7. Anemia. 8. Leukopenia. 9. Thrombocytopenia. 10.REnal failure-acute 11.Atrial fibrillation- new onset/not good anticoag candidate due to low plt Recc: -Tele -Serial ecg's -Continue abx's/f/u cx data -follow MS closely -Follow platelet count -Follow BP closely -Willl start po amiodarone in attempt to mmaintain SR -Bert pressor support if necessary Problems: Consultation Date/Type/Reason Admit Date/Time Jan 30, 2017 at 11:41 Initial Consult Date 01/31/17 Type of Consultation: Cardiology Reason for Consultation Cardiac arrest Referring Provider: HANY LAWSON Exam/Review of Systems Vital Signs Vitals Vital Signs Date Time Temp Pulse Resp B/P Pulse Ox O2 Delivery O2 Flow Rate FiO2 02/03/17 10:30 72 20 93/66 94 Mechanical Ventilator 02/03/17 09:25 60 02/03/17 08:00 97.8 Intake and Output 02/02/17 02/02/17 02/03/17 15:00 23:00 07:00 Intake Total 1110.0 ml 1167.8 ml 493.2 ml Output Total 90 ml 60 ml 1135 ml Balance 1020.0 ml 1107.8 ml -641.8 ml Exam Review of Systems: CONSTITUTIONAL: No fevers, chills. PULMONARY: intubated CARDIOVASCULAR: No obvious chest pain/palpitations GASTROINTESTINAL: No nausea/vomiting. GENITOURINARY: No hematuria/dysuria. MUSCULOSKELETAL: No obvious myagias/arthalgias. PSYCHIATRIC: The patient denies depression. NEUROLOGIC: encephalopathic Constitutional: other (encephalopathy) Psych: no complaints Head: normocephalic ENMT: mucosa pink and moist Neck: jvd (9 cm water), supple Respiratory: diminished breath sounds (at bases/B) Cardiovascular: regular rate and rhythm Gastrointestinal: non-tender, soft Musculoskeletal: muscle tone (normal) Neurological: other (No focal deficits) Results Result Diagram: 02/03/179 02/03/17438 Results 24 hrs Laboratory Tests Test 02/03/17 04:39 White Blood Count 5.8 # Red Blood Count 3.70 L Hemoglobin 10.6 L Hematocrit 31.4 L Mean Corpuscular Volume 84.9 Mean Corpuscular Hemoglobin 28.6 L Mean Corpuscular Hemoglobin Concent 33.8 Red Cell Distribution Width 16.8 H Platelet Count 33 #L Mean Platelet Volume Neutrophils % 28.0 L Band Neutrophils % 30.0 H Lymphocytes % 26.0 Monocytes % 5.0 Eosinophils % 6.0 Metamyelocytes % 1.0 H Myelocytes % 4.0 H Neutrophils # 1.6 Lymphocytes # 1.5 Monocytes # 0.3 Eosinophils # 0.3 Metamyelocytes # 0.1 Myelocytes # 0.2 Platelet Estimate PLT APPEAR DECREASED Sodium Level 138 Potassium Level 4.7 Chloride Level 113 H Carbon Dioxide Level 17 L Anion Gap 13 Blood Urea Nitrogen 42 H Creatinine 1.71 H Glucose Level 118 # Calcium Level 7.5 L Medications Medications Current Medications Ondansetron HCl (Zofran Inj) 4 mg Q6H PRN IV NAUSEA AND/OR VOMITING; Start at 16:30 Morphine Sulfate (morphine) 2 mg Q4H PRN IV SEVERE PAIN LEVEL 7-10; Start 01/29 at 16:30 Pantoprazole (Protonix Iv) 40 mg DAILY@06 IV Last administered on 02/03/17 05: 54; Admin Dose 40 MG; Start 01/30/17 at 06:00 Eye Lubricant (Artificial Tears Oph) 2 drop Q6H PRN BOTH EYES DRY EYES Last administered on 01/30/17 04:29; Admin Dose 2 DROP; Start 01/29/17 at 18:30 Acetaminophen 650 mg 650 mg Q6H PRN [place] FEVER Last administered on 01/31/17 03: 42; Admin Dose 650 MG; Start 01/30/17 at 21:00 Norepinephrine 16 mg/Dextrose 500 ml @ 1.87 mls/hr TITRATE IV Last administered on 01/31/17 07:04; Admin Dose 15 MLS/HR; Start 01/30/17 at 23:55 Midazolam HCl 50 ml @ 1 mls/hr TITRATE IV ; Start 01/30/17 at 23:55 Dextrose/Sodium Chloride (D5-1/2ns) 1,000 ml @ 100 mls/hr Q10H IV Last administered on 02/03/17 09:00; Admin Dose 100 MLS/HR; Start 01/31/17 at 17:00 Metoprolol Tartrate (Lopressor) 5 mg Q4H PRN IV HR>110 Hold SBP<100; Start at 12:00 Metoprolol Tartrate 25 mg 25 mg BID PO Last administered on 02/02/17 21:16; Admin Dose 25 MG; Start 02/02/17 at 12:00 Vancomycin HCl 750 mg/Sodium Chloride 150 ml @ 75 mls/hr Q24H IVPB Last administered on 02/02/17 18:22; Admin Dose 75 MLS/HR; Start 02/02/17 at 18:00 Cefepime HCl (Maxipime 1gm/50 ml (Pmx)) 50 ml @ 100 mls/hr Q24H IVPB Last administered on 02/03/17 09:10; Admin Dose 100 MLS/HR; Start 02/03/17 at 09:00 ORI ROMERO Feb 03, 2017 11:16
--- NOTE | 2017-02-03 11:48 | CONS ---
Date/Time of Note Date/Time of Note DATE: 02/03/17 TIME: 11:45 Assessment/Plan Assessment/Plan Additional Assessment/Plan Chest x-ray was reviewed from yesterday evening which is showing diffuse bilateral infiltrates in a pattern of ARDS. Current ventilator setting; AC of 20, tidal volume 500, PEEP of 5, 60% FiO2. Next Assessment recommendations; 1. Patient admitted with bilateral pneumonia then developed cardiac arrest status post hypothermia protocol. 2. Likely resulted in severe anoxic brain injury. 3. ARDS. 4. Paroxysmal atrial fibrillation, currently in sinus rhythm. 5. Thrombocytopenia. No overt bleeding noted. Continue current supportive care. Add Solu-Medrol 60 mg every 6 hours at least for 6 doses. Prognosis remains very poor. About 35 minutes of critical care time spent evaluating the patient. Consultation Date/Type/Reason Admit Date/Time Jan 30, 2017 at 11:41 Type of Consultation: Pulmonary/critical care Referring Provider: HANY LAWSON 24 HR Interval Summary Free Text/Dictation Patient condition remains critical. Remains completely unresponsive. Has converted to sinus rhythm. No overt seizure activity noted. General exam; elderly lady, orally intubated, unresponsive. Exam/Review of Systems Vital Signs Vitals Vital Signs Date Time Temp Pulse Resp B/P Pulse Ox O2 Delivery O2 Flow Rate FiO2 02/03/17 10:30 72 20 93/66 94 Mechanical Ventilator 02/03/17 09:25 60 02/03/17 08:00 97.8 Intake and Output 02/02/17 02/02/17 02/03/17 15:00 23:00 07:00 Intake Total 1110.0 ml 1167.8 ml 493.2 ml Output Total 90 ml 60 ml 1135 ml Balance 1020.0 ml 1107.8 ml -641.8 ml Exam HEENT examined; supple neck, no JVD. No lymphadenopathy. Midline trachea. No thyromegaly. Pupils are dilated and nonreactive to light. Orally intubated. No neck masses. Neck Chest examination; lateral crackles. S1-S2 audible, regular rhythm. Soft systolic ejection murmur grade 1/2 best heard over aortic area. Abdomen examination; soft, nondistended. No organomegaly. Bowel sounds audible. Extremity examination; no peripheral edema. SHERIFF SERGEANT examination; patient remains completely unresponsive. Results Result Diagram: 02/03/17 0439 02/03/17 0439 Results 24 hrs Laboratory Tests Test 02/03/17 04:39 White Blood Count 5.8 # Red Blood Count 3.70 L Hemoglobin 10.6 L Hematocrit 31.4 L Mean Corpuscular Volume 84.9 Mean Corpuscular Hemoglobin 28.6 L Mean Corpuscular Hemoglobin Concent 33.8 Red Cell Distribution Width 16.8 H Platelet Count 33 #L Mean Platelet Volume Neutrophils % 28.0 L Band Neutrophils % 30.0 H Lymphocytes % 26.0 Monocytes % 5.0 Eosinophils % 6.0 Metamyelocytes % 1.0 H Myelocytes % 4.0 H Neutrophils # 1.6 Lymphocytes # 1.5 Monocytes # 0.3 Eosinophils # 0.3 Metamyelocytes # 0.1 Myelocytes # 0.2 Platelet Estimate PLT APPEAR DECREASED Sodium Level 138 Potassium Level 4.7 Chloride Level 113 H Carbon Dioxide Level 17 L Anion Gap 13 Blood Urea Nitrogen 42 H Creatinine 1.71 H Glucose Level 118 # Calcium Level 7.5 L Medications Medications Current Medications Ondansetron HCl (Zofran Inj) 4 mg Q6H PRN IV NAUSEA AND/OR VOMITING; Start at 16:30 Morphine Sulfate (morphine) 2 mg Q4H PRN IV SEVERE PAIN LEVEL 7-10; Start 01/29 at 16:30 Pantoprazole (Protonix Iv) 40 mg DAILY@06 IV Last administered on 02/03/17 05: 54; Admin Dose 40 MG; Start 01/30/17 at 06:00 Eye Lubricant (Artificial Tears Oph) 2 drop Q6H PRN BOTH EYES DRY EYES Last administered on 01/30/17 04:29; Admin Dose 2 DROP; Start 01/29/17 at 18:30 Acetaminophen 650 mg 650 mg Q6H PRN [place] FEVER Last administered on 01/31/17 03: 42; Admin Dose 650 MG; Start 01/30/17 at 21:00 Norepinephrine 16 mg/Dextrose 500 ml @ 1.87 mls/hr TITRATE IV Last administered on 01/31/17 07:04; Admin Dose 15 MLS/HR; Start 01/30/17 at 23:55 Midazolam HCl 50 ml @ 1 mls/hr TITRATE IV ; Start 01/30/17 at 23:55 Dextrose/Sodium Chloride (D5-1/2ns) 1,000 ml @ 100 mls/hr Q10H IV Last administered on 02/03/17 09:00; Admin Dose 100 MLS/HR; Start 01/31/17 at 17:00 Metoprolol Tartrate (Lopressor) 5 mg Q4H PRN IV HR>110 Hold SBP<100; Start at 12:00 Metoprolol Tartrate 25 mg 25 mg BID PO Last administered on 02/02/17 21:16; Admin Dose 25 MG; Start 02/02/17 at 12:00 Vancomycin HCl 750 mg/Sodium Chloride 150 ml @ 75 mls/hr Q24H IVPB Last administered on 02/02/17 18:22; Admin Dose 75 MLS/HR; Start 02/02/17 at 18:00 Cefepime HCl (Maxipime 1gm/50 ml (Pmx)) 50 ml @ 100 mls/hr Q24H IVPB Last administered on 02/03/17 09:10; Admin Dose 100 MLS/HR; Start 02/03/17 at 09:00 Amiodarone HCl (Cordarone) 200 mg BID PO ; Start 02/03/17 at 11:30 TERESA FAITH Feb 03, 2017 11:48
[2017-02-03] MEDS: AMIODARONE 200 MG TAB PO SCH ×2 (11:52→20:49)
[2017-02-03] MEDS: METHYLPREDNISOLONE 125 MG INJ IV SCH ×2 (11:55→17:12)
--- NOTE | 2017-02-03 13:14 | RADRPT ---
PROCEDURE: XR Chest. CLINICAL INDICATION: Intubated TECHNIQUE: Anterior chest x-ray. COMPARISON: 01/29/2017 FINDINGS: Endotracheal tube terminates 3 cm above the stalin. Nasogastric tube terminates the body of the stomach. Diffuse bilateral pulmonary infiltrates are worse than on previous exam. Dense consolidation in the left lung apex is new compared to previous exam. Blunting of left costophrenic angle suggest small effusion. There is no evidence of pneumothorax. The cardiomediastinal silhouette is unremarkable. The soft tissues are normal. Osseous structures are unremarkable. IMPRESSION: 1. Stable and satisfactory position of endotracheal tube. 2. Interval placement nasogastric tube in satisfactory position. 3. Diffuse bilateral pulmonary infiltrates, worse than on previous exam. 4. Dense consolidation in the left lung apex, new compared to previous exam. 5. Small left pleural effusion. RPTAT: QQ .Nabil Chao MD, MD Date Time Electronically viewed and signed by .Nabil Chao MD, on 02/03/2017 13:14 .M/
--- NOTE | 2017-02-03 15:19 | CONS ---
Date/Time of Note Date/Time of Note DATE: 02/03/17 TIME: 15:15 Assessment/Plan Assessment/Plan Chief Complaint/Hosp Course Cardiorespiratory arrest Problems: Additional Assessment/Plan The patient is a 66-year-old female with history of multiple myeloma, who presents with shortness of breath and altered mental status. On arrival in the ED, the patient was unresponsive. Patient had cardiac arrest while in ER and was intubated and resuscitated. She was then started on hypothermia protocol. She is currently intubated, ventilated and sedated. She has been unresponsive. CT brain showed chronic white matter disease, nothing acute. She is clearly severely encephalopathic likely due to anoxic event. MRI of the brain showed hypoxic injury. Plan: 1 Continue Keppra 1000 mg IV twice a day 2 prognosis is poor 3 Discussed with her and sister who are present in the room [address] Dr. Saldaña will follow in AM Consultation Date/Type/Reason Admit Date/Time Jan 30, 2017 at 11:41 Initial Consult Date 02/01/17 Type of Consultation: Pulmonary/critical care Referring Provider: HANY LAWSNO 24 HR Interval Summary Free Text/Dictation Clinically uncahanged. Exam/Review of Systems Vital Signs Vitals Vital Signs Date Time Temp Pulse Resp B/P Pulse Ox O2 Delivery O2 Flow Rate FiO2 02/03/17 13:41 73 20 94 60 02/03/17 12:00 97.1 99/38 Mechanical Ventilator Intake and Output 02/02/17 02/02/17 02/03/17 15:00 23:00 07:00 Intake Total 1110.0 ml 1167.8 ml 493.2 ml Output Total 90 ml 60 ml 1135 ml Balance 1020.0 ml 1107.8 ml -641.8 ml Exam Constitutional: non-verbal Head: atraumatic, normocephalic Eyes: EOMI, nl conjunctiva, nl lids, nl sclera ENMT: mucosa pink and moist, nl external ears & nose, nl lips & teeth, nl nasal mucosa & septum Neck: non-tender, supple Respiratory: clear to auscultation, normal air movement Cardiovascular: nl pulses, regular rate and rhythm Gastrointestinal: nl liver, spleen, soft Neurological: other (Intubated, ventilated, limited exam, no cornal, gag reflex or dolls eyes, no withdrawl to noxious stimuli), unresponsive Results Result Diagram: 02/03/17 0439 02/03/17 0439 Results 24 hrs Laboratory Tests Test 02/03/17 04:39 White Blood Count 5.8 # Red Blood Count 3.70 L Hemoglobin 10.6 L Hematocrit 31.4 L Mean Corpuscular Volume 84.9 Mean Corpuscular Hemoglobin 28.6 L Mean Corpuscular Hemoglobin Concent 33.8 Red Cell Distribution Width 16.8 H Platelet Count 33 #L Mean Platelet Volume Neutrophils % 28.0 L Band Neutrophils % 30.0 H Lymphocytes % 26.0 Monocytes % 5.0 Eosinophils % 6.0 Metamyelocytes % 1.0 H Myelocytes % 4.0 H Neutrophils # 1.6 Lymphocytes # 1.5 Monocytes # 0.3 Eosinophils # 0.3 Metamyelocytes # 0.1 Myelocytes # 0.2 Platelet Estimate PLT APPEAR DECREASED Sodium Level 138 Potassium Level 4.7 Chloride Level 113 H Carbon Dioxide Level 17 L Anion Gap 13 Blood Urea Nitrogen 42 H Creatinine 1.71 H Glucose Level 118 # Calcium Level 7.5 L Medications Medications Current Medications Ondansetron HCl (Zofran Inj) 4 mg Q6H PRN IV NAUSEA AND/OR VOMITING; Start at 16:30 Morphine Sulfate (morphine) 2 mg Q4H PRN IV SEVERE PAIN LEVEL 7-10; Start 01/29 at 16:30 Pantoprazole (Protonix Iv) 40 mg DAILY@06 IV Last administered on 02/03/17 05: 54; Admin Dose 40 MG; Start 01/30/17 at 06:00 Eye Lubricant (Artificial Tears Oph) 2 drop Q6H PRN BOTH EYES DRY EYES Last administered on 01/30/17 04:29; Admin Dose 2 DROP; Start 01/29/17 at 18:30 Acetaminophen 650 mg 650 mg Q6H PRN [place] FEVER Last administered on 01/31/17 03: 42; Admin Dose 650 MG; Start 01/30/17 at 21:00 Norepinephrine 16 mg/Dextrose 500 ml @ 1.87 mls/hr TITRATE IV Last administered on 01/31/17 07:04; Admin Dose 15 MLS/HR; Start 01/30/17 at 23:55 Midazolam HCl 50 ml @ 1 mls/hr TITRATE IV ; Start 01/30/17 at 23:55 Dextrose/Sodium Chloride (D5-1/2ns) 1,000 ml @ 100 mls/hr Q10H IV Last administered on 02/03/17 09:00; Admin Dose 100 MLS/HR; Start 01/31/17 at 17:00 Metoprolol Tartrate (Lopressor) 5 mg Q4H PRN IV HR>110 Hold SBP<100; Start at 12:00 Metoprolol Tartrate 25 mg 25 mg BID PO Last administered on 02/02/17 21:16; Admin Dose 25 MG; Start 02/02/17 at 12:00 Vancomycin HCl 750 mg/Sodium Chloride 150 ml @ 75 mls/hr Q24H IVPB Last administered on 02/02/17 18:22; Admin Dose 75 MLS/HR; Start 02/02/17 at 18:00 Cefepime HCl (Maxipime 1gm/50 ml (Pmx)) 50 ml @ 100 mls/hr Q24H IVPB Last administered on 02/03/17 09:10; Admin Dose 100 MLS/HR; Start 02/03/17 at 09:00 Amiodarone HCl (Cordarone) 200 mg BID PO Last administered on 02/03/17 11:52; Admin Dose 200 MG; Start 02/03/17 at 11:30 Methylprednisolone Sodium Succinate (Solu-Medrol) 60 mg Q6 IV Last administered on 02/03/17 11:55; Admin Dose 60 MG; Start 02/03/17 at 12:00 Miscellaneous Information (*Rx Drug Level Order Reminder*) VANCOMYCIN TROUGH 5/ 1 AT 1700 ONCE ONCE XX ; Start 02/04/17 at 17:00; Stop 02/04/17 at 17:01 Procedures Procedures MRI of brain 02/02/17 IMPRESSION: 1. Findings suggestive of hypoxic ischemic injury. Follow-up imaging may be performed as clinically warranted. 2. No acute intracranial hemorrhage. 3. Moderate bilateral mastoid air cell effusions. Further findings as detailed above. RPTAT: PP .Moe Franks MD, MD Date Time Electronically viewed and signed by .Moe Franks MDMD on 02/02/2017 15:41 BRAYDON QUESADA MD Feb 03, 2017 15:19
[2017-02-03] MEDS: VANCOMYCIN 750 MG in SOD CHLORIDE 0.9% 150 ML IVPB SCH (17:12)
--- NOTE | 2017-02-03 17:14 | PN ---
Date/Time of Note Date/Time of Note DATE: 02/03/17 TIME: 17:13 Assessment/Plan VTE Prophylaxis VTE Prophylaxis Intervention: SCD's Assessment/Plan Chief Complaint/Hosp Course 1. Cardiac arrest with return of circulation likely 2/2 severe sepsis from PNA -s/p hypothermia protocol -Cards consult appreciated -Pulm consult appreciated for Vent management 2. Severe shock with lactic acidosis secondary to cardiogenic/sepsis source -Lactic acid has trended down -cont IV Abx, ID consult appreciated 3. Acute kidney injury, likely secondary to underlying septic shock as well as cardiac arrest -Nephrology consultation appreciated 4. Hypokalemia-repleted 5. Multifocal pneumonia -cont IV antibiotics, Pulmonology and ID following 6. Anoxic Encephalopathy -EEG shows encephalopathy with seizure activity -MRI shows findings suggestive of hypoxic ischemic injury -Neuro consult appreciated 7. Pancreatitis-Improved -US Abd shows nl CBD Prophylaxis: Sequential compression devices Problems: Subjective 24 Hr Interval Summary Subjective hx not possible: pt non-verbal Exam/Review of Systems Vital Signs Vitals Vital Signs Date Time Temp Pulse Resp B/P Pulse Ox O2 Delivery O2 Flow Rate FiO2 02/03/17 15:35 76 20 95 60 02/03/17 12:00 97.1 99/38 Mechanical Ventilator Intake and Output 02/02/17 02/02/17 02/03/17 15:00 23:00 07:00 Intake Total 1110.0 ml 1167.8 ml 493.2 ml Output Total 90 ml 60 ml 1135 ml Balance 1020.0 ml 1107.8 ml -641.8 ml Exam Constitutional: non-verbal ENMT: intubated Respiratory: clear to auscultation Cardiovascular: regular rate and rhythm Gastrointestinal: soft, No distended Musculoskeletal: nl extremities to inspection Results Result Diagram: 02/03/17 0439 02/03/17 0439 Results 24 hrs Laboratory Tests Test 02/03/17 04:39 White Blood Count 5.8 # Red Blood Count 3.70 L Hemoglobin 10.6 L Hematocrit 31.4 L Mean Corpuscular Volume 84.9 Mean Corpuscular Hemoglobin 28.6 L Mean Corpuscular Hemoglobin Concent 33.8 Red Cell Distribution Width 16.8 H Platelet Count 33 #L Mean Platelet Volume Neutrophils % 28.0 L Band Neutrophils % 30.0 H Lymphocytes % 26.0 Monocytes % 5.0 Eosinophils % 6.0 Metamyelocytes % 1.0 H Myelocytes % 4.0 H Neutrophils # 1.6 Lymphocytes # 1.5 Monocytes # 0.3 Eosinophils # 0.3 Metamyelocytes # 0.1 Myelocytes # 0.2 Platelet Estimate PLT APPEAR DECREASED Sodium Level 138 Potassium Level 4.7 Chloride Level 113 H Carbon Dioxide Level 17 L Anion Gap 13 Blood Urea Nitrogen 42 H Creatinine 1.71 H Glucose Level 118 # Calcium Level 7.5 L Medications Medications Current Medications Ondansetron HCl (Zofran Inj) 4 mg Q6H PRN IV NAUSEA AND/OR VOMITING; Start at 16:30 Morphine Sulfate (morphine) 2 mg Q4H PRN IV SEVERE PAIN LEVEL 7-10; Start 01/29 at 16:30 Pantoprazole (Protonix Iv) 40 mg DAILY@06 IV Last administered on 02/03/17 05: 54; Admin Dose 40 MG; Start 01/30/17 at 06:00 Eye Lubricant (Artificial Tears Oph) 2 drop Q6H PRN BOTH EYES DRY EYES Last administered on 01/30/17 04:29; Admin Dose 2 DROP; Start 01/29/17 at 18:30 Acetaminophen 650 mg 650 mg Q6H PRN [place] FEVER Last administered on 01/31/17 03: 42; Admin Dose 650 MG; Start 01/30/17 at 21:00 Norepinephrine 16 mg/Dextrose 500 ml @ 1.87 mls/hr TITRATE IV Last administered on 01/31/17 07:04; Admin Dose 15 MLS/HR; Start 01/30/17 at 23:55 Midazolam HCl 50 ml @ 1 mls/hr TITRATE IV ; Start 01/30/17 at 23:55 Dextrose/Sodium Chloride (D5-1/2ns) 1,000 ml @ 100 mls/hr Q10H IV Last administered on 02/03/17 09:00; Admin Dose 100 MLS/HR; Start 01/31/17 at 17:00 Metoprolol Tartrate (Lopressor) 5 mg Q4H PRN IV HR>110 Hold SBP<100; Start at 12:00 Metoprolol Tartrate 25 mg 25 mg BID PO Last administered on 02/02/17 21:16; Admin Dose 25 MG; Start 02/02/17 at 12:00 Vancomycin HCl 750 mg/Sodium Chloride 150 ml @ 75 mls/hr Q24H IVPB Last administered on 02/02/17 18:22; Admin Dose 75 MLS/HR; Start 02/02/17 at 18:00 Cefepime HCl (Maxipime 1gm/50 ml (Pmx)) 50 ml @ 100 mls/hr Q24H IVPB Last administered on 02/03/17 09:10; Admin Dose 100 MLS/HR; Start 02/03/17 at 09:00 Amiodarone HCl (Cordarone) 200 mg BID PO Last administered on 02/03/17 11:52; Admin Dose 200 MG; Start 02/03/17 at 11:30 Methylprednisolone Sodium Succinate (Solu-Medrol) 60 mg Q6 IV Last administered on 02/03/17 11:55; Admin Dose 60 MG; Start 02/03/17 at 12:00 Miscellaneous Information (*Rx Drug Level Order Reminder*) VANCOMYCIN TROUGH 02/04 AT 1700 ONCE ONCE XX ; Start 02/04/17 at 17:00; Stop 02/04/17 at 17:01 HANY LAWSON Feb 03, 2017 17:13
--- NOTE | 2017-02-03 18:21 | CONS ---
Date/Time of Note Date/Time of Note DATE: 02/03/17 TIME: 18:20 Assessment/Plan Assessment/Plan Chief Complaint/Hosp Course IMPRESSION: 1. Acute cardiorespiratory arrest. 2. The patient has acute kidney injury with possible underlying chronic kidney disease. 3. The patient has severe metabolic acidosis, lactic acidosis. 4. Hypokalemia, hypophosphatemia, severe. 5. History of multiple myeloma. 6. Rule out underlying chronic myeloma kidney. 7 sepsis 8 pneumonia plan lasix Problems: Consultation Date/Type/Reason Admit Date/Time Jan 30, 2017 at 11:41 Type of Consultation: renal Referring Provider: HANY LAWSON 24 HR Interval Summary Constitutional: other (on vent) Exam/Review of Systems Vital Signs Vitals Vital Signs Date Time Temp Pulse Resp B/P Pulse Ox O2 Delivery O2 Flow Rate FiO2 02/03/17 17:51 75 20 100 60 02/03/17 17:00 115/38 Mechanical Ventilator 02/03/17 16:00 96.8 Intake and Output 02/02/17 02/02/17 02/03/17 15:00 23:00 07:00 Intake Total 1110.0 ml 1167.8 ml 493.2 ml Output Total 90 ml 60 ml 1135 ml Balance 1020.0 ml 1107.8 ml -641.8 ml Exam Neck: supple Respiratory: diminished breath sounds Cardiovascular: regular rate and rhythm Gastrointestinal: soft Extremities: edema (++) Results Result Diagram: 02/03/17 0439 02/03/17 0439 Results 24 hrs Laboratory Tests Test 02/03/17 04:39 White Blood Count 5.8 # Red Blood Count 3.70 L Hemoglobin 10.6 L Hematocrit 31.4 L Mean Corpuscular Volume 84.9 Mean Corpuscular Hemoglobin 28.6 L Mean Corpuscular Hemoglobin Concent 33.8 Red Cell Distribution Width 16.8 H Platelet Count 33 #L Mean Platelet Volume Neutrophils % 28.0 L Band Neutrophils % 30.0 H Lymphocytes % 26.0 Monocytes % 5.0 Eosinophils % 6.0 Metamyelocytes % 1.0 H Myelocytes % 4.0 H Neutrophils # 1.6 Lymphocytes # 1.5 Monocytes # 0.3 Eosinophils # 0.3 Metamyelocytes # 0.1 Myelocytes # 0.2 Platelet Estimate PLT APPEAR DECREASED Sodium Level 138 Potassium Level 4.7 Chloride Level 113 H Carbon Dioxide Level 17 L Anion Gap 13 Blood Urea Nitrogen 42 H Creatinine 1.71 H Glucose Level 118 # Calcium Level 7.5 L Medications Medications Current Medications Ondansetron HCl (Zofran Inj) 4 mg Q6H PRN IV NAUSEA AND/OR VOMITING; Start at 16:30 Morphine Sulfate (morphine) 2 mg Q4H PRN IV SEVERE PAIN LEVEL 7-10; Start 01/29 at 16:30 Pantoprazole (Protonix Iv) 40 mg DAILY@06 IV Last administered on 02/03/17 05: 54; Admin Dose 40 MG; Start 01/30/17 at 06:00 Eye Lubricant (Artificial Tears Oph) 2 drop Q6H PRN BOTH EYES DRY EYES Last administered on 01/30/17 04:29; Admin Dose 2 DROP; Start 01/29/17 at 18:30 Acetaminophen 650 mg 650 mg Q6H PRN [place] FEVER Last administered on 01/31/17 03: 42; Admin Dose 650 MG; Start 01/30/17 at 21:00 Midazolam HCl 50 ml @ 1 mls/hr TITRATE IV ; Start 01/30/17 at 23:55 Dextrose/Sodium Chloride (D5-1/2ns) 1,000 ml @ 100 mls/hr Q10H IV Last administered on 02/03/17 09:00; Admin Dose 100 MLS/HR; Start 01/31/17 at 17:00 Metoprolol Tartrate (Lopressor) 5 mg Q4H PRN IV HR>110 Hold SBP<100; Start at 12:00 Metoprolol Tartrate 25 mg 25 mg BID PO Last administered on 02/02/17 21:16; Admin Dose 25 MG; Start 02/02/17 at 12:00 Vancomycin HCl 750 mg/Sodium Chloride 150 ml @ 75 mls/hr Q24H IVPB Last administered on 02/03/17 17:12; Admin Dose 75 MLS/HR; Start 02/02/17 at 18:00 Cefepime HCl (Maxipime 1gm/50 ml (Pmx)) 50 ml @ 100 mls/hr Q24H IVPB Last administered on 02/03/17 09:10; Admin Dose 100 MLS/HR; Start 02/03/17 at 09:00 Amiodarone HCl (Cordarone) 200 mg BID PO Last administered on 02/03/17 11:52; Admin Dose 200 MG; Start 02/03/17 at 11:30 Methylprednisolone Sodium Succinate (Solu-Medrol) 60 mg Q6 IV Last administered on 02/03/17 17:12; Admin Dose 60 MG; Start 02/03/17 at 12:00 Miscellaneous Information VANCOMYCIN TROUGH 02/04 AT 1700 ONCE ONCE XX ; Start at 17:00; Stop 02/04/17 at 17:01 Phenylephrine HCl (Bert-Syneph) 250 ml @ 75 mls/hr TITRATE IV ; Start 02/03/17 at 18:30 CINDY MARES MD Feb 03, 2017 18:21
[2017-02-03] MEDS ORDERED: PHENYLephrine 20MG IN 250 ML 250 ML IV SCH (18:30)
[2017-02-03] MEDS ORDERED: FUROSEMIDE 20 MG INJ IV ONE (18:30)
[2017-02-04] VITALS (39 sets, daily range): BP systolic 105–152; BP diastolic 41–106; PULSE 64–88; RESP 20–25
[2017-02-04] MEDS: METHYLPREDNISOLONE 125 MG INJ IV SCH ×5 (00:13→23:50)
[2017-02-04] MEDS: DEXTROSE 5%-0.45% NACL 1,000 ML IV SCH ×2 (01:23→10:19)
[2017-02-04] MEDS: ACETYLCYSTEINE 20% 4 ML VIAL NEB SCH ×4 (01:28→19:26)
[2017-02-04] MEDS: IPRATROPIUM (HFA) 12.9 GM INHALER INH SCH ×3 (01:35→14:00)
[2017-02-04] MEDS: ALBUTEROL 18 GM INHALER INH SCH ×4 (01:35→20:00)
[2017-02-04] MEDS: PANTOPRAZOLE 40 MG INJ IV SCH (05:35)
[2017-02-04 05:48] LABS: ADD SCAN DIFF NO
[2017-02-04 06:01] LABS: ABNORMAL IP MESSAGE 1; HEMATOCRIT 28.6 % (37.0-47.0); HEMOGLOBIN 9.8 g/dl (12.0-16.0); MEAN CORPUSCULAR HEMOGLOBIN 29.2 pg (29.0-33.0); MEAN CORPUSCULAR HGB CONC 34.3 g/dl (32.0-37.0); MEAN CORPUSCULAR VOLUME 85.1 fl (82.0-101.0); RED BLOOD COUNT 3.36 10^6/ul (4.20-5.40); WHITE BLOOD COUNT 8.6 10^3/ul (4.8-10.8)
[2017-02-04 06:18] LABS: PLATELET COUNT 11 10^3/UL (140-415)
[2017-02-04 06:38] LABS: CREATININE 1.62 mg/dl (0.44-1.00)
[2017-02-04 06:39] LABS: CALCIUM 7.9 mg/dl (8.4-10.2)
[2017-02-04] MEDS: CEFEPIME 1GM/50 ML (PMX) 50 ML IVPB SCH (08:59)
[2017-02-04] MEDS: METOPROLOL 25 MG TAB PO SCH ×2 (09:01→20:54)
[2017-02-04 09:20] LABS: LYMPHOCYTES # 0.4 10^3/ul (0.8-2.9); MONOCYTE # 0.4 10^3/ul (0.3-0.9)
[2017-02-04 09:21] LABS: PLATELET ESTIMATE PLT APPEAR DECREASED
--- NOTE | 2017-02-04 09:38 | CONS ---
Date/Time of Note Date/Time of Note DATE: 02/04/17 TIME: 09:35 Assessment/Plan Assessment/Plan Additional Assessment/Plan Ventilator settings; AC of 20, tidal volume 500, PEEP of 5, 70% FiO2. Assessment recommendations; next 1. Patient admitted for bilateral pneumonia with respiratory failure status post CPR. 2. Status post hypothermia protocol. Patient still exhibiting extremely poor mental status. 3. Severe thrombocytopenia. 4. Acute renal insufficiency. However serum creatinine is improved from today. 5. Patient is essentially apneic as briefly assessed at bedside. 6. Paroxysmal atrial fibrillation, patient currently in sinus rhythm. Continue current treatment. Transfuse platelets. Prognosis is extremely poor. 35 minutes of critical care time was spent evaluating the patient. Consultation Date/Type/Reason Admit Date/Time Jan 30, 2017 at 11:41 Type of Consultation: Pulmonary/critical care Referring Provider: HANY LAWSON 24 HR Interval Summary Free Text/Dictation Patient condition remains critical. Remains completely unresponsive. Patient however has remained hemodynamically stable. General exam; elderly lady, orally intubated, unresponsive. Currently in no distress. Exam/Review of Systems Vital Signs Vitals Vital Signs Date Time Temp Pulse Resp B/P Pulse Ox O2 Delivery O2 Flow Rate FiO2 02/04/17 09:19 73 20 95 70 02/04/17 08:00 98.1 145/48 Mechanical Ventilator Intake and Output 02/03/17 02/03/17 02/04/17 15:00 23:00 07:00 Intake Total 960 ml 1060 ml 890 ml Output Total 475 ml 860 ml 590 ml Balance 485 ml 200 ml 300 ml Exam HEENT exam is; supple neck, no JVD. No lymphadenopathy. Midline trachea. No thyromegaly. Pupils are small bilaterally. No neck masses. Nodes neck bruits. Chest examination; scattered crackles bilaterally. S1-S2 audible, no murmurs. Regular rhythm. Abdomen examination; soft, nondistended. No organomegaly. Bowel sounds are audible. Extremity examination; trace peripheral edema. Pulses 1+ bilaterally. FLYING TEACHER examination; patient remains unresponsive. Results Result Diagram: 02/04/17 0520 02/04/17 0520 Results 24 hrs Laboratory Tests Test 02/04/17 05:20 White Blood Count 8.6 # Red Blood Count 3.36 L Hemoglobin 9.8 L Hematocrit 28.6 L Mean Corpuscular Volume 85.1 Mean Corpuscular Hemoglobin 29.2 Mean Corpuscular Hemoglobin Concent 34.3 Red Cell Distribution Width 17.0 H Platelet Count 11 #*L Mean Platelet Volume Neutrophils % 81.0 H Band Neutrophils % 8.0 H Lymphocytes % 5.0 L Monocytes % 5.0 Eosinophils % Basophils % Metamyelocytes % 1.0 H Nucleated Red Blood Cells % 1.0 H Neutrophils # 7.0 Lymphocytes # 0.4 L Monocytes # 0.4 Eosinophils # Basophils # Metamyelocytes # 0.1 Differential Comment MANUAL DIFF Platelet Estimate PLT APPEAR DECREASED Sodium Level 138 Potassium Level 5.0 Chloride Level 112 H Carbon Dioxide Level 17 L Anion Gap 14 Blood Urea Nitrogen 44 H Creatinine 1.62 H Glucose Level 155 Calcium Level 7.9 L Medications Medications Current Medications Ondansetron HCl (Zofran Inj) 4 mg Q6H PRN IV NAUSEA AND/OR VOMITING; Start at 16:30 Morphine Sulfate (morphine) 2 mg Q4H PRN IV SEVERE PAIN LEVEL 7-10; Start 01/29 at 16:30 Pantoprazole (Protonix Iv) 40 mg DAILY@06 IV Last administered on 02/04/17 05: 35; Admin Dose 40 MG; Start 01/30/17 at 06:00 Eye Lubricant (Artificial Tears Oph) 2 drop Q6H PRN BOTH EYES DRY EYES Last administered on 01/30/17 04:29; Admin Dose 2 DROP; Start 01/29/17 at 18:30 Acetaminophen 650 mg 650 mg Q6H PRN [place] FEVER Last administered on 01/31/17 03: 42; Admin Dose 650 MG; Start 01/30/17 at 21:00 Midazolam HCl 50 ml @ 1 mls/hr TITRATE IV ; Start 01/30/17 at 23:55 Dextrose/Sodium Chloride (D5-1/2ns) 1,000 ml @ 100 mls/hr Q10H IV Last administered on 02/04/17 01:23; Admin Dose 100 MLS/HR; Start 01/31/17 at 17:00 Metoprolol Tartrate (Lopressor) 5 mg Q4H PRN IV HR>110 Hold SBP<100; Start at 12:00 Metoprolol Tartrate 25 mg 25 mg BID PO Last administered on 02/04/17 09:01; Admin Dose 25 MG; Start 02/02/17 at 12:00 Vancomycin HCl 750 mg/Sodium Chloride 150 ml @ 75 mls/hr Q24H IVPB Last administered on 02/03/17 17:12; Admin Dose 75 MLS/HR; Start 02/02/17 at 18:00 Cefepime HCl (Maxipime 1gm/50 ml (Pmx)) 50 ml @ 100 mls/hr Q24H IVPB Last administered on 02/04/17 08:59; Admin Dose 100 MLS/HR; Start 02/03/17 at 09:00 Amiodarone HCl (Cordarone) 200 mg BID PO Last administered on 02/03/17 20:49; Admin Dose 200 MG; Start 02/03/17 at 11:30 Methylprednisolone Sodium Succinate (Solu-Medrol) 60 mg Q6 IV Last administered on 02/04/17 05:35; Admin Dose 60 MG; Start 02/03/17 at 12:00 Miscellaneous Information VANCOMYCIN TROUGH 02/04 AT 1700 ONCE ONCE XX ; Start at 17:00; Stop 02/04/17 at 17:01 Phenylephrine HCl (Bert-Syneph) 250 ml @ 75 mls/hr TITRATE IV ; Start 02/03/17 at 18:30 TERESA FAITH February 04, 2017 09:38
[2017-02-04] MEDS: AMIODARONE 200 MG TAB PO SCH ×2 (10:10→20:10)
[2017-02-04 10:48] LABS: AADO2 Arterial 225.9 mmHg (7.0-24.0); Arterial Base Excess -7.1 mmol/L (-3.0-3); Arterial COHb 0.3 % (0.0-3.0); Arterial Fraction of Oxyhgb 96.9 % (93.0-99.0); Arterial HCO3 15.9 mmol/L (22.0-26.0); Arterial MetHb 0.1 % (0.0-1.5); Arterial Total Hemglobin 9.4 g/dl (12.0-18.0); MODE VENT - AC
--- NOTE | 2017-02-04 10:58 | PN ---
Date/Time of Note Date/Time of Note DATE: 02/04/17 TIME: 10:54 Assessment/Plan VTE Prophylaxis VTE Prophylaxis Intervention: SCD's Lines/Catheters IV Catheter Type (from Nrs): Central Line Central line still needed: Yes (septich shock, need for IV abx, IV fluid agression ) Urinary Cath still in place: Yes Reason Cath still needed: other (indicate) (intubated, sick, strict I/o with renal failure) Assessment/Plan Assessment/Plan 1. Cardiac arrest with return of circulation likely 2/2 severe sepsis from PNA -s/p hypothermia protocol - not waling up , Neurology and Cardiology has been following -Pulm consult appreciated for Vent management 2. Severe shock with lactic acidosis secondary to cardiogenic/sepsis source 3. Acute kidney injury, likely secondary to underlying septic shock as well as cardiac arrest from nephrology has been following 4. Hypokalemia-repleted 5. Multifocal pneumonia -cont IV antibiotics, Pulmonology and ID following 6. Anoxic Encephalopathy -EEG shows encephalopathy with seizure activity, -MRI shows findings suggestive of hypoxic ischemic injury -Neuro consult appreciated - Palliative care team has been consulted on the case , famiily wants to wait two more days to decide about it 7. Pancreatitis-Improved -US Abd shows nl CBD Prophylaxis: Sequential compression devices. no heparin/Lovenox due to thrombocytopenia Subjective 24 Hr Interval Summary Free Text/Dictation Cr 1.67, BP borderline low , pt remains intubated, MRI showed hypoxic brain injury, very poor prognosis as per neurology Exam/Review of Systems Vital Signs Vitals Vital Signs Date Time Temp Pulse Resp B/P Pulse Ox O2 Delivery O2 Flow Rate FiO2 02/04/17 09:19 73 20 95 70 02/04/17 08:00 98.1 145/48 Mechanical Ventilator Intake and Output 02/03/17 02/03/17 02/04/17 14:59 22:59 06:59 Intake Total 840 ml 1060 ml 910 ml Output Total 400 ml 835 ml 690 ml Balance 440 ml 225 ml 220 ml Exam Constitutional: non-verbal ENMT: intubated Respiratory: clear to auscultation Cardiovascular: regular rate and rhythm Gastrointestinal: soft, No distended Musculoskeletal: nl extremities to inspection Results Result Diagram: 02/04/17 0502/04/17 0520 Results 24 hrs Laboratory Tests Test 02/04/17 05:20 White Blood Count 8.6 # Red Blood Count 3.36 L Hemoglobin 9.8 L Hematocrit 28.6 L Mean Corpuscular Volume 85.1 Mean Corpuscular Hemoglobin 29.2 Mean Corpuscular Hemoglobin Concent 34.3 Red Cell Distribution Width 17.0 H Platelet Count 11 #*L Mean Platelet Volume Neutrophils % 81.0 H Band Neutrophils % 8.0 H Lymphocytes % 5.0 L Monocytes % 5.0 Eosinophils % Basophils % Metamyelocytes % 1.0 H Nucleated Red Blood Cells % 1.0 H Neutrophils # 7.0 Lymphocytes # 0.4 L Monocytes # 0.4 Eosinophils # Basophils # Metamyelocytes # 0.1 Differential Comment MANUAL DIFF Platelet Estimate PLT APPEAR DECREASED Sodium Level 138 Potassium Level 5.0 Chloride Level 112 H Carbon Dioxide Level 17 L Anion Gap 14 Blood Urea Nitrogen 44 H Creatinine 1.62 H Glucose Level 155 Calcium Level 7.9 L Medications Medications Current Medications Ondansetron HCl (Zofran Inj) 4 mg Q6H PRN IV NAUSEA AND/OR VOMITING; Start at 16:30 Morphine Sulfate (morphine) 2 mg Q4H PRN IV SEVERE PAIN LEVEL 7-10; Start 01/29 at 16:30 Pantoprazole (Protonix Iv) 40 mg DAILY@06 IV Last administered on 02/04/17 05: 35; Admin Dose 40 MG; Start 01/30/17 at 06:00 Eye Lubricant (Artificial Tears Oph) 2 drop Q6H PRN BOTH EYES DRY EYES Last administered on 01/30/17 04:29; Admin Dose 2 DROP; Start 01/29/17 at 18:30 Acetaminophen 650 mg 650 mg Q6H PRN [place] FEVER Last administered on 01/31/17 03: 42; Admin Dose 650 MG; Start 01/30/17 at 21:00 Midazolam HCl 50 ml @ 1 mls/hr TITRATE IV ; Start 01/30/17 at 23:55 Dextrose/Sodium Chloride (D5-1/2ns) 1,000 ml @ 100 mls/hr Q10H IV Last administered on 02/04/17 10:19; Admin Dose 100 MLS/HR; Start 01/31/17 at 17:00 Metoprolol Tartrate (Lopressor) 5 mg Q4H PRN IV HR>110 Hold SBP<100; Start at 12:00 Metoprolol Tartrate 25 mg 25 mg BID PO Last administered on 02/04/17 09:01; Admin Dose 25 MG; Start 02/02/17 at 12:00 Vancomycin HCl 750 mg/Sodium Chloride 150 ml @ 75 mls/hr Q24H IVPB Last administered on 02/03/17 17:12; Admin Dose 75 MLS/HR; Start 02/02/17 at 18:00 Cefepime HCl (Maxipime 1gm/50 ml (Pmx)) 50 ml @ 100 mls/hr Q24H IVPB Last administered on 02/04/17 08:59; Admin Dose 100 MLS/HR; Start 02/03/17 at 09:00 Amiodarone HCl (Cordarone) 200 mg BID PO Last administered on 02/04/17 10:10; Admin Dose 200 MG; Start 02/03/17 at 11:30 Methylprednisolone Sodium Succinate (Solu-Medrol) 60 mg Q6 IV Last administered on 02/04/17 05:35; Admin Dose 60 MG; Start 02/03/17 at 12:00 Miscellaneous Information VANCOMYCIN TROUGH 02/04 AT 1700 ONCE ONCE XX ; Start at 17:00; Stop 02/04/17 at 17:01 Phenylephrine HCl (Bert-Syneph) 250 ml @ 75 mls/hr TITRATE IV ; Start 02/03/17 at 18:30 BAILEY GRAVES MD February 04, 2017 10:58
--- NOTE | 2017-02-04 13:05 | CONS ---
Date/Time of Note Date/Time of Note DATE: 02/04/17 TIME: 13:01 Assessment/Plan Assessment/Plan Chief Complaint/Hosp Course IMPRESSION: 1. Status post cardiac arrest, assess for acute coronary syndrome.-negative troponin x 3/NL EF by echo this admit 2. Positive troponin, assess significance in setting of cardiac arrest. 3. Abnormal electrocardiogram. 4. Hypotension, borderline.-Now off pressors 5. Respiratory failure, status post intubation. 6. Pancreatitis by laboratory findings. 7. Anemia. 8. Leukopenia. 9. Thrombocytopenia. 10.REnal failure-acute 11.Atrial fibrillation- new onset/not good anticoag candidate due to low plt- currently in SR Recc: -Tele -Serial ecg's -Continue abx's/f/u cx data -follow MS closely -Follow platelet count -Follow BP closely -Continue PO amiodarone in attempt to maintain SR -Continue BB as tolerated -Ongoing family discussion pertaning to direction of care Problems: Consultation Date/Type/Reason Admit Date/Time Jan 30, 2017 at 11:41 Initial Consult Date 01/31/17 Type of Consultation: Cardiology Reason for Consultation cardiac arrest Referring Provider: HANY LAWSON Exam/Review of Systems Vital Signs Vitals Vital Signs Date Time Temp Pulse Resp B/P Pulse Ox O2 Delivery O2 Flow Rate FiO2 02/04/17 11:02 75 20 98 70 02/04/17 08:00 98.1 145/48 Mechanical Ventilator Intake and Output 02/03/17 02/03/17 02/04/17 15:00 23:00 07:00 Intake Total 960 ml 1060 ml 890 ml Output Total 475 ml 860 ml 590 ml Balance 485 ml 200 ml 300 ml Exam Review of Systems: CONSTITUTIONAL: No fevers, chills. PULMONARY: intubated CARDIOVASCULAR: No chest pain/palpitations GASTROINTESTINAL: No nausea/vomiting. GENITOURINARY: No hematuria/dysuria. MUSCULOSKELETAL: No myagias/arthalgias. PSYCHIATRIC: The patient denies depression. NEUROLOGIC: encephalopathy Constitutional: other (encephalopathic) Psych: no complaints Head: normocephalic ENMT: mucosa pink and moist Neck: jvd (9 cm water), supple Respiratory: diminished breath sounds (at bases/B) Cardiovascular: regular rate and rhythm Gastrointestinal: non-tender, soft Musculoskeletal: muscle tone (normal) Extremities: edema (none) Neurological: other (No focal deficits) Results Result Diagram: 02/04/17 0520 02/04/17 0520 Results 24 hrs Laboratory Tests Test 02/04/17 05:20 White Blood Count 8.6 # Red Blood Count 3.36 L Hemoglobin 9.8 L Hematocrit 28.6 L Mean Corpuscular Volume 85.1 Mean Corpuscular Hemoglobin 29.2 Mean Corpuscular Hemoglobin Concent 34.3 Red Cell Distribution Width 17.0 H Platelet Count 11 #*L Mean Platelet Volume Neutrophils % 81.0 H Band Neutrophils % 8.0 H Lymphocytes % 5.0 L Monocytes % 5.0 Eosinophils % Basophils % Metamyelocytes % 1.0 H Nucleated Red Blood Cells % 1.0 H Neutrophils # 7.0 Lymphocytes # 0.4 L Monocytes # 0.4 Eosinophils # Basophils # Metamyelocytes # 0.1 Differential Comment MANUAL DIFF Platelet Estimate PLT APPEAR DECREASED Sodium Level 138 Potassium Level 5.0 Chloride Level 112 H Carbon Dioxide Level 17 L Anion Gap 14 Blood Urea Nitrogen 44 H Creatinine 1.62 H Glucose Level 155 Calcium Level 7.9 L Medications Medications Current Medications Ondansetron HCl (Zofran Inj) 4 mg Q6H PRN IV NAUSEA AND/OR VOMITING; Start at 16:30 Morphine Sulfate (morphine) 2 mg Q4H PRN IV SEVERE PAIN LEVEL 7-10; Start 01/29 at 16:30 Pantoprazole (Protonix Iv) 40 mg DAILY@06 IV Last administered on 02/04/17 05: 35; Admin Dose 40 MG; Start 01/30/17 at 06:00 Eye Lubricant (Artificial Tears Oph) 2 drop Q6H PRN BOTH EYES DRY EYES Last administered on 01/30/17 04:29; Admin Dose 2 DROP; Start 01/29/17 at 18:30 Acetaminophen 650 mg 650 mg Q6H PRN [place] FEVER Last administered on 01/31/17 03: 42; Admin Dose 650 MG; Start 01/30/17 at 21:00 Midazolam HCl 50 ml @ 1 mls/hr TITRATE IV ; Start 01/30/17 at 23:55 Dextrose/Sodium Chloride (D5-1/2ns) 1,000 ml @ 70 mls/hr [id number] IV Last administered on 02/04/17 10:19; Admin Dose 100 MLS/HR; Start 01/31/17 at 17:00 Metoprolol Tartrate (Lopressor) 5 mg Q4H PRN IV HR>110 Hold SBP<100; Start at 12:00 Metoprolol Tartrate 25 mg 25 mg BID PO Last administered on 02/04/17 09:01; Admin Dose 25 MG; Start 02/02/17 at 12:00 Vancomycin HCl 750 mg/Sodium Chloride 150 ml @ 75 mls/hr Q24H IVPB Last administered on 02/03/17 17:12; Admin Dose 75 MLS/HR; Start 02/02/17 at 18:00 Cefepime HCl (Maxipime 1gm/50 ml (Pmx)) 50 ml @ 100 mls/hr Q24H IVPB Last administered on 02/04/17 08:59; Admin Dose 100 MLS/HR; Start 02/03/17 at 09:00 Amiodarone HCl (Cordarone) 200 mg BID PO Last administered on 02/04/17 10:10; Admin Dose 200 MG; Start 02/03/17 at 11:30 Methylprednisolone Sodium Succinate (Solu-Medrol) 60 mg Q6 IV Last administered on 02/04/17 12:37; Admin Dose 60 MG; Start 02/03/17 at 12:00 Miscellaneous Information VANCOMYCIN TROUGH 02/04 AT 1700 ONCE ONCE XX ; Start at 17:00; Stop 02/04/17 at 17:01 Phenylephrine HCl (Bert-Syneph) 250 ml @ 75 mls/hr TITRATE IV ; Start 02/03/17 at 18:30 ORI ROMERO February 04, 2017 13:05
--- NOTE | 2017-02-04 13:35 | PN ---
DATE: 02/04/2017 SUBJECTIVE: No acute changes overnight per report. Patient is lying comfortably in bed, nonverbal, noncommunicative, intubated. Tube feeding on hold secondary to high residuals. VITAL SIGNS: Temperature 98.1, pulse 73, respirations 20, blood pressure 145/48, saturation 96% on 70 FiO2. WBC 8.6, H and H 9.8 and 28.6, platelet count 11, neutrophils 81, bands 8, lymphs 5, BUN 44, creatin ine 1.62. MICROBIOLOGY: Blood culture on 01/29/2017 grew Strep pyogenes. Repeat blood cultures on 01/30/2017 negative. Urine culture negative. DIAGNOSTICS: Chest x-ray from 01/07/2017 revealed diffuse bilateral pulmonary infiltrates, worse th an on previous examination; new dense consolidation in the left lung apex and small left pleural eff usion. INDWELLINGS: Endotracheal tube, NG tube, Miles catheter, left subclavian triple-lumen catheter. ANTIMICROBIALS: 1. Vancomycin. 2. Cefepime. PHYSICAL EXAMINATION: GENERAL: This is a well-developed, well-nourished elderly woman who is in no distress. HEENT: Head atraumatic, normocephalic. Sclerae anicteric. Buccal mucosa dry. NECK: Supple. CHEST: Rise symmetrical. Breath sounds diminished to bases. HEART: S1, S2. ABDOMEN: Soft. Bowel tones hypoactive. EXTREMITIES: Bilateral edema. Right hand more edematous than left. SKIN: With anasarca. ASSESSMENT: 1. Anoxic encephalopathy status post cardiac arrest. 2. Respiratory failure. 3. Bilateral pneumonia 4. Progressive thrombocytopenia, likely secondary to combination of severe sepsis and antibiotics. 5. Status post Streptococcus pyogenes bacteremia. 6. Acute kidney injury. PLAN: The patient remains hemodynamically stable, clinically unchanged. She is being followed by [facility]; neurology is on case as well. We are going to send sputum for culture. Dictated By: SRINIVAS OSPINA MANAGEMENT DEVELOPER for TOBIN VELIZ MD NI/NTS Conf#: [id number] DID#: [id number] CC: TRUDI SAPP MD;*EndCC*
[2017-02-04] MEDS: ALBUTEROL/IPRATROPIUM (NEB) 3 ML AMP HHN SCH ×2 (13:53→19:34)
[2017-02-04] MEDS: VANCOMYCIN 750 MG in SOD CHLORIDE 0.9% 150 ML IVPB SCH (18:00)
--- NOTE | 2017-02-04 18:43 | CONS ---
Date/Time of Note Date/Time of Note DATE: 02/04/17 TIME: 18:42 Assessment/Plan Assessment/Plan Chief Complaint/Hosp Course IMPRESSION: 1. Acute cardiorespiratory arrest. 2. The patient has acute kidney injury with possible underlying chronic kidney disease. 3. The patient has severe metabolic acidosis, lactic acidosis. 4. Hypokalemia, hypophosphatemia, severe. 5. History of multiple myeloma. 6. Rule out underlying chronic myeloma kidney. 7 sepsis 8 pneumonia 9 metabolic acidosis plan lasix prn Problems: Consultation Date/Type/Reason Admit Date/Time Jan 30, 2017 at 11:41 Type of Consultation: renal Referring Provider: HANY LAWSON Exam/Review of Systems Vital Signs Vitals Vital Signs Date Time Temp Pulse Resp B/P Pulse Ox O2 Delivery O2 Flow Rate FiO2 02/04/17 17:55 78 20 96 60 02/04/17 17:00 129/79 02/04/17 16:00 97.4 02/04/17 08:00 Mechanical Ventilator Intake and Output 02/03/17 02/03/17 02/04/17 15:00 23:00 07:00 Intake Total 960 ml 1060 ml 890 ml Output Total 475 ml 860 ml 590 ml Balance 485 ml 200 ml 300 ml Exam Respiratory: diminished breath sounds Cardiovascular: regular rate and rhythm Gastrointestinal: soft Musculoskeletal: nl extremities to inspection Extremities: normal pulses Results Result Diagram: 02/04/17 0520 02/04/17 0520 Results 24 hrs Laboratory Tests Test 02/04/17 05:20 02/04/17 17:25 White Blood Count 8.6 # Red Blood Count 3.36 L Hemoglobin 9.8 L Hematocrit 28.6 L Mean Corpuscular Volume 85.1 Mean Corpuscular Hemoglobin 29.2 Mean Corpuscular Hemoglobin Concent 34.3 Red Cell Distribution Width 17.0 H Platelet Count 11 #*L Mean Platelet Volume Neutrophils % 81.0 H Band Neutrophils % 8.0 H Lymphocytes % 5.0 L Monocytes % 5.0 Eosinophils % Basophils % Metamyelocytes % 1.0 H Nucleated Red Blood Cells % 1.0 H Neutrophils # 7.0 Lymphocytes # 0.4 L Monocytes # 0.4 Eosinophils # Basophils # Metamyelocytes # 0.1 Differential Comment MANUAL DIFF Platelet Estimate PLT APPEAR DECREASED Sodium Level 138 Potassium Level 5.0 Chloride Level 112 H Carbon Dioxide Level 17 L Anion Gap 14 Blood Urea Nitrogen 44 H Creatinine 1.62 H Glucose Level 155 Calcium Level 7.9 L Vancomycin Level Trough 18.9 Medications Medications Current Medications Ondansetron HCl (Zofran Inj) 4 mg Q6H PRN IV NAUSEA AND/OR VOMITING; Start at 16:30 Morphine Sulfate (morphine) 2 mg Q4H PRN IV SEVERE PAIN LEVEL 7-10; Start 01/29 at 16:30 Pantoprazole (Protonix Iv) 40 mg DAILY@06 IV Last administered on 02/04/17 05: 35; Admin Dose 40 MG; Start 01/30/17 at 06:00 Eye Lubricant (Artificial Tears Oph) 2 drop Q6H PRN BOTH EYES DRY EYES Last administered on 01/30/17 04:29; Admin Dose 2 DROP; Start 01/29/17 at 18:30 Acetaminophen 650 mg 650 mg Q6H PRN [place] FEVER Last administered on 01/31/17 03: 42; Admin Dose 650 MG; Start 01/30/17 at 21:00 Midazolam HCl 50 ml @ 1 mls/hr TITRATE IV ; Start 01/30/17 at 23:55 Dextrose/Sodium Chloride (D5-1/2ns) 1,000 ml @ 70 mls/hr [id number] IV Last administered on 02/04/17 10:19; Admin Dose 100 MLS/HR; Start 01/31/17 at 17:00 Metoprolol Tartrate (Lopressor) 5 mg Q4H PRN IV HR>110 Hold SBP<100; Start at 12:00 Metoprolol Tartrate 25 mg 25 mg BID PO Last administered on 02/04/17 09:01; Admin Dose 25 MG; Start 02/02/17 at 12:00 Vancomycin HCl 750 mg/Sodium Chloride 150 ml @ 75 mls/hr Q24H IVPB Last administered on 02/03/17 17:12; Admin Dose 75 MLS/HR; Start 02/02/17 at 18:00 Cefepime HCl (Maxipime 1gm/50 ml (Pmx)) 50 ml @ 100 mls/hr Q24H IVPB Last administered on 02/04/17 08:59; Admin Dose 100 MLS/HR; Start 02/03/17 at 09:00 Amiodarone HCl (Cordarone) 200 mg BID PO Last administered on 02/04/17 10:10; Admin Dose 200 MG; Start 02/03/17 at 11:30 Methylprednisolone Sodium Succinate 60 mg 60 mg Q6 IV Last administered on 18:28; Admin Dose 60 MG; Start 02/03/17 at 12:00 Phenylephrine HCl (Bert-Syneph) 250 ml @ 75 mls/hr TITRATE IV ; Start 02/03/17 at 18:30 Metoclopramide HCl (Reglan) 10 mg Q8 IV ; Start 02/04/17 at 22:00 CINDY MARES MD February 04, 2017 18:43
[2017-02-04] MEDS ORDERED: LORAZEPAM 2 MG INJ IV ONE (21:30)
[2017-02-04] MEDS ORDERED: LEVETIRACETAM 1000 MG (PMX) 100 ML IVPB ONE (22:00)
[2017-02-04] MEDS: METOCLOPRAMIDE 10 MG INJ IV SCH (22:09)
[2017-02-05] VITALS (31 sets, daily range): BP systolic 103–142; BP diastolic 36–69; PULSE 55–84; RESP 20–25
[2017-02-05] MEDS: ACETYLCYSTEINE 20% 4 ML VIAL NEB SCH ×4 (01:00→19:38)
[2017-02-05] MEDS: ALBUTEROL/IPRATROPIUM (NEB) 3 ML AMP HHN SCH ×4 (01:14→19:37)
[2017-02-05] MEDS: ALBUTEROL 18 GM INHALER INH SCH ×4 (01:15→19:37)
[2017-02-05] MEDS: DEXTROSE 5%-0.45% NACL 1,000 ML IV SCH ×2 (01:17→05:07)
[2017-02-05] MEDS: PANTOPRAZOLE 40 MG INJ IV SCH (05:13)
[2017-02-05 05:14] LABS: AADO2 Arterial 253.7 mmHg (7.0-24.0); Allen Test ACCEPTAB; Arterial Base Excess -11.1 mmol/L (-3.0-3); Arterial COHb 0.2 % (0.0-3.0); Arterial Fraction of Oxyhgb 89.3 % (93.0-99.0); Arterial HCO3 14.9 mmol/L (22.0-26.0); Arterial MetHb 0 % (0.0-1.5); Arterial Total Hemglobin 10.4 g/dl (12.0-18.0); MODE VENT - AC
[2017-02-05] MEDS: METOCLOPRAMIDE 10 MG INJ IV SCH ×3 (05:16→21:25)
[2017-02-05] MEDS: METHYLPREDNISOLONE 125 MG INJ IV SCH ×3 (05:16→17:47)
[2017-02-05] MEDS ORDERED: ALTEPLASE (CATHFLO) 2 MG INJ CATHETER PRN (06:30)
[2017-02-05 07:06] LABS: ADD SCAN DIFF NO
[2017-02-05 07:18] LABS: ABNORMAL IP MESSAGE 1; HEMATOCRIT 24.2 % (37.0-47.0); HEMOGLOBIN 8.3 g/dl (12.0-16.0); MEAN CORPUSCULAR HGB CONC 34.3 g/dl (32.0-37.0); MEAN CORPUSCULAR VOLUME 84.6 fl (82.0-101.0); MEAN PLATELET VOLUME 10.9 fl (7.4-10.4); PLATELET COUNT 38 10^3/UL (140-415); RED BLOOD COUNT 2.86 10^6/ul (4.20-5.40); RED CELL DISTRIBUTION WIDTH 16.6 % (11.5-14.5); WHITE BLOOD COUNT 9.8 10^3/ul (4.8-10.8)
[2017-02-05 07:23] LABS: INR 1.38; PT RATIO 1.3
[2017-02-05 07:24] LABS: PARTIAL THROMBOPLASTIN TIME 30.6 Sec (25.0-35.0)
[2017-02-05] MEDS ORDERED: NA BICARBONATE 8.4% 50 ML SYG IV ONE (07:30)
[2017-02-05 07:32] LABS: ALBUMIN/GLOBULIN RATIO 0.48; BILIRUBIN,INDIRECT 0.1 mg/dl (0-1.1); BILIRUBIN,TOTAL 0.1 mg/dl (0.2-1.3); CALCIUM 7.7 mg/dl (8.4-10.2); CREATININE 1.76 mg/dl (0.44-1.00); POTASSIUM 4.8 mmol/L (3.5-5.1); TOTAL PROTEIN 6.1 g/dl (6.1-8.1)
[2017-02-05] MEDS: METOPROLOL 25 MG TAB PO SCH ×2 (09:00→21:15)
[2017-02-05] MEDS: CEFEPIME 1GM/50 ML (PMX) 50 ML IVPB SCH (09:35)
[2017-02-05] MEDS: AMIODARONE 200 MG TAB PO SCH ×2 (09:37→21:15)
--- NOTE | 2017-02-05 09:47 | CONS ---
Date/Time of Note Date/Time of Note DATE: 02/05/17 TIME: 09:43 Assessment/Plan Assessment/Plan Additional Assessment/Plan Current ventilator settings; AC of 20, tidal volume 500, PEEP of 5, 60% FiO2. Chest x-ray from today is pending. ABG was reviewed from 5 AM today which is showing metabolic acidosis. Assessment recommendations; 1. Patient admitted for severe bilateral pneumonia leading to respiratory failure patient also sustained cardiac arrest and required hypothermia protocol. 2. Extremely poor mental status. 3. Metabolic acidosis. 4. Worsening renal failure. 5. Paroxysmal atrial fibrillation, patient currently in sinus rhythm. 6. Thrombocytopenia. Status post platelet transfusion. No overt bleeding noted. Continue current supportive care. Prognosis is extremely poor. Sodium bicarbonate has been replaced. Consultation Date/Type/Reason Admit Date/Time Jan 30, 2017 at 11:41 Type of Consultation: Pulmonary/critical care Referring Provider: HANY LAWSON 24 HR Interval Summary Free Text/Dictation Patient's condition remains critical. Remains completely unresponsive. Has remained hemodynamically stable. No overt seizure activity noted. General exam; elderly lady, orally intubated, unresponsive. Currently in no distress. Exam/Review of Systems Vital Signs Vitals Vital Signs Date Time Temp Pulse Resp B/P Pulse Ox O2 Delivery O2 Flow Rate FiO2 02/05/17 07:11 58 20 100 60 02/05/17 06:00 120/63 Mechanical Ventilator 02/05/17 04:00 98.3 Intake and Output 02/04/17 02/04/17 02/05/17 15:00 23:00 07:00 Intake Total 820 ml 720 ml 610 ml Output Total 290 ml 370 ml 330 ml Balance 530 ml 350 ml 280 ml Exam HEENT exam is; supple neck, orally intubated, pupils are midsize and nonreactive to light. No neck masses. Patient has fair dentition. No thyromegaly. No neck bruits. Chest examination; bilateral crackles. S1-S2 audible, no murmurs. Regular rhythm. Abdomen examination; soft, nondistended. No organomegaly. Bowel sounds audible. Extremity examination; no peripheral edema. Pulses 1+ bilaterally. Next EDUCATION AND OUTREACH COORDINATOR examination; patient remains completely unresponsive. Results Result Diagram: 02/05/17 0645 02/05/17 0645 Results 24 hrs Laboratory Tests Test 02/04/17 17:25 02/05/17 05:00 02/05/17 06:45 Vancomycin Level Trough 18.9 Blood Gas Specimen Source Blood arterial Arterial Blood Date Drawn 02/05/2017 5:07:31 AM Arterial Blood pH (Temp corrected) 7.265 *L Arterial Blood pCO2 (Temp correct) 33.6 L Arterial Blood pO2 (Temp corrected) 65.0 L Arterial Blood HCO3 14.9 L Arterial Blood Base Excess -11.1 L Arterial Blood Oxygen Saturation 89.5 L Ariel Test ACCEPTAB Arterial Blood Gas Puncture Site Right Radial Arterial Blood Carboxyhemoglobin 0.2 Arterial Blood Methemoglobin 0 Blood Gas A-a O2 Differential 253.7 H Oxyhemoglobin Percent 89.3 L Total Hemoglobin 10.4 L Blood Gas Temperature 37.0 Blood Gas Respiration Rate 20.0 Blood Gas Actual Respiration Rate 22 Blood Gas Modality VENT - AC FiO2 50.0 Blood Gas Tidal Volume 500.0 Blood Gas Low PEEP Setting 5.0 Blood Gas Inspiratory Pressure 37.0 Blood Gas Critical Value Read Back DAVE SMITH Blood Gas Notified Whom BR Blood Gas Notified Time 02/05/2017 5:13:59 AM White Blood Count 9.8 Red Blood Count 2.86 L Hemoglobin 8.3 L Hematocrit 24.2 L Mean Corpuscular Volume 84.6 Mean Corpuscular Hemoglobin 29.0 Mean Corpuscular Hemoglobin Concent 34.3 Red Cell Distribution Width 16.6 H Platelet Count 38 #L Mean Platelet Volume 10.9 H Neutrophils % Eosinophils % Neutrophils # Eosinophils # Prothrombin Time 17.0 H Prothrombin Time Ratio 1.3 INR International Normalized Ratio 1.38 Activated Partial Thromboplast Time 30.6 Sodium Level 135 Potassium Level 4.8 Chloride Level 114 H Carbon Dioxide Level 16 L Anion Gap 10 Blood Urea Nitrogen 55 H Creatinine 1.76 H Glucose Level 158 Calcium Level 7.7 L Total Bilirubin 0.1 L Direct Bilirubin 0.00 Indirect Bilirubin 0.1 Aspartate Amino Transf (AST/SGOT) 38 Alanine Aminotransferase (ALT/SGPT) 36 Alkaline Phosphatase 90 Total Protein 6.1 Albumin 2.0 L Globulin 4.10 H Albumin/Globulin Ratio 0.48 Medications Medications Current Medications Ondansetron HCl (Zofran Inj) 4 mg Q6H PRN IV NAUSEA AND/OR VOMITING; Start at 16:30 Morphine Sulfate (morphine) 2 mg Q4H PRN IV SEVERE PAIN LEVEL 7-10; Start 01/29 at 16:30 Pantoprazole (Protonix Iv) 40 mg DAILY@06 IV Last administered on 02/05/17 05: 13; Admin Dose 40 MG; Start 01/30/17 at 06:00 Eye Lubricant (Artificial Tears Oph) 2 drop Q6H PRN BOTH EYES DRY EYES Last administered on 01/30/17 04:29; Admin Dose 2 DROP; Start 01/29/17 at 18:30 Acetaminophen 650 mg 650 mg Q6H PRN [place] FEVER Last administered on 01/31/17 03: 42; Admin Dose 650 MG; Start 01/30/17 at 21:00 Midazolam HCl 50 ml @ 1 mls/hr TITRATE IV ; Start 01/30/17 at 23:55 Dextrose/Sodium Chloride (D5-1/2ns) 1,000 ml @ 70 mls/hr [id number] IV Last administered on 02/05/17 05:07; Admin Dose 70 MLS/HR; Start 01/31/17 at 17:00 Metoprolol Tartrate (Lopressor) 5 mg Q4H PRN IV HR>110 Hold SBP<100; Start at 12:00 Metoprolol Tartrate 25 mg 25 mg BID PO Last administered on 02/04/17 20:54; Admin Dose 25 MG; Start 02/02/17 at 12:00 Cefepime HCl (Maxipime 1gm/50 ml (Pmx)) 50 ml @ 100 mls/hr Q24H IVPB Last administered on 02/04/17 08:59; Admin Dose 100 MLS/HR; Start 02/03/17 at 09:00 Amiodarone HCl (Cordarone) 200 mg BID PO Last administered on 02/04/17 20:10; Admin Dose 200 MG; Start 02/03/17 at 11:30 Methylprednisolone Sodium Succinate 60 mg 60 mg Q6 IV Last administered on 05:16; Admin Dose 60 MG; Start 02/03/17 at 12:00 Phenylephrine HCl (Bert-Syneph) 250 ml @ 75 mls/hr TITRATE IV ; Start 02/03/17 at 18:30 Metoclopramide HCl 10 mg 10 mg Q8 IV Last administered on 02/05/17 05:16; Admin Dose 10 MG; Start 02/04/17 at 22:00 Vancomycin HCl (Vancocin) 250 ml @ 125 mls/hr Q48H IVPB ; Start 02/05/17 at 18: 00 TERESA FAITH February 05, 2017 09:47
[2017-02-05] MEDS: CEFTRIAXONE 1 GM/50 ML (PMX) 50 ML IVPB SCH (11:22)
[2017-02-05] MEDS ORDERED: LEVETIRACETAM 1000 MG (PMX) 100 ML IVPB SCH (11:30)
--- NOTE | 2017-02-05 11:42 | PN ---
DATE: 02/05/2017 SUBJECTIVE: No events overnight. No fevers. The patient is lying comfortably in bed. VITAL SIGNS: Temperature 98.3, pulse 64, respirations 20, blood pressure 120/63, saturation 98 on 5 0 FIO2. LABORATORIES: WBC 9.8, H and H 8.3 and 24.2, platelets 38, BUN 55, creatinine 1.76. INDWELLINGS: Endotracheal tube, NG tube, Miles catheter, left subclavian triple-lumen catheter. ANTIMICROBIALS: The patient is on 1. IV vancomycin. 2. Cefepime. PHYSICAL EXAMINATION: GENERAL: This is a well-developed, fragile, elderly woman who is in no distress. HEENT: Head atraumatic, normocephalic. Sclerae anicteric. Buccal mucosa dry. NECK: Supple. Trachea midline. CHEST: Rise symmetrical. Breath sounds diminished to bases. HEART: S1, S2. ABDOMEN: Soft, bowel tones present. EXTREMITIES: With trace edema. ASSESSMENT: 1. Status post cardiac arrest. 2. Acute respiratory failure. 3. Anoxic encephalopathy. 4. Bilateral pneumonia. 5. Strep pyogenes bacteremia on admission with repeat blood cultures negative. 6. Acute kidney injury. 7. Anemia with thrombocytopenia. PLAN: The patient remains hemodynamically stable. We are going to change antibiotics to Rocephin a nd continue vent management as per pulmonary. Follow cardiology, nephrology and pulmonary recommend ations. The patient is also being seen by neurology team. Dictated By: SRINIVAS OSPINA PAYROLL AND BENEFITS ANALYST for TOBIN WATSON/ZANA Conf#: [id number] DID#: [id number]
--- NOTE | 2017-02-05 13:27 | RADRPT ---
PROCEDURE: XR Chest. CLINICAL INDICATION: Acute respiratory failure, intubated on ventilator. TECHNIQUE: Single frontal portable chest was obtained. COMPARISON: 01/29/2017.. FINDINGS: Cardiac silhouette is enlarged. There are diffuse mixed lung infiltrates which are markedly increas ed since the prior study. There is an endotracheal tube with the tip in the mid trachea. A left-si ded PICC line is present with the tip at the junction of the left innominate vein and superior vena cava. A nasogastric tube descends into the stomach below the image. There is a tiny left pleural e ffusion. IMPRESSION: 1. Marked increase in mixed bilateral interstitial alveolar opacities 2. Small left pleural effusion. 3. New nasogastric tube with the tip extending below the image in of the stomach. Endotracheal tub e and left PICC line appear unchanged. RPTAT: [facility] Physician Danitza Date Time Electronically viewed and signed by Physician Danitza on 02/05/2017 13:26 /
--- NOTE | 2017-02-05 13:48 | CONS ---
Date/Time of Note Date/Time of Note DATE: 02/05/17 TIME: 13:45 Assessment/Plan Assessment/Plan Additional Assessment/Plan 1. Status post cardiac arrest, assess for acute coronary syndrome.-negative troponin x 3/NL EF by echo this admit - stable, BP controlled 2. Positive troponin, assess significance in setting of cardiac arrest- no CP elicited. 3. Abnormal electrocardiogram. 4. Hypotension, borderline.-Now off pressors- support as needed 5. Respiratory failure, status post intubation- con't resp Rx 6. Pancreatitis by laboratory findings- GI to monitor 7. Anemia- H/H stable, doubt ischemia 8. Leukopenia. 9. Thrombocytopenia. 10.REnal failure-acute 11.Atrial fibrillation- new onset/not good anticoag candidate due to low plt- currently in SR Consultation Date/Type/Reason Admit Date/Time Jan 30, 2017 at 11:41 Initial Consult Date 02/01/17 Type of Consultation: Pulmonary/critical care Referring Provider: HANY LAWSON 24 HR Interval Summary Free Text/Dictation NO acute change - critically ill now. ROS: No fever, no chills, no nausea, no vomiting, no diarrhea/constipation No recent weight changes No chest pain, no PND, no orthopnea No dizziness, blurred vision No thirst, no heat or cold intolerance (per nurse) Exam/Review of Systems Vital Signs Vitals Vital Signs Date Time Temp Pulse Resp B/P Pulse Ox O2 Delivery O2 Flow Rate FiO2 02/05/17 12:00 64 02/05/17 10:00 21 116/59 97 Mechanical Ventilator 02/05/17 09:20 60 02/05/17 08:00 97.6 Intake and Output 02/04/17 02/04/17 02/05/17 15:00 23:00 07:00 Intake Total 820 ml 720 ml 610 ml Output Total 290 ml 370 ml 330 ml Balance 530 ml 350 ml 280 ml Exam General: WN/WD/NAD, AOx 0 HEENT: Unicetric/atraumatic/EOMI (does not follow commands) NECK: JVD elevated, no thyromegaly Lymph: no lymphadenopathy HEART: regular with no S3, II/ systolic murmur at apex LUNGS: Coarse sounds ABD: soft, NT, ND, +BS : Intact Neuro: non focal SKIN: chronic changes EXT: trace edema Results Result Diagram: 02/05/17 0645 02/05/17 0645 Results 24 hrs Laboratory Tests Test 02/04/17 17:25 02/05/17 05:00 02/05/17 06:45 Vancomycin Level Trough 18.9 Blood Gas Specimen Source Blood arterial Arterial Blood Date Drawn 02/05/2017 5:07:31 AM Arterial Blood pH (Temp corrected) 7.265 *L Arterial Blood pCO2 (Temp correct) 33.6 L Arterial Blood pO2 (Temp corrected) 65.0 L Arterial Blood HCO3 14.9 L Arterial Blood Base Excess -11.1 L Arterial Blood Oxygen Saturation 89.5 L Ariel Test ACCEPTAB Arterial Blood Gas Puncture Site Right Radial Arterial Blood Carboxyhemoglobin 0.2 Arterial Blood Methemoglobin 0 Blood Gas A-a O2 Differential 253.7 H Oxyhemoglobin Percent 89.3 L Total Hemoglobin 10.4 L Blood Gas Temperature 37.0 Blood Gas Respiration Rate 20.0 Blood Gas Actual Respiration Rate 22 Blood Gas Modality VENT - AC FiO2 50.0 Blood Gas Tidal Volume 500.0 Blood Gas Low PEEP Setting 5.0 Blood Gas Inspiratory Pressure 37.0 Blood Gas Critical Value Read Back DAVE SMITH Blood Gas Notified Whom BR Blood Gas Notified Time 02/05/2017 5:13:59 AM White Blood Count 9.8 Red Blood Count 2.86 L Hemoglobin 8.3 L Hematocrit 24.2 L Mean Corpuscular Volume 84.6 Mean Corpuscular Hemoglobin 29.0 Mean Corpuscular Hemoglobin Concent 34.3 Red Cell Distribution Width 16.6 H Platelet Count 38 #L Mean Platelet Volume 10.9 H Neutrophils % Eosinophils % Neutrophils # Eosinophils # Prothrombin Time 17.0 H Prothrombin Time Ratio 1.3 INR International Normalized Ratio 1.38 Activated Partial Thromboplast Time 30.6 Sodium Level 135 Potassium Level 4.8 Chloride Level 114 H Carbon Dioxide Level 16 L Anion Gap 10 Blood Urea Nitrogen 55 H Creatinine 1.76 H Glucose Level 158 Calcium Level 7.7 L Total Bilirubin 0.1 L Direct Bilirubin 0.00 Indirect Bilirubin 0.1 Aspartate Amino Transf (AST/SGOT) 38 Alanine Aminotransferase (ALT/SGPT) 36 Alkaline Phosphatase 90 Total Protein 6.1 Albumin 2.0 L Globulin 4.10 H Albumin/Globulin Ratio 0.48 Medications Medications Current Medications Ondansetron HCl (Zofran Inj) 4 mg Q6H PRN IV NAUSEA AND/OR VOMITING; Start at 16:30 Morphine Sulfate (morphine) 2 mg Q4H PRN IV SEVERE PAIN LEVEL 7-10; Start 01/29 at 16:30 Pantoprazole (Protonix Iv) 40 mg DAILY@06 IV Last administered on 02/05/17 05: 13; Admin Dose 40 MG; Start 01/30/17 at 06:00 Eye Lubricant (Artificial Tears Oph) 2 drop Q6H PRN BOTH EYES DRY EYES Last administered on 01/30/17 04:29; Admin Dose 2 DROP; Start 01/29/17 at 18:30 Acetaminophen 650 mg 650 mg Q6H PRN [place] FEVER Last administered on 01/31/17 03: 42; Admin Dose 650 MG; Start 01/30/17 at 21:00 Midazolam HCl 50 ml @ 1 mls/hr TITRATE IV ; Start 01/30/17 at 23:55 Dextrose/Sodium Chloride (D5-1/2ns) 1,000 ml @ 70 mls/hr [id number] IV Last administered on 02/05/17 05:07; Admin Dose 70 MLS/HR; Start 01/31/17 at 17:00 Metoprolol Tartrate (Lopressor) 5 mg Q4H PRN IV HR>110 Hold SBP<100; Start at 12:00 Metoprolol Tartrate (Lopressor) 25 mg BID PO Last administered on 02/04/17 20: 54; Admin Dose 25 MG; Start 02/02/17 at 12:00 Amiodarone HCl (Cordarone) 200 mg BID PO Last administered on 02/05/17 09:37; Admin Dose 200 MG; Start 02/03/17 at 11:30 Methylprednisolone Sodium Succinate 60 mg 60 mg Q6 IV Last administered on 11:22; Admin Dose 60 MG; Start 02/03/17 at 12:00 Phenylephrine HCl (Bert-Syneph) 250 ml @ 75 mls/hr TITRATE IV ; Start 02/03/17 at 18:30 Metoclopramide HCl 10 mg 10 mg Q8 IV Last administered on 02/05/17 13:26; Admin Dose 10 MG; Start 02/04/17 at 22:00 Levetiracetam 100 ml @ 400 mls/hr Q12 IVPB Last administered on 02/05/17 11:21 ; Admin Dose 400 MLS/HR; Start 02/05/17 at 11:30 Ceftriaxone Sodium (Rocephin) 50 ml @ 100 mls/hr Q24H IVPB Last administered on 02/05/17 11:22; Admin Dose 100 MLS/HR; Start 02/05/17 at 10:30 CECY PEREZ MD February 05, 2017 13:48
[2017-02-05 13:49] LABS: LYMPHOCYTES # 0.5 10^3/ul (0.8-2.9); MONOCYTE # 0.3 10^3/ul (0.3-0.9); MYELOCYTES # 0.1; NEUTROPHIL # 8.2 10^3/ul (1.6-7.5)
--- NOTE | 2017-02-05 16:39 | PN ---
Date/Time of Note Date/Time of Note DATE: 02/05/17 TIME: 16:37 Assessment/Plan VTE Prophylaxis VTE Prophylaxis Intervention: SCD's Lines/Catheters IV Catheter Type (from Nrsg): Central Line Central line still needed: Yes (septic shock, on multiple pressors and IV abx difficult IV access ) Urinary Cath still in place: Yes Reason Cath still needed: urinary retention, other (indicate) (strict I/O ) Assessment/Plan Assessment/Plan 1. Cardiac arrest with return of circulation likely 2/2 severe sepsis from PNA -s/p hypothermia protocol - not waling up , Neurology and Cardiology has been following -Pulm consult appreciated for Vent management 2. Severe shock with lactic acidosis secondary to cardiogenic/sepsis source 3. Acute kidney injury, likely secondary to underlying septic shock as well as cardiac arrest from nephrology has been following 4. Hypokalemia-repleted 5. Multifocal pneumonia -cont IV antibiotics, Pulmonology and ID following 6. Anoxic Encephalopathy -EEG shows encephalopathy with seizure activity, -MRI shows findings suggestive of hypoxic ischemic injury -Neuro consult appreciated - Palliative care team has been consulted on the case , alden wants to wait two more days to decide about it- plan for Family meeting today by palliative with family 7. Pancreatitis-Improved -US Abd shows nl CBD Prophylaxis: Sequential compression devices. no heparin/Lovenox due to thrombocytopenia Subjective 24 Hr Interval Summary Free Text/Dictation pt remains intubated Elena raines meeting with palliative planned today Exam/Review of Systems Vital Signs Vitals Vital Signs Date Time Temp Pulse Resp B/P Pulse Ox O2 Delivery O2 Flow Rate FiO2 02/05/17 15:45 71 20 100 50 02/05/17 15:00 130/46 Mechanical Ventilator 02/05/17 12:00 97.8 Intake and Output 02/04/17 02/04/17 02/05/17 15:00 23:00 07:00 Intake Total 820 ml 720 ml 610 ml Output Total 290 ml 370 ml 330 ml Balance 530 ml 350 ml 280 ml Exam Constitutional: non-verbal ENMT: intubated Respiratory: clear to auscultation Cardiovascular: regular rate and rhythm Gastrointestinal: soft, No distended Musculoskeletal: nl extremities to inspection Results Result Diagram: 02/05/17 0645 02/05/17 0645 Results 24 hrs Laboratory Tests Test 02/04/17 17:25 02/05/17 05:00 02/05/17 06:45 Vancomycin Level Trough 18.9 Blood Gas Specimen Source Blood arterial Arterial Blood Date Drawn 02/05/2017 5:07:31 AM Arterial Blood pH (Temp corrected) 7.265 *L Arterial Blood pCO2 (Temp correct) 33.6 L Arterial Blood pO2 (Temp corrected) 65.0 L Arterial Blood HCO3 14.9 L Arterial Blood Base Excess -11.1 L Arterial Blood Oxygen Saturation 89.5 L Ariel Test ACCEPTAB Arterial Blood Gas Puncture Site Right Radial Arterial Blood Carboxyhemoglobin 0.2 Arterial Blood Methemoglobin 0 Blood Gas A-a O2 Differential 253.7 H Oxyhemoglobin Percent 89.3 L Total Hemoglobin 10.4 L Blood Gas Temperature 37.0 Blood Gas Respiration Rate 20.0 Blood Gas Actual Respiration Rate 22 Blood Gas Modality VENT - AC FiO2 50.0 Blood Gas Tidal Volume 500.0 Blood Gas Low PEEP Setting 5.0 Blood Gas Inspiratory Pressure 37.0 Blood Gas Critical Value Read Back DAVE SMITH Blood Gas Notified Whom BR Blood Gas Notified Time 02/05/2017 5:13:59 AM White Blood Count 9.8 Red Blood Count 2.86 L Hemoglobin 8.3 L Hematocrit 24.2 L Mean Corpuscular Volume 84.6 Mean Corpuscular Hemoglobin 29.0 Mean Corpuscular Hemoglobin Concent 34.3 Red Cell Distribution Width 16.6 H Platelet Count 38 #L Mean Platelet Volume 10.9 H Neutrophils % 84.0 H Band Neutrophils % 6.0 H Lymphocytes % 5.0 L Monocytes % 3.0 Eosinophils % Metamyelocytes % 1.0 H Myelocytes % 1.0 H Nucleated Red Blood Cells % 5.0 H Neutrophils # 8.2 H Lymphocytes # 0.5 L Monocytes # 0.3 Eosinophils # Metamyelocytes # 0.1 Myelocytes # 0.1 Prothrombin Time 17.0 H Prothrombin Time Ratio 1.3 INR International Normalized Ratio 1.38 Activated Partial Thromboplast Time 30.6 Sodium Level 135 Potassium Level 4.8 Chloride Level 114 H Carbon Dioxide Level 16 L Anion Gap 10 Blood Urea Nitrogen 55 H Creatinine 1.76 H Glucose Level 158 Calcium Level 7.7 L Total Bilirubin 0.1 L Direct Bilirubin 0.00 Indirect Bilirubin 0.1 Aspartate Amino Transf (AST/SGOT) 38 Alanine Aminotransferase (ALT/SGPT) 36 Alkaline Phosphatase 90 Total Protein 6.1 Albumin 2.0 L Globulin 4.10 H Albumin/Globulin Ratio 0.48 Medications Medications Current Medications Ondansetron HCl (Zofran Inj) 4 mg Q6H PRN IV NAUSEA AND/OR VOMITING; Start at 16:30 Morphine Sulfate (morphine) 2 mg Q4H PRN IV SEVERE PAIN LEVEL 7-10; Start 01/29 at 16:30 Pantoprazole (Protonix Iv) 40 mg DAILY@06 IV Last administered on 02/05/17 05: 13; Admin Dose 40 MG; Start 01/30/17 at 06:00 Eye Lubricant (Artificial Tears Oph) 2 drop Q6H PRN BOTH EYES DRY EYES Last administered on 01/30/17 04:29; Admin Dose 2 DROP; Start 01/29/17 at 18:30 Acetaminophen 650 mg 650 mg Q6H PRN [place] FEVER Last administered on 01/31/17 03: 42; Admin Dose 650 MG; Start 01/30/17 at 21:00 Midazolam HCl 50 ml @ 1 mls/hr TITRATE IV ; Start 01/30/17 at 23:55 Dextrose/Sodium Chloride (D5-1/2ns) 1,000 ml @ 70 mls/hr [id number] IV Last administered on 02/05/17 05:07; Admin Dose 70 MLS/HR; Start 01/31/17 at 17:00 Metoprolol Tartrate (Lopressor) 5 mg Q4H PRN IV HR>110 Hold SBP<100; Start at 12:00 Metoprolol Tartrate (Lopressor) 25 mg BID PO Last administered on 02/04/17 20: 54; Admin Dose 25 MG; Start 02/02/17 at 12:00 Amiodarone HCl (Cordarone) 200 mg BID PO Last administered on 02/05/17 09:37; Admin Dose 200 MG; Start 02/03/17 at 11:30 Methylprednisolone Sodium Succinate 60 mg 60 mg Q6 IV Last administered on 11:22; Admin Dose 60 MG; Start 02/03/17 at 12:00 Phenylephrine HCl (Bert-Syneph) 250 ml @ 75 mls/hr TITRATE IV ; Start 02/03/17 at 18:30 Metoclopramide HCl 10 mg 10 mg Q8 IV Last administered on 02/05/17 13:26; Admin Dose 10 MG; Start 02/04/17 at 22:00 Levetiracetam 100 ml @ 400 mls/hr Q12 IVPB Last administered on 02/05/17 11:21 ; Admin Dose 400 MLS/HR; Start 02/05/17 at 11:30 Ceftriaxone Sodium (Rocephin) 50 ml @ 100 mls/hr Q24H IVPB Last administered on 02/05/17 11:22; Admin Dose 100 MLS/HR; Start 02/05/17 at 10:30 BAILEY GRAVES MD February 05, 2017 16:39
[2017-02-05] MEDS: LORAZEPAM 2 MG INJ IV PRN ×2 (17:47→22:13)
[2017-02-05] MEDS ORDERED: VANCOMYCIN 1 GM in NS 250 ML IVPB SCH (18:00)
--- NOTE | 2017-02-05 20:13 | CONS ---
Date/Time of Note Date/Time of Note DATE: 02/05/17 TIME: 20:12 Assessment/Plan Assessment/Plan Chief Complaint/Hosp Course IMPRESSION: 1. Acute cardiorespiratory arrest. 2. The patient has acute kidney injury with possible underlying chronic kidney disease. 3. The patient has severe metabolic acidosis, lactic acidosis. 4. Hypokalemia, hypophosphatemia, severe. 5. History of multiple myeloma. 6. Rule out underlying chronic myeloma kidney. 7 sepsis 8 pneumonia 9 metabolic acidosis plan BICITRA Problems: Consultation Date/Type/Reason Admit Date/Time Jan 30, 2017 at 11:41 Type of Consultation: RENAL Referring Provider: HANY LAWSON 24 HR Interval Summary Constitutional: other (ON VENT) Exam/Review of Systems Vital Signs Vitals Vital Signs Date Time Temp Pulse Resp B/P Pulse Ox O2 Delivery O2 Flow Rate FiO2 02/05/17 19:33 69 24 98 60 02/05/17 18:00 126/54 Mechanical Ventilator 02/05/17 16:00 97.4 Intake and Output 02/04/17 02/04/17 02/05/17 15:00 23:00 07:00 Intake Total 820 ml 720 ml 610 ml Output Total 290 ml 370 ml 330 ml Balance 530 ml 350 ml 280 ml Exam Respiratory: diminished breath sounds Cardiovascular: regular rate and rhythm Gastrointestinal: soft Musculoskeletal: nl extremities to inspection Extremities: normal pulses Results Result Diagram: 02/05/17 0645 02/05/17 0645 Results 24 hrs Laboratory Tests Test 02/05/17 05:00 02/05/17 06:45 Blood Gas Specimen Source Blood arterial Arterial Blood Date Drawn 02/05/2017 5:07:31 AM Arterial Blood pH (Temp corrected) 7.265 *L Arterial Blood pCO2 (Temp correct) 33.6 L Arterial Blood pO2 (Temp corrected) 65.0 L Arterial Blood HCO3 14.9 L Arterial Blood Base Excess -11.1 L Arterial Blood Oxygen Saturation 89.5 L Ariel Test ACCEPTAB Arterial Blood Gas Puncture Site Right Radial Arterial Blood Carboxyhemoglobin 0.2 Arterial Blood Methemoglobin 0 Blood Gas A-a O2 Differential 253.7 H Oxyhemoglobin Percent 89.3 L Total Hemoglobin 10.4 L Blood Gas Temperature 37.0 Blood Gas Respiration Rate 20.0 Blood Gas Actual Respiration Rate 22 Blood Gas Modality VENT - AC FiO2 50.0 Blood Gas Tidal Volume 500.0 Blood Gas Low PEEP Setting 5.0 Blood Gas Inspiratory Pressure 37.0 Blood Gas Critical Value Read Back DAVE SMITH Blood Gas Notified Whom BR Blood Gas Notified Time 02/05/2017 5:13:59 AM White Blood Count 9.8 Red Blood Count 2.86 L Hemoglobin 8.3 L Hematocrit 24.2 L Mean Corpuscular Volume 84.6 Mean Corpuscular Hemoglobin 29.0 Mean Corpuscular Hemoglobin Concent 34.3 Red Cell Distribution Width 16.6 H Platelet Count 38 #L Mean Platelet Volume 10.9 H Neutrophils % 84.0 H Band Neutrophils % 6.0 H Lymphocytes % 5.0 L Monocytes % 3.0 Eosinophils % Metamyelocytes % 1.0 H Myelocytes % 1.0 H Nucleated Red Blood Cells % 5.0 H Neutrophils # 8.2 H Lymphocytes # 0.5 L Monocytes # 0.3 Eosinophils # Metamyelocytes # 0.1 Myelocytes # 0.1 Prothrombin Time 17.0 H Prothrombin Time Ratio 1.3 INR International Normalized Ratio 1.38 Activated Partial Thromboplast Time 30.6 Sodium Level 135 Potassium Level 4.8 Chloride Level 114 H Carbon Dioxide Level 16 L Anion Gap 10 Blood Urea Nitrogen 55 H Creatinine 1.76 H Glucose Level 158 Calcium Level 7.7 L Total Bilirubin 0.1 L Direct Bilirubin 0.00 Indirect Bilirubin 0.1 Aspartate Amino Transf (AST/SGOT) 38 Alanine Aminotransferase (ALT/SGPT) 36 Alkaline Phosphatase 90 Total Protein 6.1 Albumin 2.0 L Globulin 4.10 H Albumin/Globulin Ratio 0.48 Medications Medications Current Medications Ondansetron HCl (Zofran Inj) 4 mg Q6H PRN IV NAUSEA AND/OR VOMITING; Start at 16:30 Morphine Sulfate (morphine) 2 mg Q4H PRN IV SEVERE PAIN LEVEL 7-10; Start 01/29 at 16:30 Pantoprazole (Protonix Iv) 40 mg DAILY@06 IV Last administered on 02/05/17 05: 13; Admin Dose 40 MG; Start 01/30/17 at 06:00 Eye Lubricant (Artificial Tears Oph) 2 drop Q6H PRN BOTH EYES DRY EYES Last administered on 01/30/17 04:29; Admin Dose 2 DROP; Start 01/29/17 at 18:30 Acetaminophen 650 mg 650 mg Q6H PRN [place] FEVER Last administered on 01/31/17 03: 42; Admin Dose 650 MG; Start 01/30/17 at 21:00 Midazolam HCl 50 ml @ 1 mls/hr TITRATE IV ; Start 01/30/17 at 23:55 Dextrose/Sodium Chloride (D5-1/2ns) 1,000 ml @ 70 mls/hr [id number] IV Last administered on 02/05/17 05:07; Admin Dose 70 MLS/HR; Start 01/31/17 at 17:00 Metoprolol Tartrate (Lopressor) 5 mg Q4H PRN IV HR>110 Hold SBP<100; Start at 12:00 Metoprolol Tartrate (Lopressor) 25 mg BID PO Last administered on 02/04/17 20: 54; Admin Dose 25 MG; Start 02/02/17 at 12:00 Amiodarone HCl (Cordarone) 200 mg BID PO Last administered on 02/05/17 09:37; Admin Dose 200 MG; Start 02/03/17 at 11:30 Methylprednisolone Sodium Succinate 60 mg 60 mg Q6 IV Last administered on 17:47; Admin Dose 60 MG; Start 02/03/17 at 12:00 Phenylephrine HCl (Bert-Syneph) 250 ml @ 75 mls/hr TITRATE IV ; Start 02/03/17 at 18:30 Metoclopramide HCl 10 mg 10 mg Q8 IV Last administered on 02/05/17 13:26; Admin Dose 10 MG; Start 02/04/17 at 22:00 Ceftriaxone Sodium 50 ml @ 100 mls/hr Q24H IVPB Last administered on 02/05/17 11:22; Admin Dose 100 MLS/HR; Start 02/05/17 at 10:30 Levetiracetam (Keppra 1,500mg/ 100ml (Pmx)) 100 ml @ 400 mls/hr Q12 IVPB ; Start 02/05/17 at 21:00 Lorazepam (Ativan) 2 mg Q4 PRN IV SEIZURES Last administered on 02/05/17 17:47 ; Admin Dose 2 MG; Start 02/05/17 at 17:04 CINDY MARES MD February 05, 2017 20:13
[2017-02-05] MEDS ORDERED: CITRIC ACID/SODIUM CITRATE 15 ML CUP PO SCH (21:00)
[2017-02-05] MEDS: LEVETIRACETAM 1500 MG (PMX) 100 ML IVPB SCH (21:15)
--- NOTE | 2017-02-05 21:45 | CONS ---
Date/Time of Note Date/Time of Note DATE: 02/05/17 TIME: 21:41 Consult Date/Type/Reason Admit Date/Time Jan 30, 2017 at 11:41 Initial Consult Date 02/01/17 Type of Consultation: neurology Ordering Provider: HANY LAWSON Subjective occasional twitching of the left hand usually with stimulation, like suctioning Objective Vital Signs Date Time Temp Pulse Resp B/P Pulse Ox O2 Delivery O2 Flow Rate FiO2 02/05/17 21:34 78 25 96 60 02/05/17 18:00 126/54 Mechanical Ventilator 02/05/17 16:00 97.4 Intake and Output 02/04/17 02/04/17 02/05/17 15:00 23:00 07:00 Intake Total 820 ml 720 ml 610 ml Output Total 290 ml 370 ml 330 ml Balance 530 ml 350 ml 280 ml Exam Exam intubated, eyes closed, does not open stimulation, does not follow commands, does not track visually, no response to visual threat, pupils reactive 4-3 mm, no EOM, present left corneal, present gag. No withdrawal to pain, flaccid extremities. With suctioning pt developed short lasting twitching in the left hand Results/Medications Result Diagram: 02/05/17 0645 02/05/17 0645 Results 24 hrs Laboratory Tests Test 02/05/17 05:00 02/05/17 06:45 Blood Gas Specimen Source Blood arterial Arterial Blood Date Drawn 02/05/2017 5:07:31 AM Arterial Blood pH (Temp corrected) 7.265 *L Arterial Blood pCO2 (Temp correct) 33.6 L Arterial Blood pO2 (Temp corrected) 65.0 L Arterial Blood HCO3 14.9 L Arterial Blood Base Excess -11.1 L Arterial Blood Oxygen Saturation 89.5 L Ariel Test ACCEPTAB Arterial Blood Gas Puncture Site Right Radial Arterial Blood Carboxyhemoglobin 0.2 Arterial Blood Methemoglobin 0 Blood Gas A-a O2 Differential 253.7 H Oxyhemoglobin Percent 89.3 L Total Hemoglobin 10.4 L Blood Gas Temperature 37.0 Blood Gas Respiration Rate 20.0 Blood Gas Actual Respiration Rate 22 Blood Gas Modality VENT - AC FiO2 50.0 Blood Gas Tidal Volume 500.0 Blood Gas Low PEEP Setting 5.0 Blood Gas Inspiratory Pressure 37.0 Blood Gas Critical Value Read Back DAVE SMITH Blood Gas Notified Whom BR Blood Gas Notified Time 02/05/2017 5:13:59 AM White Blood Count 9.8 Red Blood Count 2.86 L Hemoglobin 8.3 L Hematocrit 24.2 L Mean Corpuscular Volume 84.6 Mean Corpuscular Hemoglobin 29.0 Mean Corpuscular Hemoglobin Concent 34.3 Red Cell Distribution Width 16.6 H Platelet Count 38 #L Mean Platelet Volume 10.9 H Neutrophils % 84.0 H Band Neutrophils % 6.0 H Lymphocytes % 5.0 L Monocytes % 3.0 Eosinophils % Metamyelocytes % 1.0 H Myelocytes % 1.0 H Nucleated Red Blood Cells % 5.0 H Neutrophils # 8.2 H Lymphocytes # 0.5 L Monocytes # 0.3 Eosinophils # Metamyelocytes # 0.1 Myelocytes # 0.1 Prothrombin Time 17.0 H Prothrombin Time Ratio 1.3 INR International Normalized Ratio 1.38 Activated Partial Thromboplast Time 30.6 Sodium Level 135 Potassium Level 4.8 Chloride Level 114 H Carbon Dioxide Level 16 L Anion Gap 10 Blood Urea Nitrogen 55 H Creatinine 1.76 H Glucose Level 158 Calcium Level 7.7 L Total Bilirubin 0.1 L Direct Bilirubin 0.00 Indirect Bilirubin 0.1 Aspartate Amino Transf (AST/SGOT) 38 Alanine Aminotransferase (ALT/SGPT) 36 Alkaline Phosphatase 90 Total Protein 6.1 Albumin 2.0 L Globulin 4.10 H Albumin/Globulin Ratio 0.48 Medications Current Medications Ondansetron HCl (Zofran Inj) 4 mg Q6H PRN IV NAUSEA AND/OR VOMITING; Start at 16:30 Morphine Sulfate (morphine) 2 mg Q4H PRN IV SEVERE PAIN LEVEL 7-10; Start 01/29 at 16:30 Pantoprazole (Protonix Iv) 40 mg DAILY@06 IV Last administered on 02/05/17 05: 13; Admin Dose 40 MG; Start 01/30/17 at 06:00 Eye Lubricant (Artificial Tears Oph) 2 drop Q6H PRN BOTH EYES DRY EYES Last administered on 01/30/17 04:29; Admin Dose 2 DROP; Start 01/29/17 at 18:30 Acetaminophen 650 mg 650 mg Q6H PRN [place] FEVER Last administered on 01/31/17 03: 42; Admin Dose 650 MG; Start 01/30/17 at 21:00 Midazolam HCl 50 ml @ 1 mls/hr TITRATE IV ; Start 01/30/17 at 23:55 Dextrose/Sodium Chloride (D5-1/2ns) 1,000 ml @ 70 mls/hr [id number] IV Last administered on 02/05/17 05:07; Admin Dose 70 MLS/HR; Start 01/31/17 at 17:00 Metoprolol Tartrate (Lopressor) 5 mg Q4H PRN IV HR>110 Hold SBP<100; Start at 12:00 Metoprolol Tartrate (Lopressor) 25 mg BID PO Last administered on 02/05/17 21: 15; Admin Dose 25 MG; Start 02/02/17 at 12:00 Amiodarone HCl (Cordarone) 200 mg BID PO Last administered on 02/05/17 21:15; Admin Dose 200 MG; Start 02/03/17 at 11:30 Methylprednisolone Sodium Succinate 60 mg 60 mg Q6 IV Last administered on 17:47; Admin Dose 60 MG; Start 02/03/17 at 12:00 Phenylephrine HCl (Bert-Syneph) 250 ml @ 75 mls/hr TITRATE IV ; Start 02/03/17 at 18:30 Metoclopramide HCl 10 mg 10 mg Q8 IV Last administered on 02/05/17 21:25; Admin Dose 10 MG; Start 02/04/17 at 22:00 Ceftriaxone Sodium 50 ml @ 100 mls/hr Q24H IVPB Last administered on 02/05/17 11:22; Admin Dose 100 MLS/HR; Start 02/05/17 at 10:30 Levetiracetam (Keppra 1,500mg/ 100ml (Pmx)) 100 ml @ 400 mls/hr Q12 IVPB Last administered on 02/05/17 21:15; Admin Dose 400 MLS/HR; Start 02/05/17 at 21:00 Lorazepam (Ativan) 2 mg Q4 PRN IV SEIZURES Last administered on 02/05/17 17:47 ; Admin Dose 2 MG; Start 02/05/17 at 17:04 Citric Acid/ Sodium Citrate (Bicitra) 30 ml TID PO ; Start 02/05/17 at 21:33 Assessment/Plan Chief Complaint/Hosp Course Anoxic encephalopathy. 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 Continue keppra, dose was increased, ativan prn Problems: DELMY LOPEZ MD February 05, 2017 21:45
[2017-02-05] MEDS: CITRIC ACID/SODIUM CITRATE 15 ML CUP PO SCH (22:10)
[2017-02-06] VITALS (32 sets, daily range): BP systolic 106–140; BP diastolic 37–62; PULSE 68–95; RESP 21–28
[2017-02-06] MEDS: DEXTROSE 5%-0.45% NACL 1,000 ML IV SCH ×2 (00:01→15:07)
[2017-02-06] MEDS: METHYLPREDNISOLONE 125 MG INJ IV SCH ×2 (00:01→05:48)
[2017-02-06] MEDS: ALBUTEROL 18 GM INHALER INH SCH ×4 (01:28→19:03)
[2017-02-06] MEDS: ACETYLCYSTEINE 20% 4 ML VIAL NEB SCH ×4 (01:29→19:03)
[2017-02-06] MEDS: LORAZEPAM 2 MG INJ IV PRN ×3 (02:32→16:58)
[2017-02-06 04:42] LABS: ADD SCAN DIFF NO
[2017-02-06 04:52] LABS: AADO2 Arterial 330.2 mmHg (7.0-24.0); Allen Test ACCEPTAB; Arterial Base Excess -7.5 mmol/L (-3.0-3); Arterial COHb 0.2 % (0.0-3.0); Arterial Fraction of Oxyhgb 87.8 % (93.0-99.0); Arterial HCO3 17.2 mmol/L (22.0-26.0); Arterial MetHb 0.3 % (0.0-1.5); Arterial Total Hemglobin 8.9 g/dl (12.0-18.0); MODE VENT - AC
[2017-02-06 04:54] LABS: ABNORMAL IP MESSAGE 1; BASOPHILS % 0.1 % (0.0-2.0); HEMATOCRIT 25.2 % (37.0-47.0); HEMOGLOBIN 8.5 g/dl (12.0-16.0); LYMPHOCYTES # 0.7 10^3/ul (0.8-2.9); LYMPHOCYTES % 4.6 % (15.0-51.0); MEAN CORPUSCULAR HEMOGLOBIN 28.4 pg (29.0-33.0); MEAN CORPUSCULAR HGB CONC 33.7 g/dl (32.0-37.0); MEAN CORPUSCULAR VOLUME 84.3 fl (82.0-101.0); MONOCYTE # 0.9 10^3/ul (0.3-0.9); MONOCYTES % 6.4 % (0.0-11.0); NEUTROPHIL # 12.8 10^3/ul (1.6-7.5); NEUTROPHILS % 87.7 % (39.0-77.0); NUCLEATED RED BLOOD CELLS # 0.1 10^3/ul (0.0-0.0); NUCLEATED RED BLOOD CELLS% 0.6 /100WBC (0.0-0.0); RED BLOOD COUNT 2.99 10^6/ul (4.20-5.40); RED CELL DISTRIBUTION WIDTH 16.1 % (11.5-14.5); WHITE BLOOD COUNT 14.6 10^3/ul (4.8-10.8)
[2017-02-06] MEDS: ALBUTEROL/IPRATROPIUM (NEB) 3 ML AMP HHN SCH (05:02)
[2017-02-06 05:10] LABS: POTASSIUM 4.5 mmol/L (3.5-5.1)
[2017-02-06 05:13] LABS: CALCIUM 7.5 mg/dl (8.4-10.2); CREATININE 1.62 mg/dl (0.44-1.00)
[2017-02-06 05:32] LABS: INR 1.31; PROTIME 16.4 Sec (12.2-14.2); PT RATIO 1.3
[2017-02-06 05:33] LABS: PARTIAL THROMBOPLASTIN TIME 29.7 Sec (25.0-35.0)
[2017-02-06] MEDS: PANTOPRAZOLE 40 MG INJ IV SCH (05:48)
[2017-02-06] MEDS: METOCLOPRAMIDE 10 MG INJ IV SCH ×3 (05:48→22:47)
[2017-02-06 05:54] LABS: PLATELET COUNT 20 10^3/UL (140-415)
--- NOTE | 2017-02-06 09:10 | CONS ---
Date/Time of Note Date/Time of Note DATE: 02/06/17 TIME: 09:06 Assessment/Plan Assessment/Plan Additional Assessment/Plan Chest x-ray was reviewed from yesterday afternoon which is showing diffuse bilateral infiltrates in an ARDS pattern. Ventilator settings; AC of 20, tidal volume 500, PEEP of 5, 70% FiO2. Assessment recommendations; 1. Patient admitted for severe bilateral pneumonia leading to respiratory arrest. Patient status post CPR and hypothermia protocol. 2. Profound anoxic brain injury. 3. Myoclonic jerking. 4. Thrombocytopenia, without any overt bleeding being seen. 5. Anemia. 6. Renal insufficiency. 5. Paroxysmal atrial fibrillation, patient currently in sinus rhythm. Continue current supportive care. Add Depakote 5 mg every 8 hours. Discontinue Solu-Medrol. Prognosis remains extremely poor. I did have a detailed discussion the patient's at bedside and answered all his questions. 35 minutes of critical care time was spent evaluating the patient. Consultation Date/Type/Reason Admit Date/Time Jan 30, 2017 at 11:41 Type of Consultation: Pulmonary/critical care Referring Provider: HANY LAWSON 24 HR Interval Summary Free Text/Dictation Patient condition remains critical. Patient not exhibiting myoclonic jerking. Remains completely unresponsive. Patient however has remained hemodynamically stable. General exam; middle aged woman, orally intubated, currently in no distress. Myoclonic jerking observed. Exam/Review of Systems Vital Signs Vitals Vital Signs Date Time Temp Pulse Resp B/P Pulse Ox O2 Delivery O2 Flow Rate FiO2 02/06/17 08:00 98.3 69 21 132/53 100 Mechanical Ventilator 02/06/17 05:08 70 Intake and Output 02/05/17 02/05/17 02/06/17 15:00 23:00 07:00 Intake Total 80 ml 1410 ml 510 ml Output Total 460 ml 450 ml 270 ml Balance -380 ml 960 ml 240 ml Exam HEENT exam; supple neck, positive JVD. No lymphadenopathy. Midline trachea. Orally intubated. Pupils are dilated and nonreactive to light. Dentition is fair. No thyromegaly. No neck bruits. Chest examination; diffuse bilateral crackles. S1-S2 audible, regular rhythm. No murmurs. Abdomen examination; soft, nondistended. No organomegaly. Bowel sounds are absent. Extremity exam; no peripheral edema. Next [employer] examination; generalized myoclonic jerking is present. Results Result Diagram: 02/06/17 0400 02/06/17 0400 Results 24 hrs Laboratory Tests Test 02/06/17 04:00 02/06/17 05:00 02/06/17 06:45 White Blood Count 14.6 #H Red Blood Count 2.99 L Hemoglobin 8.5 L Hematocrit 25.2 L Mean Corpuscular Volume 84.3 Mean Corpuscular Hemoglobin 28.4 L Mean Corpuscular Hemoglobin Concent 33.7 Red Cell Distribution Width 16.1 H Platelet Count 20 #*L Mean Platelet Volume Neutrophils % 87.7 H Lymphocytes % 4.6 L Monocytes % 6.4 Eosinophils % 0.0 Basophils % 0.1 Nucleated Red Blood Cells % 0.6 H Neutrophils # 12.8 H Lymphocytes # 0.7 L Monocytes # 0.9 Eosinophils # 0.0 Basophils # 0.0 Nucleated Red Blood Cells # 0.1 H Prothrombin Time 16.4 H Prothrombin Time Ratio 1.3 INR International Normalized Ratio 1.31 Activated Partial Thromboplast Time 29.7 Sodium Level 140 Potassium Level 4.5 Chloride Level 111 H Carbon Dioxide Level 20 L Anion Gap 14 Blood Urea Nitrogen 65 H Creatinine 1.62 H Glucose Level 145 Calcium Level 7.5 L Blood Gas Specimen Source Blood arterial Arterial Blood Date Drawn 02/06/2017 4:40:38 AM Arterial Blood pH (Temp corrected) 7.352 Arterial Blood pCO2 (Temp correct) 31.8 L Arterial Blood pO2 (Temp corrected) 62.6 L Arterial Blood HCO3 17.2 L Arterial Blood Base Excess -7.5 L Arterial Blood Oxygen Saturation 88.2 L Ariel Test ACCEPTAB Arterial Blood Gas Puncture Site Right Radial Arterial Blood Carboxyhemoglobin 0.2 Arterial Blood Methemoglobin 0.3 Blood Gas A-a O2 Differential 330.2 H Oxyhemoglobin Percent 87.8 L Total Hemoglobin 8.9 L Blood Gas Temperature 37.0 Blood Gas Respiration Rate 20.0 Blood Gas Actual Respiration Rate 24 Blood Gas Modality VENT - AC FiO2 60.0 Blood Gas Tidal Volume 500.0 Blood Gas Low PEEP Setting 5.0 Blood Gas Inspiratory Pressure 42.0 Blood Gas Notified Whom KM Blood Gas Notified Time 02/06/2017 4:52:28 AM Lab Scanned Report BLOOD TRANSFUSION Medications Medications Current Medications Ondansetron HCl (Zofran Inj) 4 mg Q6H PRN IV NAUSEA AND/OR VOMITING; Start at 16:30 Morphine Sulfate (morphine) 2 mg Q4H PRN IV SEVERE PAIN LEVEL 7-10; Start 01/29 at 16:30 Pantoprazole (Protonix Iv) 40 mg DAILY@06 IV Last administered on 02/06/17 05: 48; Admin Dose 40 MG; Start 01/30/17 at 06:00 Eye Lubricant (Artificial Tears Oph) 2 drop Q6H PRN BOTH EYES DRY EYES Last administered on 01/30/17 04:29; Admin Dose 2 DROP; Start 01/29/17 at 18:30 Acetaminophen 650 mg 650 mg Q6H PRN [place] FEVER Last administered on 01/31/17 03: 42; Admin Dose 650 MG; Start 01/30/17 at 21:00 Midazolam HCl 50 ml @ 1 mls/hr TITRATE IV ; Start 01/30/17 at 23:55 Dextrose/Sodium Chloride (D5-1/2ns) 1,000 ml @ 70 mls/hr [id number] IV Last administered on 02/06/17 00:01; Admin Dose 70 MLS/HR; Start 01/31/17 at 17:00 Metoprolol Tartrate (Lopressor) 5 mg Q4H PRN IV HR>110 Hold SBP<100; Start at 12:00 Metoprolol Tartrate (Lopressor) 25 mg BID PO Last administered on 02/05/17 21: 15; Admin Dose 25 MG; Start 02/02/17 at 12:00 Amiodarone HCl (Cordarone) 200 mg BID PO Last administered on 02/05/17 21:15; Admin Dose 200 MG; Start 02/03/17 at 11:30 Methylprednisolone Sodium Succinate 60 mg 60 mg Q6 IV Last administered on 05:48; Admin Dose 60 MG; Start 02/03/17 at 12:00 Phenylephrine HCl (Bert-Syneph) 250 ml @ 75 mls/hr TITRATE IV ; Start 02/03/17 at 18:30 Metoclopramide HCl 10 mg 10 mg Q8 IV Last administered on 02/06/17 05:48; Admin Dose 10 MG; Start 02/04/17 at 22:00 Ceftriaxone Sodium 50 ml @ 100 mls/hr Q24H IVPB Last administered on 02/05/17 11:22; Admin Dose 100 MLS/HR; Start 02/05/17 at 10:30 Levetiracetam (Keppra 1,500mg/ 100ml (Pmx)) 100 ml @ 400 mls/hr Q12 IVPB Last administered on 02/05/17 21:15; Admin Dose 400 MLS/HR; Start 02/05/17 at 21:00 Lorazepam (Ativan) 2 mg Q4 PRN IV SEIZURES Last administered on 02/06/17 02:32 ; Admin Dose 2 MG; Start 02/05/17 at 17:04 Citric Acid/ Sodium Citrate (Bicitra) 30 ml TID PO Last administered on 22:10; Admin Dose 30 ML; Start 02/05/17 at 21:33 Divalproex Sodium (Depakote) 500 mg TID PO ; Start 02/06/17 at 09:00 TERESA FAITH February 06, 2017 09:09
[2017-02-06] MEDS: CITRIC ACID/SODIUM CITRATE 15 ML CUP PO SCH ×3 (09:18→20:35)
[2017-02-06] MEDS: METOPROLOL 25 MG TAB PO SCH ×2 (09:19→20:36)
[2017-02-06] MEDS: AMIODARONE 200 MG TAB PO SCH ×2 (09:19→20:35)
[2017-02-06] MEDS: DIVALPROEX (EC) 500 MG TAB PO SCH ×3 (09:19→20:35)
[2017-02-06] MEDS: LEVETIRACETAM 1500 MG (PMX) 100 ML IVPB SCH ×2 (09:20→20:35)
[2017-02-06] MEDS: CEFTRIAXONE 1 GM/50 ML (PMX) 50 ML IVPB SCH (11:17)
--- NOTE | 2017-02-06 12:47 | PN ---
DATE: 02/06/2017 INFECTIOUS DISEASE PROGRESS NOTE SUBJECTIVE: No acute changes. No fevers. The patient is nonverbal, noncommunicative, intubated, i n no distress. VITAL SIGNS: Temperature 98.3, pulse 70, respirations 20, blood pressure 116/42, saturation 100 on FIO2 of 70. LABORATORY DATA: WBC 14.6, H and H 8.5 and 25.2, platelets 20, neutrophils 87.7. BUN 65, creatinin e 1.62. ANTIMICROBIALS: The patient is on Rocephin, status post vancomycin. INDWELLINGS: Trach, PEG, Miles, left upper extremity PICC line. PHYSICAL EXAMINATION: GENERAL: This is a chronically ill-appearing, elderly woman who is in no distress. HEENT: Head atraumatic, normocephalic. Sclerae anicteric. Buccal mucosa dry. NECK: Supple, trachea midline. CHEST: Rise symmetrical. Breath sounds diminished to bases. HEART: S1, S2. ABDOMEN: Soft. Bowel sounds present. EXTREMITIES: Without cyanosis. Bilateral trace edema. ASSESSMENT: 1. Acute respiratory failure. 2. Healthcare-associated pneumonia. 3. Status post Strep pyogenes bacteremia on admission with repeat blood cultures negative. 4. Anoxic encephalopathy status post cardiac arrest. 5. Anemia with thrombocytopenia. 6. Leukocytosis, likely steroid-induced. PLAN: The patient remains stable, on antibiotics day #9. Repeat blood cultures negative. She is b eing followed by multiple consultants, neurology on case as well. Poor prognosis for functional rec overy as per neurology note. Dictated By: SRINIVAS OSPINA INTERACTIVE GRAPHIC DESIGNER for TOBIN WATSON/ZANA Conf#: [id number] DID#: [id number]
[2017-02-06] MEDS ORDERED: PHENYLephrine 40 MG in DEXTROSE 5% 496 ML IV SCH (15:30)
--- NOTE | 2017-02-06 15:32 | PN ---
Date/Time of Note Date/Time of Note DATE: 02/06/17 TIME: 15:31 Assessment/Plan VTE Prophylaxis VTE Prophylaxis Intervention: SCD's Lines/Catheters IV Catheter Type (from Nrs): Central Line Central line still needed: Yes (difficult peripheral access, septic shock, iVF , IV abx ) Urinary Cath still in place: Yes Reason Cath still needed: urinary retention Assessment/Plan Assessment/Plan 1. Cardiac arrest with return of circulation likely 2/2 severe sepsis from PNA -s/p hypothermia protocol - not waling up , Neurology and Cardiology has been following -Pulm consult appreciated for Vent management 2. Severe shock with lactic acidosis secondary to cardiogenic/sepsis source 3. Acute kidney injury, likely secondary to underlying septic shock as well as cardiac arrest from nephrology has been following 4. Hypokalemia-repleted 5. Multifocal pneumonia -cont IV antibiotics, Pulmonology and ID following 6. Anoxic Encephalopathy -EEG shows encephalopathy with seizure activity, -MRI shows findings suggestive of hypoxic ischemic injury -Neuro consult appreciated - Palliative care team has been consulted on the case , famiily wants to wait two more days to decide about it- plan for Family meeting today by palliative with family 7. Pancreatitis-Improved -US Abd shows nl CBD Prophylaxis: Sequential compression devices. no heparin/Lovenox due to thrombocytopenia Subjective 24 Hr Interval Summary Free Text/Dictation pt remains intubated, unresponsive,BP stable Exam/Review of Systems Vital Signs Vitals Vital Signs Date Time Temp Pulse Resp B/P Pulse Ox O2 Delivery O2 Flow Rate FiO2 02/06/17 13:00 78 26 128/51 100 Mechanical Ventilator 02/06/17 12:00 99.4 02/06/17 11:10 70 Intake and Output 02/05/17 02/05/17 02/06/17 15:00 23:00 07:00 Intake Total 80 ml 1410 ml 580 ml Output Total 460 ml 450 ml 370 ml Balance -380 ml 960 ml 210 ml Exam Constitutional: non-verbal ENMT: intubated Respiratory: clear to auscultation Cardiovascular: regular rate and rhythm Gastrointestinal: soft, No distended Musculoskeletal: nl extremities to inspection Results Result Diagram: 02/06/17 0400 02/06/17 0400 Results 24 hrs Laboratory Tests Test 02/06/17 04:00 02/06/17 05:00 02/06/17 06:45 White Blood Count 14.6 #H Red Blood Count 2.99 L Hemoglobin 8.5 L Hematocrit 25.2 L Mean Corpuscular Volume 84.3 Mean Corpuscular Hemoglobin 28.4 L Mean Corpuscular Hemoglobin Concent 33.7 Red Cell Distribution Width 16.1 H Platelet Count 20 #*L Mean Platelet Volume Neutrophils % 87.7 H Lymphocytes % 4.6 L Monocytes % 6.4 Eosinophils % 0.0 Basophils % 0.1 Nucleated Red Blood Cells % 0.6 H Neutrophils # 12.8 H Lymphocytes # 0.7 L Monocytes # 0.9 Eosinophils # 0.0 Basophils # 0.0 Nucleated Red Blood Cells # 0.1 H Prothrombin Time 16.4 H Prothrombin Time Ratio 1.3 INR International Normalized Ratio 1.31 Activated Partial Thromboplast Time 29.7 Sodium Level 140 Potassium Level 4.5 Chloride Level 111 H Carbon Dioxide Level 20 L Anion Gap 14 Blood Urea Nitrogen 65 H Creatinine 1.62 H Glucose Level 145 Calcium Level 7.5 L Blood Gas Specimen Source Blood arterial Arterial Blood Date Drawn 02/06/2017 4:40:38 AM Arterial Blood pH (Temp corrected) 7.352 Arterial Blood pCO2 (Temp correct) 31.8 L Arterial Blood pO2 (Temp corrected) 62.6 L Arterial Blood HCO3 17.2 L Arterial Blood Base Excess -7.5 L Arterial Blood Oxygen Saturation 88.2 L Ariel Test ACCEPTAB Arterial Blood Gas Puncture Site Right Radial Arterial Blood Carboxyhemoglobin 0.2 Arterial Blood Methemoglobin 0.3 Blood Gas A-a O2 Differential 330.2 H Oxyhemoglobin Percent 87.8 L Total Hemoglobin 8.9 L Blood Gas Temperature 37.0 Blood Gas Respiration Rate 20.0 Blood Gas Actual Respiration Rate 24 Blood Gas Modality VENT - AC FiO2 60.0 Blood Gas Tidal Volume 500.0 Blood Gas Low PEEP Setting 5.0 Blood Gas Inspiratory Pressure 42.0 Blood Gas Notified Whom KM Blood Gas Notified Time 02/06/2017 4:52:28 AM Lab Scanned Report BLOOD TRANSFUSION Medications Medications Current Medications Ondansetron HCl (Zofran Inj) 4 mg Q6H PRN IV NAUSEA AND/OR VOMITING; Start at 16:30 Morphine Sulfate (morphine) 2 mg Q4H PRN IV SEVERE PAIN LEVEL 7-10; Start 01/29 at 16:30 Pantoprazole (Protonix Iv) 40 mg DAILY@06 IV Last administered on 02/06/17 05: 48; Admin Dose 40 MG; Start 01/30/17 at 06:00 Eye Lubricant (Artificial Tears Oph) 2 drop Q6H PRN BOTH EYES DRY EYES Last administered on 01/30/17 04:29; Admin Dose 2 DROP; Start 01/29/17 at 18:30 Acetaminophen 650 mg 650 mg Q6H PRN [place] FEVER Last administered on 01/31/17 03: 42; Admin Dose 650 MG; Start 01/30/17 at 21:00 Midazolam HCl 50 ml @ 1 mls/hr TITRATE IV ; Start 01/30/17 at 23:55 Dextrose/Sodium Chloride (D5-1/2ns) 1,000 ml @ 70 mls/hr [id number] IV Last administered on 02/06/17 15:07; Admin Dose 70 MLS/HR; Start 01/31/17 at 17:00 Metoprolol Tartrate (Lopressor) 5 mg Q4H PRN IV HR>110 Hold SBP<100; Start at 12:00 Metoprolol Tartrate (Lopressor) 25 mg BID PO Last administered on 02/06/17 09: 19; Admin Dose 25 MG; Start 02/02/17 at 12:00 Amiodarone HCl 200 mg 200 mg BID PO Last administered on 02/06/17 09:19; Admin Dose 200 MG; Start 02/03/17 at 11:30 Phenylephrine HCl (Bert-Syneph) 250 ml @ 75 mls/hr TITRATE IV ; Start 02/03/17 at 18:30; Stop 02/06/17 at 20:00 Metoclopramide HCl 10 mg 10 mg Q8 IV Last administered on 02/06/17 13:09; Admin Dose 10 MG; Start 02/04/17 at 22:00 Ceftriaxone Sodium 50 ml @ 100 mls/hr Q24H IVPB Last administered on 02/06/17 11:17; Admin Dose 100 MLS/HR; Start 02/05/17 at 10:30 Levetiracetam (Keppra 1,500mg/ 100ml (Pmx)) 100 ml @ 400 mls/hr Q12 IVPB Last administered on 02/06/17 09:20; Admin Dose 400 MLS/HR; Start 02/05/17 at 21:00 Lorazepam (Ativan) 2 mg Q4 PRN IV SEIZURES Last administered on 02/06/17 09:39 ; Admin Dose 2 MG; Start 02/05/17 at 17:04 Citric Acid/ Sodium Citrate (Bicitra) 30 ml TID PO Last administered on 13:09; Admin Dose 30 ML; Start 02/05/17 at 21:33 Divalproex Sodium 500 mg 500 mg TID PO Last administered on 02/06/17 13:09; Admin Dose 500 MG; Start 02/06/17 at 09:00 Phenylephrine HCl/ Dextrose (Bert-Syneph/D5W) 500 ml @ 75 mls/hr TITRATE IV ; Start 02/06/17 at 15:30 BAILEY GRAVES MD February 06, 2017 15:32
--- NOTE | 2017-02-06 16:57 | CONS ---
Date/Time of Note Date/Time of Note DATE: 02/06/17 TIME: 16:55 Assessment/Plan Assessment/Plan Chief Complaint/Hosp Course IMPRESSION: 1. Status post cardiac arrest, assess for acute coronary syndrome.-negative troponin x 3/NL EF by echo this admit 2. Positive troponin, assess significance in setting of cardiac arrest. 3. Abnormal electrocardiogram. 4. Hypotension, borderline.-Now off pressors 5. Respiratory failure, status post intubation. 6. Pancreatitis by laboratory findings. 7. Anemia. 8. Leukopenia. 9. Thrombocytopenia. 10.REnal failure-acute 11.Atrial fibrillation- new onset/not good anticoag candidate due to low plt- currently in SR Recc: -Tele -Serial ecg's -Continue abx's/f/u cx data -follow MS closely -Follow platelet count -Follow BP closely -Continue PO amiodarone in attempt to maintain SR -Continue BB as tolerated -Ongoing family discussion pertaning to direction of care with overall poor prognosis for receovery Problems: Consultation Date/Type/Reason Admit Date/Time Jan 30, 2017 at 11:41 Initial Consult Date 01/31/17 Type of Consultation: Cardiology Reason for Consultation cardiac arrest Referring Provider: HANY LAWSON Exam/Review of Systems Vital Signs Vitals Vital Signs Date Time Temp Pulse Resp B/P Pulse Ox O2 Delivery O2 Flow Rate FiO2 02/06/17 16:00 100.0 75 26 132/43 99 Mechanical Ventilator 02/06/17 15:05 70 Intake and Output 02/05/17 02/05/17 02/06/17 15:00 23:00 07:00 Intake Total 80 ml 1410 ml 580 ml Output Total 460 ml 450 ml 370 ml Balance -380 ml 960 ml 210 ml Exam Review of Systems: CONSTITUTIONAL: No fevers, chills. PULMONARY: No sob CARDIOVASCULAR: No chest pain/palpitations GASTROINTESTINAL: No nausea/vomiting. GENITOURINARY: No hematuria/dysuria. MUSCULOSKELETAL: No myagias/arthalgias. PSYCHIATRIC: The patient denies depression. NEUROLOGIC: No weakness Constitutional: alert Psych: no complaints Head: normocephalic ENMT: mucosa pink and moist Neck: jvd, supple Respiratory: diminished breath sounds Cardiovascular: regular rate and rhythm Gastrointestinal: non-tender, soft Musculoskeletal: muscle tone Extremities: normal pulses Neurological: other (encephalopathy) Results Result Diagram: 02/06/170 02/06/17 0400 Results 24 hrs Laboratory Tests Test 02/06/17 04:00 02/06/17 05:00 02/06/17 06:45 White Blood Count 14.6 #H Red Blood Count 2.99 L Hemoglobin 8.5 L Hematocrit 25.2 L Mean Corpuscular Volume 84.3 Mean Corpuscular Hemoglobin 28.4 L Mean Corpuscular Hemoglobin Concent 33.7 Red Cell Distribution Width 16.1 H Platelet Count 20 #*L Mean Platelet Volume Neutrophils % 87.7 H Lymphocytes % 4.6 L Monocytes % 6.4 Eosinophils % 0.0 Basophils % 0.1 Nucleated Red Blood Cells % 0.6 H Neutrophils # 12.8 H Lymphocytes # 0.7 L Monocytes # 0.9 Eosinophils # 0.0 Basophils # 0.0 Nucleated Red Blood Cells # 0.1 H Prothrombin Time 16.4 H Prothrombin Time Ratio 1.3 INR International Normalized Ratio 1.31 Activated Partial Thromboplast Time 29.7 Sodium Level 140 Potassium Level 4.5 Chloride Level 111 H Carbon Dioxide Level 20 L Anion Gap 14 Blood Urea Nitrogen 65 H Creatinine 1.62 H Glucose Level 145 Calcium Level 7.5 L Blood Gas Specimen Source Blood arterial Arterial Blood Date Drawn 02/06/2017 4:40:38 AM Arterial Blood pH (Temp corrected) 7.352 Arterial Blood pCO2 (Temp correct) 31.8 L Arterial Blood pO2 (Temp corrected) 62.6 L Arterial Blood HCO3 17.2 L Arterial Blood Base Excess -7.5 L Arterial Blood Oxygen Saturation 88.2 L Ariel Test ACCEPTAB Arterial Blood Gas Puncture Site Right Radial Arterial Blood Carboxyhemoglobin 0.2 Arterial Blood Methemoglobin 0.3 Blood Gas A-a O2 Differential 330.2 H Oxyhemoglobin Percent 87.8 L Total Hemoglobin 8.9 L Blood Gas Temperature 37.0 Blood Gas Respiration Rate 20.0 Blood Gas Actual Respiration Rate 24 Blood Gas Modality VENT - AC FiO2 60.0 Blood Gas Tidal Volume 500.0 Blood Gas Low PEEP Setting 5.0 Blood Gas Inspiratory Pressure 42.0 Blood Gas Notified Whom KM Blood Gas Notified Time 02/06/2017 4:52:28 AM Lab Scanned Report BLOOD TRANSFUSION Medications Medications Current Medications Ondansetron HCl (Zofran Inj) 4 mg Q6H PRN IV NAUSEA AND/OR VOMITING; Start at 16:30 Morphine Sulfate (morphine) 2 mg Q4H PRN IV SEVERE PAIN LEVEL 7-10; Start 01/29 at 16:30 Pantoprazole (Protonix Iv) 40 mg DAILY@06 IV Last administered on 02/06/17 05: 48; Admin Dose 40 MG; Start 01/30/17 at 06:00 Eye Lubricant (Artificial Tears Oph) 2 drop Q6H PRN BOTH EYES DRY EYES Last administered on 01/30/17 04:29; Admin Dose 2 DROP; Start 01/29/17 at 18:30 Acetaminophen 650 mg 650 mg Q6H PRN [place] FEVER Last administered on 01/31/17 03: 42; Admin Dose 650 MG; Start 01/30/17 at 21:00 Midazolam HCl 50 ml @ 1 mls/hr TITRATE IV ; Start 01/30/17 at 23:55 Dextrose/Sodium Chloride (D5-1/2ns) 1,000 ml @ 70 mls/hr [id number] IV Last administered on 02/06/17 15:07; Admin Dose 70 MLS/HR; Start 01/31/17 at 17:00 Metoprolol Tartrate (Lopressor) 5 mg Q4H PRN IV HR>110 Hold SBP<100; Start at 12:00 Metoprolol Tartrate (Lopressor) 25 mg BID PO Last administered on 02/06/17 09: 19; Admin Dose 25 MG; Start 02/02/17 at 12:00 Amiodarone HCl 200 mg 200 mg BID PO Last administered on 02/06/17 09:19; Admin Dose 200 MG; Start 02/03/17 at 11:30 Phenylephrine HCl (Bert-Syneph) 250 ml @ 75 mls/hr TITRATE IV ; Start 02/03/17 at 18:30; Stop 02/06/17 at 20:00 Metoclopramide HCl 10 mg 10 mg Q8 IV Last administered on 02/06/17 13:09; Admin Dose 10 MG; Start 02/04/17 at 22:00 Ceftriaxone Sodium 50 ml @ 100 mls/hr Q24H IVPB Last administered on 02/06/17 11:17; Admin Dose 100 MLS/HR; Start 02/05/17 at 10:30 Levetiracetam (Keppra 1,500mg/ 100ml (Pmx)) 100 ml @ 400 mls/hr Q12 IVPB Last administered on 02/06/17 09:20; Admin Dose 400 MLS/HR; Start 02/05/17 at 21:00 Lorazepam (Ativan) 2 mg Q4 PRN IV SEIZURES Last administered on 02/06/17 09:39 ; Admin Dose 2 MG; Start 02/05/17 at 17:04 Citric Acid/ Sodium Citrate (Bicitra) 30 ml TID PO Last administered on 13:09; Admin Dose 30 ML; Start 02/05/17 at 21:33 Divalproex Sodium 500 mg 500 mg TID PO Last administered on 02/06/17 13:09; Admin Dose 500 MG; Start 02/06/17 at 09:00 Phenylephrine HCl/ Dextrose (Bert-Syneph/D5W) 500 ml @ 75 mls/hr TITRATE IV ; Start 02/06/17 at 15:30 ORI ROMERO February 06, 2017 16:57
[2017-02-06] MEDS: ACETAMINOPHEN 650 MG SUPP PR PRN (16:58)
--- NOTE | 2017-02-06 21:22 | CONS ---
Date/Time of Note Date/Time of Note DATE: 02/06/17 TIME: 21:20 Assessment/Plan Assessment/Plan Chief Complaint/Hosp Course IMPRESSION: 1. Acute cardiorespiratory arrest. 2. The patient has acute kidney injury with possible underlying chronic kidney disease. 3. The patient has severe metabolic acidosis, lactic acidosis. 4. Hypokalemia, hypophosphatemia, severe. 5. History of multiple myeloma. 6. Rule out underlying chronic myeloma kidney. 7 sepsis 8 pneumonia 9 metabolic acidosis plan BICITRA Problems: Consultation Date/Type/Reason Admit Date/Time Jan 30, 2017 at 11:41 Type of Consultation: RENAL Referring Provider: HANY LAWSON 24 HR Interval Summary Constitutional: other (ON VENT) Exam/Review of Systems Vital Signs Vitals Vital Signs Date Time Temp Pulse Resp B/P Pulse Ox O2 Delivery O2 Flow Rate FiO2 02/06/17 20:05 70 02/06/17 19:05 84 25 99 02/06/17 18:00 126/52 Mechanical Ventilator 02/06/17 16:00 100.0 Intake and Output 02/05/17 02/05/17 02/06/17 15:00 23:00 07:00 Intake Total 80 ml 1410 ml 580 ml Output Total 460 ml 450 ml 370 ml Balance -380 ml 960 ml 210 ml Exam Neck: supple Respiratory: clear to auscultation Cardiovascular: regular rate and rhythm Gastrointestinal: soft Extremities: edema (++) Results Result Diagram: 02/06/17 0400 02/06/17 0400 Results 24 hrs Laboratory Tests Test 02/06/17 04:00 02/06/17 05:00 02/06/17 06:45 White Blood Count 14.6 #H Red Blood Count 2.99 L Hemoglobin 8.5 L Hematocrit 25.2 L Mean Corpuscular Volume 84.3 Mean Corpuscular Hemoglobin 28.4 L Mean Corpuscular Hemoglobin Concent 33.7 Red Cell Distribution Width 16.1 H Platelet Count 20 #*L Mean Platelet Volume Neutrophils % 87.7 H Lymphocytes % 4.6 L Monocytes % 6.4 Eosinophils % 0.0 Basophils % 0.1 Nucleated Red Blood Cells % 0.6 H Neutrophils # 12.8 H Lymphocytes # 0.7 L Monocytes # 0.9 Eosinophils # 0.0 Basophils # 0.0 Nucleated Red Blood Cells # 0.1 H Prothrombin Time 16.4 H Prothrombin Time Ratio 1.3 INR International Normalized Ratio 1.31 Activated Partial Thromboplast Time 29.7 Sodium Level 140 Potassium Level 4.5 Chloride Level 111 H Carbon Dioxide Level 20 L Anion Gap 14 Blood Urea Nitrogen 65 H Creatinine 1.62 H Glucose Level 145 Calcium Level 7.5 L Blood Gas Specimen Source Blood arterial Arterial Blood Date Drawn 02/06/2017 4:40:38 AM Arterial Blood pH (Temp corrected) 7.352 Arterial Blood pCO2 (Temp correct) 31.8 L Arterial Blood pO2 (Temp corrected) 62.6 L Arterial Blood HCO3 17.2 L Arterial Blood Base Excess -7.5 L Arterial Blood Oxygen Saturation 88.2 L Ariel Test ACCEPTAB Arterial Blood Gas Puncture Site Right Radial Arterial Blood Carboxyhemoglobin 0.2 Arterial Blood Methemoglobin 0.3 Blood Gas A-a O2 Differential 330.2 H Oxyhemoglobin Percent 87.8 L Total Hemoglobin 8.9 L Blood Gas Temperature 37.0 Blood Gas Respiration Rate 20.0 Blood Gas Actual Respiration Rate 24 Blood Gas Modality VENT - AC FiO2 60.0 Blood Gas Tidal Volume 500.0 Blood Gas Low PEEP Setting 5.0 Blood Gas Inspiratory Pressure 42.0 Blood Gas Notified Whom KM Blood Gas Notified Time 02/06/2017 4:52:28 AM Lab Scanned Report BLOOD TRANSFUSION Medications Medications Current Medications Ondansetron HCl (Zofran Inj) 4 mg Q6H PRN IV NAUSEA AND/OR VOMITING; Start at 16:30 Morphine Sulfate (morphine) 2 mg Q4H PRN IV SEVERE PAIN LEVEL 7-10; Start 01/29 at 16:30 Pantoprazole (Protonix Iv) 40 mg DAILY@06 IV Last administered on 02/06/17 05: 48; Admin Dose 40 MG; Start 01/30/17 at 06:00 Eye Lubricant (Artificial Tears Oph) 2 drop Q6H PRN BOTH EYES DRY EYES Last administered on 01/30/17 04:29; Admin Dose 2 DROP; Start 01/29/17 at 18:30 Acetaminophen 650 mg 650 mg Q6H PRN [place] FEVER Last administered on 02/06/17 16: 58; Admin Dose 650 MG; Start 01/30/17 at 21:00 Midazolam HCl 50 ml @ 1 mls/hr TITRATE IV ; Start 01/30/17 at 23:55 Dextrose/Sodium Chloride (D5-1/2ns) 1,000 ml @ 70 mls/hr [id number] IV Last administered on 02/06/17 15:07; Admin Dose 70 MLS/HR; Start 01/31/17 at 17:00 Metoprolol Tartrate (Lopressor) 5 mg Q4H PRN IV HR>110 Hold SBP<100; Start at 12:00 Metoprolol Tartrate (Lopressor) 25 mg BID PO Last administered on 02/06/17 20: 36; Admin Dose 25 MG; Start 02/02/17 at 12:00 Amiodarone HCl (Cordarone) 200 mg BID PO Last administered on 02/06/17 20:35; Admin Dose 200 MG; Start 02/03/17 at 11:30 Metoclopramide HCl 10 mg 10 mg Q8 IV Last administered on 02/06/17 13:09; Admin Dose 10 MG; Start 02/04/17 at 22:00 Ceftriaxone Sodium 50 ml @ 100 mls/hr Q24H IVPB Last administered on 02/06/17 11:17; Admin Dose 100 MLS/HR; Start 02/05/17 at 10:30 Levetiracetam (Keppra 1,500mg/ 100ml (Pmx)) 100 ml @ 400 mls/hr Q12 IVPB Last administered on 02/06/17 20:35; Admin Dose 400 MLS/HR; Start 02/05/17 at 21:00 Lorazepam (Ativan) 2 mg Q4 PRN IV SEIZURES Last administered on 02/06/17 16:58 ; Admin Dose 2 MG; Start 02/05/17 at 17:04 Citric Acid/ Sodium Citrate (Bicitra) 30 ml TID PO Last administered on 20:35; Admin Dose 30 ML; Start 02/05/17 at 21:33 Divalproex Sodium 500 mg 500 mg TID PO Last administered on 02/06/17 20:35; Admin Dose 500 MG; Start 02/06/17 at 09:00 Phenylephrine HCl/ Dextrose (Bert-Syneph/D5W) 500 ml @ 75 mls/hr TITRATE IV ; Start 02/06/17 at 15:30 CINDY MARES MD February 06, 2017 21:22
[2017-02-07] VITALS (61 sets, daily range): BP systolic 77–112; BP diastolic 27–76; PULSE 67–147; RESP 20–27
[2017-02-07] MEDS: ALBUTEROL 18 GM INHALER INH SCH ×4 (01:24→19:53)
[2017-02-07] MEDS: ACETYLCYSTEINE 20% 4 ML VIAL NEB SCH ×4 (01:25→19:55)
[2017-02-07 04:49] LABS: ADD SCAN DIFF NO
[2017-02-07 05:04] LABS: ABNORMAL IP MESSAGE 1; HEMATOCRIT 17.4 % (37.0-47.0); MEAN CORPUSCULAR HEMOGLOBIN 28.5 pg (29.0-33.0); MEAN CORPUSCULAR HGB CONC 32.8 g/dl (32.0-37.0); RED CELL DISTRIBUTION WIDTH 16.3 % (11.5-14.5); WHITE BLOOD COUNT 17.4 10^3/ul (4.8-10.8)
[2017-02-07] MEDS: DEXTROSE 5%-0.45% NACL 1,000 ML IV SCH ×3 (05:14→18:36)
[2017-02-07] MEDS: PANTOPRAZOLE 40 MG INJ IV SCH (06:02)
[2017-02-07] MEDS: METOCLOPRAMIDE 10 MG INJ IV SCH ×3 (06:02→20:17)
[2017-02-07 06:15] LABS: HEMOGLOBIN 5.7 g/dl (12.0-16.0); PLATELET COUNT 18 10^3/UL (140-415)
[2017-02-07] MEDS: LEVETIRACETAM 1500 MG (PMX) 100 ML IVPB SCH ×2 (08:54→20:16)
[2017-02-07] MEDS: AMIODARONE 200 MG TAB PO SCH ×2 (08:56→20:18)
[2017-02-07] MEDS: DIVALPROEX (EC) 500 MG TAB PO SCH ×3 (08:56→20:18)
[2017-02-07] MEDS: METOPROLOL 25 MG TAB PO SCH ×2 (08:57→20:19)
[2017-02-07] MEDS: CITRIC ACID/SODIUM CITRATE 15 ML CUP PO SCH ×3 (09:00→20:18)
[2017-02-07 09:57] LABS: LYMPHOCYTES # 2.8 10^3/ul (0.8-2.9); NEUTROPHIL # 12.7 10^3/ul (1.6-7.5); PLATELET ESTIMATE PLT APPEAR DECREASED
--- NOTE | 2017-02-07 10:08 | CONS ---
Date/Time of Note Date/Time of Note DATE: 02/07/17 TIME: 10:05 Assessment/Plan Assessment/Plan Additional Assessment/Plan Ventilator settings; AC of 20, tidal volume 500, PEEP of 5, 70% FiO2. Assessment recommendations; 1. Patient admitted with respiratory failure due to diffuse bilateral pneumonia with ARDS. Failed a steroid trial. 2. Severe anoxic brain injury. 3. Myoclonic jerking number currently controlled on Depakote and Keppra. 4. Severe thrombocytopenia and anemia. 5. Renal insufficiency. With declining urine output. Continue supportive care. The family will decide about possible terminal extubation with the next 24-48 hours. Prognosis is dismal. Consultation Date/Type/Reason Admit Date/Time Jan 30, 2017 at 11:41 Type of Consultation: Pulmonary/critical care Referring Provider: HANY LAWSON 24 HR Interval Summary Free Text/Dictation Patient condition remains critical. Remains completely unresponsive. No overt migraine jerking or seizure activity noted. Remains hemodynamically stable. Not requiring any pressor support. General exam; middle-aged woman, orally intubated, unresponsive. Currently in no distress. Exam/Review of Systems Vital Signs Vitals Vital Signs Date Time Temp Pulse Resp B/P Pulse Ox O2 Delivery O2 Flow Rate FiO2 02/07/17 09:20 78 27 98 70 02/07/17 01:00 106/51 Mechanical Ventilator 02/07/17 00:00 97.9 Intake and Output 02/06/17 02/06/17 02/07/17 15:00 23:00 07:00 Intake Total 907 ml 560 ml 580 ml Output Total 475 ml 500 ml 395 ml Balance 432 ml 60 ml 185 ml Exam HEENT examination; supple neck, no JVD. No lymphadenopathy. Midline trachea. Pupils are small bilaterally. There is mild bilateral subconjunctival edema. Orally intubated. No neck masses. No neck bruits. No thyromegaly. Chest examination; diffuse bilateral crackles. S1-S2 audible, regular rhythm. No murmurs. Abdomen examination; soft, no organomegaly. Bowel sounds are audible. Extremity exam; 1+ anasarca. 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 Results Result Diagram: 02/07/17 0330 02/06/17 0400 Results 24 hrs Laboratory Tests Test 02/07/17 03:30 White Blood Count 17.4 H Red Blood Count 2.00 #L Hemoglobin 5.7 #*L Hematocrit 17.4 #L Mean Corpuscular Volume 87.0 Mean Corpuscular Hemoglobin 28.5 L Mean Corpuscular Hemoglobin Concent 32.8 Red Cell Distribution Width 16.3 H Platelet Count 18 *L Mean Platelet Volume Neutrophils % 73.0 Band Neutrophils % 11.0 H Lymphocytes % 16.0 Eosinophils % Neutrophils # 12.7 H Lymphocytes # 2.8 Eosinophils # Platelet Estimate PLT APPEAR DECREASED Medications Medications Current Medications Ondansetron HCl (Zofran Inj) 4 mg Q6H PRN IV NAUSEA AND/OR VOMITING; Start at 16:30 Morphine Sulfate (morphine) 2 mg Q4H PRN IV SEVERE PAIN LEVEL 7-10; Start 01/29 at 16:30 Pantoprazole (Protonix Iv) 40 mg DAILY@06 IV Last administered on 02/07/17 06: 02; Admin Dose 40 MG; Start 01/30/17 at 06:00 Eye Lubricant (Artificial Tears Oph) 2 drop Q6H PRN BOTH EYES DRY EYES Last administered on 01/30/17 04:29; Admin Dose 2 DROP; Start 01/29/17 at 18:30 Acetaminophen 650 mg 650 mg Q6H PRN [place] FEVER Last administered on 02/06/17 16: 58; Admin Dose 650 MG; Start 01/30/17 at 21:00 Midazolam HCl 50 ml @ 1 mls/hr TITRATE IV ; Start 01/30/17 at 23:55 Dextrose/Sodium Chloride (D5-1/2ns) 1,000 ml @ 70 mls/hr [id number] IV Last administered on 02/07/17 05:14; Admin Dose 70 MLS/HR; Start 01/31/17 at 17:00 Metoprolol Tartrate (Lopressor) 5 mg Q4H PRN IV HR>110 Hold SBP<100; Start at 12:00 Metoprolol Tartrate (Lopressor) 25 mg BID PO Last administered on 02/06/17 20: 36; Admin Dose 25 MG; Start 02/02/17 at 12:00 Amiodarone HCl (Cordarone) 200 mg BID PO Last administered on 02/07/17 08:56; Admin Dose 200 MG; Start 02/03/17 at 11:30 Metoclopramide HCl 10 mg 10 mg Q8 IV Last administered on 02/07/17 06:02; Admin Dose 10 MG; Start 02/04/17 at 22:00 Ceftriaxone Sodium 50 ml @ 100 mls/hr Q24H IVPB Last administered on 02/06/17 11:17; Admin Dose 100 MLS/HR; Start 02/05/17 at 10:30 Levetiracetam (Keppra 1,500mg/ 100ml (Pmx)) 100 ml @ 400 mls/hr Q12 IVPB Last administered on 02/07/17 08:54; Admin Dose 400 MLS/HR; Start 02/05/17 at 21:00 Lorazepam (Ativan) 2 mg Q4 PRN IV SEIZURES Last administered on 02/06/17 16:58 ; Admin Dose 2 MG; Start 02/05/17 at 17:04 Citric Acid/ Sodium Citrate (Bicitra) 30 ml TID PO Last administered on 20:35; Admin Dose 30 ML; Start 02/05/17 at 21:33 Divalproex Sodium 500 mg 500 mg TID PO Last administered on 02/07/17 08:56; Admin Dose 500 MG; Start 02/06/17 at 09:00 Phenylephrine HCl/ Dextrose (Bert-Syneph/D5W) 500 ml @ 75 mls/hr TITRATE IV ; Start 02/06/17 at 15:30 TERESA FAITH February 07, 2017 10:08
[2017-02-07] MEDS: CEFTRIAXONE 1 GM/50 ML (PMX) 50 ML IVPB SCH (11:40)
--- NOTE | 2017-02-07 11:43 | CONS ---
Date/Time of Note Date/Time of Note DATE: 02/07/17 TIME: 11:41 Assessment/Plan Assessment/Plan Chief Complaint/Hosp Course IMPRESSION: 1. Status post cardiac arrest, assess for acute coronary syndrome.-negative troponin x 3/NL EF by echo this admit 2. Positive troponin, assess significance in setting of cardiac arrest. 3. Abnormal electrocardiogram. 4. Hypotension, borderline.-Now off pressors 5. Respiratory failure, status post intubation. 6. Pancreatitis by laboratory findings. 7. Anemia. 8. Leukopenia. 9. Thrombocytopenia. 10.REnal failure-acute 11.Atrial fibrillation- new onset/not good anticoag candidate due to low plt- currently in SR Recc: -Tele -Serial ecg's -Continue abx's/f/u cx data -follow MS closely -Follow platelet count -Follow BP closely -Continue PO amiodarone in attempt to maintain SR -Continue BB as tolerated only -Ongoing family discussion pertaning to direction of care with overall poor prognosis for receovery Problems: Consultation Date/Type/Reason Admit Date/Time Jan 30, 2017 at 11:41 Initial Consult Date 01/31/17 Type of Consultation: Cardiology Reason for Consultation cardiac arrest Referring Provider: HANY LAWSON Exam/Review of Systems Vital Signs Vitals Vital Signs Date Time Temp Pulse Resp B/P Pulse Ox O2 Delivery O2 Flow Rate FiO2 02/07/17 11:16 83 26 99 70 02/07/17 01:00 106/51 Mechanical Ventilator 02/07/17 00:00 97.9 Intake and Output 02/06/17 02/06/17 02/07/17 15:00 23:00 07:00 Intake Total 907 ml 560 ml 580 ml Output Total 475 ml 500 ml 395 ml Balance 432 ml 60 ml 185 ml Exam Review of Systems: CONSTITUTIONAL: No fevers, chills. PULMONARY: intubated CARDIOVASCULAR: No chest pain/palpitations GASTROINTESTINAL: No nausea/vomiting. GENITOURINARY: No hematuria/dysuria. MUSCULOSKELETAL: No myagias/arthalgias. PSYCHIATRIC: The patient denies depression. NEUROLOGIC: encephalopathic Constitutional: alert Psych: no complaints Head: normocephalic ENMT: mucosa pink and moist Neck: jvd (9 cm water), supple Respiratory: diminished breath sounds Cardiovascular: regular rate and rhythm Gastrointestinal: non-tender, soft Musculoskeletal: muscle tone (normal) Extremities: edema (trace/B), normal pulses Neurological: other (Encephalopathic) Results Result Diagram: 02/07/17 0330 02/06/17 0400 Results 24 hrs Laboratory Tests Test 02/07/17 03:30 White Blood Count 17.4 H Red Blood Count 2.00 #L Hemoglobin 5.7 #*L Hematocrit 17.4 #L Mean Corpuscular Volume 87.0 Mean Corpuscular Hemoglobin 28.5 L Mean Corpuscular Hemoglobin Concent 32.8 Red Cell Distribution Width 16.3 H Platelet Count 18 *L Mean Platelet Volume Neutrophils % 73.0 Band Neutrophils % 11.0 H Lymphocytes % 16.0 Eosinophils % Neutrophils # 12.7 H Lymphocytes # 2.8 Eosinophils # Platelet Estimate PLT APPEAR DECREASED Medications Medications Current Medications Ondansetron HCl (Zofran Inj) 4 mg Q6H PRN IV NAUSEA AND/OR VOMITING; Start at 16:30 Morphine Sulfate (morphine) 2 mg Q4H PRN IV SEVERE PAIN LEVEL 7-10; Start 01/29 at 16:30 Pantoprazole (Protonix Iv) 40 mg DAILY@06 IV Last administered on 02/07/17 06: 02; Admin Dose 40 MG; Start 01/30/17 at 06:00 Eye Lubricant (Artificial Tears Oph) 2 drop Q6H PRN BOTH EYES DRY EYES Last administered on 01/30/17 04:29; Admin Dose 2 DROP; Start 01/29/17 at 18:30 Acetaminophen 650 mg 650 mg Q6H PRN [place] FEVER Last administered on 02/06/17 16: 58; Admin Dose 650 MG; Start 01/30/17 at 21:00 Midazolam HCl 50 ml @ 1 mls/hr TITRATE IV ; Start 01/30/17 at 23:55 Dextrose/Sodium Chloride (D5-1/2ns) 1,000 ml @ 70 mls/hr [id number] IV Last administered on 02/07/17 05:14; Admin Dose 70 MLS/HR; Start 01/31/17 at 17:00 Metoprolol Tartrate (Lopressor) 5 mg Q4H PRN IV HR>110 Hold SBP<100; Start at 12:00 Metoprolol Tartrate (Lopressor) 25 mg BID PO Last administered on 02/06/17 20: 36; Admin Dose 25 MG; Start 02/02/17 at 12:00 Amiodarone HCl (Cordarone) 200 mg BID PO Last administered on 02/07/17 08:56; Admin Dose 200 MG; Start 02/03/17 at 11:30 Metoclopramide HCl 10 mg 10 mg Q8 IV Last administered on 02/07/17 06:02; Admin Dose 10 MG; Start 02/04/17 at 22:00 Ceftriaxone Sodium 50 ml @ 100 mls/hr Q24H IVPB Last administered on 02/06/17 11:17; Admin Dose 100 MLS/HR; Start 02/05/17 at 10:30 Levetiracetam (Keppra 1,500mg/ 100ml (Pmx)) 100 ml @ 400 mls/hr Q12 IVPB Last administered on 02/07/17 08:54; Admin Dose 400 MLS/HR; Start 02/05/17 at 21:00 Lorazepam (Ativan) 2 mg Q4 PRN IV SEIZURES Last administered on 02/06/17 16:58 ; Admin Dose 2 MG; Start 02/05/17 at 17:04 Citric Acid/ Sodium Citrate (Bicitra) 30 ml TID PO Last administered on 20:35; Admin Dose 30 ML; Start 02/05/17 at 21:33 Divalproex Sodium 500 mg 500 mg TID PO Last administered on 02/07/17 08:56; Admin Dose 500 MG; Start 02/06/17 at 09:00 Phenylephrine HCl/ Dextrose (Bert-Syneph/D5W) 500 ml @ 75 mls/hr TITRATE IV ; Start 02/06/17 at 15:30 ORI ROMERO February 07, 2017 11:43
--- NOTE | 2017-02-07 11:51 | PN ---
DATE: 02/07/2017 SUBJECTIVE: No events, no changes. The patient is lying comfortably in bed. She is afebrile. VITAL SIGNS: Temperature 97.9, pulse 83, respirations 26, blood pressure 106/51, saturation 99% on 70% FIO2. LABORATORY DATA: WBC 17.4, H and H 5.7 and 17.4, platelets 18, neutrophils 73, bands 11. BUN 65, c reatinine 1.62. INDWELLINGS: Endotracheal tube, NG tube, Miles catheter, left upper extremity PICC line. ANTIMICROBIALS: The patient is on IV Rocephin. PHYSICAL EXAMINATION: GENERAL: This is a well-developed, elderly woman who is in no distress. HEENT: Head atraumatic, normocephalic. Sclerae anicteric. Buccal mucosa dry. NECK: Supple, trachea midline. CHEST: Rise symmetrical. Breath sounds diminished to bases. HEART: S1, S2. ABDOMEN: Soft, bowel sounds present. EXTREMITIES: Without cyanosis. ASSESSMENT: 1. Anoxic encephalopathy status post cardiopulmonary arrest. 2. Bilateral pneumonia with acute respiratory distress syndrome. 3. Leukocytosis, likely steroid-induced, steroids were discontinued yesterday. 4. Streptococcus pyogenes bacteremia on admission with repeat blood cultures negative. 5. Anemia with thrombocytopenia. 6. Acute renal failure. PLAN: The patient remains unchanged. We are going to repeat cultures given the fact that she has i ncrease in her white blood cell count. Continue Rocephin to complete treatment for bacteremia and a wait for family decision regarding final plans of care. Dictated By: SRINIVAS OSPINA SILO MAN for TOBIN WATSON/ZANA Conf#: [id number] DID#: [id number]
[2017-02-07 11:54] LABS: ADD SCAN DIFF NO
[2017-02-07 11:56] LABS: ABNORMAL IP MESSAGE 1; HEMATOCRIT 22.2 % (37.0-47.0); HEMOGLOBIN 7.4 g/dl (12.0-16.0); MEAN CORPUSCULAR HEMOGLOBIN 30.3 pg (29.0-33.0); MEAN CORPUSCULAR HGB CONC 33.3 g/dl (32.0-37.0); RED BLOOD COUNT 2.44 10^6/ul (4.20-5.40); RED CELL DISTRIBUTION WIDTH 15.6 % (11.5-14.5); WHITE BLOOD COUNT 18.6 10^3/ul (4.8-10.8)
[2017-02-07 12:01] LABS: PLATELET COUNT 21 10^3/UL (140-415)
[2017-02-07 13:40] LABS: LYMPHOCYTES # 1.7 10^3/ul (0.8-2.9); MONOCYTE # 0.4 10^3/ul (0.3-0.9); NEUTROPHIL # 16.2 10^3/ul (1.6-7.5); PLATELET ESTIMATE PLT APPEAR DECREASED
--- NOTE | 2017-02-07 17:11 | CONS ---
Date/Time of Note Date/Time of Note DATE: 02/07/17 TIME: 17:10 Assessment/Plan Assessment/Plan Chief Complaint/Hosp Course IMPRESSION: 1. Acute cardiorespiratory arrest. 2. The patient has acute kidney injury with possible underlying chronic kidney disease. 3. The patient has severe metabolic acidosis, lactic acidosis. 4. Hypokalemia, hypophosphatemia, severe. 5. History of multiple myeloma. 6. Rule out underlying chronic myeloma kidney. 7 sepsis 8 pneumonia 9 metabolic acidosis plan BICITRA poor prognosis Problems: Consultation Date/Type/Reason Admit Date/Time Jan 30, 2017 at 11:41 Type of Consultation: renal Referring Provider: HANY LAWSON Exam/Review of Systems Vital Signs Vitals Vital Signs Date Time Temp Pulse Resp B/P Pulse Ox O2 Delivery O2 Flow Rate FiO2 02/07/17 16:15 90 24 105/47 93 02/07/17 16:00 97.4 Mechanical Ventilator 02/07/17 15:32 70 Intake and Output 02/06/17 02/06/17 02/07/17 15:00 23:00 07:00 Intake Total 907 ml 560 ml 580 ml Output Total 475 ml 500 ml 395 ml Balance 432 ml 60 ml 185 ml Exam Respiratory: diminished breath sounds Cardiovascular: regular rate and rhythm Gastrointestinal: soft Extremities: edema (++) Results Result Diagram: 02/07/17 1148 02/06/17 0400 Results 24 hrs Laboratory Tests Test 02/07/17 03:30 02/07/17 11:48 White Blood Count 17.4 H 18.6 H Red Blood Count 2.00 #L 2.44 #L Hemoglobin 5.7 #*L 7.4 #L Hematocrit 17.4 #L 22.2 #L Mean Corpuscular Volume 87.0 91.0 Mean Corpuscular Hemoglobin 28.5 L 30.3 Mean Corpuscular Hemoglobin Concent 32.8 33.3 Red Cell Distribution Width 16.3 H 15.6 H Platelet Count 18 *L 21 *L Mean Platelet Volume Neutrophils % 73.0 87.0 H Band Neutrophils % 11.0 H 2.0 Lymphocytes % 16.0 9.0 L Eosinophils % Neutrophils # 12.7 H 16.2 H Lymphocytes # 2.8 1.7 Eosinophils # Platelet Estimate PLT APPEAR DECREASED PLT APPEAR DECREASED Monocytes % 2.0 Monocytes # 0.4 Medications Medications Current Medications Ondansetron HCl (Zofran Inj) 4 mg Q6H PRN IV NAUSEA AND/OR VOMITING; Start at 16:30 Morphine Sulfate (morphine) 2 mg Q4H PRN IV SEVERE PAIN LEVEL 7-10; Start 01/29 at 16:30 Pantoprazole (Protonix Iv) 40 mg DAILY@06 IV Last administered on 02/07/17 06: 02; Admin Dose 40 MG; Start 01/30/17 at 06:00 Eye Lubricant (Artificial Tears Oph) 2 drop Q6H PRN BOTH EYES DRY EYES Last administered on 01/30/17 04:29; Admin Dose 2 DROP; Start 01/29/17 at 18:30 Acetaminophen 650 mg 650 mg Q6H PRN [place] FEVER Last administered on 02/06/17 16: 58; Admin Dose 650 MG; Start 01/30/17 at 21:00 Midazolam HCl 50 ml @ 1 mls/hr TITRATE IV ; Start 01/30/17 at 23:55 Dextrose/Sodium Chloride (D5-1/2ns) 1,000 ml @ 70 mls/hr [id number] IV Last administered on 02/07/17 05:14; Admin Dose 70 MLS/HR; Start 01/31/17 at 17:00 Metoprolol Tartrate (Lopressor) 5 mg Q4H PRN IV HR>110 Hold SBP<100 Last administered on 02/07/17 13:00; Admin Dose 5 MG; Start 02/02/17 at 12:00 Metoprolol Tartrate (Lopressor) 25 mg BID PO Last administered on 02/06/17 20: 36; Admin Dose 25 MG; Start 02/02/17 at 12:00 Amiodarone HCl (Cordarone) 200 mg BID PO Last administered on 02/07/17 08:56; Admin Dose 200 MG; Start 02/03/17 at 11:30 Metoclopramide HCl 10 mg 10 mg Q8 IV Last administered on 02/07/17 13:02; Admin Dose 10 MG; Start 02/04/17 at 22:00 Ceftriaxone Sodium 50 ml @ 100 mls/hr Q24H IVPB Last administered on 02/07/17 11:40; Admin Dose 100 MLS/HR; Start 02/05/17 at 10:30 Levetiracetam (Keppra 1,500mg/ 100ml (Pmx)) 100 ml @ 400 mls/hr Q12 IVPB Last administered on 02/07/17 08:54; Admin Dose 400 MLS/HR; Start 02/05/17 at 21:00 Lorazepam (Ativan) 2 mg Q4 PRN IV SEIZURES Last administered on 02/06/17 16:58 ; Admin Dose 2 MG; Start 02/05/17 at 17:04 Citric Acid/ Sodium Citrate (Bicitra) 30 ml TID PO Last administered on 13:02; Admin Dose 30 ML; Start 02/05/17 at 21:33 Divalproex Sodium 500 mg 500 mg TID PO Last administered on 02/07/17 13:00; Admin Dose 500 MG; Start 02/06/17 at 09:00 Phenylephrine HCl/ Dextrose (Bert-Syneph/D5W) 500 ml @ 75 mls/hr TITRATE IV ; Start 02/06/17 at 15:30 CINDY MARES MD February 07, 2017 17:11
--- NOTE | 2017-02-07 17:45 | PN ---
Date/Time of Note Date/Time of Note DATE: 02/07/17 TIME: 17:42 Assessment/Plan VTE Prophylaxis VTE Prophylaxis Intervention: SCD's Lines/Catheters IV Catheter Type (from Nrs): Central Line Central line still needed: Yes (IV abx ) Urinary Cath still in place: Yes Reason Cath still needed: urinary retention Assessment/Plan Assessment/Plan 1. Cardiac arrest with return of circulation likely 2/2 severe sepsis from PNA -s/p hypothermia protocol - not waling up , Neurology and Cardiology has been following -Pulm consult appreciated for Vent management 2. Severe shock with lactic acidosis secondary to cardiogenic/sepsis source 3. Acute kidney injury, likely secondary to underlying septic shock as well as cardiac arrest from nephrology has been following 4. Hypokalemia-repleted 5. Multifocal pneumonia -cont IV antibiotics, Pulmonology and ID following 6. Anoxic Encephalopathy -EEG shows encephalopathy with seizure activity, -MRI shows findings suggestive of hypoxic ischemic injury -Neuro consult appreciated - Palliative care team has been consulted on the case , famiily wants to wait two more days to decide about it- plan for Family meeting today by palliative with family 7. Pancreatitis-Improved -US Abd shows nl CBD Prophylaxis: Sequential compression devices. no heparin/Lovenox due to thrombocytopenia Subjective 24 Hr Interval Summary Free Text/Dictation pt remains critically ill, intubated, BP stable Exam/Review of Systems Vital Signs Vitals Vital Signs Date Time Temp Pulse Resp B/P Pulse Ox O2 Delivery O2 Flow Rate FiO2 02/07/17 17:13 124 27 94 70 02/07/17 16:15 105/47 02/07/17 16:00 97.4 Mechanical Ventilator Intake and Output 02/06/17 02/06/17 02/07/17 15:00 23:00 07:00 Intake Total 907 ml 560 ml 580 ml Output Total 475 ml 500 ml 395 ml Balance 432 ml 60 ml 185 ml Exam Constitutional: non-verbal ENMT: intubated Respiratory: clear to auscultation Cardiovascular: regular rate and rhythm Gastrointestinal: soft, No distended Musculoskeletal: nl extremities to inspection Results Result Diagram: 02/07/17 1148 02/06/17 0400 Results 24 hrs Laboratory Tests Test 02/07/17 03:30 02/07/17 11:48 White Blood Count 17.4 H 18.6 H Red Blood Count 2.00 #L 2.44 #L Hemoglobin 5.7 #*L 7.4 #L Hematocrit 17.4 #L 22.2 #L Mean Corpuscular Volume 87.0 91.0 Mean Corpuscular Hemoglobin 28.5 L 30.3 Mean Corpuscular Hemoglobin Concent 32.8 33.3 Red Cell Distribution Width 16.3 H 15.6 H Platelet Count 18 *L 21 *L Mean Platelet Volume Neutrophils % 73.0 87.0 H Band Neutrophils % 11.0 H 2.0 Lymphocytes % 16.0 9.0 L Eosinophils % Neutrophils # 12.7 H 16.2 H Lymphocytes # 2.8 1.7 Eosinophils # Platelet Estimate PLT APPEAR DECREASED PLT APPEAR DECREASED Monocytes % 2.0 Monocytes # 0.4 Medications Medications Current Medications Ondansetron HCl (Zofran Inj) 4 mg Q6H PRN IV NAUSEA AND/OR VOMITING; Start at 16:30 Morphine Sulfate (morphine) 2 mg Q4H PRN IV SEVERE PAIN LEVEL 7-10; Start 01/29 at 16:30 Pantoprazole (Protonix Iv) 40 mg DAILY@06 IV Last administered on 02/07/17 06: 02; Admin Dose 40 MG; Start 01/30/17 at 06:00 Eye Lubricant (Artificial Tears Oph) 2 drop Q6H PRN BOTH EYES DRY EYES Last administered on 01/30/17 04:29; Admin Dose 2 DROP; Start 01/29/17 at 18:30 Acetaminophen 650 mg 650 mg Q6H PRN [place] FEVER Last administered on 02/06/17 16: 58; Admin Dose 650 MG; Start 01/30/17 at 21:00 Midazolam HCl 50 ml @ 1 mls/hr TITRATE IV ; Start 01/30/17 at 23:55 Dextrose/Sodium Chloride (D5-1/2ns) 1,000 ml @ 70 mls/hr [id number] IV Last administered on 02/07/17 05:14; Admin Dose 70 MLS/HR; Start 01/31/17 at 17:00 Metoprolol Tartrate (Lopressor) 5 mg Q4H PRN IV HR>110 Hold SBP<100 Last administered on 02/07/17 13:00; Admin Dose 5 MG; Start 02/02/17 at 12:00 Metoprolol Tartrate (Lopressor) 25 mg BID PO Last administered on 02/06/17 20: 36; Admin Dose 25 MG; Start 02/02/17 at 12:00 Amiodarone HCl (Cordarone) 200 mg BID PO Last administered on 02/07/17 08:56; Admin Dose 200 MG; Start 02/03/17 at 11:30 Metoclopramide HCl 10 mg 10 mg Q8 IV Last administered on 02/07/17 13:02; Admin Dose 10 MG; Start 02/04/17 at 22:00 Ceftriaxone Sodium 50 ml @ 100 mls/hr Q24H IVPB Last administered on 02/07/17 11:40; Admin Dose 100 MLS/HR; Start 02/05/17 at 10:30 Levetiracetam (Keppra 1,500mg/ 100ml (Pmx)) 100 ml @ 400 mls/hr Q12 IVPB Last administered on 02/07/17 08:54; Admin Dose 400 MLS/HR; Start 02/05/17 at 21:00 Lorazepam (Ativan) 2 mg Q4 PRN IV SEIZURES Last administered on 02/06/17 16:58 ; Admin Dose 2 MG; Start 02/05/17 at 17:04 Citric Acid/ Sodium Citrate (Bicitra) 30 ml TID PO Last administered on 13:02; Admin Dose 30 ML; Start 02/05/17 at 21:33 Divalproex Sodium 500 mg 500 mg TID PO Last administered on 02/07/17 13:00; Admin Dose 500 MG; Start 02/06/17 at 09:00 Phenylephrine HCl/ Dextrose (Bert-Syneph/D5W) 500 ml @ 75 mls/hr TITRATE IV ; Start 02/06/17 at 15:30 BAILEY GRAVES MD February 07, 2017 17:44
[2017-02-08] VITALS (69 sets, daily range): BP systolic 78–115; BP diastolic 28–72; PULSE 90–145; RESP 17–24
[2017-02-08] MEDS: DIGOXIN 500 MCG INJ IV SCH ×2 (01:14→06:19)
[2017-02-08] MEDS: ALBUTEROL 18 GM INHALER INH SCH ×4 (01:51→19:25)
[2017-02-08] MEDS: ACETYLCYSTEINE 20% 4 ML VIAL NEB SCH ×4 (01:53→19:25)
[2017-02-08] MEDS: METOCLOPRAMIDE 10 MG INJ IV SCH ×3 (06:19→21:03)
[2017-02-08] MEDS: PANTOPRAZOLE 40 MG INJ IV SCH (06:19)
[2017-02-08 06:33] LABS: ADD SCAN DIFF NO
[2017-02-08 06:45] LABS: ABNORMAL IP MESSAGE 1; MEAN CORPUSCULAR HEMOGLOBIN 29.9 pg (29.0-33.0); MEAN CORPUSCULAR HGB CONC 33.3 g/dl (32.0-37.0); MEAN CORPUSCULAR VOLUME 89.6 fl (82.0-101.0); RED BLOOD COUNT 2.01 10^6/ul (4.20-5.40); WHITE BLOOD COUNT 19.8 10^3/ul (4.8-10.8)
[2017-02-08 07:08] LABS: POTASSIUM 5.5 mmol/L (3.5-5.1)
[2017-02-08 07:10] LABS: CREATININE 2.31 mg/dl (0.44-1.00)
[2017-02-08 07:11] LABS: CALCIUM 7.2 mg/dl (8.4-10.2)
[2017-02-08 07:18] LABS: INR 1.88; PROTIME 21.8 Sec (12.2-14.2); PT RATIO 1.7
[2017-02-08 07:19] LABS: PARTIAL THROMBOPLASTIN TIME 33.4 Sec (25.0-35.0); PLATELET COUNT 22 10^3/UL (140-415)
[2017-02-08] MEDS: LEVETIRACETAM 1500 MG (PMX) 100 ML IVPB SCH ×2 (08:33→21:54)
[2017-02-08] MEDS: DEXTROSE 5%-0.45% NACL 1,000 ML IV SCH ×2 (08:35→23:11)
[2017-02-08] MEDS: CITRIC ACID/SODIUM CITRATE 15 ML CUP PO SCH ×3 (08:36→21:55)
[2017-02-08] MEDS: AMIODARONE 200 MG TAB PO SCH ×2 (08:36→21:03)
[2017-02-08] MEDS: DIVALPROEX (EC) 500 MG TAB PO SCH ×3 (08:37→21:02)
[2017-02-08] MEDS: METOPROLOL 25 MG TAB PO SCH ×2 (08:37→21:00)
--- NOTE | 2017-02-08 09:03 | CONS ---
Date/Time of Note Date/Time of Note DATE: 02/08/17 TIME: 09:00 Assessment/Plan Assessment/Plan Chief Complaint/Hosp Course 1. s/p cardiorespiratory arrest. 2. The patient has acute kidney injury with possible underlying chronic kidney disease. 3. History of multiple myeloma. 4. Rule out underlying chronic myeloma kidney. 5 sepsis 6 pneumonia 7. Anemia of chronic disease, Problems: Additional Assessment/Plan 1. Per family request 2. AM labs Consultation Date/Type/Reason Admit Date/Time Jan 30, 2017 at 11:41 Initial Consult Date 01/30/2017 Type of Consultation: renal Reason for Consultation Dr Hudson Referring Provider: HANY LAWSON Exam/Review of Systems Vital Signs Vitals Vital Signs Date Time Temp Pulse Resp B/P Pulse Ox O2 Delivery O2 Flow Rate FiO2 02/08/17 08:00 97.7 96 23 97/56 96 Mechanical Ventilator 02/08/17 08:00 70 Intake and Output 02/07/17 02/07/17 02/08/17 14:59 22:59 06:59 Intake Total 1110 ml 800 ml 870 ml Output Total 265 ml 155 ml 70 ml Balance 845 ml 645 ml 800 ml Exam Constitutional: other (sedated) Head: normocephalic Eyes: nl conjunctiva Neck: supple Respiratory: diminished breath sounds Cardiovascular: regular rate and rhythm Gastrointestinal: soft Genitourinary - Female: nl external genitalia Extremities: edema Neurological: unresponsive Skin: ecchymosis Results Result Diagram: 02/08/17 0530 02/08/17 0530 Results 24 hrs Laboratory Tests Test 02/07/17 11:48 02/08/17 05:30 02/08/17 05:43 White Blood Count 18.6 H 19.8 H Red Blood Count 2.44 #L 2.01 L Hemoglobin 7.4 #L 6.0 *L Hematocrit 22.2 #L 18.0 L Mean Corpuscular Volume 91.0 89.6 Mean Corpuscular Hemoglobin 30.3 29.9 Mean Corpuscular Hemoglobin Concent 33.3 33.3 Red Cell Distribution Width 15.6 H 16.0 H Platelet Count 21 *L 22 *L Mean Platelet Volume Neutrophils % 87.0 H Band Neutrophils % 2.0 Lymphocytes % 9.0 L Monocytes % 2.0 Eosinophils % Neutrophils # 16.2 H Lymphocytes # 1.7 Monocytes # 0.4 Eosinophils # Platelet Estimate PLT APPEAR DECREASED Prothrombin Time 21.8 #H Prothrombin Time Ratio 1.7 INR International Normalized Ratio 1.88 Activated Partial Thromboplast Time 33.4 Sodium Level 142 Potassium Level 5.5 H Chloride Level 112 H Carbon Dioxide Level 19 L Anion Gap 17 H Blood Urea Nitrogen 93 H Creatinine 2.31 H Glucose Level 171 Calcium Level 7.2 L Lab Scanned Report BLOOD TRANSFUSION Medications Medications Current Medications Ondansetron HCl (Zofran Inj) 4 mg Q6H PRN IV NAUSEA AND/OR VOMITING; Start at 16:30 Morphine Sulfate (morphine) 2 mg Q4H PRN IV SEVERE PAIN LEVEL 7-10; Start 01/29 at 16:30 Pantoprazole (Protonix Iv) 40 mg DAILY@06 IV Last administered on 02/08/17 06: 19; Admin Dose 40 MG; Start 01/30/17 at 06:00 Eye Lubricant (Artificial Tears Oph) 2 drop Q6H PRN BOTH EYES DRY EYES Last administered on 01/30/17 04:29; Admin Dose 2 DROP; Start 01/29/17 at 18:30 Acetaminophen 650 mg 650 mg Q6H PRN [place] FEVER Last administered on 02/06/17 16: 58; Admin Dose 650 MG; Start 01/30/17 at 21:00 Midazolam HCl 50 ml @ 1 mls/hr TITRATE IV ; Start 01/30/17 at 23:55 Dextrose/Sodium Chloride (D5-1/2ns) 1,000 ml @ 70 mls/hr [id number] IV Last administered on 02/08/17 08:35; Admin Dose 70 MLS/HR; Start 01/31/17 at 17:00 Metoprolol Tartrate (Lopressor) 5 mg Q4H PRN IV HR>110 Hold SBP<100 Last administered on 02/07/17 13:00; Admin Dose 5 MG; Start 02/02/17 at 12:00 Metoprolol Tartrate (Lopressor) 25 mg BID PO Last administered on 02/06/17 20: 36; Admin Dose 25 MG; Start 02/02/17 at 12:00 Amiodarone HCl (Cordarone) 200 mg BID PO Last administered on 02/08/17 08:36; Admin Dose 200 MG; Start 4/30/17 at 11:30 Metoclopramide HCl 10 mg 10 mg Q8 IV Last administered on 02/08/17 06:19; Admin Dose 10 MG; Start 02/04/17 at 22:00 Ceftriaxone Sodium 50 ml @ 100 mls/hr Q24H IVPB Last administered on 02/07/17 11:40; Admin Dose 100 MLS/HR; Start 02/05/17 at 10:30 Levetiracetam (Keppra 1,500mg/ 100ml (Pmx)) 100 ml @ 400 mls/hr Q12 IVPB Last administered on 02/08/17 08:33; Admin Dose 400 MLS/HR; Start 02/05/17 at 21:00 Lorazepam (Ativan) 2 mg Q4 PRN IV SEIZURES Last administered on 02/06/17 16:58 ; Admin Dose 2 MG; Start 02/05/17 at 17:04 Citric Acid/ Sodium Citrate (Bicitra) 30 ml TID PO Last administered on 08:36; Admin Dose 30 ML; Start 02/05/17 at 21:33 Divalproex Sodium 500 mg 500 mg TID PO Last administered on 02/08/17 08:37; Admin Dose 500 MG; Start 02/06/17 at 09:00 Phenylephrine HCl/ Dextrose (Bert-Syneph/D5W) 500 ml @ 75 mls/hr TITRATE IV ; Start 02/06/17 at 15:30 KARIN MALIK February 08, 2017 09:03
[2017-02-08] MEDS ORDERED: NA POLYST SULFON 15 GM/60 ML BTL NGT ONE (09:30)
--- NOTE | 2017-02-08 09:48 | CONS ---
Date/Time of Note Date/Time of Note DATE: 02/08/17 TIME: 09:45 Assessment/Plan Assessment/Plan Additional Assessment/Plan Ventilator settings; AC of 20, tidal volume 500, PEEP of 5, 100% FiO2. Assessment recommendations; 1. Patient admitted for respiratory failure due to severe bilateral pneumonia leading to ARDS. 2. Patient failed high-dose corticosteroid dosing for 48 hours. 3. Severe anemia and thrombocytopenia. 4. Worsening renal function. 5. Myoclonic jerking, currently well controlled with Keppra and Depakote. Continue current supportive care. Transfuse 1 unit packed RBC. The patient's family is waiting for their son to arrive from [facility] and then they will likely opt for terminal extubation. Prognosis is dismal. Patient's family still desires a full code. 35 minutes of critical care time was spent evaluated patient. Consultation Date/Type/Reason Admit Date/Time Jan 30, 2017 at 11:41 Type of Consultation: Pulmonary/critical care Referring Provider: HANY LWASON 24 HR Interval Summary Free Text/Dictation Patient condition remains critical. Remains completely unresponsive. However no further myoclonic jerking or seizure activity noted. Patient not requiring any pressor support. General exam; elderly lady, orally intubated, unresponsive, currently in no distress. Exam/Review of Systems Vital Signs Vitals Vital Signs Date Time Temp Pulse Resp B/P Pulse Ox O2 Delivery O2 Flow Rate FiO2 02/08/17 08:00 97.7 96 23 97/56 96 Mechanical Ventilator 02/08/17 08:00 70 Intake and Output 02/07/17 02/07/17 02/08/17 15:00 23:00 07:00 Intake Total 1120 ml 810 ml 800 ml Output Total 245 ml 135 ml 75 ml Balance 875 ml 675 ml 725 ml Exam HEENT examined; supple neck, no JVD. No lymphadenopathy. Midline trachea. No thyromegaly. Orally intubated. Pupils are reactive to light bilaterally. Patient has fair dentition. Chest exam is; diffuse bilateral crackles. S1-S2 audible, no murmurs. Regular rhythm. Abdomen examination; soft, nondistended, bowel sounds are very sluggish. No organomegaly felt. Extremity exam is; no peripheral edema. LINE RIDER examination; patient remains unresponsive. Results Result Diagram: 5/5/17 0530 5/5/17 0530 Results 24 hrs Laboratory Tests Test 02/07/17 11:48 02/08/17 05:30 02/08/17 05:43 White Blood Count 18.6 H 19.8 H Red Blood Count 2.44 #L 2.01 L Hemoglobin 7.4 #L 6.0 *L Hematocrit 22.2 #L 18.0 L Mean Corpuscular Volume 91.0 89.6 Mean Corpuscular Hemoglobin 30.3 29.9 Mean Corpuscular Hemoglobin Concent 33.3 33.3 Red Cell Distribution Width 15.6 H 16.0 H Platelet Count 21 *L 22 *L Mean Platelet Volume Neutrophils % 87.0 H Band Neutrophils % 2.0 Lymphocytes % 9.0 L Monocytes % 2.0 Eosinophils % Neutrophils # 16.2 H Lymphocytes # 1.7 Monocytes # 0.4 Eosinophils # Platelet Estimate PLT APPEAR DECREASED Prothrombin Time 21.8 #H Prothrombin Time Ratio 1.7 INR International Normalized Ratio 1.88 Activated Partial Thromboplast Time 33.4 Sodium Level 142 Potassium Level 5.5 H Chloride Level 112 H Carbon Dioxide Level 19 L Anion Gap 17 H Blood Urea Nitrogen 93 H Creatinine 2.31 H Glucose Level 171 Calcium Level 7.2 L Lab Scanned Report BLOOD TRANSFUSION Medications Medications Current Medications Ondansetron HCl (Zofran Inj) 4 mg Q6H PRN IV NAUSEA AND/OR VOMITING; Start at 16:30 Morphine Sulfate (morphine) 2 mg Q4H PRN IV SEVERE PAIN LEVEL 7-10; Start 01/29 at 16:30 Pantoprazole (Protonix Iv) 40 mg DAILY@06 IV Last administered on 02/08/17 06: 19; Admin Dose 40 MG; Start 01/30/17 at 06:00 Eye Lubricant (Artificial Tears Oph) 2 drop Q6H PRN BOTH EYES DRY EYES Last administered on 01/30/17 04:29; Admin Dose 2 DROP; Start 01/29/17 at 18:30 Acetaminophen 650 mg 650 mg Q6H PRN [place] FEVER Last administered on 02/06/17 16: 58; Admin Dose 650 MG; Start 01/30/17 at 21:00 Midazolam HCl 50 ml @ 1 mls/hr TITRATE IV ; Start 01/30/17 at 23:55 Dextrose/Sodium Chloride (D5-1/2ns) 1,000 ml @ 70 mls/hr [id number] IV Last administered on 02/08/17 08:35; Admin Dose 70 MLS/HR; Start 01/31/17 at 17:00 Metoprolol Tartrate (Lopressor) 5 mg Q4H PRN IV HR>110 Hold SBP<100 Last administered on 02/07/17 13:00; Admin Dose 5 MG; Start 02/02/17 at 12:00 Metoprolol Tartrate (Lopressor) 25 mg BID PO Last administered on 02/06/17 20: 36; Admin Dose 25 MG; Start 02/02/17 at 12:00 Amiodarone HCl (Cordarone) 200 mg BID PO Last administered on 02/08/17 08:36; Admin Dose 200 MG; Start 02/03/17 at 11:30 Metoclopramide HCl 10 mg 10 mg Q8 IV Last administered on 02/08/17 06:19; Admin Dose 10 MG; Start 02/04/17 at 22:00 Ceftriaxone Sodium 50 ml @ 100 mls/hr Q24H IVPB Last administered on 02/07/17 11:40; Admin Dose 100 MLS/HR; Start 02/05/17 at 10:30 Levetiracetam (Keppra 1,500mg/ 100ml (Pmx)) 100 ml @ 400 mls/hr Q12 IVPB Last administered on 02/08/17 08:33; Admin Dose 400 MLS/HR; Start 02/05/17 at 21:00 Lorazepam (Ativan) 2 mg Q4 PRN IV SEIZURES Last administered on 02/06/17 16:58 ; Admin Dose 2 MG; Start 02/05/17 at 17:04 Citric Acid/ Sodium Citrate (Bicitra) 30 ml TID PO Last administered on 08:36; Admin Dose 30 ML; Start 02/05/17 at 21:33 Divalproex Sodium 500 mg 500 mg TID PO Last administered on 02/08/17 08:37; Admin Dose 500 MG; Start 02/06/17 at 09:00 Phenylephrine HCl/ Dextrose (Bert-Syneph/D5W) 500 ml @ 75 mls/hr TITRATE IV ; Start 02/06/17 at 15:30 TERESA FAITH February 08, 2017 09:48
[2017-02-08 10:12] LABS: LYMPHOCYTES # 3.4 10^3/ul (0.8-2.9); NEUTROPHIL # 15.4 10^3/ul (1.6-7.5); TOXIC GRANULATION 1+
--- NOTE | 2017-02-08 10:41 | PN ---
DATE: 02/04/2017 Reviewed all the current medical issues with family members. is very tearful at this time. Daughter is not in attendance. He has made it very clear he does not want her to suffer. He is no t interested in long-term PEG and trach and he has reiterated that to me again today. There are [facility] family members who are coming in town. My impressions are that family will decide upon a termina l extubation if she does not significantly improve, which seems to be unfortunately, the course. Th erefore, family support will continue with excellent nursing care. The patient's family have a very good understanding of her level of care at this time and her overall prognosis. Fears, concerns, st rength have been addressed with family culture preference communication is very acceptable to family members. Goals of care has been discussed once again. We will continue to support family members' decision on DO NOT RESUSCITATE will be addressed during the next conference. There are no pain man agement issues that need to be addressed at this time. Ethical, legal and surrogate issues have bee n addressed in prior notations. Dictated By: MICHAEL URENA MD, LP/ZANA Conf#: [id number] DID#: [id number]
--- NOTE | 2017-02-08 10:42 | PN ---
DATE: 02/08/2017 PALLIATIVE CARE INTERVENTION I had a brief conversation with the patient's family today. Excellent nursing staff with [facility], who explained the patient's current medical condition and she asked a very difficult question of the family, to change the code status. The family members have decided just to do DO NOT RESUSCITATE, b ut to continue with this level of care until family members arrive. Dictated By: MICHAEL URENA MD, LP/ZANA Conf#: [id number] DID#: [id number]
--- NOTE | 2017-02-08 10:57 | CONS ---
DATE OF ADMISSION: 01/30/2017 DATE OF CONSULTATION: 02/03/2017 TYPE OF CONSULTATION: Palliative care consultation. HISTORY OF PRESENT ILLNESS: The first time I consulted on this patient was 02/04/2017. The patient is a 66-year-old female who became unresponsive in the emergency room after brought to the ER with a bdominal discomfort. The patient has a history of multiple myeloma, decompensated in the emergency room, ACLS was done and patient was admitted to the intensive care unit in shock. She received aggr essive intervention, multiple different critical care consultants were called in to assist. She had multiple fluid and electrolyte abnormalities and essentially has not improved and the underlying re ason for consultation is the patient is unresponsive, presumed to be has had anoxic injury with ence phalopathy and has not improved throughout the intensive care unit course. The patient again was adm itted January 29 and my consultation was done February 03. MEDICATIONS: Please refer to reconciliation sheets. ALLERGIES: NO KNOWN DRUG ALLERGIES. MAJOR MEDICAL PROBLEMS IN THE PAST: From what I could ascertain from the patient's chart is a histo ry of multiple myeloma, otherwise, in reviewing the patient's medical records, there is an incomple te database. SOCIAL HISTORY: It is known the patient is a nonsmoker, nondrinker. FAMILY HISTORY: Could not be obtainable. REVIEW OF SYSTEMS: Unable to obtain a 12-point review of systems. PHYSICAL EXAMINATION: GENERAL: Upon my presentation shows a well-nourished, well-developed female. She is intubated at this time, nonresponsive to any verbal or tactile stimulation. CHEST: Shows bilateral clear breath sounds throughout both lung hurtado. COR: S1, S2, without S3, S4, murmur, gallop, rub. Normal rate, normal rhythm. ABDOMEN: Grossly benign. EXTREMITIES: Without clubbing, cyanosis, or edema. Family members were in the room at the time, nikki th the patient's daughter and . We reviewed Mrs.. Rogers's current medical condition and pres enting diagnosis. Essentially covered all of the major medical issues that have occurred out of the hospital as well as during her hospital stay. Family members were extremely supportive of each othe r. They asked appropriate questions. There was no conflict amongst family members. The participant s including once again patient's daughter and . There are other family members who are enrou te. The background has been reviewed in history of present illness. Family's understanding of Mrs. Allison will's clinical condition is very clear and my impression is that they are aware of what her prognos is is also, although that was not approached in detail at this time and I felt it was still early. Anna fernandez hopes of course, that she would rebound and do well acceptable quality of life would be her bas baltazar physical and cognitive ability prior to hospitalization, although if that does not occur they are not interested in PEG and trach and long-term chcf unit care and a moribund vegetativ e condition. Their fears are that she would suffer. They're strengths are that they have kaylin and a strong family support system. They have had past experience with critical medical illnesses in thei r family. They have seen other family members being maintained on artificial life support and they a re not interested in participating or allowing her to continue on in that condition, if there is no chance of significant neurological recovery. Goals of care have been discussed with them, and that i s to make sure that she remains comfortable and not suffering under all circumstances. Estimated pro gnosis has not been addressed. Palliative care performance has not been addressed at this time. Ther e are no obvious pain symptoms that need to be addressed at this time. Psychosocial and spiritual i ssues have been addressed as above. Ethical issues/surrogate issues: The is definitely the d ecision maker. He has made that very clear, although he shares that responsibility with other membe rs of the family. The plans are to await for other members to come in town and be supportive of each other and then make a decision amongst everybody as to what level of care they would like to contin ue with if she does not show any significant neurological improvement. Dictated By: MICHAEL URENA MD, LP/ZANA Conf#: [id number] DID#: [id number]
[2017-02-08] MEDS: CEFTRIAXONE 1 GM/50 ML (PMX) 50 ML IVPB SCH (11:15)
--- NOTE | 2017-02-08 12:58 | PN ---
DATE: 02/08/2017 SUBJECTIVE: No events overnight. No fevers. The patient is noncommunicative, lying comfortably in bed. VITAL SIGNS: Temperature 97.7, pulse 96, respirations 20, blood pressure 97/56, saturation 96% on 7 0 FIO2. LABORATORY DATA: WBC 19.8, H and H 6 and 18, platelets 22, neutrophils 78, BUN 93, creatinine 2.31. MICROBIOLOGY: Repeat blood cultures pending. ANTIMICROBIALS: The patient remains on Rocephin. INDWELLINGS: Endotracheal tube, NG tube, Miles catheter. PHYSICAL EXAMINATION: GENERAL: Well-developed, well-nourished, ill-appearing, elderly woman who is lying comfortably in b ed. HEENT: Head atraumatic, normocephalic. Sclerae anicteric. Buccal mucosa dry. NECK: Supple. CHEST: Rise symmetrical. Breath sounds diminished at the bases. HEART: S1, S2. ABDOMEN: Distended, soft. Bowel tones hypoactive. EXTREMITIES: Bilateral edema. SKIN: Positive for anasarca. ASSESSMENT: 1. Anoxic encephalopathy status post cardiopulmonary arrest. 2. Persistent leukocytosis with anemia and thrombocytopenia. 3. History of multiple myeloma. 4. Respiratory failure. 5. Pneumonia. 6. Status post strep pyogenous bacteremia with repeat blood cultures negative. 7. Acute renal failure. PLAN: The patient remains hemodynamically stable. She is DNR status. Completing antibiotics for b acteremia and pneumonia. Dictated By: SRINIVAS OSPINA [employer]/ZANA Conf#: [id number] DID#: [id number]
--- NOTE | 2017-02-08 12:58 | CONS ---
Date/Time of Note Date/Time of Note DATE: 02/08/17 TIME: 12:55 Assessment/Plan Assessment/Plan Chief Complaint/Hosp Course IMPRESSION: 1. Status post cardiac arrest, assess for acute coronary syndrome.-negative troponin x 3/NL EF by echo this admit 2. Positive troponin, assess significance in setting of cardiac arrest. 3. Abnormal electrocardiogram. 4. Hypotension, borderline.-Now off pressors 5. Respiratory failure, status post intubation. 6. Pancreatitis by laboratory findings. 7. Anemia. 8. Leukopenia. 9. Thrombocytopenia. 10.REnal failure-acute 11.Atrial fibrillation- new onset/not good anticoag candidate due to low plt- currently in SR Recc: -Tele -Serial ecg's -Continue abx's/f/u cx data -follow MS closely -Follow platelet count -Follow BP closely -Continue PO amiodarone in attempt to maintain SR -Continue BB as tolerated only -palliative care following -Ongoing family discussion pertaining to direction of care with overall poor prognosis for recovery Problems: Consultation Date/Type/Reason Admit Date/Time Jan 30, 2017 at 11:41 Initial Consult Date 01/31/17 Type of Consultation: Cardiology Reason for Consultation cardiac arrest Referring Provider: HANY LAWSON Exam/Review of Systems Vital Signs Vitals Vital Signs Date Time Temp Pulse Resp B/P Pulse Ox O2 Delivery O2 Flow Rate FiO2 02/08/17 08:00 97.7 96 23 97/56 96 Mechanical Ventilator 02/08/17 08:00 70 Intake and Output 02/07/17 02/07/17 02/08/17 15:00 23:00 07:00 Intake Total 1120 ml 810 ml 800 ml Output Total 245 ml 135 ml 75 ml Balance 875 ml 675 ml 725 ml Exam Review of Systems: CONSTITUTIONAL: No fevers, chills. PULMONARY: No sob CARDIOVASCULAR: No chest pain/palpitations GASTROINTESTINAL: No nausea/vomiting. GENITOURINARY: No hematuria/dysuria. MUSCULOSKELETAL: No myagias/arthalgias. PSYCHIATRIC: The patient denies depression. NEUROLOGIC: No weakness Constitutional: alert, oriented Psych: no complaints Head: normocephalic ENMT: mucosa pink and moist Neck: jvd (9 cm water), supple Respiratory: diminished breath sounds (at bases/B) Cardiovascular: regular rate and rhythm Gastrointestinal: non-tender, soft Musculoskeletal: muscle tone (normal) Extremities: edema (none) Neurological: other (No focal deficits) Results Result Diagram: 02/08/17 0530 02/08/17 0530 Results 24 hrs Laboratory Tests Test 02/08/17 05:30 02/08/17 05:43 White Blood Count 19.8 H Red Blood Count 2.01 L Hemoglobin 6.0 *L Hematocrit 18.0 L Mean Corpuscular Volume 89.6 Mean Corpuscular Hemoglobin 29.9 Mean Corpuscular Hemoglobin Concent 33.3 Red Cell Distribution Width 16.0 H Platelet Count 22 *L Mean Platelet Volume Neutrophils % 78.0 H Lymphocytes % 17.0 Monocytes % 5.0 Eosinophils % Neutrophils # 15.4 H Lymphocytes # 3.4 H Monocytes # 1.0 H Eosinophils # Toxic Granulation 1+ Prothrombin Time 21.8 #H Prothrombin Time Ratio 1.7 INR International Normalized Ratio 1.88 Activated Partial Thromboplast Time 33.4 Sodium Level 142 Potassium Level 5.5 H Chloride Level 112 H Carbon Dioxide Level 19 L Anion Gap 17 H Blood Urea Nitrogen 93 H Creatinine 2.31 H Glucose Level 171 Calcium Level 7.2 L Lab Scanned Report BLOOD TRANSFUSION Medications Medications Current Medications Ondansetron HCl (Zofran Inj) 4 mg Q6H PRN IV NAUSEA AND/OR VOMITING; Start at 16:30 Morphine Sulfate (morphine) 2 mg Q4H PRN IV SEVERE PAIN LEVEL 7-10; Start 01/29 at 16:30 Pantoprazole (Protonix Iv) 40 mg DAILY@06 IV Last administered on 02/08/17 06: 19; Admin Dose 40 MG; Start 01/30/17 at 06:00 Eye Lubricant (Artificial Tears Oph) 2 drop Q6H PRN BOTH EYES DRY EYES Last administered on 01/30/17 04:29; Admin Dose 2 DROP; Start 01/29/17 at 18:30 Acetaminophen 650 mg 650 mg Q6H PRN [place] FEVER Last administered on 02/06/17 16: 58; Admin Dose 650 MG; Start 01/30/17 at 21:00 Midazolam HCl 50 ml @ 1 mls/hr TITRATE IV ; Start 01/30/17 at 23:55 Dextrose/Sodium Chloride (D5-1/2ns) 1,000 ml @ 70 mls/hr [id number] IV Last administered on 02/08/17 08:35; Admin Dose 70 MLS/HR; Start 01/31/17 at 17:00 Metoprolol Tartrate (Lopressor) 5 mg Q4H PRN IV HR>110 Hold SBP<100 Last administered on 02/07/17 13:00; Admin Dose 5 MG; Start 02/02/17 at 12:00 Metoprolol Tartrate (Lopressor) 25 mg BID PO Last administered on 02/06/17 20: 36; Admin Dose 25 MG; Start 02/02/17 at 12:00 Amiodarone HCl (Cordarone) 200 mg BID PO Last administered on 02/08/17 08:36; Admin Dose 200 MG; Start 02/03/17 at 11:30 Metoclopramide HCl 10 mg 10 mg Q8 IV Last administered on 02/08/17 06:19; Admin Dose 10 MG; Start 02/04/17 at 22:00 Ceftriaxone Sodium 50 ml @ 100 mls/hr Q24H IVPB Last administered on 02/08/17 11:15; Admin Dose 100 MLS/HR; Start 02/05/17 at 10:30 Levetiracetam (Keppra 1,500mg/ 100ml (Pmx)) 100 ml @ 400 mls/hr Q12 IVPB Last administered on 02/08/17 08:33; Admin Dose 400 MLS/HR; Start 02/05/17 at 21:00 Lorazepam (Ativan) 2 mg Q4 PRN IV SEIZURES Last administered on 02/06/17 16:58 ; Admin Dose 2 MG; Start 02/05/17 at 17:04 Citric Acid/ Sodium Citrate (Bicitra) 30 ml TID PO Last administered on 08:36; Admin Dose 30 ML; Start 02/05/17 at 21:33 Divalproex Sodium 500 mg 500 mg TID PO Last administered on 02/08/17 08:37; Admin Dose 500 MG; Start 02/06/17 at 09:00 Phenylephrine HCl/ Dextrose (Bert-Syneph/D5W) 500 ml @ 75 mls/hr TITRATE IV ; Start 02/06/17 at 15:30 ORI ROMERO February 08, 2017 12:58
--- NOTE | 2017-02-08 16:05 | PN ---
Date/Time of Note Date/Time of Note DATE: 02/08/17 TIME: 16:03 Assessment/Plan VTE Prophylaxis VTE Prophylaxis Intervention: SCD's Lines/Catheters IV Catheter Type (from Nrs): Central Line Central line still needed: Yes (Iv access for fro Abx, pressors for shock ) Urinary Cath still in place: Yes (Strict I/o acute renal failrue from shock ) Reason Cath still needed: urinary retention, other (indicate) Assessment/Plan Assessment/Plan 1. S/p Cardiac arrest likely 2/2 severe sepsis from PNA -s/p hypothermia protocol - not waling up , Neurology and Cardiology has been following -Pulm consult appreciated for Vent management 2. Severe shock with lactic acidosis secondary to cardiogenic/sepsis source 3. Acute kidney injury, likely secondary to underlying septic shock as well as cardiac arrest- urine output dropping , BUN/Cr rising from nephrology has been following 4. Hypokalemia-repleted 5. Multifocal pneumonia -cont IV antibiotics, Pulmonology and ID following 6. Anoxic Encephalopathy -EEG shows encephalopathy with seizure activity, -MRI shows findings suggestive of hypoxic ischemic injury -Neuro consult appreciated - Palliative care team has been consulted on the case , famiily wants to wait two more days to decide about it- Letter has been given to family as requested by them. 7. Pancreatitis-Improved -US Abd shows nl CBD Prophylaxis: Sequential compression devices. no heparin/Lovenox due to thrombocytopenia Plan for PRBC transfusion, Family to decide about final plan for comfort care, currenlty pt is DNR Subjective 24 Hr Interval Summary Free Text/Dictation Hb dropped to 6.0, pt is unresponsive, not making urine, BUN/Cr rising , plan for PRBC Exam/Review of Systems Vital Signs Vitals Vital Signs Date Time Temp Pulse Resp B/P Pulse Ox O2 Delivery O2 Flow Rate FiO2 02/08/17 12:00 97 02/08/17 08:00 97.7 23 97/56 96 Mechanical Ventilator 02/08/17 08:00 70 Intake and Output 02/07/17 02/07/17 02/08/17 15:00 23:00 07:00 Intake Total 1120 ml 810 ml 800 ml Output Total 245 ml 135 ml 75 ml Balance 875 ml 675 ml 725 ml Exam Constitutional: non-verbal, unresponsive ENMT: intubated Respiratory: clear to auscultation Cardiovascular: regular rate and rhythm Gastrointestinal: soft, No distended Musculoskeletal: nl extremities to inspection Results Result Diagram: 02/08/17 0530 02/08/17 0530 Results 24 hrs Laboratory Tests Test 02/08/17 05:30 02/08/17 05:43 White Blood Count 19.8 H Red Blood Count 2.01 L Hemoglobin 6.0 *L Hematocrit 18.0 L Mean Corpuscular Volume 89.6 Mean Corpuscular Hemoglobin 29.9 Mean Corpuscular Hemoglobin Concent 33.3 Red Cell Distribution Width 16.0 H Platelet Count 22 *L Mean Platelet Volume Neutrophils % 78.0 H Lymphocytes % 17.0 Monocytes % 5.0 Eosinophils % Neutrophils # 15.4 H Lymphocytes # 3.4 H Monocytes # 1.0 H Eosinophils # Toxic Granulation 1+ Prothrombin Time 21.8 #H Prothrombin Time Ratio 1.7 INR International Normalized Ratio 1.88 Activated Partial Thromboplast Time 33.4 Sodium Level 142 Potassium Level 5.5 H Chloride Level 112 H Carbon Dioxide Level 19 L Anion Gap 17 H Blood Urea Nitrogen 93 H Creatinine 2.31 H Glucose Level 171 Calcium Level 7.2 L Lab Scanned Report BLOOD TRANSFUSION Medications Medications Current Medications Ondansetron HCl (Zofran Inj) 4 mg Q6H PRN IV NAUSEA AND/OR VOMITING; Start at 16:30 Morphine Sulfate (morphine) 2 mg Q4H PRN IV SEVERE PAIN LEVEL 7-10; Start 01/29 at 16:30 Pantoprazole (Protonix Iv) 40 mg DAILY@06 IV Last administered on 02/08/17 06: 19; Admin Dose 40 MG; Start 01/30/17 at 06:00 Eye Lubricant (Artificial Tears Oph) 2 drop Q6H PRN BOTH EYES DRY EYES Last administered on 01/30/17 04:29; Admin Dose 2 DROP; Start 01/29/17 at 18:30 Acetaminophen 650 mg 650 mg Q6H PRN [place] FEVER Last administered on 02/06/17 16: 58; Admin Dose 650 MG; Start 01/30/17 at 21:00 Midazolam HCl 50 ml @ 1 mls/hr TITRATE IV ; Start 01/30/17 at 23:55 Dextrose/Sodium Chloride (D5-1/2ns) 1,000 ml @ 70 mls/hr [id number] IV Last administered on 02/08/17 08:35; Admin Dose 70 MLS/HR; Start 01/31/17 at 17:00 Metoprolol Tartrate (Lopressor) 5 mg Q4H PRN IV HR>110 Hold SBP<100 Last administered on 02/07/17 13:00; Admin Dose 5 MG; Start 02/02/17 at 12:00 Metoprolol Tartrate (Lopressor) 25 mg BID PO Last administered on 02/06/17 20: 36; Admin Dose 25 MG; Start 02/02/17 at 12:00 Amiodarone HCl (Cordarone) 200 mg BID PO Last administered on 02/08/17 08:36; Admin Dose 200 MG; Start 02/03/17 at 11:30 Metoclopramide HCl 10 mg 10 mg Q8 IV Last administered on 02/08/17 14:15; Admin Dose 10 MG; Start 02/04/17 at 22:00 Ceftriaxone Sodium 50 ml @ 100 mls/hr Q24H IVPB Last administered on 02/08/17 11:15; Admin Dose 100 MLS/HR; Start 02/05/17 at 10:30 Levetiracetam (Keppra 1,500mg/ 100ml (Pmx)) 100 ml @ 400 mls/hr Q12 IVPB Last administered on 02/08/17 08:33; Admin Dose 400 MLS/HR; Start 02/05/17 at 21:00 Lorazepam (Ativan) 2 mg Q4 PRN IV SEIZURES Last administered on 02/06/17 16:58 ; Admin Dose 2 MG; Start 02/05/17 at 17:04 Citric Acid/ Sodium Citrate (Bicitra) 30 ml TID PO Last administered on 13:00; Admin Dose 30 ML; Start 02/05/17 at 21:33 Divalproex Sodium 500 mg 500 mg TID PO Last administered on 02/08/17 14:15; Admin Dose 500 MG; Start 02/06/17 at 09:00 Phenylephrine HCl/ Dextrose (Bert-Syneph/D5W) 500 ml @ 75 mls/hr TITRATE IV ; Start 02/06/17 at 15:30 BAILEY GRAVES MD February 08, 2017 16:05
[2017-02-09] VITALS (38 sets, daily range): BP systolic 67–117; BP diastolic 20–84; PULSE 81–98; RESP 19–28
[2017-02-09] MEDS: ALBUTEROL 18 GM INHALER INH SCH ×3 (01:32→14:00)
[2017-02-09] MEDS: ACETYLCYSTEINE 20% 4 ML VIAL NEB SCH ×3 (01:32→14:00)
[2017-02-09 05:05] LABS: ADD SCAN DIFF NO
[2017-02-09 05:09] LABS: ABNORMAL IP MESSAGE 1; BASOPHILS % 0.1 % (0.0-2.0); EOSINOPHILS % 0.1 % (0.0-7.0); HEMATOCRIT 22.5 % (37.0-47.0); HEMOGLOBIN 7.6 g/dl (12.0-16.0); LYMPHOCYTES % 4.6 % (15.0-51.0); MEAN CORPUSCULAR HGB CONC 33.8 g/dl (32.0-37.0); MEAN CORPUSCULAR VOLUME 91.8 fl (82.0-101.0); MONOCYTE # 0.7 10^3/ul (0.3-0.9); MONOCYTES % 3.4 % (0.0-11.0); NEUTROPHIL # 18.6 10^3/ul (1.6-7.5); NEUTROPHILS % 89.3 % (39.0-77.0); NUCLEATED RED BLOOD CELLS% 4.7 /100WBC (0.0-0.0); RED BLOOD COUNT 2.45 10^6/ul (4.20-5.40); RED CELL DISTRIBUTION WIDTH 16.3 % (11.5-14.5); WHITE BLOOD COUNT 20.8 10^3/ul (4.8-10.8)
[2017-02-09] MEDS: PANTOPRAZOLE 40 MG INJ IV SCH (05:17)
[2017-02-09 05:22] LABS: PLATELET COUNT 15 10^3/UL (140-415)
[2017-02-09] MEDS: DEXTROSE 5%-0.45% NACL 1,000 ML IV SCH (05:23)
[2017-02-09 05:38] LABS: CALCIUM 7.2 mg/dl (8.4-10.2)
[2017-02-09 05:49] LABS: CREATININE 2.5 mg/dl (0.44-1.00)
[2017-02-09 05:52] LABS: POTASSIUM 6.2 mmol/L (3.5-5.1)
[2017-02-09] MEDS: METOCLOPRAMIDE 10 MG INJ IV SCH ×2 (06:32→14:00)
[2017-02-09] MEDS: AMIODARONE 200 MG TAB PO SCH (09:00)
[2017-02-09] MEDS ORDERED: INSULIN REGULAR 10 ML INJ IV ONE (09:00)
[2017-02-09] MEDS: LEVETIRACETAM 1500 MG (PMX) 100 ML IVPB SCH (09:00)
[2017-02-09] MEDS ORDERED: DEXTROSE 50% 50 ML SYRINGE IV ONE (09:00)
[2017-02-09] MEDS ORDERED: NA POLYST SULFON 15 GM/60 ML BTL NGT ONE (09:00)
[2017-02-09] MEDS: METOPROLOL 25 MG TAB PO SCH (09:00)
[2017-02-09] MEDS ORDERED: NORepinephrine 8MG/250 ML (PMX 250 ML IV SCH (09:30)
--- NOTE | 2017-02-09 09:39 | CONS ---
Date/Time of Note Date/Time of Note DATE: 02/09/17 TIME: 09:37 Consult Date/Type/Reason Admit Date/Time Jan 30, 2017 at 11:41 Type of Consultation: Pulmonary ICU Ordering Provider: HANY LAWSON Subjective Patient is unresponsive on mechanical ventilation Blood pressure trending low Objective Vital Signs Date Time Temp Pulse Resp B/P Pulse Ox O2 Delivery O2 Flow Rate FiO2 02/09/17 09:00 88 20 80/52 100 Mechanical Ventilator 02/09/17 08:00 97.9 02/09/17 05:16 100 Intake and Output 02/08/17 02/08/17 02/09/17 15:00 23:00 07:00 Intake Total 1030 ml 810 ml 490 ml Output Total 140 ml 195 ml Balance 890 ml 615 ml 490 ml Exam PHYSICAL EXAMINATION GENERAL: Elderly lady on mechanical ventilation unresponsive VITAL SIGNS: see below. HEENT: Pupils equal, round, and reactive to light. CARDIAC: S1, S2, tachycardia. CHEST: Diminished air entry bilaterally. ABDOMEN: Mildly distended. Diminished bowel sounds EXTREMITIES: No cyanosis, edema +2 NEUROLOGIC: Unable to assess Results/Medications Result Diagram: 02/09/17 0455 02/09/17 0455 Results 24 hrs Laboratory Tests Test 02/09/17 04:55 02/09/17 05:18 White Blood Count 20.8 H Red Blood Count 2.45 #L Hemoglobin 7.6 #L Hematocrit 22.5 #L Mean Corpuscular Volume 91.8 Mean Corpuscular Hemoglobin 31.0 Mean Corpuscular Hemoglobin Concent 33.8 Red Cell Distribution Width 16.3 H Platelet Count 15 #*L Mean Platelet Volume Neutrophils % 89.3 H Lymphocytes % 4.6 L Monocytes % 3.4 Eosinophils % 0.1 Basophils % 0.1 Nucleated Red Blood Cells % 4.7 H Neutrophils # 18.6 H Lymphocytes # 1.0 Monocytes # 0.7 Eosinophils # 0.0 Basophils # 0.0 Nucleated Red Blood Cells # 1.0 H Sodium Level 141 Potassium Level 6.2 *H Chloride Level 110 Carbon Dioxide Level 20 L Anion Gap 17 H Blood Urea Nitrogen 107 H Creatinine 2.50 H Glucose Level 135 Calcium Level 7.2 L Lab Scanned Report BLOOD TRANSFUSION Medications Current Medications Ondansetron HCl (Zofran Inj) 4 mg Q6H PRN IV NAUSEA AND/OR VOMITING; Start at 16:30 Morphine Sulfate (morphine) 2 mg Q4H PRN IV SEVERE PAIN LEVEL 7-10; Start 01/29 at 16:30 Pantoprazole (Protonix Iv) 40 mg DAILY@06 IV Last administered on 02/09/17 05: 17; Admin Dose 40 MG; Start 01/30/17 at 06:00 Eye Lubricant (Artificial Tears Oph) 2 drop Q6H PRN BOTH EYES DRY EYES Last administered on 01/30/17 04:29; Admin Dose 2 DROP; Start 01/29/17 at 18:30 Acetaminophen 650 mg 650 mg Q6H PRN [place] FEVER Last administered on 02/06/17 16: 58; Admin Dose 650 MG; Start 01/30/17 at 21:00 Midazolam HCl 50 ml @ 1 mls/hr TITRATE IV ; Start 01/30/17 at 23:55 Dextrose/Sodium Chloride (D5-1/2ns) 1,000 ml @ 70 mls/hr [id number] IV Last administered on 02/08/17 23:11; Admin Dose 70 MLS/HR; Start 01/31/17 at 17:00 Metoprolol Tartrate (Lopressor) 5 mg Q4H PRN IV HR>110 Hold SBP<100 Last administered on 02/07/17 13:00; Admin Dose 5 MG; Start 02/02/17 at 12:00 Metoprolol Tartrate (Lopressor) 25 mg BID PO Last administered on 02/06/17 20: 36; Admin Dose 25 MG; Start 02/02/17 at 12:00 Amiodarone HCl (Cordarone) 200 mg BID PO Last administered on 02/08/17 21:03; Admin Dose 200 MG; Start 02/03/17 at 11:30 Metoclopramide HCl 10 mg 10 mg Q8 IV Last administered on 02/09/17 06:32; Admin Dose 10 MG; Start 02/04/17 at 22:00 Ceftriaxone Sodium 50 ml @ 100 mls/hr Q24H IVPB Last administered on 02/08/17 11:15; Admin Dose 100 MLS/HR; Start 02/05/17 at 10:30 Levetiracetam (Keppra 1,500mg/ 100ml (Pmx)) 100 ml @ 400 mls/hr Q12 IVPB Last administered on 02/08/17 21:54; Admin Dose 400 MLS/HR; Start 02/05/17 at 21:00 Lorazepam (Ativan) 2 mg Q4 PRN IV SEIZURES Last administered on 02/06/17 16:58 ; Admin Dose 2 MG; Start 02/05/17 at 17:04 Citric Acid/ Sodium Citrate 30 ml 30 ml TID PO Last administered on 02/08/17 21 :55; Admin Dose 30 ML; Start 02/05/17 at 21:33 Phenylephrine HCl/ Dextrose (Bert-Syneph/D5W) 500 ml @ 75 mls/hr TITRATE IV ; Start 02/06/17 at 15:30 Divalproex Sodium 500 mg 500 mg TID GTB ; Start 02/09/17 at 09:00 Calcium Gluconate 2 gm/Sodium Chloride 120 ml @ 60 mls/hr ONCE ONCE IVPB ; Start 02/09/17 at 10:00; Stop 02/09/17 at 11:59 Norepinephrine 250 ml @ 1.875 mls/ hr TITRATE IV ; Start 02/09/17 at 09:30 Norepinephrine/ Dextrose (Levophed/D5W) 500 ml @ 1.875 mls/ hr TITRATE IV ; Start 02/09/17 at 10:30 Assessment/Plan Chief Complaint/Hosp Course Assessment 1. Cardiopulmonary arrest 2. Significant anoxic brain injury 3. History of multiple myeloma 4. Acute Hypoxemic hypercapnic respiratory failure secondary to above. Possible pneumonia with pulmonary edema 5. Thrombocytopenia Plan 1. Continue mechanical ventilation 2. Continue broad-spectrum antibiotics 3. Diuresis if tolerated 4. Continue to feeding as tolerated 5. DVT GI prophylaxis Disposition Continue current supportive measures, family [place]. Anticipate terminal extubation once family all present. Problems: MOHSEN CARDENAS MD, [facility] February 09, 2017 09:39
[2017-02-09] MEDS ORDERED: CALCIUM GLUCONATE 10% 2 GM in SOD CHLORIDE 0.9% 100 ML IVPB ONE (10:00)
[2017-02-09] MEDS: DIVALPROEX SPRINKLE 125 MG CAP GTB SCH ×3 (10:33→21:28)
[2017-02-09] MEDS: CITRIC ACID/SODIUM CITRATE 15 ML CUP PO SCH ×2 (10:34→13:00)
--- NOTE | 2017-02-09 10:52 | CONS ---
Date/Time of Note Date/Time of Note DATE: 02/09/17 TIME: 10:46 Assessment/Plan Assessment/Plan Additional Assessment/Plan 1. Status post cardiac arrest, assess for acute coronary syndrome.-negative troponin x 3/NL EF by echo this admit - stable, family considering comfort care 2. Positive troponin, assess significance in setting of cardiac arrest- no intervention planned now 3. Abnormal electrocardiogram. 4. Hypotension, borderline - stable, con't to follow. 5. Respiratory failure, status post intubation - con't resp rx , not weaning 6. Pancreatitis by laboratory findings. 7. Anemia. 8. Leukopenia. 9. Thrombocytopenia. 10.REnal failure-acute - poor urine output now 11.Atrial fibrillation- new onset/not good anticoag candidate due to low plt- currently in SR Consultation Date/Type/Reason Admit Date/Time Jan 30, 2017 at 11:41 Initial Consult Date 02/01/17 Type of Consultation: Pulmonary ICU Referring Provider: HANY LAWSON 24 HR Interval Summary Free Text/Dictation NO acute change - critically ill - no arrhythmia on tele. ROS: No fever, no chills, no nausea, no vomiting, no diarrhea/constipation No recent weight changes No chest pain, no PND, no orthopnea No dizziness, blurred vision No thirst, no heat or cold intolerance (per nurse) Exam/Review of Systems Vital Signs Vitals Vital Signs Date Time Temp Pulse Resp B/P Pulse Ox O2 Delivery O2 Flow Rate FiO2 02/09/17 09:00 88 20 80/52 100 Mechanical Ventilator 02/09/17 08:00 97.9 02/09/17 05:16 100 Intake and Output 02/08/17 02/08/17 02/09/17 15:00 23:00 07:00 Intake Total 1030 ml 810 ml 490 ml Output Total 140 ml 195 ml Balance 890 ml 615 ml 490 ml Exam General: WN/WD/NAD, AOx lethargic HEENT: Unicetric/atraumatic/EOMI (follow commands) NECK: JVD elevated, no thyromegaly, itubated Lymph: no lymphadenopathy HEART: regular with no S3, II/ systolic murmur at apex LUNGS: Coarse sounds ABD: soft, NT, ND, +BS : Intact Neuro: non focal SKIN: chronic changes EXT: edema + Results Result Diagram: 02/09/17 0455 02/09/17 0455 Results 24 hrs Laboratory Tests Test 02/09/17 04:55 02/09/17 05:18 White Blood Count 20.8 H Red Blood Count 2.45 #L Hemoglobin 7.6 #L Hematocrit 22.5 #L Mean Corpuscular Volume 91.8 Mean Corpuscular Hemoglobin 31.0 Mean Corpuscular Hemoglobin Concent 33.8 Red Cell Distribution Width 16.3 H Platelet Count 15 #*L Mean Platelet Volume Neutrophils % 89.3 H Lymphocytes % 4.6 L Monocytes % 3.4 Eosinophils % 0.1 Basophils % 0.1 Nucleated Red Blood Cells % 4.7 H Neutrophils # 18.6 H Lymphocytes # 1.0 Monocytes # 0.7 Eosinophils # 0.0 Basophils # 0.0 Nucleated Red Blood Cells # 1.0 H Sodium Level 141 Potassium Level 6.2 *H Chloride Level 110 Carbon Dioxide Level 20 L Anion Gap 17 H Blood Urea Nitrogen 107 H Creatinine 2.50 H Glucose Level 135 Calcium Level 7.2 L Lab Scanned Report BLOOD TRANSFUSION Medications Medications Current Medications Ondansetron HCl (Zofran Inj) 4 mg Q6H PRN IV NAUSEA AND/OR VOMITING; Start at 16:30 Morphine Sulfate (morphine) 2 mg Q4H PRN IV SEVERE PAIN LEVEL 7-10; Start 01/29 at 16:30 Pantoprazole (Protonix Iv) 40 mg DAILY@06 IV Last administered on 02/09/17 05: 17; Admin Dose 40 MG; Start 01/30/17 at 06:00 Eye Lubricant (Artificial Tears Oph) 2 drop Q6H PRN BOTH EYES DRY EYES Last administered on 01/30/17 04:29; Admin Dose 2 DROP; Start 01/29/17 at 18:30 Acetaminophen 650 mg 650 mg Q6H PRN RI FEVER Last administered on 02/06/17 16: 58; Admin Dose 650 MG; Start 01/30/17 at 21:00 Midazolam HCl 50 ml @ 1 mls/hr TITRATE IV ; Start 01/30/17 at 23:55 Dextrose/Sodium Chloride (D5-1/2ns) 1,000 ml @ 70 mls/hr [id number] IV Last administered on 02/08/17 23:11; Admin Dose 70 MLS/HR; Start 01/31/17 at 17:00 Metoprolol Tartrate (Lopressor) 5 mg Q4H PRN IV HR>110 Hold SBP<100 Last administered on 02/07/17 13:00; Admin Dose 5 MG; Start 02/02/17 at 12:00 Metoprolol Tartrate (Lopressor) 25 mg BID PO Last administered on 02/06/17 20: 36; Admin Dose 25 MG; Start 02/02/17 at 12:00 Amiodarone HCl (Cordarone) 200 mg BID PO Last administered on 02/08/17 21:03; Admin Dose 200 MG; Start 02/03/17 at 11:30 Metoclopramide HCl 10 mg 10 mg Q8 IV Last administered on 02/09/17 06:32; Admin Dose 10 MG; Start 02/04/17 at 22:00 Ceftriaxone Sodium 50 ml @ 100 mls/hr Q24H IVPB Last administered on 02/08/17 11:15; Admin Dose 100 MLS/HR; Start 02/05/17 at 10:30 Levetiracetam (Keppra 1,500mg/ 100ml (Pmx)) 100 ml @ 400 mls/hr Q12 IVPB Last administered on 02/08/17 21:54; Admin Dose 400 MLS/HR; Start 02/05/17 at 21:00 Lorazepam (Ativan) 2 mg Q4 PRN IV SEIZURES Last administered on 02/06/17 16:58 ; Admin Dose 2 MG; Start 02/05/17 at 17:04 Citric Acid/ Sodium Citrate 30 ml 30 ml TID PO Last administered on 02/08/17 21 :55; Admin Dose 30 ML; Start 02/05/17 at 21:33 Phenylephrine HCl/ Dextrose (Bert-Syneph/D5W) 500 ml @ 75 mls/hr TITRATE IV ; Start 02/06/17 at 15:30 Divalproex Sodium 500 mg 500 mg TID GTB ; Start 02/09/17 at 09:00 Calcium Gluconate 2 gm/Sodium Chloride 120 ml @ 60 mls/hr ONCE ONCE IVPB ; Start 02/09/17 at 10:00; Stop 02/09/17 at 11:59 Norepinephrine 250 ml @ 1.875 mls/ hr TITRATE IV ; Start 02/09/17 at 09:30 Norepinephrine/ Dextrose (Levophed/D5W) 500 ml @ 1.875 mls/ hr TITRATE IV ; Start 02/09/17 at 10:30 CECY PEREZ MD February 09, 2017 10:52
[2017-02-09] MEDS: CEFTRIAXONE 1 GM/50 ML (PMX) 50 ML IVPB SCH (11:11)
--- NOTE | 2017-02-09 12:56 | CONS ---
Date/Time of Note Date/Time of Note DATE: 02/09/17 TIME: 12:52 Assessment/Plan Assessment/Plan Chief Complaint/Hosp Course SUBJECTIVE: No events overnight. No fevers. The patient is noncommunicative, lying comfortably in bed. + diarrhea, s/p Keyexalate MICROBIOLOGY: Repeat blood cultures pending. ANTIMICROBIALS: The patient remains on Rocephin. INDWELLINGS: Endotracheal tube, NG tube, Miles catheter. PHYSICAL EXAMINATION: GENERAL: Well-developed, well-nourished, ill-appearing, elderly woman who is lying comfortably in bed. HEENT: Head atraumatic, normocephalic. Sclerae anicteric. Buccal mucosa dry. NECK: Supple. CHEST: Rise symmetrical. Breath sounds diminished at the bases. HEART: S1, S2. ABDOMEN: Distended, soft. Bowel tones hypoactive. EXTREMITIES: Bilateral edema. SKIN: Positive for anasarca. ASSESSMENT: 1. Anoxic encephalopathy status post cardiopulmonary arrest. 2. Persistent leukocytosis with anemia and thrombocytopenia. 3. History of multiple myeloma. 4. Respiratory failure. 5. Pneumonia. 6. Status post strep pyogenous bacteremia with repeat blood cultures negative. 7. Acute renal failure. 5. UTI==> yeast PLAN: The patient remains hemodynamically stable. She is DNR status. Repeat bld cx negative, will add Vfend, complete antibiotics for bacteremia and pneumonia. Possible comfort measures DW RN Problems: Consultation Date/Type/Reason Admit Date/Time Jan 30, 2017 at 11:41 Initial Consult Date 02/01/17 Type of Consultation: ID Referring Provider: HANY LAWSON Exam/Review of Systems Vital Signs Vitals Vital Signs Date Time Temp Pulse Resp B/P Pulse Ox O2 Delivery O2 Flow Rate FiO2 02/09/17 12:00 98.3 88 20 88/48 98 Mechanical Ventilator 02/09/17 11:20 100 Intake and Output 02/08/17 02/08/17 02/09/17 15:00 23:00 07:00 Intake Total 1030 ml 810 ml 490 ml Output Total 140 ml 195 ml Balance 890 ml 615 ml 490 ml Results Result Diagram: 02/09/17 0455 02/09/17 0455 Results 24 hrs Laboratory Tests Test 02/09/17 04:55 02/09/17 05:18 White Blood Count 20.8 H Red Blood Count 2.45 #L Hemoglobin 7.6 #L Hematocrit 22.5 #L Mean Corpuscular Volume 91.8 Mean Corpuscular Hemoglobin 31.0 Mean Corpuscular Hemoglobin Concent 33.8 Red Cell Distribution Width 16.3 H Platelet Count 15 #*L Mean Platelet Volume Neutrophils % 89.3 H Lymphocytes % 4.6 L Monocytes % 3.4 Eosinophils % 0.1 Basophils % 0.1 Nucleated Red Blood Cells % 4.7 H Neutrophils # 18.6 H Lymphocytes # 1.0 Monocytes # 0.7 Eosinophils # 0.0 Basophils # 0.0 Nucleated Red Blood Cells # 1.0 H Sodium Level 141 Potassium Level 6.2 *H Chloride Level 110 Carbon Dioxide Level 20 L Anion Gap 17 H Blood Urea Nitrogen 107 H Creatinine 2.50 H Glucose Level 135 Calcium Level 7.2 L Lab Scanned Report BLOOD TRANSFUSION Medications Medications Current Medications Ondansetron HCl (Zofran Inj) 4 mg Q6H PRN IV NAUSEA AND/OR VOMITING; Start at 16:30 Morphine Sulfate (morphine) 2 mg Q4H PRN IV SEVERE PAIN LEVEL 7-10; Start 01/29 at 16:30 Pantoprazole (Protonix Iv) 40 mg DAILY@06 IV Last administered on 02/09/17 05: 17; Admin Dose 40 MG; Start 01/30/17 at 06:00 Eye Lubricant (Artificial Tears Oph) 2 drop Q6H PRN BOTH EYES DRY EYES Last administered on 01/30/17 04:29; Admin Dose 2 DROP; Start 01/29/17 at 18:30 Acetaminophen 650 mg [address] FEVER Last administered on 02/06/17 16: 58; Admin Dose 650 MG; Start 01/30/17 at 21:00 Midazolam HCl 50 ml @ 1 mls/hr TITRATE IV ; Start 01/30/17 at 23:55 Dextrose/Sodium Chloride (D5-1/2ns) 1,000 ml @ 70 mls/hr [id number] IV Last administered on 02/08/17 23:11; Admin Dose 70 MLS/HR; Start 01/31/17 at 17:00 Metoprolol Tartrate (Lopressor) 5 mg Q4H PRN IV HR>110 Hold SBP<100 Last administered on 02/07/17 13:00; Admin Dose 5 MG; Start 02/02/17 at 12:00 Metoprolol Tartrate (Lopressor) 25 mg BID PO Last administered on 02/06/17 20: 36; Admin Dose 25 MG; Start 02/02/17 at 12:00 Amiodarone HCl (Cordarone) 200 mg BID PO Last administered on 02/08/17 21:03; Admin Dose 200 MG; Start 02/03/17 at 11:30 Metoclopramide HCl 10 mg 10 mg Q8 IV Last administered on 02/09/17 06:32; Admin Dose 10 MG; Start 02/04/17 at 22:00 Ceftriaxone Sodium 50 ml @ 100 mls/hr Q24H IVPB Last administered on 02/09/17 11:11; Admin Dose 100 MLS/HR; Start 02/05/17 at 10:30 Levetiracetam (Keppra 1,500mg/ 100ml (Pmx)) 100 ml @ 400 mls/hr Q12 IVPB Last administered on 02/09/17 09:00; Admin Dose 400 MLS/HR; Start 02/05/17 at 21:00 Lorazepam (Ativan) 2 mg Q4 PRN IV SEIZURES Last administered on 02/06/17 16:58 ; Admin Dose 2 MG; Start 02/05/17 at 17:04 Citric Acid/ Sodium Citrate 30 ml 30 ml TID PO Last administered on 02/09/17 10 :34; Admin Dose 30 ML; Start 02/05/17 at 21:33 Phenylephrine HCl/ Dextrose (Bert-Syneph/D5W) 500 ml @ 75 mls/hr TITRATE IV ; Start 02/06/17 at 15:30 Divalproex Sodium 500 mg 500 mg TID GTB Last administered on 02/09/17 10:33; Admin Dose 500 MG; Start 02/09/17 at 09:00 Norepinephrine 250 ml @ 1.875 mls/ hr TITRATE IV ; Start 02/09/17 at 09:30 Norepinephrine/ Dextrose (Levophed/D5W) 500 ml @ 1.875 mls/ hr TITRATE IV ; Start 02/09/17 at 10:30 SRINIVAS OSPINA NP February 09, 2017 12:56
--- NOTE | 2017-02-09 13:49 | PN ---
Date/Time of Note Date/Time of Note DATE: 02/09/17 TIME: 13:47 Assessment/Plan VTE Prophylaxis VTE Prophylaxis Intervention: SCD's Lines/Catheters IV Catheter Type (from Nrsg): Central Line Central line still needed: Yes (IV abx, septic shock ) Urinary Cath still in place: Yes Reason Cath still needed: terminal illness/intractable pain Assessment/Plan Assessment/Plan 1. S/p Cardiac arrest likely 2/2 severe sepsis from PNA -s/p hypothermia protocol - not waling up , Neurology and Cardiology has been following -Pulm consult appreciated for Vent management 2. Severe shock with lactic acidosis secondary to cardiogenic/sepsis source 3. Acute kidney injury, likely secondary to underlying septic shock as well as cardiac arrest- urine output dropping , BUN/Cr rising from nephrology has been following 4. Hypokalemia-repleted 5. Multifocal pneumonia -cont IV antibiotics, Pulmonology and ID following 6. Anoxic Encephalopathy -EEG shows encephalopathy with seizure activity, -MRI shows findings suggestive of hypoxic ischemic injury -Neuro consult appreciated - Palliative care team has been consulted on the case , famiily wants to wait two more days to decide about it- Letter has been given to family as requested by them. 7. Pancreatitis-Improved -US Abd shows nl CBD Prophylaxis: Sequential compression devices. no heparin/Lovenox due to thrombocytopenia no Blood transfusion now since , Family wants to , tan pt is DNR Subjective 24 Hr Interval Summary Free Text/Dictation BP low, pt remains intubated, family decided for comfort care, awaiting for to talk to family Exam/Review of Systems Vital Signs Vitals Vital Signs Date Time Temp Pulse Resp B/P Pulse Ox O2 Delivery O2 Flow Rate FiO2 02/09/17 13:30 87 19 100 02/09/17 13:15 81/38 02/09/17 13:00 Mechanical Ventilator 02/09/17 12:00 98.3 02/09/17 12:00 70 Intake and Output 02/08/17 02/08/17 02/09/17 15:00 23:00 07:00 Intake Total 1030 ml 810 ml 560 ml Output Total 140 ml 195 ml Balance 890 ml 615 ml 560 ml Exam Constitutional: non-verbal, unresponsive, remains intubated ENMT: intubated Respiratory: clear to auscultation Cardiovascular: regular rate and rhythm Gastrointestinal: soft, No distended Musculoskeletal: nl extremities to inspection Results Result Diagram: 02/09/17 0455 02/09/17 0455 Results 24 hrs Laboratory Tests Test 02/09/17 04:55 02/09/17 05:18 White Blood Count 20.8 H Red Blood Count 2.45 #L Hemoglobin 7.6 #L Hematocrit 22.5 #L Mean Corpuscular Volume 91.8 Mean Corpuscular Hemoglobin 31.0 Mean Corpuscular Hemoglobin Concent 33.8 Red Cell Distribution Width 16.3 H Platelet Count 15 #*L Mean Platelet Volume Neutrophils % 89.3 H Lymphocytes % 4.6 L Monocytes % 3.4 Eosinophils % 0.1 Basophils % 0.1 Nucleated Red Blood Cells % 4.7 H Neutrophils # 18.6 H Lymphocytes # 1.0 Monocytes # 0.7 Eosinophils # 0.0 Basophils # 0.0 Nucleated Red Blood Cells # 1.0 H Sodium Level 141 Potassium Level 6.2 *H Chloride Level 110 Carbon Dioxide Level 20 L Anion Gap 17 H Blood Urea Nitrogen 107 H Creatinine 2.50 H Glucose Level 135 Calcium Level 7.2 L Lab Scanned Report BLOOD TRANSFUSION Medications Medications Current Medications Ondansetron HCl (Zofran Inj) 4 mg Q6H PRN IV NAUSEA AND/OR VOMITING; Start at 16:30 Morphine Sulfate (morphine) 2 mg Q4H PRN IV SEVERE PAIN LEVEL 7-10; Start 01/29 at 16:30 Pantoprazole (Protonix Iv) 40 mg DAILY@06 IV Last administered on 02/09/17 05: 17; Admin Dose 40 MG; Start 01/30/17 at 06:00 Eye Lubricant (Artificial Tears Oph) 2 drop Q6H PRN BOTH EYES DRY EYES Last administered on 01/30/17 04:29; Admin Dose 2 DROP; Start 01/29/17 at 18:30 Acetaminophen 650 mg 650 mg Q6H PRN [place] FEVER Last administered on 02/06/17 16: 58; Admin Dose 650 MG; Start 01/30/17 at 21:00 Midazolam HCl 50 ml @ 1 mls/hr TITRATE IV ; Start 01/30/17 at 23:55 Dextrose/Sodium Chloride (D5-1/2ns) 1,000 ml @ 70 mls/hr [id number] IV Last administered on 02/08/17 23:11; Admin Dose 70 MLS/HR; Start 01/31/17 at 17:00 Metoprolol Tartrate (Lopressor) 5 mg Q4H PRN IV HR>110 Hold SBP<100 Last administered on 02/07/17 13:00; Admin Dose 5 MG; Start 02/02/17 at 12:00 Metoprolol Tartrate (Lopressor) 25 mg BID PO Last administered on 02/06/17 20: 36; Admin Dose 25 MG; Start 02/02/17 at 12:00 Amiodarone HCl (Cordarone) 200 mg BID PO Last administered on 02/08/17 21:03; Admin Dose 200 MG; Start 02/03/17 at 11:30 Metoclopramide HCl 10 mg 10 mg Q8 IV Last administered on 02/09/17 06:32; Admin Dose 10 MG; Start 02/04/17 at 22:00 Ceftriaxone Sodium 50 ml @ 100 mls/hr Q24H IVPB Last administered on 02/09/17 11:11; Admin Dose 100 MLS/HR; Start 02/05/17 at 10:30 Levetiracetam (Keppra 1,500mg/ 100ml (Pmx)) 100 ml @ 400 mls/hr Q12 IVPB Last administered on 02/09/17 09:00; Admin Dose 400 MLS/HR; Start 02/05/17 at 21:00 Lorazepam (Ativan) 2 mg Q4 PRN IV SEIZURES Last administered on 02/06/17 16:58 ; Admin Dose 2 MG; Start 02/05/17 at 17:04 Citric Acid/ Sodium Citrate 30 ml 30 ml TID PO Last administered on 02/09/17 10 :34; Admin Dose 30 ML; Start 02/05/17 at 21:33 Phenylephrine HCl/ Dextrose (Bert-Syneph/D5W) 500 ml @ 75 mls/hr TITRATE IV ; Start 02/06/17 at 15:30 Divalproex Sodium 500 mg 500 mg TID GTB Last administered on 02/09/17 10:33; Admin Dose 500 MG; Start 02/09/17 at 09:00 Norepinephrine 250 ml @ 1.875 mls/ hr TITRATE IV ; Start 02/09/17 at 09:30 Norepinephrine/ Dextrose (Levophed/D5W) 500 ml @ 1.875 mls/ hr TITRATE IV ; Start 02/09/17 at 10:30 Voriconazole (Vfend) 200 mg BID PO ; Start 02/09/17 at 21:00 BAILEY GRAVES MD February 09, 2017 13:49
--- NOTE | 2017-02-09 15:18 | CONS ---
Date/Time of Note Date/Time of Note DATE: 02/09/17 TIME: 15:17 Assessment/Plan Assessment/Plan Chief Complaint/Hosp Course 1. s/p cardiorespiratory arrest. 2. The patient has acute kidney injury with possible underlying chronic kidney disease. 3. History of multiple myeloma. 4. Rule out underlying chronic myeloma kidney. 5 sepsis 6 pneumonia 7. Anemia of chronic disease, 8. Hyperkalemia Problems: Additional Assessment/Plan 1. terminal extubation planned tomorrow 2. Hyperkalemia resolved Consultation Date/Type/Reason Admit Date/Time Jan 30, 2017 at 11:41 Initial Consult Date 01/30/2017 Type of Consultation: nephrology Reason for Consultation dr Hudson Referring Provider: HANY LAWSON 24 HR Interval Summary Subjective hx not possible: pt non-verbal Exam/Review of Systems Vital Signs Vitals Vital Signs Date Time Temp Pulse Resp B/P Pulse Ox O2 Delivery O2 Flow Rate FiO2 02/09/17 13:30 87 19 100 02/09/17 13:15 81/38 02/09/17 13:00 Mechanical Ventilator 02/09/17 12:00 98.3 02/09/17 12:00 70 Intake and Output 02/08/17 02/08/17 02/09/17 15:00 23:00 07:00 Intake Total 1030 ml 810 ml 560 ml Output Total 140 ml 195 ml Balance 890 ml 615 ml 560 ml Exam Constitutional: other (nonresponsive) Head: normocephalic Respiratory: diminished breath sounds Cardiovascular: regular rate and rhythm Results Result Diagram: 02/09/17 0455 02/09/17 0455 Results 24 hrs Laboratory Tests Test 02/09/17 04:55 02/09/17 05:18 White Blood Count 20.8 H Red Blood Count 2.45 #L Hemoglobin 7.6 #L Hematocrit 22.5 #L Mean Corpuscular Volume 91.8 Mean Corpuscular Hemoglobin 31.0 Mean Corpuscular Hemoglobin Concent 33.8 Red Cell Distribution Width 16.3 H Platelet Count 15 #*L Mean Platelet Volume Neutrophils % 89.3 H Lymphocytes % 4.6 L Monocytes % 3.4 Eosinophils % 0.1 Basophils % 0.1 Nucleated Red Blood Cells % 4.7 H Neutrophils # 18.6 H Lymphocytes # 1.0 Monocytes # 0.7 Eosinophils # 0.0 Basophils # 0.0 Nucleated Red Blood Cells # 1.0 H Sodium Level 141 Potassium Level 6.2 *H Chloride Level 110 Carbon Dioxide Level 20 L Anion Gap 17 H Blood Urea Nitrogen 107 H Creatinine 2.50 H Glucose Level 135 Calcium Level 7.2 L Lab Scanned Report BLOOD TRANSFUSION Medications Medications Current Medications Morphine Sulfate (morphine) 2 mg Q4H PRN IV SEVERE PAIN LEVEL 7-10; Start 01/29 at 16:30 Acetaminophen 650 mg 650 mg Q6H PRN [place] FEVER Last administered on 02/06/17 16: 58; Admin Dose 650 MG; Start 01/30/17 at 21:00 Midazolam HCl (Versed) 50 ml @ 1 mls/hr TITRATE IV ; Start 01/30/17 at 23:55 Lorazepam 2 mg 2 mg Q4 PRN IV SEIZURES Last administered on 02/06/17 16:58; Admin Dose 2 MG; Start 02/05/17 at 17:04 Phenylephrine HCl/ Dextrose (Bert-Syneph/D5W) 500 ml @ 75 mls/hr TITRATE IV ; Start 02/06/17 at 15:30 Divalproex Sodium 500 mg 500 mg TID GTB Last administered on 02/09/17 10:33; Admin Dose 500 MG; Start 02/09/17 at 09:00 Norepinephrine 250 ml @ 1.875 mls/ hr TITRATE IV ; Start 02/09/17 at 09:30 Norepinephrine 16 mg/Dextrose 500 ml @ 1.875 mls/ hr TITRATE IV ; Start at 10:30 Levetiracetam (Keppra 1,500mg/ 100ml (Pmx)) 100 ml @ 400 mls/hr Q12 IVPB ; Start 02/09/17 at 21:00 KARIN MALIK February 09, 2017 15:18
[2017-02-09] MEDS ORDERED: LEVETIRACETAM 1500 MG (PMX) 100 ML IVPB SCH (21:00)
[2017-02-09] MEDS ORDERED: VORICONAZOLE 200 MG TAB PO SCH (21:00)
[2017-02-10] VITALS (22 sets, daily range): BP systolic 40–106; BP diastolic 30–79; PULSE 0–88; RESP 0–29
[2017-02-10] MEDS ORDERED: NORepinephrine 8MG/250 ML (PMX 250 ML ONE (04:56)
[2017-02-10] MEDS ORDERED: morphine (DRIP) 100 MG/100 ML 100 ML IV SCH (08:00)
--- NOTE | 2017-02-10 10:12 | PN ---
Date/Time of Note Date/Time of Note DATE: 02/10/17 TIME: 10:09 Assessment/Plan VTE Prophylaxis VTE Prophylaxis Intervention: SCD's Lines/Catheters IV Catheter Type (from Nrsg): Central Line Central line still needed: Yes (iv access ) Urinary Cath still in place: Yes Reason Cath still needed: terminal illness/intractable pain Assessment/Plan Assessment/Plan 1. S/p Cardiac arrest likely 2/2 severe sepsis from PNA-s/p hypothermia protocol 2. Severe shock with lactic acidosis secondary to cardiogenic/sepsis source 3. Acute kidney injury, likely secondary to underlying septic shock as well as cardiac arrest- urine output dropping , BUN/Cr rising 4. Multifocal pneumonia 6. Anoxic Encephalopathy Terminally extubated today am and she around 923 am today Pronounced by RN accountant supervisor Family was at bedside Subjective 24 Hr Interval Summary Free Text/Dictation pt was terminally extubated and she passed today around 9.23, pronounced by RN accountant supervisor Exam/Review of Systems Vital Signs Vitals Vital Signs Date Time Temp Pulse Resp B/P Pulse Ox O2 Delivery O2 Flow Rate FiO2 02/10/17 08:45 0 0 02/10/17 08:38 Nasal Cannula 2.0 02/10/17 08:30 87/53 02/10/17 08:00 100 02/10/17 08:00 80 02/10/17 04:00 96.8 Intake and Output 02/09/17 02/09/17 02/10/17 15:00 23:00 07:00 Intake Total 837.5 ml 180 ml 22.500 ml Output Total 40 ml 785 ml 240 ml Balance 797.5 ml -605 ml -217.500 ml Exam terminally extubated on high flow oxygen Results Result Diagram: 02/09/17 0455 02/09/17 0455 Medications Medications Current Medications Morphine Sulfate/ Sodium Chloride (morphine) 100 ml @ 1 mls/hr TITRATE IV Last administered on 02/10/17t 08:11; Admin Dose 1 MLS/HR; Start 02/10/17 at 08:00 BAILEY GRAVES MD February 10, 2017 10:12
--- NOTE | 2017-02-11 23:24 | DS ---
DATE OF ADMISSION: 01/30/2017 DATE OF DISCHARGE: 02/10/2017 FINAL DISCHARGE DIAGNOSES: 1. Status post cardiac arrest, likely secondary to septic shock from pneumonia. 1. Septic shock with lactic acidosis secondary to pneumonia. 2. Cardiogenic shock from cardiac arrest. 3. Acute kidney injury secondary to acute tubular necrosis from septic shock. 4. Multifocal pneumonia. 5. Possible anoxic encephalopathy from cardiac arrest. FINAL DIAGNOSES: 1. Cardiorespiratory arrest. 2. Septic shock. 3. Pneumonia. HOSPITAL COURSE: This is a 66-year-old female who has a past medical history of open reduction and internal fixation of left hip in 2012, hypertension who presented with a complaint of a cough, short ness of breath, and has been having a fever. The patient was admitted for acute respiratory failure secondary to multifocal pneumonia. She was in septic shock. The patient had a cardiac arrest. Sh austin was resuscitated from a cardiac arrest, but the patient went into acute respiratory failure, remai hillary intubated for a few days. She was not able to come off of the ventilator. The patient was eval uated by multiple subspecialists, including infectious disease service, palliative care service, and cardiology service. The patient continues to remain intubated and on ventilator. She was not able to be extubated, so after having a family discussion with the patient's family, they recommended to have EEG and other workup for her ____. The patient had a neurology consultation and EEG done. EE G and MRA were done, which were consistent with hypoxic encephalopathy. The patient's family has be en counseled multiple times by the palliative care physician, Dr. Church, and then they decided to have comfort care and terminal extubation. The patient was terminally extubated on 02/10/2017 and she on 02/10/2017. The patient's family was at bedside when the patient . Anna massey had been contacted by the line haul truck driver service and the patient peacefully in a comfort s ituation. DISPOSITION: Please note that the patient during this hospitalization. The patient's f niyay has been informed about the patient's . [employer] service was contacted and social servic e has been provided by a older adult social work specialist survey operations director. Dictated By: BAILEY GRAVES MD, KP/ZANA Conf#: [id number] DID#: [id number] CC: TRUDI SAPP MD;*[facility]*
== END 2017-02-10 11:27 | disposition expired | DRG 870 ==
LOC: E/R 10:43 → ICU 01-30 11:41
PROVIDERS: ADMIT Family Medicine; ATTEND Family Medicine
PROC: 5A1955Z Respiratory Ventilation, Greater than 96 Consecutive Hours (ICD-10-PCS; principal; 2017-01-30)
PROC: 0BH17EZ Insertion of Endotracheal Airway into Trachea, Via Natural or Artificial Opening (ICD-10-PCS; 2017-01-30)
PROC: 05H633Z Insertion of Infusion Device into Left Subclavian Vein, Percutaneous Approach (ICD-10-PCS; 2017-01-30)
DX: A41.9 Sepsis, unspecified organism (principal); N17.0 Acute kidney failure with tubular necrosis; I46.9 Cardiac arrest, cause unspecified; R65.21 Severe sepsis with septic shock; J18.9 Pneumonia, unspecified organism; K85.90 Acute pancreatitis without necrosis or infection, unspecified; J96.01 Acute respiratory failure with hypoxia; J96.02 Acute respiratory failure with hypercapnia; G93.1 Anoxic brain damage, not elsewhere classified; E87.2 Acidosis; C90.00 Multiple myeloma not having achieved remission; N39.0 Urinary tract infection, site not specified; E87.6 Hypokalemia; I10 Essential (primary) hypertension; E83.39 Other disorders of phosphorus metabolism; I48.91 Unspecified atrial fibrillation; E87.5 Hyperkalemia; E83.42 Hypomagnesemia; G25.3 Myoclonus; Z66 Do not resuscitate
CPT/HCPCS: 31500; 36415; 36430; 36600; 70450; 70551; 71010; 71275; 76705; 80048; 80053; 80061; 80202; 81001; 81003; 82150; 82550; 82553; 82570; 82803; 82962; 83036; 83605; 83690; 83735; 84100; 84155; 84300; 84484; 84560; 85025; 85384; 85610; 85730; 86644; 86850; 86900; 86901; 86920; 87040; 87075; 87081; 87086; 92950; 93005; 93306; 94002; 94003; 94640; 94770; 96361; 96365; 96366; 96367; 96368; 96375; 96376; J1940; C9113; J0171; J0282; J0610; J0692; J0696; J1170; J1815; J1953; J1956; J2060; J2270; J2543; J2765; J2930; J2997; J3370; J3475; J3480; J7030; J7040; J7042; J7060; P9016; P9035; P9047; Q9967